=== PATIENT | female | born 1935 | race Caucasian/White ===

== ENCOUNTER 2016-06-17 21:39 | Emergency (ER) | payer BC ==
[~2016-06-17] VITALS: Ht 149.9 cm; Wt 68.0 kg
[~2016-06-17 21:39] MED LIST: LABE200T24 PO; LOSA50TA6 PO; LSX20 PO
[2016-06-17 21:41] VITALS: Ht 149.9 cm; Wt 68.0 kg
[2016-06-17] MEDS ORDERED: LSX20 PO (22:36)
[2016-06-17] MEDS ORDERED: LABE1TAB28 PO (22:36)
[2016-06-17] MEDS ORDERED: CHOL100010 PO (22:36)
[2016-06-17] MEDS ORDERED: KRIL1000 PO (22:36)
[2016-06-17] MEDS ORDERED: MULTTAB PO (22:36)
[2016-06-17] MEDS ORDERED: NAPR1TAB9 PO (22:36)
[2016-06-17] MEDS ORDERED: CZR50 PO (22:36)
--- NOTE | 2016-06-17 22:53 | DIAGNOSTIC IMAGING REPORT ---
RIGHT WRIST MIN 3 VIEWS ROUTINE CLINICAL HISTORY: Right wrist injury with deformity. COMPARISON: None FINDINGS: There is a comminuted, displaced distal right radial fracture which is impacted. Intra-articular extension is noted. No significant angulation is present. There is also a mildly displaced fracture of the base of the ulnar styloid. Severe arthritis of the right first carpometacarpal joint is noted. Scaphoid appears intact. Associated soft tissue swelling is present. IMPRESSION: 1. Acute comminuted, displaced and impacted distal right radial fracture with intra-articular extension. No significant angulation. 2. Minimally displaced fracture of the base of the ulnar styloid. Electronically signed by: Lane Butts M.D. 06/17/2016 10:52 PM Dictated Date/Time: 06/17/2016 10:50 PM
--- NOTE | 2016-06-17 22:56 | EMERGENCY ROOM VISIT NOTE ---
ED Visit Note First contact with patient: 22:06 I have personally seen and evaluated the patient with the physician teacher assistant. I agree with the diagnostic/management decisions and have personally been involved in these decisions and agree with the diagnosis.
[2016-06-17 23:21] VITALS: BP 207/99; PULSE 99; TEMP 36.5; O2SAT 95
--- NOTE | 2016-06-17 23:25 | EMERGENCY ROOM VISIT NOTE ---
History First contact with patient: 22:06 Chief Complaint: WRIST PAIN Stated Complaint: RT WRIST INJURY History of Present Illness The patient is a 80 year old female who presents to the Emergency Room with complaints of a right wrist injury after falling in her bathtub/shower tonight. The patient denies any other injury except for her right wrist. She rates her discomfort a 6 out of 10. The patient is [id number]. Review of Systems 10 system review was performed and was negative except for pertinent positives and negatives as indicated in history of present illness Past Medical/Surgical History Medical Problems: (1) Hemorrhoids Nos (2) Hyperhidrosis (3) Hyperlipidemia Nec/Nos (4) Hypertension (5) Osteoporosis Nos (6) Spinal Stenosis, Lumbar Reg, W/Out Neurogenic Claudication Surgical Problems: (1) History of cataract surgery Family History Unremarkable Social History Smoking Status: Never Smoker Alcohol Use: none Marital Status: Housing Status: lives with significant other Occupation Status: retired Current/Historical Medications Scheduled Cholecalciferol (Vitamin D), 1 TAB PO DAILY Furosemide (Furosemide), 20 MG PO DAILY Krill Oil (Krill Oil), 1 CAP PO DAILY Labetalol (Normodyne), 400 MG PO BID Losartan Potassium (Losartan Potassium), 50 MG PO BID Multivitamins/Minerals (Mvi With Minerals), 1 TAB PO DAILY Naproxen (Aleve), 220 MG PO DAILY Allergies Coded Allergies: Codeine (Verified Allergy, Unknown, UNKNOWN, 03/15/15) Penicillins (Verified Allergy, Unknown, itchy hives, 03/15/15) Sulfa Drugs (Verified Allergy, Unknown, night sweats, 03/15/15) Diazepam (Verified Adverse Reaction, Unknown, slept mostly 2 days, ) Physical Exam Vital Signs Date Time Temp Pulse Resp B/P Pulse Ox O2 Delivery O2 Flow Rate FiO2 06/17/16 23:21 36.5 99 18 207/99 95 06/17/16 21:41 36.5 63 18 165/81 95 Room Air Physical Exam CONSTITUTIONAL: Healthy and well nourished. Alert and oriented X 3 with positive affect. Patient does not appear in any significant distress. HEENT: Normocephalic, atraumatic. Pupils equal, round and reactive. NECK: Full active range of motion without discomfort. RESPIRATORY: Clear to auscultation bilaterally with no wheezing, crackles, rhonchi or stridor. CARDIOVASCULAR: Regular rate and rhythm with no murmurs, rubs or gallops. MUSCULOSKELETAL: Examination shows edema and ecchymosis about the right wrist. No open wounds noted. The patient is tender over the distal radius and ulna. No tenderness to palpation through the metacarpals or phalanges. No tenderness to palpation of the forearm or elbow. Capillary refill is less than 2 seconds. INTEGUMENTARY: No rash or other significant dermatologic conditions noted. NEUROLOGIC: Right hand and fingers are sensory intact. Medical Decision & Procedures ER Provider Diagnostic Interpretation: My interpretation of right wrist x-ray shows an impacted, comminuted and intra- articular fracture of the distal radius. The patient also has an ulnar styloid fracture. There is no significant angulation, and radiocarpal alignment is obtained. Radiologist report is as follows: RIGHT WRIST MIN 3 VIEWS ROUTINE CLINICAL HISTORY: Right wrist injury with deformity. COMPARISON: None FINDINGS: There is a comminuted, displaced distal right radial fracture which is impacted. Intra-articular extension is noted. No significant angulation is present. There is also a mildly displaced fracture of the base of the ulnar styloid. Severe arthritis of the right first carpometacarpal joint is noted. Scaphoid appears intact. Associated soft tissue swelling is present. IMPRESSION: 1. Acute comminuted, displaced and impacted distal right radial fracture with intra-articular extension. No significant angulation. 2. Minimally displaced fracture of the base of the ulnar styloid. ED Course Patient history and physical exam were performed. Nurse's notes were reviewed. The patient refused any analgesics while in the emergency department. X-rays of the right wrist confirms a distal radius and ulnar styloid fracture. The patient maintains recent alignment. An Ortho-Glass volar splint was applied. Neurovascular check after splint placement was normal. The family was instructed to follow-up with [facility] for further reevaluation and management. Ice and elevation for swelling. Ibuprofen and Tylenol in alternating fashion as needed for additional pain relief. The daughter reports that the patient does not tolerate opioids or non-opioid analgesics well. The patient refused any analgesics prior to discharge, and rated her discomfort a 3 out of 10. The patient was also seen and examined by Dr. Eckert, ED attending physician, who agrees with workup and plan of care. At the time of discharge, it was also noted that the patient's blood pressure was elevated. The patient has a history of hypertension. She reports that she also has white coat syndrome. The patient was encouraged to keep a blood pressure journal twice daily over the next several days, and follow up with her PCP for blood pressure rechecks. Impression Primary Impression: Fracture of right distal radius Additional Impressions: Fracture of right ulnar styloid Hypertension Departure Information Dispostion Home / Self-Care Forms HOME CARE DOCUMENTATION FORM, IMPORTANT VISIT INFORMATION Patient Instructions My [facility] Additional Instructions Ice and elevate arm for swelling and pain. Ibuprofen 600 mg and/or Tylenol 1000 mg every 8 hours. You may also alternate these medications for more effective pain relief: Ibuprofen --4 HRS--> Tylenol --4 HRS--> ibuprofen --4 HRS--> Tylenol .... Ibuprofen 600 mg and Tylenol 1000 mg every 6 hrs for pain. Keep splint dry. Follow-up with [facility] for further evaluation and treatment - call tomorrow morning for appointment. Your blood pressure was also elevated in the emergency department. Follow-up with your family doctor for further recheck. Suggest keeping a blood pressure journal twice daily for review by your family doctor. Problem Qualifiers Primary Impression: Fracture of right distal radius Encounter type: initial encounter Fracture type: closed Fracture morphology : other fracture Qualified Codes: S52.591A - Other fractures of lower end of right radius, initial encounter for closed fracture Additional Impressions: Fracture of right ulnar styloid Encounter type: initial encounter Fracture type: closed Fracture alignment : nondisplaced Qualified Codes: S52.614A - Nondisplaced fracture of right ulna styloid process, initial encounter for closed fracture
== END 2016-06-17 23:21 | disposition home or self-care (01) ==
LOC: C.EDB 21:40 → C.EDC 23:21
DX: S52.591A Other fractures of lower end of right radius, initial encounter for closed fracture (principal); S52.614A Nondisplaced fracture of right ulna styloid process, initial encounter for closed fracture; I10 Essential (primary) hypertension; W18.2XXA Fall in (into) shower or empty bathtub, initial encounter; E78.5 Hyperlipidemia, unspecified; M81.0 Age-related osteoporosis without current pathological fracture

== ENCOUNTER → 2016-09-15 | Outpatient (CLI) | payer BC ==
[~2016-09-15] MED LIST changes: +CHOL100010 PO; +CZR50 PO; +KRIL1000 PO; +LABE1TAB28 PO; -LABE200T24 PO; -LOSA50TA6 PO; +MULTTAB PO; +NAPR1TAB9 PO
[2016-09-15 14:13] LABS: ESTIMATED AVERAGE GLUCOSE 108 mg/dl; HA1C FLAG Normal (Normal)
[2016-09-15 14:22] LABS: BLOOD UREA NITROGEN 29 mg/dl (7-18); BUN/CREATININE RATIO 20.7 (10-20); CALCIUM 10.2 mg/dl (8.5-10.1); CARBON DIOXIDE 24 mmol/L (21-32); CHLORIDE 111 mmol/L (98-107); CHOLESTEROL 167 mg/dl (0-200); GLUCOSE 100 mg/dl (70-99); POTASSIUM 4.3 mmol/L (3.5-5.1); SODIUM 143 mmol/L (136-145); TRIGLYCERIDES 68 mg/dl (0-150); VERY LOW DENSITY LIPOPROT CALC 14 mg/dl
[2016-09-15 14:29] LABS: CHOLESTEROL/HDL RATIO 3.3; HDL CHOLESTEROL 50 mg/dl
== END ==
LOC: C.LABSPEC 12:28
PROVIDERS: ATTEND Internal Medicine
DX: E78.5 Hyperlipidemia, unspecified (principal); I10 Essential (primary) hypertension; R73.9 Hyperglycemia, unspecified

== ENCOUNTER → 2016-11-17 | Outpatient (CLI) | payer BC | END | disposition home or self-care (01) | LOC: C.MAMM 09:56 | PROVIDERS: ATTEND Internal Medicine | DX: M81.0 Age-related osteoporosis without current pathological fracture (principal); M85.859 Other specified disorders of bone density and structure, unspecified thigh; Z87.828 Personal history of other (healed) physical injury and trauma; Z12.31 Encounter for screening mammogram for malignant neoplasm of breast ==

== ENCOUNTER → 2016-11-17 | Outpatient (CLI) | payer BC ==
--- NOTE | 2016-11-17 13:09 | MAMMOGRAPHY REPORT ---
BILATERAL DIGITAL SCREENING MAMMOGRAM WITH CAD: 11/17/2016 CLINICAL HISTORY: Routine screening. Patient has no complaints. TECHNIQUE: Bilateral CC and MLO views were obtained. Current study was also evaluated with a Compute r Aided Detection (CAD) system. COMPARISON: Comparison is made to exams dated: 11/15/2015 mammogram, 11/12/2014 mammogram, 11/10/2013 m ammogram, 11/09/2012 mammogram, 11/09/2011 mammogram, and 11/04/2010 mammogram - [facility] enter. BREAST COMPOSITION: The tissue of both breasts is almost entirely fatty. FINDINGS: There are stable benign rim calcifications in the left breast. Mild vascular calcification bilaterally. No suspicious mass, architectural distortion or cluster of suspicious microcalcificati ons is seen. IMPRESSION: ACR BI-RADS CATEGORY 1: NEGATIVE There is no mammographic evidence of malignancy. A 1 year screening mammogram is recommended. The pa tient will receive written notification of the results. Approximately 10% of breast cancers are not detected with mammography. A negative mammographic report should not delay biopsy if a clinically suggestive mass is present. Fern Farley M.D. ay/:11/17/2016 12:06:33 Varnish Melter: Sarah RAMSEY(R)(Patience)(BD), [facility] letter sent: Normal 1/2 BI-RADS Code: ACR BI-RADS Category 1: Negative
== END | disposition home or self-care (01) ==
LOC: C.MAMM 09:53
PROVIDERS: ATTEND Internal Medicine
DX: Z12.31 Encounter for screening mammogram for malignant neoplasm of breast (principal)

== ENCOUNTER → 2017-03-16 | Outpatient (CLI) | payer BC ==
[2017-03-16 13:53] LABS: ESTIMATED AVERAGE GLUCOSE 108 mg/dl; HA1C FLAG Normal (Normal)
[2017-03-16 13:58] LABS: BLOOD UREA NITROGEN 28 mg/dl (7-18); BUN/CREATININE RATIO 21.5 (10-20); CARBON DIOXIDE 25 mmol/L (21-32); CHLORIDE 108 mmol/L (98-107); CHOLESTEROL 181 mg/dl (0-200); GLUCOSE 95 mg/dl (70-99); POTASSIUM 4.3 mmol/L (3.5-5.1); SODIUM 141 mmol/L (136-145)
[2017-03-16 14:01] LABS: CHOLESTEROL/HDL RATIO 3.4; HDL CHOLESTEROL 53 mg/dl; TRIGLYCERIDES 82 mg/dl (0-150); VERY LOW DENSITY LIPOPROT CALC 16 mg/dl
== END | disposition home or self-care (01) ==
LOC: C.LABSPEC 12:05
PROVIDERS: ATTEND Internal Medicine
DX: R73.9 Hyperglycemia, unspecified (principal); I10 Essential (primary) hypertension; E78.5 Hyperlipidemia, unspecified

== ENCOUNTER → 2017-05-27 | Outpatient (CLI) | payer BC | END | disposition home or self-care (01) | LOC: C.LAB 14:04 | PROVIDERS: ATTEND Orthopaedic Surgery Sports Medicine | DX: S52.591A Other fractures of lower end of right radius, initial encounter for closed fracture (principal); X58.XXXA Exposure to other specified factors, initial encounter ==

== ENCOUNTER 2017-08-08 13:50 | Emergency (ER) | payer BC ==
[~2017-08-08] VITALS: Ht 149.9 cm; Wt 62.0 kg
[2017-08-08 13:57] VITALS: TEMP 36.7; Ht 149.9 cm; Wt 62.0 kg
--- NOTE | 2017-08-08 14:18 | EMERGENCY ROOM VISIT NOTE ---
History Report prepared by Nathalia: Rosie Aguero Under the Supervision of: Dr. Tanner Loza M.D. First contact with patient: 14:05 Chief Complaint: LEG PAIN,LEG INJURY Stated Complaint: REDNESS,SWELLING,PAIN LEFT LEG History of Present Illness The patient is a 81 year old female who presents to the Emergency Room with complaints of persistent left knee pain that started 1 week ago. The patient rates her pain a 5/10 in severity. The patient is scheduled to have meniscus repair on Wednesday with Dr. Sanches. She states she had a MRI 2 weeks ago because she had worsened pain in her left knee. The patient denies any recent injuries. Last week, she was walking to the bathroom and felt something in her knee "slip". She notes the pain in her left knee radiates down to her left foot when she puts pressure on it. The patient reports she went to see the PA in Dr. Sanches' office 3 days ago. They did not do any imagining on her knee. The patient states she is normally able to walk fairly easily but recently she has been unable to put pressure on it or walk. She notes the pain is not there when she is sitting or laying down. The patient used to use a knee brace but she notes it hurts to put the bandage on. The patient denies any fever, chills, cough, congestion, or diarrhea. Source of History: patient Onset: 1 week ago Position: knee (left) Symptom Intensity: 5/10 Timing: other (persistent) Associated Symptoms: No fevers, No chills, No cough, No diarrhea Note: Denies congestion. Review of Systems See HPI for pertinent positives and negatives. A total of ten systems were reviewed and were otherwise negative. Past Medical & Surgical Medical Problems: (1) Hemorrhoids Nos (2) Hyperhidrosis (3) Hyperlipidemia Nec/Nos (4) Hypertension (5) Osteoporosis Nos (6) Spinal Stenosis, Lumbar Reg, W/Out Neurogenic Claudication Surgical Problems: (1) History of cataract surgery Family History FH: diabetes mellitus FH: gallbladder disease FHx: heart disease FHx: hypertension Social History Smoking Status: Never Smoker Alcohol Use: none Marital Status: Housing Status: lives with significant other Occupation Status: retired Current/Historical Medications Scheduled Cholecalciferol (Vitamin D), 1 TAB PO DAILY Furosemide (Furosemide), 20 MG PO DAILY Krill Oil (Krill Oil), 1 CAP PO DAILY Labetalol (Normodyne), 400 MG PO BID Losartan Potassium (Losartan Potassium), 50 MG PO DAILY Losartan Potassium (Cozaar), 25 MG PO HS Allergies Coded Allergies: Codeine (Verified Allergy, Unknown, UNKNOWN, 08/08/17) Penicillins (Verified Allergy, Unknown, itchy hives, 08/08/17) Sulfa Drugs (Verified Allergy, Unknown, night sweats, 08/08/17) Diazepam (Verified Adverse Reaction, Unknown, slept mostly 2 days, 08/08/17 ) Physical Exam Vital Signs Date Time Temp Pulse Resp B/P (MAP) Pulse Ox O2 Delivery O2 Flow Rate FiO2 08/08/17 17:33 63 18 95 08/08/17 16:06 61 18 82 96 Room Air 08/08/17 13:57 36.7 67 18 201/87 97 Room Air Physical Exam GENERAL: Awake, alert, well-appearing, in no distress HENT: Normocephalic, atraumatic. Oropharynx unremarkable. EYES: Normal conjunctiva. Sclera non-icteric. NECK: Supple. No nuchal rigidity. FROM. No JVD. RESPIRATORY: Clear to auscultation. CARDIAC: Regular rate, normal rhythm. Extremities warm and well perfused. Pulses equal. ABDOMEN: Soft, non-distended. No tenderness to palpation. No rebound or guarding. No masses. RECTAL: Deferred. MUSCULOSKELETAL: Chest examination reveals no tenderness. The back is symmetrical on inspection without obvious abnormality. There is no CVA tenderness to palpation. No joint edema. LOWER EXTREMITIES: Mild swelling to left leg distal to knee, nontender, mild pain with range of motion. Distal PMS intact. NEURO: Normal sensorium. No sensory or motor deficits noted. SKIN: No rash or jaundice noted. Medical Decision & Procedures ER Provider Diagnostic Interpretation: Radiology results as stated below per my review and radiologist interpretation: L VENOUS DOPP LOWER EXT UNILAT CLINICAL HISTORY: pain swelling pain. Edema. TECHNIQUE: Venous Doppler COMPARISON STUDY: None FINDINGS: Normal study IMPRESSION: Normal venous Doppler left leg The above report was generated using voice recognition software. It may contain grammatical, syntax or spelling errors. Electronically signed by: Jc Rao M.D. 08/08/2017 3:21 PM Dictated Date/Time: 08/08/2017 3:21 PM ED Course 1405: The patient was evaluated in room B9. A complete history and physical exam was performed. 1725: I reevaluated the patient. Discussed results and discharge instructions: She verbalized understanding and agreement. The patient is ready for discharge. Medical Decision I reviewed the patient's past medical history, medications, and the nursing notes as described above. The patient's presentation and history were concerning for meniscal injury, fracture, dislocation, DVT, cellulitis, lymphedema. The patient is an 81-year-old woman with a past medical history of recent left knee injury meniscal injury on MRI scheduled surgery Wednesday per hpi. The patient and her daughter at the bedside state they are concerned for a blood clot given that she has been more immobile since her injury. On arrival, the patient is well-appearing in no acute distress. On exam, the patient has mild swelling to the left knee extending distally to the lower leg. Distal PMS intact. Duplex of the left lower extremity negative for DVT. Given the patient 's recent meniscal injury swelling is most likely related to dispersion of her edema, particularly given that the patient reports she has not been elevating her leg when sedentary. Patient was counseled on rice therapy is given Nima bandages to use going forward. Findings and plan for follow-up reviewed with patient. Patient agreeable and d/c'd per discharge instructions. Medication Reconcilliation Current Medication List: was personally reviewed by me Blood Pressure Screening Patient's blood pressure: Elevated blood pressure Blood pressure disposition: Elevated BP felt to be situational Impression Primary Impression: Knee pain Additional Impression: Leg swelling Scribe Attestation The scribe's documentation has been prepared under my direction and personally reviewed by me in its entirety. I confirm that the note above accurately reflects all work, treatment, procedures, and medical decision making performed by me. Departure Information Dispostion Home / Self-Care Referrals Easton Brady M.D. (PCP) Patient Instructions ED Meniscal Injury Knee Poss, ED ALAN, [facility] Additional Instructions Please follow up with your surgeon as scheduled this week for re-evaluation. Your symptoms are likely due to your meniscus injury. Otherwise, your exam and ultrasound did not show signs of an emergent condition at this time. Acetaminophen for pain and fevers as needed. Nima bandage for compression to minimize swelling. Elevate leg when possible. RICE therapy. Return to the emergency department for worsening symptoms as described in the accompanying instructions. Problem Qualifiers
[2017-08-08] MEDS ORDERED: LOSA50TA6 PO (14:56)
--- NOTE | 2017-08-08 15:22 | DIAGNOSTIC IMAGING REPORT ---
L VENOUS DOPP LOWER EXT UNILAT CLINICAL HISTORY: pain swelling pain. Edema. TECHNIQUE: Venous Doppler COMPARISON STUDY: None FINDINGS: Normal study IMPRESSION: Normal venous Doppler left leg The above report was generated using voice recognition software. It may contain grammatical, syntax or spelling errors. Electronically signed by: Jc Rao M.D. 08/08/2017 3:21 PM Dictated Date/Time: 08/08/2017 3:21 PM
[2017-08-08 17:33] VITALS: BP 208/87; PULSE 63; O2SAT 95
== END 2017-08-08 17:34 | disposition home or self-care (01) ==
LOC: C.EDB 13:51
DX: M25.562 Pain in left knee (principal); M79.89 Other specified soft tissue disorders; E78.5 Hyperlipidemia, unspecified; I10 Essential (primary) hypertension; M81.0 Age-related osteoporosis without current pathological fracture

== ENCOUNTER → 2017-08-23 | Outpatient (CLI) | payer BC ==
[~2017-08-23] MED LIST changes: +LOSA50TA6 PO; -MULTTAB PO; -NAPR1TAB9 PO
--- NOTE | 2017-08-23 14:02 | DIAGNOSTIC IMAGING REPORT ---
ULTRASOUND VENOUS DOPP LEFT LOWER EXT UNILAT CLINICAL HISTORY: Left lower extremity pain and swelling COMPARISON STUDY: No previous studies for comparison. FINDINGS: Real-time and color flow Doppler imaging were performed. Flow was seen within the femoral, popliteal and calf veins with no intraluminal thrombus demonstrated. The saphenous vein is patent. There is small popliteal fossa cyst/effusion. IMPRESSION: No evidence of left lower extremity DVT. Electronically signed by: Poli Otero M.D. 08/23/2017 2:00 PM Dictated Date/Time: 08/23/2017 1:59 PM
== END | disposition home or self-care (01) ==
LOC: C.ULTRBC 13:09
PROVIDERS: ATTEND Physician Assistant
DX: M79.662 Pain in left lower leg (principal)

== ENCOUNTER → 2017-11-18 | Outpatient (CLI) | payer BC ==
--- NOTE | 2017-11-18 14:55 | MAMMOGRAPHY REPORT ---
BILATERAL DIGITAL SCREENING MAMMOGRAM TOMOSYNTHESIS WITH CAD: 11/18/2017 CLINICAL HISTORY: Routine screening. Patient has no complaints. TECHNIQUE: The study was acquired using full field digital technology and interpreted from soft copy. Breast tomosynthesis in addition to standard 2D mammography was performed. Current study was also ev aluated with a Computer Aided Detection (CAD) system. COMPARISON: Comparison is made to exams dated: 11/17/2016 mammogram, 11/15/2015 mammogram, 11/12/2014 ma mmogram, 11/09/2012 mammogram, 11/09/2011 mammogram, and 10/29/2009 mammogram - [facility]ter. BREAST COMPOSITION: The tissue of both breasts is almost entirely fatty. FINDINGS: No suspicious masses, calcifications, or areas of architectural distortion are noted in either breast . There has been no significant interval change compared to prior exams. Scattered bilateral benign-a ppearing calcifications are not significantly changed. IMPRESSION: ACR BI-RADS CATEGORY 2: BENIGN There is no mammographic evidence of malignancy. A 1 year screening mammogram is recommended.( 019) The patient will receive written notification of the results. Some breast cancers are not detected with mammography. A negative mammographic report should not vivian y biopsy if a clinically suggestive mass is present. Dorinda Singletary M.D. /:11/18/2017 14:37:00 [employer] Swimming Pool Installer: Karol Mackenzei, [facility] letter sent: Normal 1/2 BI-RADS Code: ACR BI-RADS Category 2: Benign
== END | disposition home or self-care (01) ==
LOC: C.MAMM 11:06
PROVIDERS: ATTEND Internal Medicine
DX: Z12.31 Encounter for screening mammogram for malignant neoplasm of breast (principal)

== ENCOUNTER 2018-08-23 04:56 | Inpatient (IN) ==
--- NOTE | 2018-07-25 12:43 | Anesthesiology Consultation ---
Date of Service July 25, 2018 Assessment & Plan (1) Encounter for pre-operative examination: PCP: 08/04/18: "As far as from a ECG standpoint she is completely asymptomatic from a cardiac standpoint." no changes compared to prior ECGs. "She does have CKD. She does have chronic anemia. But her numbers are in a good range at this time and I see no contraindication for her anticipated procedure." Chart Review Chart Review: Acceptable Risk for Surgery and Patient seen in Pre Admission Testing Teaching & Discussion Pre-Anesthesia Teaching/Discussion Notes: Instructed NPO after midnight before surgery,except medications with 15 cc of water. Medication instructions provided according to the PAT guidelines. History Surgery Operation Date: 08/23/18 10:40 Proposed Procedures p Left Total Knee Replacement versus Unilateral Knee - Blaine Hammond MD Height/Weight Height: 4 ft 11 in Weight: 59.4 kg Allergies Allergy/AdvReac Type Severity Reaction Status Date / Time codeine Allergy Unknown PT NOT SURE Verified 07/20/18 13:26 diazepam Allergy Unknown PT NOT SURE Verified 07/20/18 13:27 Penicillins Allergy Unknown itchy, Verified 07/20/18 13:26 hives Sulfa (Sulfonamide Allergy Unknown PT DOES Verified 07/20/18 13:26 Antibiotics) NOT REMEMBER Medications Home Medications Medication Instructions Recorded Confirmed Last Taken acetaminophen [Tylenol Extra 1,000 mg PO Q6H PRN 06/17/18 07/20/18 06/16/18 21:00 Strength] calcium carbonate-vitamin D3 1 tab PO QAM 06/17/18 07/20/18 06/16/18 [Caltrate 600 + D] cholecalciferol (vitamin D3) 1,000 unit PO QAM 06/17/18 07/20/18 06/17/18 [Vitamin D3] furosemide 20 mg PO QAM 06/17/18 07/20/18 07/20/18 labetalol 200 mg PO BID 06/17/18 07/20/18 07/20/18 losartan 25 mg PO BID 06/17/18 07/20/18 07/20/18 Turney Red 1 tab PO QAM 07/20/18 07/20/18 Unknown Prevagen 1 dose PO DAILY 07/20/18 07/20/18 Unknown glucosamine-chondroitin [Osteo 1 tab PO BID 07/20/18 07/20/18 Unknown Bi-Flex] ranitidine HCl 150 mg PO UD PRN 07/20/18 07/20/18 Unknown Past Medical History Medical History Anemia CHRONIC; BASELINE HGB 10'S PER CHART REVIEW Arthritis CKD (chronic kidney disease) Emphysema lung EMPHYSEMATOUS CHANGE PER CXR Hypertension Past Family History Family History Uncle Family history of cancer Aunt Family history of cancer Past Surgical History Surgical History History of arthroscopy of left knee History of cataract surgery History of colonoscopy History of hysterectomy History of lumbar fusion History of urologic surgery BLADDER TAC Past Anesthesia History No Family Hx of Anesthesia Complications and Other [place] out of it for 2-3 days s/p back surgery. No similar issues with subsequent surgery. History of PONV No Motion Sickness Screening History of Motion Sickness: No Social History Smoking Status: Former smoker Do You Dip or Chew Tobacco: No Smoking End Date: SOCIAL USE IN TEENAGE YEARS Hx Alcohol Use: No Hx Substance Use: No substance use type: does not use Exercise / Class Metabolic Activity III < 4 Walking/Shop/Light housework (USES CANE/WALKER PRN) Review of Systems Patient denies chest pain, shortness of breath, reflux, cough, wheezing, palpitations. Physical Exam Vital Signs VITALS BP 146/77 P 64 TEMP 97.6 SP02 96%RA RESP 16 PHYSICAL Full neck and c-spine range of motion. Full TMJ range of motion. TMD 3 finger breaths Mallampati Score 3 Dentition: lower/upper partial Lungs: clear throughout to auscultation Cardiac: regular rate and rhythm, no murmurs noted Spine: normal Carotid arteries: negative bruit Extremities: no edema Testing Electrocardiogram Date: 07/25/18 SR with first degree AVB at 61bpm. Septal infarct (Septal infarct cited/on before 07/03/14 per cardio) Chest X-Ray Date: 07/25/18 Findings: + NAD Mild stable emphysematous change. Mild stable cardiomegaly. Chronic interstitial change at both lung bases. Chronic scarring right infrahilar region. Stress Test Date: 03/17/11 Type: exercise Normal stress ECHO at 5.7 METS. 90% MPHR. No chest pain. No EKG changes. Baseline ECHO EF 60%. Mild LVH. Mild MR. Laboratory Results 07/25/18 12:55 07/25/18 12:55 Blood Type A Positive 07/25/18 12:55 Antibody Screen NEGATIVE 07/25/18 12:55 PT 10.3 Seconds (9.0-12.0) 07/25/18 12:55 INR 1.0 (0.9-1.1) 07/25/18 12:55 APTT 23.4 Seconds (21.0-31.0) 07/25/18 12:55 08/02/18 WBC 5.35 H/H 10.0/30.4 PLATELETS 240 SODIUM 139 POTASSIUM 4.4 CHLORIDE 109 CO2 26 BUN 28 CREATININE 1.13 GLUCOSE 103
--- NOTE | 2018-07-25 12:50 | PAT Medication Instructions ---
Medication Instructions Date of Service July 25, 2018 Home Medications acetaminophen [Tylenol Extra 1,000 mg PO Q6H PRN calcium carbonate-vitamin D3 1 tab PO QAM cholecalciferol (vitamin D3) 1,000 unit PO QAM furosemide 20 mg PO QAM labetalol 200 mg PO BID losartan 25 mg PO BID [place] Red 1 tab PO QAM Prevagen 1 dose PO DAILY glucosamine-chondroitin [Osteo 1 tab PO BID ranitidine HCl 150 mg PO UD PRN STOP taking 2 weeks before surgery (or as soon as possible if surgery is within 2 weeks) [place] Red 1 tab PO QAM Prevagen 1 dose PO DAILY glucosamine-chondroitin [Osteo 1 tab PO BID DO NOT take the morning of surgery calcium carbonate-vitamin D3 1 tab PO QAM cholecalciferol (vitamin D3) 1,000 unit PO QAM furosemide 20 mg PO QAM losartan 25 mg PO BID ranitidine HCl 150 mg PO UD PRN Take morning of surgery With a small sip of water, OTHERWISE NOTHING TO EAT OR DRINK AFTER MIDNIGHT: acetaminophen [Tylenol Extra 1,000 mg PO Q6H PRN (okay to take up to 4 hours prior to surgery if needed) labetalol 200 mg PO BID Other Notes If you have any questions please call us at [phone] or [phone] or [phone] or [phone]
[2018-07-25 13:13] LABS: Basophils # (auto) 0.01 K/uL (0-0.2); Basophils % (auto) 0.2 %; Eosinophils # (auto) 0.13 K/uL (0-0.5); Hematocrit (blood only) 29.5 % (37-47); Hemoglobin 9.7 g/dL (12.0-16.0); Immature Granulocytes # (auto) 0.01 K/uL (0.00-0.02); Immature Granulocytes % (auto) 0.2 %; Lymphocytes # (auto) 1.07 K/uL (1.2-3.4); Lymphocytes % (auto) 24.4 %; Mean Corpuscular Hgb Conc 32.9 g/dL (32-36); Mean Corpuscular Volume 96.4 fL (80-100); Mean Platelet Volume 9.2 fL (7.4-10.4); Monocytes # (auto) 0.49 K/uL (0.11-0.59); Monocytes % (auto) 11.2 %; Neutrophils # (auto) 2.68 K/uL (1.4-6.5); Platelet Count 203 K/uL (130-400); RDW Coefficient of Variation 13.4 % (11.5-14.5); RDW Standard Deviation 46.6 fL (36.4-46.3); Red Blood Count 3.06 M/uL (4.2-5.4); White Blood Count 4.39 K/uL (4.8-10.8)
--- NOTE | 2018-07-25 13:15 | XRay Report ---
XR chest Pre-admission PA/Lat CLINICAL HISTORY: pat preoperative COMPARISON STUDY: 03/15/2015 FINDINGS: Mild stable emphysematous change. Mild stable cardiomegaly. Chronic interstitial change at both lung bases. Chronic scarring right infrahilar region. IMPRESSION: Chronic change. No acute process. The above report was generated using voice recognition software. It may contain grammatical, syntax or spelling errors. Electronically signed by: Jc Rao M.D. 07/25/2018 1:13 PM
[2018-07-25 13:31] LABS: Partial Thromboplastin Ratio 0.9; Partial Thromboplastin Time 23.4 Seconds (21.0-31.0); Prothrombin Time 10.3 Seconds (9.0-12.0)
[2018-07-25 15:47] LABS: BUN Creatinine Ratio 27.2 (10-20); Calcium 10.6 mg/dl (8.5-10.1); Creatinine Clr Calc Pharmacy 23.3 ml/min; Est GFR (African American) 39.5; Est GFR (Non-African American) 34.1; Potassium 4.4 mmol/L (3.5-5.1)
--- NOTE | 2018-08-17 13:30 | History and Physical Report ---
DATE OF ADMISSION: 08/23/2018 CHIEF COMPLAINT: Persistent left knee pain and discomfort. HISTORY OF PRESENT ILLNESS: The patient is an 82-year-old female who presents for surgical treatment of her left knee. She has about a year and a half history of increasing left medial-sided knee pain and discomfort. She was initially treated by Dr. Sanches at [facility] who sc[place] her knee. Never got any better after that. She has had several injections of steroids and viscosupplementation without any relief at all. Pain is mostly medial. It is increased with weightbearing. The more she walks, the more it hurts. She is having difficulty maintaining any degree of lifestyle due to her limited walking tolerance. 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 She would like to have this fixed. PAST MEDICAL HISTORY: Significant for: 1. Hypertension. 2. Anxiety/depression. 3. Low back pain/sciatica. 4. Chronic anemia. 5. Mild underlying chronic kidney disease. PAST SURGICAL HISTORY: 1. Back surgery. 2. Left knee scope done in 07/[address] Sanches. ALLERGIES: PENICILLIN, CODEINE, SULFA. CURRENT MEDICINES: Include: 1. Labetalol once. 2. Furosemide. 3. Losartan. 4. Ranitidine. SOCIAL HISTORY: An 82-year-old female. Lives in [place]. Does not smoke. FAMILY HISTORY: Noncontributory. REVIEW OF HISTORY: Negative for diabetes, neurologic problem, vascular problem, bleeding disorders. No chest pain or shortness of breath. No history of DVT or PE. She does have some chronic anemia and some chronic underlying kidney disease. PHYSICAL EXAMINATION: GENERAL: Reveals a pleasant elderly female. Looks to be in pretty good health. HEENT: Benign. NECK: Supple. No lymphadenopathy. LUNGS: Clear to auscultation. HEART: Has a regular rate and rhythm. ABDOMEN: Soft, nontender, nondistended. EXTREMITIES: Grossly neurovascularly intact except as follows: Examination of the left lower extremity reveals the patient walks with a slight bit of a limp. She does use a cane to ambulate. She has got slight varus alignment to her knee. Small knee effusion. She is tender over the medial joint line. Range of motion 0-125. No instability. She is neurologically intact. X-RAYS: X-ray of the left knee from previously is reviewed. 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 Rest of the knee joint looks pretty good. ASSESSMENT: An 82-year-old female with history of knee arthroscopy in the past with subsequent avascular necrosis and medial knee pain. She has failed conservative treatment and would like to have her left knee fixed surgically. PLAN: We talked about treatment options. I do think she is a good candidate for partial knee replacement based on her disease as well as her age and underlying medical situation. After an extensive discussion, we are going to proceed with a partial knee replacement. If we get in there and it is too bad, we will do the full knee replacement. The risks and benefits of partial and full knee replacement were explained to the patient including but not limited to DVT, PE, , infection, neurological injury, vascular injury, bleeding problem, pain, limited range of motion, stiffness, failure to relieve symptoms, incomplete relief of symptoms, need for further surgery in the future, fracture, leg length inequality, nerve palsy, dislocation, need for revision surgery. The patient understands and desires to proceed. Informed consent was obtained. She is concerned about taking narcotics afterwards and we will try and use Tylenol. We are going to give limited NSAIDs due to her kidney disease. We may give her some low dose NSAIDs. We will supplement her blood with iron postop. We will likely use some tramadol for pain as well. The patient has seen her primary care doctor, Dr. Fulton, and has been cleared for surgery. Hopefully, she will be able to be discharged to home maybe with some home health depending on how she does in recovery.
[~2018-08-23 04:56] MED LIST changes: +CEFAZOLIN - ALLERGY NOTED TO ORDERED MEDICATION SCH; -CHOL100010 PO; -CZR50 PO; -KRIL1000 PO; -LABE1TAB28 PO; -LOSA50TA6 PO; -LSX20 PO
[2018-08-23] MEDS ORDERED: TRANEXAMIC ACID 1,000 MG **IV Pre-op IV SCH (06:00)
[2018-08-23] MEDS ORDERED: LR 60ML/HR IV SCH (06:00)
[2018-08-23] MEDS ORDERED: CEFAZOLIN 2000MG 2,000 MG/15 ML SYR IV SCH (06:00)
[2018-08-23] MEDS ORDERED: LR 500ML BOLUS, THEN 15ML/HR IV SCH (06:00)
[2018-08-23] MEDS ORDERED: METOCLOPRAMIDE HCL 10 MG TABLET PO SCH (06:00)
[2018-08-23] MEDS ORDERED: ACETAMINOPHEN 500 MG TAB PO SCH (06:00)
[2018-08-23] MEDS ORDERED: BUPIVACAINE LIPOSOME/PF 266 MG, BUPIVACAINE/EPINEPHRINE 50 ML, SODIUM CHLORIDE 0.9% 30 ... INFIL SCH (06:00)
[2018-08-23] MEDS ORDERED: BUPIVACAINE 0.5 % 5 MG/1 ML PF 10ML VIAL ONE (06:22)
[2018-08-23] MEDS ORDERED: ROPIVACAINE 0.5% 5 MG/ML 30 ML VIAL ONE (06:22)
[2018-08-23] MEDS ORDERED: fentaNYL citrate 100 MCG/2 ML VIAL ONE (06:27)
[2018-08-23] MEDS ORDERED: MIDAZOLAM HCL 1 MG/ML 2ML VIAL ONE (06:29)
[2018-08-23] MEDS ORDERED: TRANEXAMIC ACID 1,000 MG **IV Intra-op IV SCH (06:30)
[2018-08-23] MEDS ORDERED: BUPIVACAINE LIPOSOME 1.3% 266 MG/20 ML VIAL ONE (06:35)
[2018-08-23] MEDS ORDERED: BACITRACIN INJ 50,000 UNIT VIAL ONE (06:35)
[2018-08-23] MEDS ORDERED: SODIUM CHLORIDE 0.9% PF 50 ML VIAL ONE (06:35)
[2018-08-23] MEDS ORDERED: EPINEPHrine INJ 1 MG/ML AMP ONE (06:36)
[2018-08-23] MEDS ORDERED: BUPIVACAINE 0.25% 30 ML VIAL ONE (06:36)
[2018-08-23] MEDS ORDERED: CEFAZOLIN 2,000 MG/15 ML IV PUSH IV ONE (06:43)
--- NOTE | 2018-08-23 06:50 | History & Physical Bridge Note ---
Date of Service August 23, 2018 History & Physical Bridge Note I have examined the patient, reviewed the History & Physical and in the interval since the performance of the History & Physical I have noted the following changes of clinical significance: no changes noted
[2018-08-23] MEDS ORDERED: PHENYLEPHRINE 100MCG/ML 5ML SYR IV PRN (07:03)
[2018-08-23] MEDS ORDERED: HYDROmorphone INJ 1 MG/ML SYRINGE IV PRN (07:03)
[2018-08-23] MEDS ORDERED: ATROPINE SULFATE 0.1 MG/ML 10ML SYR IV PRN (07:03)
[2018-08-23] MEDS ORDERED: ONDANSETRON INJ 2 MG/ML 2 ML VIAL IV PRN ×2 (07:03→09:34)
[2018-08-23] MEDS ORDERED: ePHEDrine sulfate 50 MG/ML AMP IV PRN (07:03)
[2018-08-23] MEDS ORDERED: ONDANSETRON INJ 2 MG/ML 2 ML VIAL ONE (07:17)
[2018-08-23] MEDS ORDERED: LIDOCAINE HCL 2% 2 ML VIAL/AMP(20MG/ML) INFIL ONE (07:17)
[2018-08-23] MEDS ORDERED: PROPOFOL IV EMULSION 10 MG/ML 20 ML VIAL IV ONE (07:17)
--- NOTE | 2018-08-23 08:36 | Post Operative Brief Note ---
Immediate Post Op Note v1 Date of Surgery August 23, 2018 Pre & Post Diagnosis Operation Date: 08/23/18 07:00 Pre-Op Diagnosis: Left Knee Avascular Necrosis in the Medial Femoral Condyle Post-Op Diagnosis: Left Knee Avascular Necrosis in the Medial Femoral Condyle Procedure Operation Date: 08/23/18 07:00 Actual Procedures p Left Knee Unicompartmental Arthroplasty(Left) - Blaine Hammond MD Surgeon Blaine Hammond MD Public Transportation Inspector Nicholas, PAC Estimated Blood Loss 20 Findings Consistent with Post-Op Diagnosis Fluids 100 cc Specimens Left Knee Drains Roe Catheter (A 16 [place] roe catheter was inserted by JULIA Aly, without difficulty, clear yellow urine obtained, output to be monitored by Anesthesia.) Anesthesia Type Spinal MAC Complications none Disposition Accompanied Patient To Recovery: No Disposition: Recovery Room
--- NOTE | 2018-08-23 09:08 | XRay Report ---
XR knee LT 2V routine CLINICAL HISTORY: Surgical Post Op COMPARISON: 01/02/2013 DISCUSSION: There are postsurgical changes of a medial joint compartment arthroplasty. Overlying skin yobany are visualized. There is aortic the soft tissues consistent with recent surgery. IMPRESSION: Postsurgical changes of a medial joint compartment arthroplasty. Electronically signed by: Poli Otero M.D. 08/23/2018 9:06 AM
--- NOTE | 2018-08-23 09:22 | Anesthesiology Progress Note ---
Date of Service August 23, 2018 Anesthesia Post Procedure Vital Signs Vital Signs: Temp Pulse Resp BP Pulse Ox 08/23/18 09:00 36.8 C 62 18 176/77 H 97 08/23/18 08:50 62 18 174/83 H 99 08/23/18 08:41 36.6 C 63 13 154/68 H 93 08/23/18 05:43 36.5 C 73 20 206/88 H 96 Pain Intensity Left Knee: Pain Intensity: 4 Transfer of Care Handoff Completed per policy Notes Mental Status: alert / awake / arousable Patient Amnestic to Procedure: Yes Nausea / Vomiting: adequately controlled Pain: adequately controlled Airway Patency, RR, SpO2: stable & adequate BP & HR: stable & adequate Hydration State: stable & adequate Neuraxial Anesthesia: was administered and sensory block is resolving Anesthetic Complications: no major complications apparent
[2018-08-23] MEDS ORDERED: BISACODYL 10 MG SUPP PR PRN (09:34)
[2018-08-23] MEDS ORDERED: METOCLOPRAMIDE HCL INJ 5 MG/ML 2 ML VIAL IV PRN (09:34)
[2018-08-23] MEDS ORDERED: TRAMADOL HCL 50 MG TABLET PO PRN (09:34)
[2018-08-23] MEDS ORDERED: MAGNESIUM HYDROXIDE SUSP 30 ML UDC PO PRN (09:34)
[2018-08-23] MEDS ORDERED: NON-FORMULARY MEDICATION (Prevagen 1 EA) PO SCH (09:34)
[2018-08-23] MEDS ORDERED: NALOXONE HCL 0.4 MG/1 ML VIAL/CARP IV PRN (09:34)
[2018-08-23] MEDS ORDERED: OMEGA RED PO SCH (09:34)
[2018-08-23] MEDS ORDERED: HYDROmorphone INJ 0.5 MG/0.5 ML SYR IV PRN (09:34)
[2018-08-23] MEDS ORDERED: ALUMINUM/MAGNESIUM SUSP 30 ML UDC PO PRN (09:34)
[2018-08-23] MEDS: LOSARTAN POTASSIUM 25 MG TAB PO SCH ×2 (11:03→21:15)
[2018-08-23] MEDS: SODIUM CHLORIDE 0.9% 1000ML 1,000 ML IV SCH ×2 (11:03→21:23)
[2018-08-23] MEDS: FUROSEMIDE 20 MG TAB PO SCH (11:04)
[2018-08-23] MEDS: DOCUSATE SODIUM 100 MG CAP PO SCH ×2 (11:04→21:12)
[2018-08-23] MEDS: CHOLECALCIFEROL 1,000 UNITS TAB PO SCH (11:04)
[2018-08-23] MEDS: LABETALOL HCL 200 MG TAB PO SCH ×2 (11:04→21:18)
[2018-08-23] MEDS: ASPIRIN 81 MG ECTAB PO SCH ×2 (11:05→21:14)
[2018-08-23] MEDS: MULTIVITAMIN TAB PO SCH (11:05)
[2018-08-23] MEDS: CALCIUM 600MG + VIT D 400 IU TAB PO SCH (11:05)
[2018-08-23] MEDS: KETOROLAC TROMETHAMINE 15 MG/ML VIAL IV SCH ×3 (11:06→21:23)
[2018-08-23] MEDS: ACETAMINOPHEN 500 MG TAB PO SCH ×2 (14:07→21:19)
[2018-08-23] MEDS: CEFAZOLIN 1000MG 1,000 MG/7.5 ML SYR IV SCH ×2 (14:10→22:05)
--- NOTE | 2018-08-23 15:34 | Progress Note ---
DATE: 08/23/2018 SUBJECTIVE: An 82-year-old female postop from a left partial knee replacement. She is doing well. No pain. She was just having trouble staying awake. No chest pain or shortness of breath. Not feeling dizzy or lightheaded. OBJECTIVE: VITAL SIGNS: Temperature is 36.6. Vital signs stable. GENERAL: Physical examination shows a pleasant elderly female. She is sitting up at her bedside chair and looks comfortable. She is nod off and I had to wake her. She wakes up easily and is awake, alert and appropriate. LUNGS: Clear to auscultation. HEART: Has a regular rate and rhythm. ABDOMEN: Soft, nontender, nondistended. EXTREMITIES: Grossly neurovascularly intact except as follows: Examination of the left lower extremity reveals the dressing to be clean, dry and intact. Leg is well aligned. She can dorsiflex and plantarflex her foot appropriately. She is neurologically intact. X-RAYS: X-rays of the left knee from recovery room reviewed. It shows a left partial knee replacement. Components looked to be in good position. No signs of problems. This is a slightly rotated film. ASSESSMENT: An 82-year-old female postop from a left partial knee replacement done for avascular necrosis and secondary degenerative joint disease. She is doing well clinically. PLAN: 1. DVT prophylaxis including thigh-high TEDs, SCDs, and aspirin twice a day. 2. PT/OT. She will weightbear as tolerated. Left total knee protocol. 3. Pain control, doing well with current pain regimen. We are going to try and avoid narcotics and stick to Tylenol and only low dose tramadol if absolutely necessary. Unfortunately, she cannot take NSAIDs very well due to kidney issues. 4. IV antibiotics x24 hours. 5. Disposition: Plan to discharge to home likely with some home health once adequately recovered.
[2018-08-23] MEDS: FERROUS GLUCONATE 324 MG TAB PO SCH (17:34)
[2018-08-23] MEDS ORDERED: SENNA 8.6 MG TAB PO SCH (21:00)
--- NOTE | 2018-08-23 23:36 | Operative Report ---
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 PROCEDURE PERFORMED: Left Biomet Wayne mobile bearing partial knee replacement. COMPLICATIONS: None. ESTIMATED BLOOD LOSS: 20 mL. FLUID REPLACEMENT: 1000 mL crystalloid fluid replacement. TOURNIQUET TIME: 54 minutes at 300 mmHg. ANESTHESIA: Spinal with adductor canal block. DRAINS: None. SPECIMENS: Left knee sent for pathology. OPERATIVE INDICATIONS: The patient is an 82-year-old, very active, independent female who has had a 1+ year history of increasing left knee pain and discomfort. She did have a knee scope done about a year ago at another institution, which did not help her at all. Her symptoms continued to progress and x-rays showed progressive avascular necrosis of the medial femoral condyle with a large segment of collapse. The patient failed conservative treatment. She elected to proceed with surgical management. OPERATIVE FINDINGS: Operative findings revealed a large segment of avascular necrosis of the medial femoral condyle measuring about 4 x 2 cm. She had a moderate size joint effusion. The rest of the knee joint revealed very mild degenerative joint disease. OPERATIVE IMPLANTS: Operative implants consisted of: 1. Biomet Wayne size small femoral component. 2. Biomet Wayne left medial size A tibial tray. 3. A 4-mm mobile-bearing insert. OPERATIVE PROCEDURE: The patient was taken to the operating room, identified and placed on the operating table in supine position. All contact areas were appropriately padded. IV antibiotics were provided by anesthesia team. An adductor canal block and spinal anesthetic had been provided in the holding area. A Bradshaw catheter was placed in sterile fashion. The left thigh tourniquet was then placed and the left lower extremity was then prepped and draped in the usual sterile fashion. The left leg was elevated and exsanguinated with Esmarch and tourniquet was placed at 300 mmHg. An anterior approach to the left knee was then performed with a longitudinal incision beginning at the superior pole of the patella and then extending just medial to the tibial tubercle. Sharp dissection was carried through the subcutaneous tissues down to the level of the extensor mechanism. Subcutaneous tissue was mobilized circumferentially. A medial parapatellar arthrotomy incision was made. Some subperiosteal dissection was carried out medially. Great care was taken to protect the MCL ligament. The fat pad was resected. I then examined the knee. The lateral and patellofemoral compartments were well preserved. There was a large segment of avascular necrosis in the medial femoral condyle. The ACL was intact. We elected to proceed with a partial knee replacement. Some osteophytes were removed from the medial femoral condyle. The femur was sized to a size small. The small spoon was placed. This was attached to the extramedullary tibial cutting guide with a 4 G clamp. The guide was pinned in place. A proximal tibial cut was made. The tibia was sized to a size A. The distal femur was entered with the sharp drill bit. Intramedullary guide was placed. A small femoral cutting guide was then placed and attached to the intramedullary guide. The holes were drilled for the femoral component. The posterior cutting guide was placed and the posterior cut was made. The knee was flexed. The remnants of the medial meniscus were excised. I then used the 0 spigot to mill the distal femur. I then trialed the knee and the 4 feeler gauge fit appropriately in flexion and the 2 in extension. The 2 spigot was then used to mill the distal femur. We then trialed the knee again and the 4 feeler gauge fit appropriately in flexion and extension. We then went to prepare the implant surfaces. The distal femoral preparation guide was placed. The posterior osteophyte was removed. The milling device was used to create the space for the anterior aspect of the femoral component. Some cement holes were then drilled. The tibial tray was pinned in place. The 2/5 saw was used to create the keel of the tibial tray. I then irrigated the wound extensively. I then trialed the knee and the 4 insert fit appropriately in flexion and extension. We elected to place these implants. All trial implants were removed. A single batch of [place] G cement was mixed. A left medial size A tibial tray was then cemented in place followed by a small femoral component. All extraneous cement was removed. I then brought the knee out into about 30 degrees short of full extension and pressurized the cement. Once the cement had hardened, a final cement check was then performed. I trialed the knee again and the 4 insert fit appropriately. I irrigated the wound extensively. The permanent #4 insert was placed. Attention was then drawn toward closing. I did inject locally with a total of 100 mL of a combination of 20 mL of Exparel, 30 mL of normal saline, 50 mL of 0.25% Marcaine with epi. The tourniquet was then let down for a tourniquet time of 54 minutes. Hemostasis was assured with use of electrocautery. The extensor mechanism was then closed with #1 Vicryl suture in a [id number] fashion. The extensor mechanism was then checked and found to be intact. The subcutaneous tissue was then closed with 2-0 Dexon suture in a buried interrupted fashion. The skin was then closed with skin yobany. The leg was then cleaned and dried and a sterile dressing of Xeroform, 4 x 4's, sterile cast padding and Nima bandage were applied. The patient was then transferred to the recovery room in stable condition. The patient tolerated the procedure well with no complications. All needle and sponge counts were correct at the end of the operation. I attest to the content of the Intraoperative Record and any orders documented therein. Any exceptions are noted below. [place]
--- NOTE | 2018-08-23 23:45 | Hospitalist Consultation ---
Date of Consultation August 23, 2018 Assessment & Plan (1) Hypertensive urgency: 82-year-old female underwent left knee partial arthroplasty for left knee avascular necrosis on [address] Blaine Hammond (orthopedics). Medicine was consulted for a blood pressure of 210/78 overnight. On examination this evening, patient appeared very comfortable and stated that she was completely pain-free. Vitals were notable for being afebrile, heart rate of 81, respiratory 18, blood pressure 210/78, and SPO2 of 92% on room air. Her left knee is in a standard postoperative dressing. Her left foot is distally neurovascularly intact. Otherwise her examination was non-focal. Hypertension: Known history of the same. She says she is followed by Dr. Autumn Garland as an outpatient. The most recent available note is from April 2018 which mentions the patient is on losartan 25 mg twice daily (same as hospitalization), Lasix 20 mg daily (same as hospitalization), and labetalol 200 mg in the morning and 400 mg in the evening. This is different than her currently ordered labetalol 200 mg twice daily. She is presently asymptomatic, making this more hypertensive urgency and emergency. - Patient received her dose of labetalol relatively late in the evening. We will recheck her blood pressure. If it continues to be elevated with SBP > 200, will cover with single dose of hydralazine 5 mg IV. - We will check a BMP in the morning. - Otherwise we will continue to monitor her blood pressures and associated symptoms. Can consider increasing her labetalol as an inpatient. S/p left knee arthroplasty for left knee avascular necrosis on [address] Blaine Hammond, orthopedics. Pain management per orthopedics with planned control with Tylenol with goal for avoiding narcotics. Dose tramadol if absolutely necessary. Ongoing medical issues include hyperlipidemia, anxiety, chronic anemia (last Hb 10.0 in Jul 2018), chronic kidney disease (last Cr 1.13 in Jul 2018), depression, osteoporosis, peripheral neuropathy, GERD (on home ranitidine), low back pain, sciatica, and spinal stenosis. DVT prophylaxis: Per orthopedics, thigh-high teds, SCDs, and aspirin twice a day. We will continue to follow. Thank you for the opportunity to take care of this very kind lady. (2) S/P knee surgery: (3) GERD (gastroesophageal reflux disease): History of Present Illness Requesting Physician: Hypertension Attending Physician: Blaine Hammond MD History of Present Illness 82-year-old female underwent left knee partial arthroplasty for left knee avascular necrosis on [address] Blaine Hammond (orthopedics). Medicine was consulted for a blood pressure of 210/78 overnight. Spoke with patient late this evening. She states that she is presently pain- free and overall quite happy with her postsurgical process thus far. On review of systems, she says that she does feel a bit warm but otherwise has no pa rticular complaints to include any chest pain, shortness of breath, abdominal pain, leg pain, headache, or other acute concerns. --- Past medical history includes hypertension, hyperlipidemia, peripheral neuropathy, anxiety, depression, low back pain, sciatica, chronic anemia, chronic kidney disease, GERD. --- Past surgical history includes above left knee surgery, left knee arthroscopy, cataract surgery, lumbar discectomy and fusion. --- Social history includes denying tobacco use. Lives in [place]. Allergies Allergy/AdvReac Type Severity Reaction Status Date / Time codeine Allergy Unknown PT NOT SURE Verified 08/23/18 05:42 diazepam Allergy Unknown PT NOT SURE Verified 08/23/18 05:42 Penicillins Allergy Unknown itchy, Verified 08/23/18 05:42 hives Sulfa (Sulfonamide Allergy Unknown PT DOES Verified 08/23/18 05:42 Antibiotics) NOT REMEMBER Home Medications Home Medications Medication Instructions Recorded Confirmed Type Caltrate 600 + D 1 tab PO QAM 06/17/18 08/23/18 History cholecalciferol (vitamin D3) 1,000 unit PO QAM 06/17/18 08/23/18 History [Vitamin D3] furosemide 20 mg PO QAM 06/17/18 07/20/18 History labetalol 200 mg PO BID 06/17/18 07/20/18 History losartan 25 mg PO BID 06/17/18 07/20/18 History [place] Red 1 tab PO QAM 07/20/18 07/20/18 History Prevagen 1 dose PO DAILY 07/20/18 08/23/18 History glucosamine-chondroitin [Osteo 1 tab PO BID 07/20/18 07/20/18 History Bi-Flex] ranitidine HCl 150 mg PO UD PRN 07/20/18 08/23/18 History acetaminophen [Pain Reliever] 1,000 mg PO Q8 30 Days #180 tab 08/23/18 Rx aspirin [Ecotrin Low Strength] 81 mg PO BID 30 Days #60 tab 08/23/18 Rx tramadol 50 mg PO Q6H PRN 15 Days #30 tab 08/23/18 Rx Patient History Family History Uncle Family history of cancer Aunt Family history of cancer Social History Preferred Language: Croatian Communication Ability: Effective Accounting Consultant Required: No Beliefs That Will Affect Care: Voodoo Voodoo Beliefs: SPIRITISM marital status: Current Living Situation: Spouse Other Information That Helps Us Care for You: No Feels Safe at Home: Yes Smoking Status: Former smoker Do You Dip or Chew Tobacco: No Smoking End Date: SOCIAL USE IN TEENAGE YEARS Hx Alcohol Use: No Hx Substance Use: No Review of Systems Review of Systems: Constitutional: Denies fevers, chills, focal weakness Eyes: Denies any visual loss or diplopia ENT: Denies any ear/nose/throat pain or difficulty speaking or swallowing Respiratory: Denies any dyspnea, cough, hemoptysis Cardiovascular: Denies any chest pain or feeling of edema Gastrointestinal: Denies any abdominal pain, nausea/vomiting/diarrhea Musculoskeletal: Status post knee surgery. Skin: Denies any known acute rashes or lesions Neuro: Denies any headache, acute focal weakness or numbness, or difficulties with speech or swallow. Physical Exam Physical Exam: GENERAL: Awake, alert, well-appearing pleasantly conversational, in no acute distress HENT: Normocephalic, atraumatic. Oropharynx unremarkable. EYES: Normal conjunctiva. Sclera non-icteric. NECK: Inspection normal. Supple and full ROM. No nuchal rigidity. CARDIAC: +S1S2 RRR, no murmurs. RESPIRATORY: Clear to auscultation. No wheezes or rales. Normal respiratory effort. GI: +BS, soft, non-distended. No tenderness to palpation. No rebound or guarding. EXTREMITIES: No pedal edema or calf tenderness. Left knee is in the standard postoperative dressing. SCDs in place. NEURO: No gross neuro deficits. Results & Data Vital Signs (Past 12 Hours) Vital Signs Temp Pulse Pulse Resp BP Pulse Ox 08/23/18 22:21 36.9 C 81 18 210/78 H 92 08/23/18 21:20 201/74 H 08/23/18 15:26 37.3 C 84 18 100/61 98 08/23/18 15:14 36.6 C 60 16 180/77 H 92 08/23/18 12:33 36.6 C 57 L 16 201/72 H 98 Laboratory Results Laboratory Results WBC 4.39 K/uL (4.8-10.8) L 07/25/18 12:55 RBC 3.06 M/uL (4.2-5.4) L 07/25/18 12:55 Hgb 9.7 g/dL (12.0-16.0) L 07/25/18 12:55 Hct 29.5 % (37-47) L 07/25/18 12:55 MCV 96.4 fL (80-100) 07/25/18 12:55 MCH 31.7 pg (25-34) 07/25/18 12:55 MCHC 32.9 g/dL (32-36) 07/25/18 12:55 RDW Std Deviation 46.6 fL (36.4-46.3) H 07/25/18 12:55 RDW Coeff of Karuna 13.4 % (11.5-14.5) 07/25/18 12:55 Plt Count 203 K/uL (130-400) 07/25/18 12:55 MPV 9.2 fL (7.4-10.4) 07/25/18 12:55 Immature Gran % (Auto) 0.2 % 07/25/18 12:55 Neut % (Auto) 61.0 % 07/25/18 12:55 Lymph % (Auto) 24.4 % 07/25/18 12:55 [place] % (Auto) 11.2 % 07/25/18 12:55 Eos % (Auto) 3.0 % 07/25/18 12:55 Baso % (Auto) 0.2 % 07/25/18 12:55 Immature Gran # (Auto) 0.01 K/uL (0.00-0.02) 07/25/18 12:55 Neut # (Auto) 2.68 K/uL (1.4-6.5) 07/25/18 12:55 Lymph # (Auto) 1.07 K/uL (1.2-3.4) L 07/25/18 12:55 [place] # (Auto) 0.49 K/uL (0.11-0.59) 07/25/18 12:55 Eos # (Auto) 0.13 K/uL (0-0.5) 07/25/18 12:55 Baso # (Auto) 0.01 K/uL (0-0.2) 07/25/18 12:55 PT 10.3 Seconds (9.0-12.0) 07/25/18 12:55 INR 1.0 (0.9-1.1) 07/25/18 12:55 APTT 23.4 Seconds (21.0-31.0) 07/25/18 12:55 PTT Ratio 0.9 07/25/18 12:55 Sodium 141 mmol/L (136-145) 07/25/18 12:55 Potassium 4.4 mmol/L (3.5-5.1) 07/25/18 12:55 Chloride 109 mmol/L (98-107) H 07/25/18 12:55 Carbon Dioxide 28 mmol/L (21-32) 07/25/18 12:55 Anion Gap 4.0 (3-11) 07/25/18 12:55 BUN 38 mg/dl (7-18) H 07/25/18 12:55 Creatinine 1.41 mg/dl (0.6-1.2) H 07/25/18 12:55 Est Cr Clr Drug Dosing 23.3 ml/min 07/25/18 12:55 Est GFR ( Amer) 39.5 07/25/18 12:55 Est GFR (Non-Af Amer) 34.1 07/25/18 12:55 BUN/Creatinine Ratio 27.2 (10-20) H 07/25/18 12:55 Glucose 90 mg/dl (70-99) 07/25/18 12:55 Calcium 10.6 mg/dl (8.5-10.1) H 07/25/18 12:55 Blood Type A Positive 07/25/18 12:55 Antibody Screen NEGATIVE 07/25/18 12:55 Medications Administered Acetaminophen (Tylenol) 1,000 mg PO Q8 [facility] Stop: 09/22/18 13:59 Last Admin: 08/23/18 21:19 Dose: 1,000 mg Documented by: [id number] Admin: 08/23/18 14:07 Dose: 1,000 mg Documented by: [id number] Aspirin (Ecotrin Ectab) 81 mg PO BID [facility] Stop: 09/22/18 09:33 Last Admin: 08/23/18 21:14 Dose: 81 mg Documented by: [id number] Admin: 08/23/18 11:05 Dose: 81 mg Documented by: [id number] Docusate Sodium (Colace) 100 mg PO BID [facility] Stop: 09/22/18 09:33 Last Admin: 08/23/18 21:12 Dose: 100 mg Documented by: [id number] Admin: 08/23/18 11:04 Dose: 100 mg Documented by: [id number] Ferrous Gluconate (Ferrous Gluconate) 324 mg PO BIDM [facility] Stop: 09/22/18 16:59 Last Admin: 08/23/18 17:34 Dose: 324 mg Documented by: [id number] Furosemide (Lasix) 20 mg PO QAM [facility] Stop: 09/22/18 09:33 Last Admin: 08/23/18 11:04 Dose: 20 mg Documented by: [id number] Ketorolac Tromethamine (Toradol) 15 mg IV Q6H [facility] Stop: 08/25/18 04:31 Last Admin: 08/23/18 21:23 Dose: 15 mg Documented by: [id number] Admin: 08/23/18 17:34 Dose: 15 mg Documented by: [id number] Admin: 08/23/18 11:06 Dose: 15 mg Documented by: [id number] Labetalol HCl (Normodyne) 200 mg PO BID [facility] Stop: 09/22/18 09:33 Last Admin: 08/23/18 21:18 Dose: 200 mg Documented by: [id number] Admin: 08/23/18 11:04 Dose: Not Given Documented by: [id number] Losartan Potassium (Cozaar) 25 mg PO BID [facility] Stop: 09/22/18 09:33 Last Admin: 08/23/18 21:15 Dose: 25 mg Documented by: [id number] Admin: 08/23/18 11:03 Dose: 25 mg Documented by: [id number] Multivitamins (Multivitamin Tab) 1 tab PO QAM [facility] Stop: 09/22/18 09:33 Last Admin: 08/23/18 11:05 Dose: 1 tab Documented by: [id number] Multivitamins/Minerals (Caltrate Plus) 1 tab PO QAM [facility] Stop: 09/22/18 10:29 Last Admin: 08/23/18 11:05 Dose: 1 tab Documented by: [id number] Sennosides (Senokot) 17.2 mg PO HS [facility] Stop: 09/22/18 20:59 Last Admin: 08/23/18 21:14 Dose: 17.2 mg Documented by: [id number] Vitamin D (Vitamin D3) 1,000 units PO QAM [facility] Stop: 09/22/18 09:33 Last Admin: 08/23/18 11:04 Dose: 1,000 units Documented by: [id number] Discontinued Medications Acetaminophen (Tylenol) 1,000 mg PO PREOP [facility] Stop: 08/23/18 18:00 Last Admin: 08/23/18 06:08 Dose: 1,000 mg Documented by: [id number] Bacitracin (Bacitracin) Confirm Administered Dose 50,000 units .ROUTE .STK-MED [facility] Stop: 08/23/18 06:36 Last Admin: 08/23/18 07:44 Dose: 50,000 units Documented by: [id number] Bupivacaine HCl (Sensorcaine 0.25% Inj) Confirm Administered Dose 60 ml .ROUTE .STK-MED ONE Stop: 08/23/18 06:37 Last Admin: 08/23/18 07:45 Dose: 50 ml Documented by: [id number] Bupivacaine Liposome (Exparel) Confirm Administered Dose 266 mg .ROUTE .STK-MED ONE Stop: 08/23/18 06:36 Last Admin: 08/23/18 07:45 Dose: 266 mg Documented by: [id number] Cefazolin Sodium (Ancef 2000mg) Confirm Administered Dose 2,000 mg IV .STK-MED ONE Stop: 08/23/18 06:44 Last Admin: 08/23/18 07:02 Dose: 2,000 mg Documented by: [id number] Epinephrine HCl (Epinephrine) Confirm Administered Dose 1 mg .ROUTE .STK-MED ONE Stop: 08/23/18 06:37 Last Admin: 08/23/18 07:45 Dose: 0.3 mg Documented by: [id number] Lactated Ringer's (Lr) 1,000 mls @ 15 mls/hr IV .Q24H [facility] Stop: 08/23/18 18:00 Last Admin: 08/23/18 06:09 Dose: Not Given Documented by: [id number] Lactated Ringer's (Lr) 1,000 mls @ 60 mls/hr IV .[id number] [facility] Stop: 08/23/18 22:39 Last Infusion: 08/23/18 07:02 Dose: 0 mls/hr Documented by: [id number] Admin: 08/23/18 05:40 Dose: 60 mls/hr Documented by: [id number] Bupivacaine Liposome 266 mg/Bupivacaine HCl/Epinephrine Bitart 50 ml/ Sodium Chloride 30 ml/ Syringe 100 mls @ 100 mls/hr INFIL PREOP [facility] Stop: 08/23/18 18:00 Last Admin: 08/23/18 07:44 Dose: Not Given Documented by: [id number] Tranexamic Acid 1,000 mg/ (Sodium Chloride) 110 mls @ 660 mls/hr IV 0630 [facility] Stop: 08/23/18 06:39 Last Infusion: 08/23/18 08:22 Dose: 0 mls/hr Documented by: [id number] Admin: 08/23/18 08:00 Dose: 660 mls/hr Documented by: [id number] Sodium Chloride (Nss 1000ml) 1,000 mls @ 100 mls/hr IV .Q10H [facility] Stop: 08/24/18 06:00 Last Admin: 08/23/18 21:23 Dose: Not Given Documented by: [id number] Infusion: 08/23/18 21:23 Dose: 0 mls/hr Documented by: [id number] Admin: 08/23/18 11:03 Dose: 100 mls/hr Documented by: [id number] Cefazolin Sodium (Ancef 1000mg) 1,000 mg in 7.5 mls @ 2.5 mls/min IV Q8H [facility]; Protocol Stop: 08/23/18 23:02 Last Admin: 08/23/18 22:05 Dose: 2.5 mls/min Documented by: [id number] Admin: 08/23/18 14:10 Dose: 2.5 mls/min Documented by: [id number] Metoclopramide HCl (Reglan) 10 mg PO PREOP [facility] Stop: 08/23/18 18:00 Last Admin: 08/23/18 06:08 Dose: 10 mg Documented by: [id number] Sodium Chloride (Sodium Chloride 0.9% Pf) Confirm Administered Dose 50 ml .ROUTE .[facility]-MED ONE Stop: 08/23/18 06:36 Last Admin: 08/23/18 07:45 Dose: 30 ml Documented by: [id number] Resident Activity Tracking Resident Involvement: Resident Care Provided Care Provided: Adult [facility] Medicine
[2018-08-24] MEDS: KETOROLAC TROMETHAMINE 15 MG/ML VIAL IV SCH (05:12)
[2018-08-24] MEDS: ACETAMINOPHEN 500 MG TAB PO SCH ×2 (05:18→14:17)
[2018-08-24 06:43] LABS: Hematocrit (blood only) 27.8 % (37-47); Hemoglobin 9.5 g/dL (12.0-16.0); Mean Corpuscular Hgb Conc 34.2 g/dL (32-36); Mean Corpuscular Volume 93.6 fL (80-100); Mean Platelet Volume 8.8 fL (7.4-10.4); Platelet Count 169 K/uL (130-400); RDW Coefficient of Variation 13.2 % (11.5-14.5); RDW Standard Deviation 45.1 fL (36.4-46.3); Red Blood Count 2.97 M/uL (4.2-5.4); White Blood Count 5.41 K/uL (4.8-10.8)
[2018-08-24 07:20] LABS: BUN Creatinine Ratio 19.9 (10-20); Calcium 9.5 mg/dl (8.5-10.1); Est GFR (Non-African American) 31.9; Phosphorus 2.8 mg/dl (2.5-4.9); Potassium 3.6 mmol/L (3.5-5.1)
[2018-08-24] MEDS: LOSARTAN POTASSIUM 25 MG TAB PO SCH (07:27)
[2018-08-24] MEDS: FUROSEMIDE 20 MG TAB PO SCH (07:28)
[2018-08-24] MEDS: LABETALOL HCL 200 MG TAB PO SCH (07:28)
[2018-08-24] MEDS: DOCUSATE SODIUM 100 MG CAP PO SCH (08:51)
[2018-08-24] MEDS: CALCIUM 600MG + VIT D 400 IU TAB PO SCH (08:51)
[2018-08-24] MEDS: MULTIVITAMIN TAB PO SCH (08:51)
[2018-08-24] MEDS: FERROUS GLUCONATE 324 MG TAB PO SCH (08:51)
[2018-08-24] MEDS: CHOLECALCIFEROL 1,000 UNITS TAB PO SCH (08:51)
[2018-08-24] MEDS: ASPIRIN 81 MG ECTAB PO SCH (08:51)
--- NOTE | 2018-08-24 09:21 | Progress Note ---
DATE: 08/24/2018 SUBJECTIVE: An 82-year-old female postop day 1 from a left partial knee replacement. She is doing well. Really not having much pain. She is getting around pretty comfortably. No chest pain or shortness of breath. Not feeling dizzy or lightheaded. OBJECTIVE: VITAL SIGNS: Temperature 36.8. Vital signs stable. GENERAL: Physical examination shows a pleasant elderly female. She is sitting up in her bedside chair, looks pretty comfortable. EXTREMITIES: Examination of the left leg reveals the dressing to be clean, dry and intact. She can do a good straight leg raise. She can dorsiflex and plantarflex her foot appropriately. She is neurologically intact. LABORATORY DATA: Hemoglobin 9.5, hematocrit 27.8. Electrolytes are stable. Creatinine slightly elevated. ASSESSMENT: An 82-year-old female postop day 1 from a left partial knee replacement, doing well. Pain is controlled. She is neurologically intact. Creatinine is a little bit elevated, but has been intermittently elevated. We will stop her Toradol. PLAN: 1. DVT prophylaxis including thigh-high TEDs, SCDs, and aspirin twice a day. 2. PT/OT. Weight bear as tolerated. Left total knee protocol. 3. Pain control, doing pretty well with current pain regimen. We are going to stop her Toradol. 4. Disposition: Plan to discharge to home with some home health later today if does okay in therapy.
--- NOTE | 2018-08-24 09:48 | Anesthesiology Progress Note ---
Date of Service August 24, 2018 Anesthesia Post Procedure Vital Signs Vital Signs: Temp Pulse Pulse Pulse Resp BP BP 08/24/18 08:55 69 147/69 H 08/24/18 07:02 36.8 C 67 19 201/65 H 08/24/18 02:12 36.7 C 76 16 191/81 H 08/24/18 00:41 190/82 H 08/24/18 00:00 204/79 H 08/23/18 22:21 36.9 C 81 18 210/78 H 08/23/18 21:20 201/74 H 08/23/18 15:26 37.3 C 84 18 100/61 08/23/18 15:14 36.6 C 60 16 180/77 H 08/23/18 12:33 36.6 C 57 L 16 201/72 H 08/23/18 11:40 60 16 169/69 H 08/23/18 10:42 59 L 15 181/72 H 08/23/18 10:04 36.3 C L 59 L 16 181/74 H Pulse Ox 08/24/18 08:55 08/24/18 07:02 90 08/24/18 02:12 92 08/24/18 00:41 08/24/18 00:00 08/23/18 22:21 92 08/23/18 21:20 08/23/18 15:26 98 08/23/18 15:14 92 08/23/18 12:33 98 08/23/18 11:40 97 08/23/18 10:42 96 08/23/18 10:04 96 Pain Intensity Left Knee: Pain Intensity: 4 Notes Mental Status: alert / awake / arousable and participated in evaluation Patient Amnestic to Procedure: Yes Nausea / Vomiting: adequately controlled Pain: adequately controlled Airway Patency, RR, SpO2: stable & adequate BP & HR: stable & adequate Hydration State: stable & adequate Neuraxial Anesthesia: was administered and sensory block resolved Anesthetic Complications: no major complications apparent and Pt Satisfied with anesthetic care
--- NOTE | 2018-08-30 07:03 | Discharge Summary ---
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 SURGERY PERFORMED: Left partial knee replacement. SECONDARY DIAGNOSES: Hypertension, anxiety, depression, low back pain, sciatica, chronic anemia, underlying chronic kidney disease. CONSULTS: None obtained. HISTORY AND PHYSICAL EXAMINATION: Well documented in the patient's chart. HOSPITAL COURSE: The patient was admitted on 08/23/2018, she underwent partial knee replacement, tolerated the procedure well. There were no complications. She was transferred to the PACU postoperatively and later to the orthopedic floor for further care. She was given Ancef for antibiotic prophylaxis, ALANA stockings, SCDs and aspirin for DVT prophylaxis. Hemoglobin, hematocrit and vital signs were monitored during her hospital stay and remained stable. She did not require any blood transfusions. There were no complications. By postoperative day 1, she was tolerating a regular diet. Pain was controlled with oral pain medicine. She was participating in physical therapy. Postop day 1, she was discharged home, set up with home health services, given printed discharge instructions including new prescriptions for extra-strength Tylenol, aspirin and tramadol. Continue her home medicines with exception of her home dose of Tylenol, which was changed. Continue physical therapy, weightbearing as tolerated, ALANA stockings. Follow up approximately 2 weeks postop or sooner if there are any problems or concerns.
== END 2018-08-24 14:37 | disposition home health service (06) | DRG 470 ==
LOC: ASU 04:56 → 3E 08:40

== ENCOUNTER 2023-04-14 22:18 | Inpatient (IN) ==
[2023-04-14] MEDS ORDERED: ONDANSETRON INJ 2 MG/ML 2 ML VIAL IV STA (22:37)
[2023-04-14] MEDS ORDERED: MoRPHine SULFATE 4 MG/ML 1 ML CARP\\VIAL IV STA ×2 (22:37→23:53)
[2023-04-14] MEDS ORDERED: SODIUM CHLORIDE 0.9% 500 ML IV SCH (22:45)
--- NOTE | 2023-04-14 22:47 | Emergency Department Note ---
Impression & Plan Closed hip fracture ADMIT ED Provider Note HPI: History obtained from patient The patient is a 87-year-old female who presents emergency department chief complaint of left hip pain after a fall in her bedroom today. Patient states that she was trimming her nails when she got up from a chair and then tripped on a piece of clothing that was on the floor and fell on her left hip. Patient states that she has had inability to move the left leg since. This happened about an hour prior to arrival. On arrival here to the ED the patient's left lower extremity is shortened and slightly externally rotated. Patient cannot flex at the left hip. Patient is hypertensive on arrival but otherwise alert and in no acute distress. She denies any other injuries. Denies any head injury or loss of consciousness ROS: - Per HPI Differential Diagnosis: Left hip fracture, left hip dislocation, pelvic fracture, amongst other potential pathologies. *Outpatient medications and allergy history reviewed. 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: (As interpreted by myself): - An order was placed for continuous cardiac monitoring - Patient was noted to be in sinus rhythm with a rate of 72 EKG: (As interpreted by myself): Rate: 71 Rhythm: Sinus rhythm Intervals: MT interval prolonged at 228 ms, otherwise within normal limits ST changes: No ST elevation Time: 2233 Left hip x-ray: (As interpreted by myself): -Left intertrochanteric hip fracture Interventions provided in ED: -IV morphine, IV Zofran, IV fluid bolus, IV hydralazine Medical Decision Making: IV was established lab work obtained, patient was given IV morphine and IV Zofran shortly after arrival for left hip pain and suspicion of fracture. Lab work shows no leukocytosis, hemoglobin is low at 9.3 without previous for comparison, platelet count is normal, CMP does not show any critical findings, BUN is slightly elevated at 30, no evidence of acute kidney injury. EKG per my interpretation shows sinus rhythm without any acute ischemic changes. X-ray imaging shows what appears to be a left-sided hip fracture without significant displacement. CT imaging was ordered to confirm and shows evidence of comminuted and compacted intertrochanteric hip fracture on the left side. Patient was given multiple doses of IV morphine here in the ED for pain control and also a dose of IV hydralazine for hypertension. I discussed the patient's presentation with the on-call hospitalist, Dr. Hammond, and she is in agreement to admit the patient. Per patient and family preference, consultation was placed for Dr. Hammond of [facility] orthopedics. Consultants/Discussions held with other healthcare providers: -Hospitalist, Dr. Ashley Hammond -Routine consultation placed for orthopedic surgery, Dr. Blaine Hammond Disposition discussion held by myself with: -Patient and family at the bedside Diagnosis: 1. Hip fracture, left-sided, closed, acute 2. Hypertensive urgency 3. Anemia 4. Elevated BUN Disposition: Admission Jc Pyle DO Emergency Medicine Past Med/Surg History Social History Smoking Status: Never smoker Feels Safe at Home: Yes Allergies Allergies Allergy/AdvReac Type Severity Reaction Status Date / Time codeine Allergy Unknown CAN'T Verified 04/14/23 23:13 REMEMBER--ON [facility] MED RECORD Penicillins Allergy Unknown CAN'T Verified 04/14/23 23:13 REMEMBER--ON [facility] MED RECORD Sulfa (Sulfonamide Allergy Unknown CAN'T Verified 04/14/23 23:13 Antibiotics) REMEMBER--ON [facility] MED RECORD Home Meds Home Medications Medication Instructions Recorded Confirmed labetalol 200 mg tablet 200 mg PO BID 04/14/23 04/14/23 olmesartan 40 mg tablet 40 mg PO DAILY 04/14/23 04/14/23 Results & Data (ED) Vital Signs Vital Signs - 24 hr 04/14/23 22:26 04/14/23 22:26 04/14/23 22:30 Temperature 36.8 C Temperature Source Skin Pulse Rate 73 74 78 Pulse Rate [Apical] Pulse Rate from SpO2 Sensor 75 Respiratory Rate 18 18 Respiratory Depth Blood Pressure 259/99 H Blood Pressure [Left Arm] Blood Pressure Mean 152 Blood Pressure Mean [Left Arm] Blood Pressure Position [Left Arm] Pulse Oximetry 98 98 Oxygen Delivery Method Room Air Sepsis Recent Fever Within 48 Hours No Sepsis New/Unexplained Change in Mental Status No Sepsis Action Taken by Nursing No Action Required 04/14/23 22:30 04/14/23 22:31 04/14/23 22:55 Temperature Temperature Source Pulse Rate 75 74 68 Pulse Rate [Apical] Pulse Rate from SpO2 Sensor 74 73 Respiratory Rate 18 20 18 Respiratory Depth Blood Pressure Blood Pressure [Left Arm] Blood Pressure Mean Blood Pressure Mean [Left Arm] Blood Pressure Position [Left Arm] Pulse Oximetry 97 97 99 Oxygen Delivery Method Room Air Sepsis Recent Fever Within 48 Hours Sepsis New/Unexplained Change in Mental Status Sepsis Action Taken by Nursing 04/14/23 23:00 04/14/23 23:01 04/14/23 23:01 Temperature Temperature Source Pulse Rate 75 83 Pulse Rate [Apical] Pulse Rate from SpO2 Sensor 75 73 Respiratory Rate Respiratory Depth Blood Pressure 241/119 H Blood Pressure [Left Arm] Blood Pressure Mean 158 Blood Pressure Mean [Left Arm] Blood Pressure Position [Left Arm] Pulse Oximetry 99 98 Oxygen Delivery Method Sepsis Recent Fever Within 48 Hours Sepsis New/Unexplained Change in Mental Status Sepsis Action Taken by Nursing 04/14/23 23:54 Temperature Temperature Source Pulse Rate Pulse Rate [Apical] 73 Pulse Rate from SpO2 Sensor Respiratory Rate 18 Respiratory Depth Normal Blood Pressure Blood Pressure [Left Arm] 232/94 H Blood Pressure Mean Blood Pressure Mean [Left Arm] 140 Blood Pressure Position [Left Arm] Semi-fowlers Pulse Oximetry 97 Oxygen Delivery Method Room Air Sepsis Recent Fever Within 48 Hours Sepsis New/Unexplained Change in Mental Status Sepsis Action Taken by Nursing Laboratory Data 04/14/23 23:11 04/14/23 23:11 Lab Results 04/14/23 04/14/23 Range/Units 23:11 23:45 WBC 7.88 (4.8-10.8) K/ul RBC 2.93 L (4.20-5.40) M/uL Hgb 9.3 L (12.0-16.0) g/dl Hct 29.2 L (37.0-47.0) % MCV 99.7 (80.0-100.0) fL MCH 31.7 (25.0-34.0) pg MCHC 31.8 L (32.0-36.0) g/dL RDW Std Deviation 50.4 H (36.4-46.3) fL RDW Coeff of Karuna 13.8 (11.5-14.5) % Plt Count 215 (130-400) K/uL MPV 9.7 (9.4-12.4) fL Immature Gran % (Auto) 0.4 % Neut % (Auto) 73.8 % Lymph % (Auto) 16.2 % [place] % (Auto) 8.2 % Eos % (Auto) 1.1 % Baso % (Auto) 0.3 % Neut # (Auto) 5.81 (1.40-6.50) K/uL Lymph # (Auto) 1.28 (1.20-3.40) K/uL [place] # (Auto) 0.65 H (0.11-0.59) K/uL Eos # (Auto) 0.09 (0.00-0.50) K/uL Baso # (Auto) 0.02 (0.00-0.20) K/uL Immature Gran # (Auto) 0.03 (0.01-0.20) K/uL PT 10.7 (9.0-12.0) Seconds INR 1.0 (0.9-1.1) Sodium 141 (136-145) mmol/L Potassium 4.1 (3.5-5.1) mmol/L Chloride 110 H (98-107) mmol/L Carbon Dioxide 24 (21-32) mmol/L Anion Gap 7 (3-11) BUN 30 H (6-23) mg/dl Creatinine 0.96 (0.6-1.2) mg/dl Est Cr Clr Drug Dosing 30.2 ml/min Est GFR ( Amer) 60.8 ml/min Est GFR (Non-Af Amer) 52.4 ml/min BUN/Creatinine Ratio 31.3 H (10-20) Glucose 130 H (70-99(Fasting)) mg/dl Calcium 10.5 H (8.6-10.3) mg/dl Total Bilirubin 0.7 (0.2-1.0) mg/dl AST 16 (13-39) U/L ALT 12 (7-52) U/L Alkaline Phosphatase 42 (34-104) U/L Total Protein 6.3 (6.0-8.3) gm/dl Albumin 4.2 (3.4-5.0) gm/dl Globulin 2.1 L (2.5-4.0) gm/dl Albumin/Globulin Ratio 2.0 (0.9-2) Urine Color Yellow Urine Appearance Clear (Clear) Urine pH 8.0 H (4.5-7.5) Ur Specific [place] 1.010 (1.000-1.030) Urine Protein 1+ H (Negative) Urine Glucose (UA) Negative (Negative) Urine Ketones Negative (Negative) Urine Blood Negative (Negative) Urine Nitrite Negative (Negative) Urine Bilirubin Negative (Negative) Urine Urobilinogen Negative (Negative) Ur Leukocyte Esterase 1+ H (Negative) Urine WBC (Auto) 5-10 H (0-5) /hpf Urine RBC (Auto) 0-4 (0-4) /hpf U Hyaline Cast (Auto) 0 (0-5) /lpf U Epithel Cells (Auto) 5-10 H (0-5) /lpf Urine Bacteria (Auto) 2+ H (Negative) Blood Type A Positive Antibody Screen NEGATIVE Administered Medications Discontinued Medications Hydralazine HCl (Hydralazine Hcl 20 Mg/Ml Vial) 10 mg IV NOW STA Stop: 04/15/23 00:12 Last Admin: 04/15/23 00:13 Dose: 10 mg Documented By: ZION Sodium Chloride (Nss) 500 mls @ 999 mls/hr IV .Q31M LIOR Stop: 04/14/23 23:15 Last Infusion: 04/14/23 23:39 Dose: Infused Documented By: Admin: 04/14/23 22:54 Dose: 999 mls/hr Documented By: AMY Morphine Sulfate (Morphine Sulfate 4 Mg/Ml 1 Ml Carp\Vial) 4 mg IV NOW STA Stop: 04/14/23 22:38 Last Admin: 04/14/23 22:58 Dose: 4 mg Documented By: AMY Morphine Sulfate (Morphine Sulfate 4 Mg/Ml 1 Ml Carp\Vial) 4 mg IV NOW STA Stop: 04/14/23 23:54 Last Admin: 04/14/23 23:58 Dose: 4 mg Documented By: ZION Ondansetron HCl (Ondansetron Inj 2 Mg/Ml 2 Ml Vial) 4 mg IV NOW STA Stop: 04/14/23 22:38 Last Admin: 04/14/23 22:58 Dose: 4 mg Documented By: AMY Imaging Data Radiologist's Impression: Hip CT 04/14/23 23:12 Exam(s): CT LEFT HIP Without Contrast EXAM: CT Left Lower Extremity Without Intravenous Contrast, Hip CLINICAL HISTORY: Reason for exam: fall. hip pain. TECHNIQUE: Axial computed tomography images of the left hip without intravenous contrast. CTDI is 24.91 mGy and DLP is 463.49 mGy-cm. Automated exposure control was utilized for the study. A dose lowering technique was utilized adhering to the principles of ALARA. COMPARISON: 04/14/23 left hip radiographs FINDINGS: Bones are osteopenic. There is a comminuted and impacted intertrochanteric fracture of the left femur. There is no left hip joint dislocation. Visualized portions of the left hemipelvis appear intact. Hematomas noted in the left gluteus maria esther musculature. IMPRESSION: Comminuted impacted intertrochanteric fracture of the left femur. Electronically signed by: Jenny Blas M.D. 04/15/23 00:29 AM Discharge Plan Visit Data Chief Complaint: Hip Pain ED Provider: Jc Pyle Discharge Problem: Closed hip fracture Forms Stand Alone Forms: [facility] [employer] Prescriptions Prescriptions: No Action labetalol 200 mg Tablet 200 mg PO BID olmesartan 40 mg Tablet 40 mg PO DAILY Referrals Referrals: PCP,NO [Physician] - Discharge Problem: Closed hip fracture Qualifiers: Encounter type: initial encounter Laterality: left Qualified Code(s): S72.002A - Fracture of unspecified part of neck of left femur, initial encounter for closed fracture
[2023-04-14 23:36] LABS: Basophils # (auto) 0.02 K/uL (0.00-0.20); Basophils % (auto) 0.3 %; Eosinophils # (auto) 0.09 K/uL (0.00-0.50); Eosinophils % (auto) 1.1 %; Hematocrit (blood only) 29.2 % (37.0-47.0); Hemoglobin 9.3 g/dl (12.0-16.0); Immature Granulocytes # (auto) 0.03 K/uL (0.01-0.20); Immature Granulocytes % (auto) 0.4 %; Lymphocytes # (auto) 1.28 K/uL (1.20-3.40); Lymphocytes % (auto) 16.2 %; Mean Corpuscular Hemoglobin 31.7 pg (25.0-34.0); Mean Corpuscular Hgb Conc 31.8 g/dL (32.0-36.0); Mean Corpuscular Volume 99.7 fL (80.0-100.0); Mean Platelet Volume 9.7 fL (9.4-12.4); Monocytes # (auto) 0.65 K/uL (0.11-0.59); Monocytes % (auto) 8.2 %; Neutrophils # (auto) 5.81 K/uL (1.40-6.50); Neutrophils % (auto) 73.8 %; Platelet Count 215 K/uL (130-400); RDW Coefficient of Variation 13.8 % (11.5-14.5); RDW Standard Deviation 50.4 fL (36.4-46.3); Red Blood Count 2.93 M/uL (4.20-5.40); White Blood Count 7.88 K/ul (4.8-10.8)
[2023-04-14 23:40] LABS: Albumin Level 4.2 gm/dl (3.4-5.0); BUN Creatinine Ratio 31.3 (10-20); Bilirubin,Total 0.7 mg/dl (0.2-1.0); Calcium 10.5 mg/dl (8.6-10.3); Creatinine Clr Calc Pharmacy 30.2 ml/min; Est GFR (African American) 60.8 ml/min; Est GFR (Non-African American) 52.4 ml/min; Globulin 2.1 gm/dl (2.5-4.0); Potassium 4.1 mmol/L (3.5-5.1); Total Protein 6.3 gm/dl (6.0-8.3)
[2023-04-14 23:56] LABS: Prothrombin Time 10.7 Seconds (9.0-12.0)
[2023-04-14 23:56] LABS: Appearance Urine Clear (Clear); Bacteria Urine Automated 2+ (Negative); Bilirubin Urine Negative (Negative); Blood Urine Negative (Negative); Cast Urine Automated 0 /lpf (0-5); Color Urine Yellow; Glucose Urine UA Negative (Negative); Ketones Urine Negative (Negative); Leukocyte Esterase Urine 1+ (Negative); Nitrite Urine Negative (Negative); RBC Urine Automated 0-4 /hpf (0-4); Urobilinogen Urine Negative (Negative)
[2023-04-15 00:03] LABS: Protein Urine 1+ (Negative)
[2023-04-15] MEDS ORDERED: hydrALAZINE HCL 20 MG/ML VIAL IV STA (00:11)
--- NOTE | 2023-04-15 00:31 | CT Scan Report ---
Exam(s): CT LEFT HIP Without Contrast EXAM: CT Left Lower Extremity Without Intravenous Contrast, Hip CLINICAL HISTORY: Reason for exam: fall. hip pain. TECHNIQUE: Axial computed tomography images of the left hip without intravenous contrast. CTDI is 24.91 mGy and DLP is 463.49 mGy-cm. Automated exposure control was utilized for the study. A dose lowering technique was utilized adhering to the principles of ALARA. COMPARISON: 04/14/23 left hip radiographs FINDINGS: Bones are osteopenic. There is a comminuted and impacted intertrochanteric fracture of the left femur. There is no left hip joint dislocation. Visualized portions of the left hemipelvis appear intact. Hematomas noted in the left gluteus maria esther musculature. IMPRESSION: Comminuted impacted intertrochanteric fracture of the left femur. Electronically signed by: Jenny Blas M.D. 04/15/23 00:29 AM
--- NOTE | 2023-04-15 00:57 | History & Physical Report ---
Date of Service April 15, 2023 Assessment & Plan (1) Closed hip fracture: Plan: 87-year-old female with history of hypertension presenting with a comminuted impacted intertrochanteric fracture of the left femur following a ground-level fall at home. No head trauma or loss of consciousness. Admit to medical Neurovascular checks per protocol Pain control with morphine as needed Nausea control with Zofran as needed Orthopedic consultation appreciated. Patient is requesting to be seen by Dr. Blaine Hammond as he has operated on her in the past. Patient with 2+ bacteria noted on UA. She does deny any urinary symptoms. Will await cultures. Ceftriaxone 1 g IV daily prior to surgery Per RCRI criteria, patient is class I risk for major adverse cardiac event in the perioperative period. EKG ordered for standard preoperative testing. Will follow-up results. Patient may proceed to the operating room with no additional testing. She should receive her morning dose of labetalol prior to the OR. (2) Hypertension: Plan: Patient with markedly elevated blood pressure in the ER History of hypertension with variable control. Continue labetalol 200 mg p.o. twice daily Pain control with morphine as needed Hold olmesartan preoperatively Hydralazine 10 mg p.o. every 6 hours as needed for blood pressure greater than 180/110 History of Present Illness Chief Complaint: fall, left hip fracture Primary Care Provider: Emanuel Zamora DO Susan Armendariz is a pleasant 87-year-old female with history of hypertension presenting with left hip fracture. Patient was at home in her usual state of health when she tripped and fell onto her left hip. She had severe pain and was unable to ambulate. She reports she did not hit her head or lose consciousness. No additional complaints at this time. She presented to the ER was found to have an acute comminuted impacted intertrochanteric fracture of the left femur. Patient seen with family at bedside. She reports that she has significant pain when she moves her left leg. No other complaints at this time. In the ER she was hypertensive otherwise hemodynamically stable. ER course: Hydralazine 10 mg IV Morphine 4 mg IV +4 mg IV Zofran 4 mg IV Normal saline x 500 mL Allergies Allergy/AdvReac Type Severity Reaction Status Date / Time codeine Allergy Unknown CAN'T Verified 04/14/23 23:13 REMEMBER--ON [facility] RECORD Penicillins Allergy Unknown CAN'T Verified 04/14/23 23:13 REMEMBER--ON [facility] MED RECORD Sulfa (Sulfonamide Allergy Unknown CAN'T Verified 04/14/23 23:13 Antibiotics) REMEMBER--ON [facility] MED RECORD Home Medications Medication Instructions Recorded Confirmed Type labetalol 200 mg tablet 200 mg PO BID 04/14/23 04/14/23 History olmesartan 40 mg tablet 40 mg PO DAILY 04/14/23 04/14/23 History Past Med/Surg History Medical History (Updated 04/15/23 @ 00:49 by Ashley Hammond DO) Hypertension Surgical History (Updated 04/15/23 @ 00:49 by Ashley Hammond DO) History of left knee surgery Family History (Updated 04/15/23 @ 00:49 by Ashley Hammond DO) Other Family history non-contributory Social History Smoking Status: Never smoker Feels Safe at Home: Yes Review of Systems Review of Systems: All systems reviewed & are unremarkable except as noted in HPI & below Physical Exam Physical Exam: General: patient in mild distress secondary to pain. Answers questions appropriately oriented Skin: warm, dry, intact, no rashes or lesions HEENT: NC/AT, PERRL, EOMI, anicteric sclera, conjunctiva without injection, external ear normal to inspection and nontender, nares patent, dry mucus membranes, dentition intact, no oropharyngeal lesions, neck supple, trachea midline, no LAD, no thyromegaly, no JVD Heart: +S1/S2, regular, no m/r/g Lungs: equal air entry bilaterally, no rales/rhonchi/wheezes Abd: +BS, soft, NT/ND, no masses/organomegaly/ascites Ext: left lower extremity shortened and externally rotated. Pain with palpation of the left hip. No bruising. 2+ pulses, sensation and mobility intact Neuro: nonfocal, patient AA&O x 4, speech intact, no facial droop, moving all extremities on command with equal strength 5/5 Results & Data Results & Data Vital Signs (Past 12 Hours) Vital Signs Temp Pulse Pulse Resp BP BP Pulse Ox 04/14/23 23:54 73 18 232/94 H 97 04/14/23 23:01 83 98 04/14/23 23:01 241/119 H 04/14/23 23:00 75 99 04/14/23 22:55 68 18 99 04/14/23 22:31 74 20 97 04/14/23 22:30 75 18 97 04/14/23 22:30 78 04/14/23 22:26 74 18 98 04/14/23 22:26 36.8 C 73 18 259/99 H 98 O2 Del Method 04/14/23 23:54 Room Air 04/14/23 23:01 04/14/23 23:01 04/14/23 23:00 04/14/23 22:55 Room Air 04/14/23 22:31 04/14/23 22:30 04/14/23 22:30 04/14/23 22:26 04/14/23 22:26 Room Air Laboratory Results Laboratory Results WBC 7.88 K/ul (4.8-10.8) 04/14/23 23:11 RBC 2.93 M/uL (4.20-5.40) L 04/14/23 23:11 Hgb 9.3 g/dl (12.0-16.0) L 04/14/23 23:11 Hct 29.2 % (37.0-47.0) L 04/14/23 23:11 MCV 99.7 fL (80.0-100.0) 04/14/23 23:11 MCH 31.7 pg (25.0-34.0) 04/14/23 23:11 MCHC 31.8 g/dL (32.0-36.0) L 04/14/23 23:11 RDW Std Deviation 50.4 fL (36.4-46.3) H 04/14/23 23:11 RDW Coeff of Karuna 13.8 % (11.5-14.5) 04/14/23 23:11 Plt Count 215 K/uL (130-400) 04/14/23 23:11 MPV 9.7 fL (9.4-12.4) 04/14/23 23:11 Immature Gran % (Auto) 0.4 % 04/14/23 23:11 Neut % (Auto) 73.8 % 04/14/23 23:11 Lymph % (Auto) 16.2 % 04/14/23 23:11 [place] % (Auto) 8.2 % 04/14/23 23:11 Eos % (Auto) 1.1 % 04/14/23 23:11 Baso % (Auto) 0.3 % 04/14/23 23:11 Neut # (Auto) 5.81 K/uL (1.40-6.50) 04/14/23 23:11 Lymph # (Auto) 1.28 K/uL (1.20-3.40) 04/14/23 23:11 [place] # (Auto) 0.65 K/uL (0.11-0.59) H 04/14/23 23:11 Eos # (Auto) 0.09 K/uL (0.00-0.50) 04/14/23 23:11 Baso # (Auto) 0.02 K/uL (0.00-0.20) 04/14/23 23:11 Immature Gran # (Auto) 0.03 K/uL (0.01-0.20) 04/14/23 23:11 PT 10.7 Seconds (9.0-12.0) 04/14/23 23:11 INR 1.0 (0.9-1.1) 04/14/23 23:11 Sodium 141 mmol/L (136-145) 04/14/23 23:11 Potassium 4.1 mmol/L (3.5-5.1) 04/14/23 23:11 Chloride 110 mmol/L (98-107) H 04/14/23 23:11 Carbon Dioxide 24 mmol/L (21-32) 04/14/23 23:11 Anion Gap 7 (3-11) 04/14/23 23:11 BUN 30 mg/dl (6-23) H 04/14/23 23:11 Creatinine 0.96 mg/dl (0.6-1.2) 04/14/23 23:11 Est Cr Clr Drug Dosing 30.2 ml/min 04/14/23 23:11 Est GFR ( Amer) 60.8 ml/min 04/14/23 23:11 Est GFR (Non-Af Amer) 52.4 ml/min 04/14/23 23:11 BUN/Creatinine Ratio 31.3 (10-20) H 04/14/23 23:11 Glucose 130 mg/dl (70-99(Fasting)) H 04/14/23 23:11 Calcium 10.5 mg/dl (8.6-10.3) H 04/14/23 23:11 Total Bilirubin 0.7 mg/dl (0.2-1.0) 04/14/23 23:11 AST 16 U/L (13-39) 04/14/23 23:11 ALT 12 U/L (7-52) 04/14/23 23:11 Alkaline Phosphatase 42 U/L (34-104) 04/14/23 23:11 Total Protein 6.3 gm/dl (6.0-8.3) 04/14/23 23:11 Albumin 4.2 gm/dl (3.4-5.0) 04/14/23 23:11 Globulin 2.1 gm/dl (2.5-4.0) L 04/14/23 23:11 Albumin/Globulin Ratio 2.0 (0.9-2) 04/14/23 23:11 Urine Color Yellow 04/14/23 23:45 Urine Appearance Clear (Clear) 04/14/23 23:45 Urine pH 8.0 (4.5-7.5) H 04/14/23 23:45 Ur Specific [place] 1.010 (1.000-1.030) 04/14/23 23:45 Urine Protein 1+ (Negative) H 04/14/23 23:45 Urine Glucose (UA) Negative (Negative) 04/14/23 23:45 Urine Ketones Negative (Negative) 04/14/23 23:45 Urine Blood Negative (Negative) 04/14/23 23:45 Urine Nitrite Negative (Negative) 04/14/23 23:45 Urine Bilirubin Negative (Negative) 04/14/23 23:45 Urine Urobilinogen Negative (Negative) 04/14/23 23:45 Ur Leukocyte Esterase 1+ (Negative) H 04/14/23 23:45 Urine WBC (Auto) 5-10 /hpf (0-5) H 04/14/23 23:45 Urine RBC (Auto) 0-4 /hpf (0-4) 04/14/23 23:45 U Hyaline Cast (Auto) 0 /lpf (0-5) 04/14/23 23:45 U Epithel Cells (Auto) 5-10 /lpf (0-5) H 04/14/23 23:45 Urine Bacteria (Auto) 2+ (Negative) H 04/14/23 23:45 Blood Type A Positive 04/14/23 23:11 Antibody Screen NEGATIVE 04/14/23 23:[address] 04/14/23 23:12 Exam(s): CT LEFT HIP Without Contrast EXAM: CT Left Lower Extremity Without Intravenous Contrast, Hip CLINICAL HISTORY: Reason for exam: fall. hip pain. TECHNIQUE: Axial computed tomography images of the left hip without intravenous contrast. CTDI is 24.91 mGy and DLP is 463.49 mGy-cm. Automated exposure control was utilized for the study. A dose lowering technique was utilized adhering to the principles of ALARA. COMPARISON: 04/14/23 left hip radiographs FINDINGS: Bones are osteopenic. There is a comminuted and impacted intertrochanteric fracture of the left femur. There is no left hip joint dislocation. Visualized portions of the left hemipelvis appear intact. Hematomas noted in the left gluteus maria esther musculature. IMPRESSION: Comminuted impacted intertrochanteric fracture of the left femur. Electronically signed by: Jenny Blas M.D. 04/15/23 00:29 AM PG Care Time/CCT Total # of Minutes Spent Total Time Spent with Patient: Total time spent is greater than 50% in coordination of care (as documented) at patient's floor/unit and/or counseling patient: Coding Level of Care Code 03890 INT INP/OBS CARE 2/55MIN Diagnoses Closed hip fracture S72.002A Encounter type: initial encounter Laterality: left Hypertension I10 (1) Closed hip fracture Encounter type: initial encounter Laterality: left Qualified Code(s): S72.002A - Fracture of unspecified part of neck of left femur, initial encounter for closed fracture
[2023-04-15] MEDS ORDERED: ONDANSETRON INJ 2 MG/ML 2 ML VIAL IV PRN ×2 (01:46→13:38)
[2023-04-15] MEDS ORDERED: MoRPHine SULFATE 2 MG/ML CARP IV PRN (01:46)
[2023-04-15] MEDS ORDERED: MAGNESIUM HYDROXIDE SUSP 30 ML UDC PO PRN (01:46)
[2023-04-15] MEDS ORDERED: bisacodyL 10 MG SUPP PR PRN (01:46)
[2023-04-15] MEDS ORDERED: MoRPHine SULFATE 4 MG/ML 1 ML CARP\\VIAL IV PRN (01:46)
[2023-04-15] MEDS ORDERED: NALOXONE HCL 0.4 MG/1 ML VIAL/CARP IV PRN (01:46)
[2023-04-15] MEDS ORDERED: LACTATED RINGER'S 1,000 ML IV SCH (01:46)
[2023-04-15] MEDS: cefTRIAXone SODIUM 1,000 MG in DEXTROSE 5 % MINI-B 50 ML IV SCH (03:04)
--- NOTE | 2023-04-15 07:04 | Hospitalist Progress Note ---
"Date of Service April 15, 2023 Assessment & Plan (1) Closed hip fracture: (2) Hypertension: (3) GERD (gastroesophageal reflux disease): (4) CKD (chronic kidney disease): (5) Hypertension: Plan Susan is an 87F w/ PMH of HTN, CKD, and GERD who presents after a fall with a comminuted hip fracture and was admitted for management. Closed Hip Fx | Intertrochanteric, mildly displaced - CT Hip: Comminuted impacted intertrochanteric fracture of the left femur. - Pain Mgmt: Morphine PRN, Zofran PRN (nausea) - Orthopedics: Recommending to proceed with surgical management, Dr. Hammond to perform surgery 04/15 - Continue Ceftriaxone 1g IV daily for surgical Ppx - RCRI Class I Risk - EKG NSR w/ 1st degree AV Block - Olmesartan held for surgery, should receive AM dose of Labetalol prior to surgery - Will plan PT/OT eval post-op Asymptomatic Bacteriuria - Urinalysis w/ 2+ bacteria, 5-10 WBC, and 1+ Leukocytes - Urine culture pending - Patient remains w/o urinary sx Hypertension - BPs markedly elevated in ER - Continue Labetalol 200 mg PO BID, Olmesartan held - Hydralazine ordered Q6h PRN for BP > 180/110 Code: DNR/DNI Diet: NPO DVT Ppx: None Dispo: Med/Surg Admission and Anticipated Discharge Date Admission Date: April 15, 2023 Supervising Physician Co-Signing Physician Notes I also saw the patient confirmed pedersen portions of the clinical history and physical examination. I agree with the impression and plan as noted in resident documentation above. 87-year-old female with history of fall and subsequent fracture of the left femur. Tentatively scheduled for the OR with orthopedics later today. Hemodynamically stable. Afebrile. Lab work significant for a hemoglobin of 9.3. This looks to be somewhat chronic with hemoglobins dating back to 2019 ranging between 9.5 and 10.3 Urinalysis shows 1+ leuk esterase, although 5-10 epithelial cells. Urine culture is pending. Closed Hip Fx | Intertrochanteric, mildly displaced Surgery scheduled for this afternoon PT/OT evaluations postoperative Asymptomatic Bacteriuria Urine culture pending; she is asymptomatic She was given Rocephin preoperatively; duration will depend upon urine culture Hypertension Continue labetalol Hold olmesartan prior to surgery Hydralazine as as needed Additional resident documentation Subjective 04/15: Patient resting comfortably in bed upon arrival. She notes good hip pain control this morning. She expressed anxiety about her hip and a desire to get home and back to walking. She denies any acute dysuria/frequency/burning. She is not experiencing any fevers, chills, nausea, vomiting, or abdominal pain. Physical Exam Physical Exam: General: NAD, pleasant, intermittent confusion Skin: Warm, dry, intact, no rashes or lesions HEENT: NC/AT, dry mucous membranes Heart: RRR, normal +S1/S2, no m/r/g Lungs: Non-labored, CTAB, no rales/rhonchi/wheezes Abd: +BS, soft, NT/ND, no masses/organomegaly/ascites Ext: LLE shortened and externally rotated. L Hip TTP. No bruising. 2+ dorsalis pedis pulses, sensation and mobility intact Neuro: AA&O x 4, speech intact, moving all extremities Results & Data Results & Data Vital Signs (Past 12 Hours) Vital Signs Temp Pulse Pulse Pulse Pulse Resp BP 04/15/23 06:29 04/15/23 06:19 94 H 04/15/23 05:35 36.4 C L 88 18 04/15/23 05:22 84 16 183/136 H 04/15/23 01:46 04/15/23 01:46 85 16 04/15/23 01:18 83 18 04/15/23 00:51 82 18 04/14/23 23:54 73 18 04/14/23 23:01 83 04/14/23 23:01 241/119 H 04/14/23 23:00 75 04/14/23 22:55 68 18 04/14/23 22:31 74 20 04/14/23 22:30 75 18 04/14/23 22:30 78 04/14/23 22:26 74 18 04/14/23 22:26 36.8 C 73 18 259/99 H BP BP Pulse Ox Pulse Ox O2 Del Method O2 Del Method 04/15/23 06:29 Room Air 04/15/23 06:19 195/105 H 04/15/23 05:35 210/82 H 96 Room Air 04/15/23 05:22 94 Room Air 04/15/23 01:46 95 Room Air 04/15/23 01:46 187/84 H 96 Room Air 04/15/23 01:18 178/75 H 94 Room Air 04/15/23 00:51 194/93 H 93 Room Air 04/14/23 23:54 232/94 H 97 Room Air 04/14/23 23:01 98 04/14/23 23:01 04/14/23 23:00 99 04/14/23 22:55 99 Room Air 04/14/23 22:31 97 04/14/23 22:30 97 04/14/23 22:30 04/14/23 22:26 98 04/14/23 22:26 98 Room Air Diagnostic Findings Hip/Pelvis X-Ray 04/14/23 22:39 XR hip MARVIN 2v w pelvis CLINICAL HISTORY: Fall. COMPARISON STUDY: Right femur radiographs January 02, 2013. FINDINGS: Sacroiliac joints and symphysis pubis are intact. There is an acute mildly displaced intertrochanteric fracture of the left femur. No proximal right femoral fracture is present. There is no pelvic fracture. Postoperative findings within the spine are partially imaged. IMPRESSION: Acute mildly displaced intertrochanteric fracture of the left femur. ACT 112: Negative or not required by law. Electronically signed by: Lane Butts M.D. 04/15/2023 7:[address] 04/14/23 23:12 Exam(s): CT LEFT HIP Without Contrast EXAM: CT Left Lower Extremity Without Intravenous Contrast, Hip CLINICAL HISTORY: Reason for exam: fall. hip pain. TECHNIQUE: Axial computed tomography images of the left hip without intravenous contrast. CTDI is 24.91 mGy and DLP is 463.49 mGy-cm. Automated exposure control was utilized for the study. A dose lowering technique was utilized adhering to the principles of ALARA. COMPARISON: 04/14/23 left hip radiographs FINDINGS: Bones are osteopenic. There is a comminuted and impacted intertrochanteric fracture of the left femur. There is no left hip joint dislocation. Visualized portions of the left hemipelvis appear intact. Hematomas noted in the left gluteus maria esther musculature. IMPRESSION: Comminuted impacted intertrochanteric fracture of the left femur. Electronically signed by: Jenny Blas M.D. 04/15/23 00:29 AM Resident Activity Tracking Resident Involvement: Resident Care Provided Care Provided: Adult Hospital Medicine (1) Closed hip fracture Encounter type: initial encounter Laterality: left Qualified Code(s): S72.002A - Fracture of unspecified part of neck of left femur, initial encounter for closed fracture"
[2023-04-15] MEDS: LABETALOL HCL 200 MG TAB PO SCH ×2 (07:44→21:23)
--- NOTE | 2023-04-15 07:45 | XRay Report ---
XR hip MARVIN 2v w pelvis CLINICAL HISTORY: Fall. COMPARISON STUDY: Right femur radiographs January 02, 2013. FINDINGS: Sacroiliac joints and symphysis pubis are intact. There is an acute mildly displaced intert rochanteric fracture of the left femur. No proximal right femoral fracture is present. There is no pe lvic fracture. Postoperative findings within the spine are partially imaged. IMPRESSION: Acute mildly displaced intertrochanteric fracture of the left femur. ACT 112: Negative or not required by law. Electronically signed by: Lane Butts M.D. 04/15/2023 7:43 AM
--- NOTE | 2023-04-15 07:59 | Orthopedic Consultation ---
Date of Service April 15, 2023 Assessment & Plan (1) Closed hip fracture: I had a long and detailed discussion today with the patient about her left hip/femur fracture. She had ample amount of time to ask any questions or state any concerns. All questions and concerns were discussed to the patient's satis faction. At this point, her proximal femur fracture will require surgical intervention. I did discuss the use of a trochanteric fixation with long nail with her. I discussed the risk, benefits, alternatives to surgical intervention with her in great detail. She wishes to proceed with surgical intervention at this time. She does appear that she can make her own medical decisions but her daughter is supposed to be in later this morning to also discuss surgical intervention with her. She will remain n.p.o. at this point with the expectation of proceeding with surgical intervention later this afternoon with Dr. Hammond. We will proceed later this afternoon. The patient was seen and examined by myself Blaine Hammond. I agree with above. She got a left intertrochanteric hip fracture. She has been medically optimized and cleared for surgery. Risk and benefits were explained to her as well as her daughter and informed consent was obtained. History of Present Illness Reason for Consultation: . Left proximal femur fracture/intertrochanteric fracture. Requesting Physician: . Attending Physician: Miko Hoffmann DO . Patient is a pleasant 87-year-old female with no medical history of hypertension who presented to the emergency department yesterday with a left hip fracture. She notes that she was at home when she was ambulating and she tripped and fell and landed on her left hip. She had immediate onset of left hip pain and was unable to move it. In the emergency department, x-rays and CT were completed which found she had a comminuted intertrochanteric femur fracture to the left side. Orthopedics was then consulted. Today, she notes that her pain is well- controlled on current analgesics. She notes that the only time she and notices discomfort is with movement of the left lower extremity. She denies any other concerns today. Allergies Allergy/AdvReac Type Severity Reaction Status Date / Time duloxetine [From Cymbalta] Allergy Intermediate falls and Verified 04/15/23 07:36 nightmares codeine Allergy Unknown PT NOT SURE Verified 04/15/23 07:36 diazepam Allergy Unknown PT NOT SURE Verified 04/15/23 07:36 Penicillins Allergy Unknown itchy, Verified 04/15/23 07:36 hives Sulfa (Sulfonamide Allergy Unknown PT DOES Verified 04/15/23 07:36 Antibiotics) NOT REMEMBER tramadol AdvReac confusion, Verified 04/15/23 07:36 bad dreams Home Medications Medication Instructions Recorded Confirmed Type cholecalciferol (vitamin D3) 25 1,000 unit PO QAM 06/17/18 02/23/23 History mcg (1,000 unit) tablet (Vitamin D3) prevagen PO DAILY 01/10/19 02/23/23 History vicki red PO DAILY 05/07/21 02/23/23 History acetaminophen 325 mg tablet 325 mg PO QID PRN 10/01/21 02/23/23 History (Tylenol) labetalol 200 mg tablet 200 mg PO BID 90 days #180 tabs 02/23/23 02/23/23 Rx olmesartan 40 mg tablet 40 mg PO DAILY #90 tabs 02/23/23 02/23/23 Rx nirmatrelvir 150 mg-ritonavir 100 See Rx Instructions PO .COMPLEX 03/16/23 Rx mg tablets in a dose pack #20 ea (Paxlovid) labetalol 200 mg tablet 200 mg PO BID 04/14/23 04/14/23 History olmesartan 40 mg tablet 40 mg PO DAILY 04/14/23 04/14/23 History Past Med/Surg History Medical History Hypertension History of falling Impaired fasting glucose Hypertension Spinal stenosis, lumbar region with neurogenic claudication History of compression fracture of spine T10, T12 CKD (chronic kidney disease) Anemia CHRONIC; BASELINE HGB 10'S PER CHART REVIEW Emphysema lung EMPHYSEMATOUS CHANGE PER CXR Arthritis Hypertension Surgical History History of left knee surgery History of partial knee replacement 2019 History of colonoscopy History of arthroscopy of left knee History of hysterectomy History of urologic surgery BLADDER TAC History of lumbar fusion L1-5 2013 History of cataract surgery Family History Uncle Family history of cancer Aunt Family history of cancer Other Family history non-contributory Denies family history of Ovarian cancer Breast cancer Colorectal cancer Social History (System 04/15/23 @ 07:36 by Ela Jain) Smoking Status: Former smoker Second Hand Exposure: No; Do You Dip or Chew Tobacco: No; Hx Alcohol Use: No Hx Substance Use: No Preferred Language: Urdu Communication Ability: Effective Visual Impairment: Limited Hearing Ability: Normal Hcc Coders Required: No Beliefs That Will Affect Care: Hinduism Hinduism Beliefs: CONGREGATION marital status: Current Living Situation: Spouse current occupational status: retired Feels Safe at Home: Yes Childhood Exposure to Second-Hand Smoke: Yes Diet: regular caffeine: No Dental Care, Regularly: Yes Physical Activity Frequency: Daily Seatbelt Use: always Sunscreen Use: No Assistive Devices: Cane and Walker Review of Systems All systems reviewed & are unremarkable except as noted in HPI & below. Physical Exam . General: patient in mild distress secondary to pain. Answers questions appropriately oriented Skin: warm, dry, intact, no rashes or lesions HEENT: NC/AT, PERRL, EOMI, anicteric sclera, conjunctiva without injection, external ear normal to inspection and nontender, nares patent, dry mucus membranes, dentition intact, no oropharyngeal lesions, neck supple, trachea midline, no LAD, no thyromegaly, no JVD Heart: +S1/S2, regular, no m/r/g Lungs: equal air entry bilaterally, no rales/rhonchi/wheezes Abd: +BS, soft, NT/ND, no masses/organomegaly/ascites Neuro: nonfocal, patient AA&O x 4, speech intact, no facial droop, moving all extremities on command with equal strength 5/5 Musculoskeletal On physical examination of the left lower extremity, her left leg is slightly shortened with external rotation. She has active range of motion at the left knee, ankle, and all 5 toes. Painful active range of motion at the left hip. Active plantarflexion and dorsiflexion to the left ankle. +2 DP and PT pulses. Less than 2-second capillary refill. Normal sensation. Neurovascular intact. Results & Data Results & Data Laboratory Results . Abnormal lab results 04/14/23 04/14/23 Range/Units 23:11 23:45 RBC 2.93 L (4.20-5.40) M/uL Hgb 9.3 L (12.0-16.0) g/dl Hct 29.2 L (37.0-47.0) % MCHC 31.8 L (32.0-36.0) g/dL RDW Std Deviation 50.4 H (36.4-46.3) fL [place] # (Auto) 0.65 H (0.11-0.59) K/uL Chloride 110 H (98-107) mmol/L BUN 30 H (6-23) mg/dl BUN/Creatinine Ratio 31.3 H (10-20) Glucose 130 H (70-99(Fasting)) mg/dl Calcium 10.5 H (8.6-10.3) mg/dl Globulin 2.1 L (2.5-4.0) gm/dl Urine pH 8.0 H (4.5-7.5) Urine Protein 1+ H (Negative) Ur Leukocyte Esterase 1+ H (Negative) Urine WBC (Auto) 5-10 H (0-5) /hpf U Epithel Cells (Auto) 5-10 H (0-5) /lpf Urine Bacteria (Auto) 2+ H (Negative) Diagnostic Findings . Hip/Pelvis X-Ray 04/14/23 22:39 XR hip MARVIN 2v w pelvis CLINICAL HISTORY: Fall. COMPARISON STUDY: Right femur radiographs January 02, 2013. FINDINGS: Sacroiliac joints and symphysis pubis are intact. There is an acute mildly displaced intertrochanteric fracture of the left femur. No proximal right femoral fracture is present. There is no pelvic fracture. Postoperative findings within the spine are partially imaged. IMPRESSION: Acute mildly displaced intertrochanteric fracture of the left femur. ACT 112: Negative or not required by law. Electronically signed by: Lane Butts M.D. 04/15/2023 7:[address] 04/14/23 23:12 Exam(s): CT LEFT HIP Without Contrast EXAM: CT Left Lower Extremity Without Intravenous Contrast, Hip CLINICAL HISTORY: Reason for exam: fall. hip pain. TECHNIQUE: Axial computed tomography images of the left hip without intravenous contrast. CTDI is 24.91 mGy and DLP is 463.49 mGy-cm. Automated exposure control was utilized for the study. A dose lowering technique was utilized adhering to the principles of ALARA. COMPARISON: 04/14/23 left hip radiographs FINDINGS: Bones are osteopenic. There is a comminuted and impacted intertrochanteric fracture of the left femur. There is no left hip joint dislocation. Visualized portions of the left hemipelvis appear intact. Hematomas noted in the left gluteus maria esther musculature. IMPRESSION: Comminuted impacted intertrochanteric fracture of the left femur. Electronically signed by: Jenny Blas M.D. 04/15/23 00:29 AM PG Care Time/CCT Total # of Minutes Spent Total Time Spent with Patient: Total time spent is greater than 50% in coordination of care (as documented) at patient's floor/unit and/or counseling patient: Coding Level of Care Code 94497 IN/OBS CONSULT LVL 3,45M Diagnoses Closed hip fracture S72.002A Encounter type: initial encounter Laterality: left (1) Closed hip fracture Encounter type: initial encounter Laterality: left Qualified Code(s): S72.002A - Fracture of unspecified part of neck of left femur, initial encounter for closed fracture
[2023-04-15] MEDS: hydrALAZINE 10 MG TAB PO PRN (10:27)
--- NOTE | 2023-04-15 11:09 | Electrocardiogram Report ---
Test Reason : Blood Pressure : / mmHG Vent. Rate : 071 BPM Atrial Rate : 071 BPM P-R Int : 228 ms QRS Dur : 088 ms QT Int : 384 ms P-R-T Axes : 057 010 042 degrees QTc Int : 417 ms Sinus rhythm with 1st degree A-V block Abnormal ECG No previous ECGs available Confirmed by Delfino Franco ([id number]) on 04/15/2023 11:08:50 AM Referred By: REFERRED SELF Confirmed By:Toni Franco
[2023-04-15] MEDS ORDERED: ePHEDrine sulfate 50 MG/ML AMP IV PRN (13:38)
[2023-04-15] MEDS ORDERED: fentaNYL citrate PF 100 MCG/2 ML VIAL IV PRN (13:38)
[2023-04-15] MEDS ORDERED: ATROPINE SULFATE 0.1 MG/ML 10ML SYR IV PRN (13:38)
--- NOTE | 2023-04-15 13:39 | Anesthesiology Consultation ---
Date of Service April 15, 2023 Assessment & Plan Chart Review Chart Review: Acceptable Risk for Surgery and Patient NOT seen in Pre Admission Testing Consults Requested none ASA ASA3 Proposed Anesthesia Anesthesia Type: General and MAC Spinal Risk / Benefits Reviewed With: PT / POA / Parent / Guardian, Accepts Plan and Informed Consent Obtained History Surgery Operation Date: 04/15/23 07:50 Proposed Procedures p Left Long Troch Nail - Blaine Hammond MD Height/Weight Height: 4 ft 11 in Weight: 55.2 kg Allergies Allergy/AdvReac Type Severity Reaction Status Date / Time duloxetine [From Cymbalta] Allergy Intermediate falls and Verified 04/15/23 07:36 nightmares codeine Allergy Unknown PT NOT SURE Verified 04/15/23 07:36 diazepam Allergy Unknown PT NOT SURE Verified 04/15/23 07:36 Penicillins Allergy Unknown itchy, Verified 04/15/23 07:36 hives Sulfa (Sulfonamide Allergy Unknown PT DOES Verified 04/15/23 07:36 Antibiotics) NOT REMEMBER tramadol AdvReac confusion, Verified 04/15/23 07:36 bad dreams Medications Home Medications Medication Instructions Recorded Confirmed Last Taken cholecalciferol (vitamin D3) 25 1,000 unit PO QAM 06/17/18 02/23/23 08/09/18 09:00 mcg (1,000 unit) tablet (Vitamin D3) prevagen PO DAILY 01/10/19 02/23/23 Unknown vicki red PO DAILY 05/07/21 02/23/23 Unknown acetaminophen 325 mg tablet 325 mg PO QID PRN 10/01/21 02/23/23 Unknown (Tylenol) labetalol 200 mg tablet 200 mg PO BID 90 days #180 tabs 02/23/23 02/23/23 Unknown olmesartan 40 mg tablet 40 mg PO DAILY #90 tabs 02/23/23 02/23/23 Unknown nirmatrelvir 150 mg-ritonavir 100 See Rx Instructions PO .COMPLEX 03/16/23 Unknown mg tablets in a dose pack #20 ea (Paxlovid) labetalol 200 mg tablet 200 mg PO BID 04/14/23 04/14/23 04/14/23 olmesartan 40 mg tablet 40 mg PO DAILY 04/14/23 04/14/23 04/14/23 Active Medications Generic Name Dose Route Start Last Admin Trade Name Freq PRN Reason Stop Dose Admin Hydralazine HCl 10 mg 04/15/23 01:46 04/15/23 10:27 Hydralazine 10 Mg Tab PO 05/15/23 01:45 10 mg Q6H PRN Administration hypertension Ceftriaxone Sodium 1,000 mg/ 50 mls @ 100 mls/hr 04/15/23 02:00 04/15/23 03:30 Dextrose IV 04/20/23 01:59 Infused Q24H [facility]OR Infusion Protocol Lactated Ringer's 1,000 mls @ 75 mls/hr 04/15/23 01:46 04/15/23 03:26 Lr IV 04/15/23 15:05 75 mls/hr .[id number] [facility] Infusion Labetalol HCl 200 mg 04/15/23 09:00 04/15/23 07:44 Labetalol Hcl 200 Mg Tab PO 05/15/23 08:59 200 mg BID LIOR Administration NPO Date Last Intake of Fluids: 04/15/23 Time Last Intake of Fluids: 10:00 Date Last Intake of Solids: 04/14/23 Time Last Intake of Solids: 17:00 Past Medical History Medical History Hypertension History of falling Impaired fasting glucose Hypertension Spinal stenosis, lumbar region with neurogenic claudication History of compression fracture of spine T10, T12 CKD (chronic kidney disease) Anemia CHRONIC; BASELINE HGB 10'S PER CHART REVIEW Emphysema lung EMPHYSEMATOUS CHANGE PER CXR Arthritis Hypertension Exercise / Class Metabolic Activity III < 4 Walking/Shop/Light housework Past Family History Family History Uncle Family history of cancer Aunt Family history of cancer Other Family history non-contributory Denies family history of Ovarian cancer Breast cancer Colorectal cancer Past Surgical History Surgical History History of left knee surgery History of partial knee replacement 2019 History of colonoscopy History of arthroscopy of left knee History of hysterectomy History of urologic surgery BLADDER TAC History of lumbar fusion L1-5 2013 History of cataract surgery Past Anesthesia History No Hx of Anesthesia Complications and No Family Hx of Anesthesia Complications History of PONV No Hx of PONV and No Hx of Motion Sickness Social History Smoking Status: Former smoker Do You Dip or Chew Tobacco: No Hx Alcohol Use: No Hx Substance Use: No substance use type: does not use Review of Systems ROS Unobtainable: All systems reviewed & are unremarkable except as noted in HPI & below Physical Exam Vital Signs Last Vital Signs Temp 37.1 C 04/15/23 12:59 Pulse 73 04/15/23 12:59 Resp 18 04/15/23 12:59 BP 109/59 L 04/15/23 12:59 Pulse Ox 99 04/15/23 12:59 O2 Del Method Room Air 04/15/23 12:59 ENMT Mouth: no TMJ abnormality Thyromental Distance: > or= 3.5 Finger Breadths Mallampati Class: II Neck normal visual inspection and trachea midline; neck extension not limited Respiratory normal respiratory effort Auscultation: lungs clear to auscultation bilaterally Cardiovascular Rate/Rhythm: regular rate and regular rhythm Heart Sounds: no murmur Musculoskeletal Spine: normal cervical ROM Extremities: full ROM of extremities Neurologic moves all extremities Psychiatric Orientation: alert and oriented x 3 Testing Laboratory Results 04/14/23 23:11 04/14/23 23:11 PT 10.7 Seconds (9.0-12.0) 04/14/23 23:11 INR 1.0 (0.9-1.1) 04/14/23 23:11 Urine Color Yellow 04/14/23 23:45 Urine Appearance Clear (Clear) 04/14/23 23:45 Urine pH 8.0 (4.5-7.5) H 04/14/23 23:45 Ur Specific Angelica 1.010 (1.000-1.030) 04/14/23 23:45 Urine Protein 1+ (Negative) H 04/14/23 23:45 Urine Glucose (UA) Negative (Negative) 04/14/23 23:45 Urine Ketones Negative (Negative) 04/14/23 23:45 Urine Nitrite Negative (Negative) 04/14/23 23:45 Ur Leukocyte Esterase 1+ (Negative) H 04/14/23 23:45 Urine WBC (Auto) 5-10 /hpf (0-5) H 04/14/23 23:45 Urine RBC (Auto) 0-4 /hpf (0-4) 04/14/23 23:45 U Hyaline Cast (Auto) 0 /lpf (0-5) 12/27/23 23:45 U Epithel Cells (Auto) 5-10 /lpf (0-5) H 04/14/23 23:45 Urine Bacteria (Auto) 2+ (Negative) H 04/14/23 23:45 Blood Type A Positive 04/14/23 23:11 Antibody Screen NEGATIVE 04/14/23 23:11 Electrocardiogram Date: 04/14/23 Findings: + NSR @ 1st degree AVB
--- NOTE | 2023-04-15 14:11 | History & Physical Bridge Note ---
Date of Service April 15, 2023 History & Physical Bridge Note I have examined the patient, reviewed the History & Physical and in the interval since the performance of the History & Physical I have noted the following changes of clinical significance: no changes noted
[2023-04-15] MEDS ORDERED: PROPOFOL IV EMULSION 10 MG/ML 20 ML VIAL IV ONE (14:30)
[2023-04-15] MEDS ORDERED: LIDOCAINE 2% 2 ML VIAL/AMP(20MG/ML) INFIL ONE (14:30)
[2023-04-15] MEDS ORDERED: ONDANSETRON INJ 2 MG/ML 2 ML VIAL ONE (14:30)
[2023-04-15] MEDS ORDERED: BUPIVACAINE/EPINEPHRINE 0.5% MPF 1:200,000 30 ML VIAL ONE (14:43)
[2023-04-15] MEDS ORDERED: BUPIVACAINE 0.5 % 5 MG/1 ML PF 10ML VIAL ONE (14:46)
[2023-04-15] MEDS ORDERED: fentaNYL citrate PF 100 MCG/2 ML VIAL ONE ×2 (14:57→15:44)
[2023-04-15] MEDS ORDERED: DEXAMETHASONE SOD INJ 4 MG/ML VIAL ONE (15:18)
[2023-04-15] MEDS ORDERED: ROCURONIUM BROMIDE 10 MG/ML 5 ML VIAL IV ONE (15:18)
[2023-04-15] MEDS ORDERED: ceFAZolin 330 MG/ML 1 GM VIAL ONE (15:20)
[2023-04-15] MEDS ORDERED: PHENYLEPHRINE HCL 10 MG/ML VIAL ONE (15:45)
[2023-04-15] MEDS ORDERED: ePHEDrine sulfate 50 MG/ML AMP ONE (15:45)
[2023-04-15] MEDS ORDERED: SUGAMMADEX SODIUM 200 MG/2 ML VIAL IV ONE (15:49)
[2023-04-15] MEDS ORDERED: hydrALAZINE HCL 20 MG/ML VIAL ONE (16:28)
--- NOTE | 2023-04-15 16:29 | Operative Report ---
PG Post Operative Report Pre & Post Diagnosis Operation Date: 04/15/23 07:50 Pre-Op Diagnosis: Left intertrochanteric hip Fracture Post-Op Diagnosis: Left intertrochanteric hip Fracture I identified the patient and participated in the time-out.: Yes Procedure Operation Date: 04/15/23 07:50 Actual Procedures p Left Long Troch Nail(Left) - Blaine Hammond MD Surgeon Blaine Hammond MD Automotive Sales Associate Luanne Escobar, PAC Estimated Blood Loss 100 Findings Consistent with Post-Op Diagnosis Specimens None Anesthesia Type General Complications none Disposition Accompanied Patient To Recovery: No Indications Patient is an 87-year-old elderly frail female sustained a fall yesterday. She has acute onset of pain and unable to ambulate. She was brought to emergency room x-rays revealed intertrochanteric hip fracture. She was admitted by the medicine service, medically optimized indicated for surgical treatment. Description of Procedure Operative implants consisted of: 1. Synthes left 340 mm x 11 mm long trochanteric nail. 2. 90 mm helical blade. 3. 5 mm x 38 mm distal interlocking screw. The patient was taken the operating, identified, and placed on the operating table in supine position. All contact areas were properly padded. IV antibiotics were provided. A spinal anesthetic was attempted but unsuccessful. Therefore a general anesthetic was implemented. The patient was then placed on the fracture table. The left leg was placed in boot traction the left leg was placed in a well-leg be. Some longitudinal traction was applied to the left leg and the foot was internally rotated to the kneecap pointed to the ceiling. X-rays brought in. I we are able to get a nice anatomic reduction. The left hip was then scrubbed with Hibiclens and prepped with ChloraPrep and draped in usual sterile fashion. A curvilinear incision was made just proximal to the tip of the greater trochanter. Sharp dissection was carried through subcutaneous tissue down the level of the gluteal fascia but the gluteal fascia was incised longitudinally in line with skin incision. A guidewire was then placed just lateral to the tip of the trochanter and in line with the IM canal both the AP and lateral planes. It was advanced down the IM canal under fluoroscopic guidance. This was overreamed with the 17 mm reamer. This guidewire was removed and a ball-tipped guidewire was placed down the IM canal. The nail length was measured and a 340 mm nail was selected. I then passed a 12 and half millimeter reamer over the guidewire. The guidewire was kept in place. A 340 mm x 11 mm left long trochanteric nail was then placed over the guidewire and tapped into position. The guidewire was removed. The lateral aiming arm was advanced to the lateral aspect of the thigh. Stab incision was made and the aiming arm was advanced to the lateral cortex of the femur. A guidewire was placed in the central aspect the femoral head neck on both the AP and lateral planes. This was measured and a 90 mm helical blade was selected. The cortical step drill was used to breach the cortex and the triple reamer was used to ream over the guidewire. A 90 mm helical blade was placed. It was tapped in position. I then did apply some compression. I tightened the set screw proximally and backed it off a quarter turn to allow for sliding if needed. Some final x-rays were obtained. Attention drawn toward distal interlocking. Using the perfect king island technique the distal interlocking was screw was placed in the dynamic hole. A stab incision was made. The drill was used and the screw was placed. Some final x-rays were obtained. Attention drawn toward closing. All wounds were irrigated with coconuts of normal saline. I did inject locally with 30 cc of half percent Marcaine with epinephrine. The gluteal fascia was then closed with #1 Vicryl suture running fashion. Subcutaneous tissues of all all wounds were closed with 2 Dexon suture in a buried interrupted fashion the skin was closed skin yobany. The leg was then cleaned and dried and sterile dressing was Xeroform, 4 fours, sterile ABD pad and foam tape was applied. The patient then brought out of general anesthesia and taken off the fracture table and transported to the recovery room in stable condition. The patient tolerated procedure well and there were no complications. Luanne Escobar, physician production assistant, was present for the entire procedure. Her assistance was required for proper patient positioning, prepping and draping, surgical exposure, retraction, placement of the implants, closure of the incision site and placement of sterile bandage. I attest to the content of the Intraoperative Record and any orders documented therein. Any exceptions are noted below.
--- NOTE | 2023-04-15 17:28 | Fluoroscopy Report ---
FL femur LT 2V CLINICAL HISTORY: LEFT TROCH NAILacute intertrochanteric left femoral fracture COMPARISON STUDY: 04/14/2023 FLUOROSCOPY TIME: 82.6 seconds FLUOROSCOPY IMAGES: 4 EXPOSURE DOSE: 11.10 mGy FINDINGS: Status post placement of an trochanteric nail with medullary carrie fixating the acute intertr ochanteric fracture which demonstrates improved alignment. The hardware appears intact. Partially carroll ged arthroplasty hardware of the knee. IMPRESSION: Fluoroscopic assistance as above. ACT 112: Negative or not required by law. Electronically signed by: Blair Kendall M.D. 04/15/2023 5:27 PM
--- NOTE | 2023-04-15 18:01 | Anesthesiology Progress Note ---
Date of Service April 15, 2023 Anesthesia Post Procedure Vital Signs Vital Signs: Temp Pulse Pulse Pulse Pulse Resp BP 04/15/23 17:30 36.7 C 84 17 04/15/23 17:20 83 20 04/15/23 17:10 85 17 04/15/23 17:00 85 18 04/15/23 16:50 85 20 04/15/23 16:40 83 19 04/15/23 16:34 36 C L 80 15 04/15/23 12:59 37.1 C 73 18 04/15/23 11:43 04/15/23 10:00 04/15/23 07:35 36.7 C 84 18 04/15/23 06:29 04/15/23 06:19 94 H 04/15/23 05:35 36.4 C L 88 18 04/15/23 05:22 84 16 183/136 H 04/15/23 01:46 04/15/23 01:46 85 16 04/15/23 01:18 83 18 04/15/23 00:51 82 18 04/14/23 23:54 73 18 04/14/23 23:01 83 04/14/23 23:01 241/119 H 04/14/23 23:00 75 04/14/23 22:55 68 18 04/14/23 22:31 74 20 04/14/23 22:30 75 18 04/14/23 22:30 78 04/14/23 22:26 74 18 04/14/23 22:26 36.8 C 73 18 259/99 H BP BP Pulse Ox Pulse Ox O2 Del Method O2 Del Method O2 Flow Rate 04/15/23 17:30 143/82 H 94 Room Air 04/15/23 17:20 139/86 94 Room Air 04/15/23 17:10 131/62 93 Room Air 04/15/23 17:00 138/55 L 94 Room Air 04/15/23 16:50 160/66 H 97 Oxymask 2 04/15/23 16:40 163/61 H 99 Oxymask 4 04/15/23 16:34 196/84 H 98 Oxymask 6 04/15/23 12:59 109/59 L 99 Room Air 04/15/23 11:43 164/64 H 04/15/23 10:00 194/83 H 04/15/23 07:35 196/72 H 94 Room Air 04/15/23 06:29 Room Air 04/15/23 06:19 195/105 H 04/15/23 05:35 210/82 H 96 Room Air 04/15/23 05:22 94 Room Air 04/15/23 01:46 95 Room Air 04/15/23 01:46 187/84 H 96 Room Air 04/15/23 01:18 178/75 H 94 Room Air 04/15/23 00:51 194/93 H 93 Room Air 04/14/23 23:54 232/94 H 97 Room Air 04/14/23 23:01 98 04/14/23 23:01 04/14/23 23:00 99 04/14/23 22:55 99 Room Air 04/14/23 22:31 97 04/14/23 22:30 97 04/14/23 22:30 04/14/23 22:26 98 04/14/23 22:26 98 Room Air Pain Intensity Left Hip: Pain Intensity: 5 Transfer of Care Handoff Completed per policy Notes Mental Status: alert / awake / arousable Patient Amnestic to Procedure: Yes Nausea / Vomiting: adequately controlled Pain: adequately controlled Airway Patency, RR, SpO2: stable & adequate BP & HR: stable & adequate Hydration State: stable & adequate Anesthetic Complications: no major complications apparent
[2023-04-15] MEDS: ASPIRIN 81 MG ECTAB PO SCH (21:23)
[2023-04-15] MEDS: ceFAZolin 1000MG 1,000 MG/7.5 ML SYR IV SCH (23:18)
[2023-04-16] MEDS: cefTRIAXone SODIUM 1,000 MG in DEXTROSE 5 % MINI-B 50 ML IV SCH (01:38)
[2023-04-16] MEDS: ceFAZolin 1000MG 1,000 MG/7.5 ML SYR IV SCH (05:48)
--- NOTE | 2023-04-16 07:04 | Hospitalist Progress Note ---
"Date of Service April 16, 2023 Assessment & Plan (1) Closed hip fracture: (2) Hypertension: (3) GERD (gastroesophageal reflux disease): (4) CKD (chronic kidney disease): Victor Manuel Davis is an 87F w/ PMH of HTN, CKD, and GERD who presents after a fall with a comminuted hip fracture and was admitted for management. Closed Hip Fx | Intertrochanteric, mildly displaced - CT Hip: Comminuted impacted intertrochanteric fracture of the left femur. - Pain Mgmt: Morphine PRN, Zofran PRN (nausea) - Orthopedics: Recommending to proceed with surgical management, Dr. Hammond to perform surgery 04/15 - Continue Ceftriaxone 1g IV daily for surgical Ppx - RCRI Class I Risk - EKG NSR w/ 1st degree AV Block - Olmesartan held for surgery, should receive AM dose of Labetalol prior to surgery - Will plan PT/OT eval post-op --- Continue Morphine for pain control, PT/OT pending, anticipate rehab --- Patient anemic to 6.0 s/p surgery, consents obtained and placed in chart, type and cross, transfuse 1 unit PRBC, recheck at 8 PM Asymptomatic Bacteriuria - Urinalysis w/ 2+ bacteria, 5-10 WBC, and 1+ Leukocytes - Urine culture pending - Patient remains w/o urinary sx Hypertension - BPs markedly elevated in ER - Continue Labetalol 200 mg PO BID, Olmesartan held - Hydralazine ordered Q6h PRN for BP > 180/110 Code: DNR/DNI Diet: NPO DVT Ppx: None Dispo: Med/Surg Admission and Anticipated Discharge Date Admission Date: April 15, 2023 Supervising Physician Co-Signing Physician Notes I personally examined the patient and verified pedersen points of history and exam, discussed case, and agree with decision making and plan documented by Dr. Maximo to. Evaluated patient today with family at bedside. Postop day 1, patient with some confusion, reports pain controlled. Heart regular rate and rhythm, lungs clear to auscultation bilaterally, nontender abdomen with appropriate bowel sounds. Hemoglobin dropped to 6.6 today, patient transfused 1 unit PRBC, will continue to monitor postinfusion. Subjective 04/16: Patient increasingly confused this AM refuses complete exam. She denies pain, fevers, or chills. Physical Exam Physical Exam: General: NAD, pleasant, intermittent confusion Skin: Warm, dry, intact, no rashes or lesions HEENT: NC/AT, dry mucous membranes Heart: RRR, normal +S1/S2, no m/r/g Lungs: Non-labored, CTAB, no rales/rhonchi/wheezes Abd: +BS, soft, NT/ND, no masses/organomegaly/ascites Ext: L hip bandages intact, no surrounding erythema or purulence, no bleeding at site, distal pulses 2+ at posterior tibial Neuro: AA&O x 4, speech intact, moving all extremities Results & Data Results & Data Vital Signs (Past 12 Hours) Vital Signs Temp Pulse Resp BP Pulse Ox O2 Del Method 04/16/23 03:00 36.8 C 91 H 16 176/77 H 94 Room Air 04/16/23 01:01 94 H 18 161/78 H 94 Room Air 04/15/23 21:20 Room Air 04/15/23 21:07 36.6 C 100 H 16 172/82 H 95 Room Air 04/15/23 20:15 36.7 C 94 H 16 180/75 H 95 Room Air 04/15/23 19:05 36.6 C 92 H 16 151/67 H 95 Room Air Resident Activity Tracking Resident Involvement: Resident Care Provided Care Provided: Adult Hospital Medicine (1) Closed hip fracture Encounter type: initial encounter Laterality: left Qualified Code(s): S72.002A - Fracture of unspecified part of neck of left femur, initial encounter for closed fracture"
--- NOTE | 2023-04-16 07:20 | Surgery Progress Note ---
Date of Service April 16, 2023 Assessment & Plan (1) Closed hip fracture: Plan: 87-year-old frail female postop day 1 from IM nailing of left inotrope fracture. Orthopedically she is doing okay. She is clearly confused. Pain seems to be controlled. She is neurologically intact. Plan: 1. DVT prophylaxis. Would recommend thigh-high teds, SCDs, baby aspirin twice a day for 6 weeks. 2. PT/OT. Weight-bear as tolerated. 3. Pain control doing okay with current pain regimen. Recommend sticking to Tylenol as much as possible to avoid confusion issues. 4. Medical management as per the medicine service. 5. Disposition she is orthopedically okay for discharge anytime medically stable. I did see him back 2 to 3 weeks out from surgery date. Any orthopedic questions can be directly [phone] Admission and Anticipated Discharge Date Admission Date: April 15, 2023 Subjective 87-year-old female now postop day 1 from IM nailing of a left inotrope fracture. She seems to be doing okay. Denies any pain this morning. She is clearly confused to some degree. Denies any chest pain or shortness of breath. Physical Exam Physical Exam: Physical examination was elderly frail female. She is lying in bed looks reasonably comfortable. She is clearly confused. She does follow commands. She can dorsiflex and plantarflex her foot appropriately. Dressings clean dry and in place. Thigh is soft and supple. Results & Data Vital Signs (Past 12 Hours) Vital Signs Temp Pulse Resp BP Pulse Ox O2 Del Method 04/16/23 03:00 36.8 C 91 H 16 176/77 H 94 Room Air 04/16/23 01:01 94 H 18 161/78 H 94 Room Air 04/15/23 21:20 Room Air 04/15/23 21:07 36.6 C 100 H 16 172/82 H 95 Room Air 04/15/23 20:15 36.7 C 94 H 16 180/75 H 95 Room Air Laboratory Results Labs are pending. PG Care Time/CCT Total # of Minutes Spent Total Time Spent with Patient: Total time spent is greater than 50% in coordination of care (as documented) at patient's floor/unit and/or counseling patient: Coding Level of Care Code 13047 Post Operative Follow-Up Diagnoses Closed hip fracture S72.002A Encounter type: initial encounter Laterality: left (1) Closed hip fracture Encounter type: initial encounter Laterality: left Qualified Code(s): S72.002A - Fracture of unspecified part of neck of left femur, initial encounter for closed fracture
[2023-04-16] MEDS: ASPIRIN 81 MG ECTAB PO SCH ×2 (08:41→21:14)
[2023-04-16] MEDS: LOSARTAN POTASSIUM 50 MG TAB PO SCH (08:41)
[2023-04-16] MEDS: LABETALOL HCL 200 MG TAB PO SCH ×2 (08:42→21:14)
[2023-04-16 11:21] LABS: Hematocrit (blood only) 20.6 % (37.0-47.0); Hemoglobin 6.6 g/dl (12.0-16.0); Mean Platelet Volume 10.4 fL (9.4-12.4); Platelet Count 150 K/uL (130-400); RDW Coefficient of Variation 14.4 % (11.5-14.5); RDW Standard Deviation 51.4 fL (36.4-46.3); Red Blood Count 2.06 M/uL (4.20-5.40); White Blood Count 8.22 K/ul (4.8-10.8)
[2023-04-16 11:29] LABS: BUN Creatinine Ratio 28.4 (10-20); Calcium 9.7 mg/dl (8.6-10.3); Creatinine Clr Calc Pharmacy 24.9 ml/min; Est GFR (African American) 48.3 ml/min; Est GFR (Non-African American) 41.7 ml/min
[2023-04-16] MEDS ORDERED: SODIUM CHLORIDE 0.9% 250 ML IV PRN (11:42)
[2023-04-16 12:00] LABS: Immature Granulocytes # (auto) 0.04 K/uL (0.01-0.20); Immature Granulocytes % (auto) 0.5 %; Lymphocytes # (auto) 1.13 K/uL (1.20-3.40); Lymphocytes % (auto) 13.7 %; Monocytes # (auto) 1.24 K/uL (0.11-0.59); Monocytes % (auto) 15.1 %; Neutrophils # (auto) 5.81 K/uL (1.40-6.50); Neutrophils % (auto) 70.7 %; Polychromasia 2+
[2023-04-16 21:34] LABS: Hematocrit (blood only) 23.5 % (37.0-47.0); Hemoglobin 7.9 g/dl (12.0-16.0)
[2023-04-17] MEDS: cefTRIAXone SODIUM 1,000 MG in DEXTROSE 5 % MINI-B 50 ML IV SCH (02:19)
--- NOTE | 2023-04-17 07:39 | Hospitalist Progress Note ---
"Date of Service April 17, 2023 Assessment & Plan (1) Closed hip fracture: (2) Hypertension: (3) GERD (gastroesophageal reflux disease): (4) CKD (chronic kidney disease): Plan Susan is an 87F w/ PMH of HTN, CKD, and GERD who presents after a fall with a comminuted hip fracture and was admitted for management. Closed Hip Fx | Intertrochanteric, mildly displaced - CT Hip: Comminuted impacted intertrochanteric fracture of the left femur. - Pain Mgmt: Morphine PRN, Zofran PRN (nausea) - Orthopedics: Surgery on the left femur done on 04/15. Medically stable from a orthopedic standpoint. - RCRI Class I Risk - EKG NSR w/ 1st degree AV Block -Continue PT/OT recommend SNF. Anemia -Patient with a postsurgical hemoglobin of 6.0, transfusion of 1 PRBC. -Patient's hemoglobin is stable at this time. -Will continue to trend daily CBCs. Confusion -Patient's confusion is most likely multifactorial, has already been treated for 3 days of ceftriaxone. -Will continue to monitor and and hold off on aggressive treatment given patient's age and recent surgery. Asymptomatic Bacteriuria - Urinalysis w/ 2+ bacteria, 5-10 WBC, and 1+ Leukocytes - Urine culture growing alpha strep not Enterococcus and Gardnerella like bacilli - Patient remains w/o urinary sx -Did receive ceftriaxone for 3 days. -Do not believe that it is the cause of patient's confusion at this time. Ceftriaxone discontinued at this time. Hypertension - BPs markedly elevated in ER - Continue Labetalol 200 mg PO BID, Olmesartan held - Hydralazine ordered Q6h PRN for BP > 180/110 Code: DNR/DNI Diet: Regular diet DVT Ppx: None Dispo: Referral sent in for SNF. Admission and Anticipated Discharge Date Admission Date: April 15, 2023 Supervising Physician Co-Signing Physician Notes I personally examined the patient and verified pedersen points of history and exam, discussed case, and agree with decision making and plan documented by Dr. Russo. POD 2. Patient pleasantly confused but conversational on exam today. She denied pain at rest but states that she does have some soreness of her left hip when she moves around. Hemoglobin 8.0 following transfusion of PRBC yesterday. Will restart olmesartan for persistent elevated blood pressures. Discussed concerns with patient's daughter and granddaughter. Case management working on referrals to local SNF. Subjective Patient was seen bedside this AM. States that the pain in her hip is fine. She is alert and oriented x 1 (self only) and is confused today. Granddaughter was at bedside and states that her baseline is alert and oriented x 3. Review of Systems Review of Systems: All systems reviewed & are unremarkable except as noted in Subjective Physical Exam Physical Exam: General: NAD, pleasant, confusion Skin: Left arm large blue and purple purpura with ecchymoses HEENT: NC/AT, dry mucous membranes Heart: RRR, normal +S1/S2, no m/r/g Lungs: Non-labored, CTAB, no rales/rhonchi/wheezes Abd: +BS, soft, NT/ND, no masses/organomegaly/ascites Ext: L hip bandages intact, no surrounding erythema or purulence, no bleeding at site, distal pulses 2+ at posterior tibial Neuro: A&O x 1 (self), speech intact, moving all extremities Results & Data Results & Data Vital Signs (Past 12 Hours) Vital Signs Temp Pulse Resp BP BP Pulse Ox Pulse Ox 04/17/23 07:09 36.4 C L 85 18 185/67 H 184/73 H 93 04/17/23 06:46 95 04/17/23 02:04 95 04/17/23 01:50 166/75 H 04/16/23 21:18 04/16/23 21:14 95 04/16/23 20:34 37 C 88 18 194/62 H 95 O2 Del Method O2 Del Method 04/17/23 07:09 Room Air 04/17/23 06:46 Room Air 04/17/23 02:04 Room Air 04/17/23 01:50 04/16/23 21:18 Room Air 04/16/23 21:14 Room Air 04/16/23 20:34 Room Air Resident Activity Tracking Resident Involvement: Resident Care Provided Care Provided: Adult Hospital Medicine (1) Closed hip fracture Encounter type: initial encounter Laterality: left Qualified Code(s): S72.002A - Fracture of unspecified part of neck of left femur, initial encounter for closed fracture"
[2023-04-17] MEDS: LABETALOL HCL 200 MG TAB PO SCH ×2 (08:47→21:01)
[2023-04-17] MEDS: LOSARTAN POTASSIUM 50 MG TAB PO SCH (08:47)
[2023-04-17] MEDS: ASPIRIN 81 MG ECTAB PO SCH ×2 (08:47→21:01)
[2023-04-17 10:15] LABS: Basophils # (auto) 0.01 K/uL (0.00-0.20); Basophils % (auto) 0.1 %; Hematocrit (blood only) 24.2 % (37.0-47.0); Immature Granulocytes # (auto) 0.05 K/uL (0.01-0.20); Immature Granulocytes % (auto) 0.6 %; Lymphocytes # (auto) 1.19 K/uL (1.20-3.40); Mean Corpuscular Hgb Conc 33.1 g/dL (32.0-36.0); Mean Corpuscular Volume 96.8 fL (80.0-100.0); Mean Platelet Volume 10.5 fL (9.4-12.4); Monocytes # (auto) 1.14 K/uL (0.11-0.59); Monocytes % (auto) 13.4 %; Neutrophils # (auto) 6.09 K/uL (1.40-6.50); Neutrophils % (auto) 71.9 %; Platelet Count 154 K/uL (130-400); RDW Coefficient of Variation 14.8 % (11.5-14.5); RDW Standard Deviation 52.2 fL (36.4-46.3); White Blood Count 8.48 K/ul (4.8-10.8)
[2023-04-17] MEDS ORDERED: LACTATED RINGER'S 1,000 ML IV SCH (18:15)
[2023-04-17] MEDS: POLYETHYLENE (MIRALAX) 17 GM PACK PO SCH ×2 (21:01→22:14)
[2023-04-18] MEDS: POLYETHYLENE (MIRALAX) 17 GM PACK PO SCH ×4 (05:22→19:52)
--- NOTE | 2023-04-18 06:43 | Hospitalist Progress Note ---
"Date of Service April 18, 2023 Assessment & Plan (1) Closed hip fracture: (2) Hypertension: (3) GERD (gastroesophageal reflux disease): (4) CKD (chronic kidney disease): Plan Susan is an 87F w/ PMH of HTN, CKD, and GERD who presents after a fall with a comminuted hip fracture and was admitted for management. Closed Hip Fx | Intertrochanteric, mildly displaced - CT Hip: Comminuted impacted intertrochanteric fracture of the left femur. - Pain Mgmt: Tylenol PRN, Zofran PRN (nausea) - Orthopedics: Surgery on the left femur done on 04/15. Medically stable from a orthopedic standpoint. - RCRI Class I Risk - EKG NSR w/ 1st degree AV Block -Continue PT/OT, recommend SNF. Anemia -Patient with a postsurgical hemoglobin of 6.0, transfusion of 1 PRBC. -Patient then had a hemoglobin of 6.8 on 04/18 after receiving 1 L LR overnight. -Transfused 1 PRBCs on 04/18 and will recheck afternoon H&H. -Anemia most likely secondary to surgery and then a dilution effect. No signs of bleeding at surgical site or around the hip joint. No signs of GI bleed at this time. -Continue to monitor with daily CBCs. -Patient is also not eating or drinking much at this time, nutrition consult placed. Will hold off on additional fluids at this time. Encourage oral hydration. Confusion -Patient's confusion is most likely multifactorial, has already been treated for 3 days of ceftriaxone. -Will continue to monitor and and hold off on aggressive treatment given patient's age and recent surgery. -Confusion improving since yesterday. -Will order a UA, though unlikely to be the source of patient's confusion. Asymptomatic Bacteriuria - Urinalysis w/ 2+ bacteria, 5-10 WBC, and 1+ Leukocytes - Urine culture growing alpha strep not Enterococcus and Gardnerella like bacilli - Patient remains w/o urinary sx -Did receive ceftriaxone for 3 days. -Do not believe that it is the cause of patient's confusion at this time. Ceftriaxone discontinued at this time. -Will order UA to rule out active UTI to present. Hypertension - BPs markedly elevated in ER - Continue Labetalol 200 mg PO BID, Olmesartan held due to not having it on formulary. Started on losartan 100 mg once daily. - Hydralazine ordered Q6h PRN for BP > 180/110 Code: DNR/DNI Diet: Regular diet DVT Ppx: None Dispo: Referral sent in for SNF. Admission and Anticipated Discharge Date Admission Date: April 15, 2023 Supervising Physician Co-Signing Physician Notes I personally examined the patient and verified pedersen points of history and exam, discussed case, and agree with decision making and plan documented by Dr. Russo. POD 3. Patient had improvement of hemoglobin to 8.4 following 1 unit PRBC. Suspect that drop in hemoglobin dilutional as patient received fluids. Patient conversant on exam today, less confused and more oriented, smiling. She denied any pain, surgical incision appears C/D/I. Granddaughter at bedside during exam. Nutritional consult for concerns of poor appetite, recommended p.o. supplementation. Discharge pending referrals to SNF for rehab. Subjective Patient was seen bedside this AM. She is alert and oriented x 2(self and place) and confusion is better today. No issues or concerns. Per nursing, pt has not been eating or drinking too much. Review of Systems Review of Systems: All systems reviewed & are unremarkable except as noted in Subjective Physical Exam Physical Exam: General: NAD, pleasant, confusion Skin: Left arm large blue and purple purpura with ecchymoses HEENT: NC/AT, dry mucous membranes Heart: RRR, normal +S1/S2, no m/r/g Lungs: Non-labored, CTAB, no rales/rhonchi/wheezes Abd: +BS, soft, NT/ND, no masses/organomegaly/ascites Ext: L hip bandages intact, no surrounding erythema or purulence, no bleeding at site, distal pulses 2+ at posterior tibial Neuro: A&O x 1 (self), speech intact, moving all extremities Results & Data Results & Data Vital Signs (Past 12 Hours) Vital Signs Temp Pulse Resp BP Pulse Ox O2 Del Method O2 Del Method 04/17/23 22:00 Room Air 04/17/23 21:09 36.8 C 71 16 165/72 H 95 Room Air 04/17/23 20:35 Room Air Resident Activity Tracking Resident Involvement: Resident Care Provided Care Provided: Adult Hospital Medicine (1) Closed hip fracture Encounter type: initial encounter Laterality: left Qualified Code(s): S72.002A - Fracture of unspecified part of neck of left femur, initial encounter for closed fracture"
[2023-04-18 07:02] LABS: Hemoglobin 6.8 g/dl (12.0-16.0); Mean Corpuscular Hemoglobin 31.6 pg (25.0-34.0); Mean Corpuscular Hgb Conc 32.4 g/dL (32.0-36.0); Mean Corpuscular Volume 97.7 fL (80.0-100.0); Mean Platelet Volume 10.1 fL (9.4-12.4); Platelet Count 151 K/uL (130-400); RDW Coefficient of Variation 14.8 % (11.5-14.5); RDW Standard Deviation 53.3 fL (36.4-46.3); Red Blood Count 2.15 M/uL (4.20-5.40); White Blood Count 6.39 K/ul (4.8-10.8)
[2023-04-18 07:18] LABS: Basophils # (auto) 0.02 K/uL (0.00-0.20); Basophils % (auto) 0.3 %; Eosinophils # (auto) 0.04 K/uL (0.00-0.50); Eosinophils % (auto) 0.6 %; Immature Granulocytes # (auto) 0.05 K/uL (0.01-0.20); Immature Granulocytes % (auto) 0.8 %; Lymphocytes # (auto) 1.32 K/uL (1.20-3.40); Lymphocytes % (auto) 20.7 %; Monocytes # (auto) 0.79 K/uL (0.11-0.59); Monocytes % (auto) 12.4 %; Neutrophils # (auto) 4.17 K/uL (1.40-6.50); Neutrophils % (auto) 65.2 %; RBC Morphology Unremarkable
[2023-04-18] MEDS ORDERED: SODIUM CHLORIDE 0.9% 250 ML IV PRN (07:20)
[2023-04-18 07:25] LABS: Albumin Globulin Ratio 1.7 (0.9-2); Albumin Level 3.1 gm/dl (3.4-5.0); BUN Creatinine Ratio 37.9 (10-20); Bilirubin,Total 1.1 mg/dl (0.2-1.0); Calcium 9.5 mg/dl (8.6-10.3); Creatinine Clr Calc Pharmacy 33.2 ml/min; Est GFR (African American) 68.5 ml/min; Est GFR (Non-African American) 59.1 ml/min; Globulin 1.8 gm/dl (2.5-4.0); Magnesium 2.1 mg/dl (1.7-2.4); Phosphorus 2.3 mg/dl (2.5-4.9); Potassium 3.5 mmol/L (3.5-5.1); Total Protein 4.9 gm/dl (6.0-8.3)
[2023-04-18] MEDS: LABETALOL HCL 200 MG TAB PO SCH ×2 (08:45→19:52)
[2023-04-18] MEDS: LOSARTAN POTASSIUM 50 MG TAB PO SCH (08:45)
[2023-04-18] MEDS: ASPIRIN 81 MG ECTAB PO SCH ×2 (08:46→19:52)
[2023-04-18] MEDS ORDERED: OLMESARTAN MEDOXOMIL 40 MG TAB PO SCH (09:00)
[2023-04-18] MEDS: ACETAMINOPHEN 325 MG TAB PO PRN (12:09)
[2023-04-18 14:25] LABS: Hematocrit (blood only) 24.9 % (37.0-47.0); Hemoglobin 8.4 g/dl (12.0-16.0)
[2023-04-18 15:13] LABS: Appearance Urine Clear (Clear); Bacteria Urine Automated Negative (Negative); Bilirubin Urine Negative (Negative); Blood Urine Negative (Negative); Color Urine Yellow; Epithelial Cell Urine Auto 20-30 /lpf (0-5); Glucose Urine UA Negative (Negative); Ketones Urine Trace (Negative); Leukocyte Esterase Urine Negative (Negative); Nitrite Urine Negative (Negative); Protein Urine 2+ (Negative); RBC Urine Automated 0-4 /hpf (0-4); Specific Gravity Urine 1.016 (1.000-1.030); Urobilinogen Urine Negative (Negative); pH Urine 5.5 (4.5-7.5)
[2023-04-19] MEDS: ACETAMINOPHEN 325 MG TAB PO PRN (03:32)
[2023-04-19] MEDS: POLYETHYLENE (MIRALAX) 17 GM PACK PO SCH ×2 (04:58→12:00)
[2023-04-19 07:18] LABS: Hematocrit (blood only) 26.3 % (37.0-47.0); Hemoglobin 8.9 g/dl (12.0-16.0); Mean Corpuscular Hemoglobin 31.2 pg (25.0-34.0); Mean Corpuscular Hgb Conc 33.8 g/dL (32.0-36.0); Mean Corpuscular Volume 92.3 fL (80.0-100.0); Mean Platelet Volume 10.5 fL (9.4-12.4); Platelet Count 182 K/uL (130-400); RDW Coefficient of Variation 15.4 % (11.5-14.5); RDW Standard Deviation 51.9 fL (36.4-46.3); Red Blood Count 2.85 M/uL (4.20-5.40); White Blood Count 9.73 K/ul (4.8-10.8)
--- NOTE | 2023-04-19 07:25 | Hospitalist Progress Note ---
"Date of Service April 19, 2023 Assessment & Plan (1) Closed hip fracture: (2) Hypertension: (3) GERD (gastroesophageal reflux disease): (4) CKD (chronic kidney disease): Plan Susan is an 87F w/ PMH of HTN, CKD, and GERD who presents after a fall with a comminuted hip fracture and was admitted for management. Closed Hip Fx | Intertrochanteric, mildly displaced - CT Hip: Comminuted impacted intertrochanteric fracture of the left femur. - Pain Mgmt: Tylenol PRN, Zofran PRN (nausea) - Orthopedics: Surgery on the left femur done on 04/15. Medically stable from a orthopedic standpoint. - RCRI Class I Risk - EKG NSR w/ 1st degree AV Block -Continue PT/OT, recommend SNF. Anemia -Patient with a postsurgical hemoglobin of 6.0, transfusion of 1 PRBC. -Patient then had a hemoglobin of 6.8 on 04/18 after receiving 1 L LR overnight. -Transfused 1 PRBCs on 04/18, Hgb stable today at 8.9 -Anemia most likely secondary to surgery and then a dilution effect. No signs of bleeding at surgical site or around the hip joint. No signs of GI bleed at this time. -Continue to monitor with daily CBCs. -Patient is also not eating or drinking much at this time, nutrition consult placed. Will hold off on additional fluids at this time. Encourage oral hydration. Confusion -Patient's confusion is most likely multifactorial, has already been treated for 3 days of ceftriaxone. -Will continue to monitor and and hold off on aggressive treatment given patient's age and recent surgery. -Confusion improving since yesterday. -Negative UA on 04/18 Asymptomatic Bacteriuria - Urinalysis w/ 2+ bacteria, 5-10 WBC, and 1+ Leukocytes - Urine culture growing alpha strep not Enterococcus and Gardnerella like bacilli - Patient remains w/o urinary sx -Did receive ceftriaxone for 3 days. -Do not believe that it is the cause of patient's confusion at this time. Ceftriaxone discontinued at this time. -UA completed on 04/18, no signs of UTI Hypertension - BPs markedly elevated in ER - Continue Labetalol 200 mg PO BID, Olmesartan held due to not having it on formulary. Started on losartan 100 mg once daily. - Hydralazine ordered Q6h PRN for BP > 180/110 Code: DNR/DNI Diet: Regular diet DVT Ppx: None Dispo: Referral sent in for SNF. Admission and Anticipated Discharge Date Admission Date: April 15, 2023 Supervising Physician Co-Signing Physician Notes I personally examined the patient and verified all pedersen points of history and exam, discussed case, and agree with decision making with Dr Rdz Sleeping comfortably, awaiting rehab. No new issues identified. Vitals noted. Resting comfortably. Breathing unlabored no accessory muscle use good effort. Hip fracture status postrepair. For rehab once placement available. Otherwise as above. Subjective Patient seen and examined at bedside. No acute events reported overnight. She oriented to self, in no acute distress. Patient states she has had diarrhea for the last night and this morning- per staff patient had been put on a bowel regimen for constipation and this diarrhea appears secondary to this. Review of Systems Review of Systems: As per above Physical Exam Constitutional: WD/WN, vitals as above Eyes: + anicteric sclerae; no conjunctival abn ormality ENMT: Ears: no external ear abnormality Nose: no external nose abnormality Moist mucous membranes Respiratory: normal respiratory effort, lungs clear to auscultation Cardiovascular: Rate/Rhythm: regular rate and regular rhythm No lower extremity edema Gastrointestinal (Abdomen): Abdomen soft, nontender and nondistended Skin: No visible rash or erythema Results & Data Results & Data Vital Signs (Past 12 Hours) Vital Signs Temp Pulse Resp BP Pulse Ox O2 Del Method O2 Del Method 04/19/23 02:00 Room Air 04/18/23 19:49 36.7 C 81 16 196/71 H 96 Room Air Resident Activity Tracking Resident Involvement: Resident Care Provided Care Provided: Adult Hospital Medicine (1) Closed hip fracture Encounter type: initial encounter Laterality: left Qualified Code(s): S72.002A - Fracture of unspecified part of neck of left femur, initial encounter for closed fracture"
[2023-04-19 07:37] LABS: BUN Creatinine Ratio 33.7 (10-20); Calcium 9.5 mg/dl (8.6-10.3); Creatinine Clr Calc Pharmacy 33.6 ml/min; Est GFR (African American) 69.4 ml/min; Est GFR (Non-African American) 59.9 ml/min; Phosphorus 1.7 mg/dl (2.5-4.9); Potassium 3.7 mmol/L (3.5-5.1)
[2023-04-19] MEDS: LOSARTAN POTASSIUM 50 MG TAB PO SCH (08:04)
[2023-04-19] MEDS: LABETALOL HCL 200 MG TAB PO SCH ×2 (08:04→20:17)
[2023-04-19] MEDS: ASPIRIN 81 MG ECTAB PO SCH ×2 (08:05→20:17)
[2023-04-19] MEDS ORDERED: POTASSIUM PHOS 3 MMOL/1 ML INFUSION IV STA (08:59)
[2023-04-19] MEDS ORDERED: POTASSIUM PHOSPHATE 21 MMOL in SODIUM CHLORIDE 0.9% 500 ML IV ONE (09:30)
--- NOTE | 2023-04-19 18:18 | Billing Data ---
Date of Service April 19, 2023 Coding Level of Care Code 38874 SUB INP/OBS CARE
[2023-04-19] MEDS: hydrALAZINE 10 MG TAB PO PRN (22:07)
[2023-04-20] MEDS: hydrALAZINE 10 MG TAB PO PRN (05:24)
[2023-04-20] MEDS: ACETAMINOPHEN 325 MG TAB PO PRN (05:24)
[2023-04-20] MEDS: LOSARTAN POTASSIUM 50 MG TAB PO SCH (07:17)
[2023-04-20] MEDS: LABETALOL HCL 200 MG TAB PO SCH (07:17)
[2023-04-20] MEDS: ASPIRIN 81 MG ECTAB PO SCH (07:18)
[2023-04-20 08:46] LABS: Hemoglobin 9.2 g/dl (12.0-16.0); Mean Corpuscular Hemoglobin 31.7 pg (25.0-34.0); Mean Corpuscular Hgb Conc 34.1 g/dL (32.0-36.0); Mean Corpuscular Volume 93.1 fL (80.0-100.0); Platelet Count 202 K/uL (130-400); RDW Standard Deviation 50.5 fL (36.4-46.3); White Blood Count 8.18 K/ul (4.8-10.8)
[2023-04-20 09:09] LABS: BUN Creatinine Ratio 32.5 (10-20); Calcium 9.6 mg/dl (8.6-10.3); Creatinine Clr Calc Pharmacy 37.5 ml/min; Est GFR (African American) 79.3 ml/min; Est GFR (Non-African American) 68.5 ml/min; Potassium 3.9 mmol/L (3.5-5.1)
--- NOTE | 2023-04-20 13:51 | CT Scan Report ---
CT SCAN OF THE BRAIN WITHOUT IV CONTRAST CLINICAL HISTORY: Fall COMPARISON STUDY: CT of the brain dated 08/21/2008. TECHNIQUE: Unenhanced axial CT scan of the brain is performed from the vertex to the skull base. A do se lowering technique was utilized adhering to the principles of ALARA. CT DOSE: 547.75 mGy.cm FINDINGS: Brain parenchyma: There is age-related involutional change noting [id number]-tf-[id number] subcortical and pe riventricular microangiopathic disease. There is no hemorrhage, mass effect, or evidence of acute ter ritorial ischemia by CT criteria. Calhoun-white matter differentiation is preserved. No extra-axial flui d collection is seen. Ventricles, sulci, cisterns: Prominent secondary to involutional change. Intracranial vasculature: There is atherosclerotic calcification of the cavernous carotid and vertebr al arteries. Calvarium: The skeletal structures are osteopenic. No depressed calvarial fracture is identified. Sinuses and mastoids: There is an air-fluid level in left sphenoid sinus. Trace mucosal thickening is noted in the right maxillary antrum. There is subtotal opacification of the left frontal sinus. Mild mucosal thickening is noted in the ethmoid sinuses. The mastoid air cells are well pneumatized. Orbits: The bony orbits are grossly intact. There are bilateral ocular lens implants. IMPRESSION: 1. There is no hemorrhage, mass effect, or evidence of acute territorial ischemia by CT criteria. 2. Paranasal sinus disease as above. ACT 112: Negative or not required by law. Electronically signed by: Alfredito Watkins M.D. 04/20/2023 1:49 PM
--- NOTE | 2023-04-20 14:22 | XRay Report ---
LEFT FEMUR 3 VIEWS CLINICAL HISTORY: Fall. Recent hip surgery. FINDINGS: AP, frog-leg, and crosstable lateral views of the left femur are compared to study dictated 04/14/2023. The skeletal structures are osteopenic. Again seen is an intertrochanteric fracture of t he left proximal femur status post intertrochanteric and intramedullary nail fixation. Near-anatomic alignment is maintained. There is persistent medial displacement of the lesser trochanter. A single c ortical lag screw transfixes the distal end of the intramedullary nail. The distal femur appears inta ct. A medial hemiarthroplasty of the left knee is in place. There is chondrocalcinosis within the lat eral compartment of the left knee. Mild arthritic change and joint space narrowing is seen in the hip . The visualized left hemipelvis appears intact. Fusion hardware is partially imaged at the lumbosacr al junction. Soft tissue edema is noted in the left thigh. Skin clips project of the left hip and the distal thigh. IMPRESSION: 1. There is unchanged alignment of an intertrochanteric fracture of the left proximal femur status po st internal fixation. 2. The distal femur appears intact. 3. Additional findings as above. Electronically signed by: Alfredito Watkins M.D. 04/20/2023 2:21 PM
--- NOTE | 2023-04-20 14:23 | XRay Report ---
XR femur RT 2V routine HISTORY: 87 years-old Female fall unwitnessed acute right-sided hip pain COMPARISON: 04/14/2023 radiographs TECHNIQUE: 2 views of the right femur FINDINGS: Mild osteoarthritis of the right hip. No acute fracture, dislocation or opaque foreign body. Chondroc alcinosis with osteoarthritis of the knee. IMPRESSION: No acute fracture or dislocation identified. ACT 112: Negative or not required by law. The above report was generated using voice recognition software. It may contain grammatical, syntax o r spelling errors. Electronically signed by: Blair Kendall M.D. 04/20/2023 2:22 PM
--- NOTE | 2023-04-20 17:44 | Discharge Summary ---
Date of Service April 20, 2023 Admission HPI Per Admitting Provider Susan Armendariz is a pleasant 87-year-old female with history of hypertension presenting with left hip fracture. Patient was at home in her usual state of health when she tripped and fell onto her left hip. She had severe pain and was unable to ambulate. She reports she did not hit her head or lose consciousness. No additional complaints at this time. She presented to the ER was found to have an acute comminuted impacted intertrochanteric fracture of the left femur. Patient seen with family at bedside. She reports that she has significant pain when she moves her left leg. No other complaints at this time. In the ER she was hypertensive otherwise hemodynamically stable. ER course: Hydralazine 10 mg IV Morphine 4 mg IV +4 mg IV Zofran 4 mg IV Normal saline x 500 mL Admission Exam Per Admitting Provider General: patient in mild distress secondary to pain. Answers questions appropriately oriented Skin: warm, dry, intact, no rashes or lesions HEENT: NC/AT, PERRL, EOMI, anicteric sclera, conjunctiva without injection, external ear normal to inspection and nontender, nares patent, dry mucus membranes, dentition intact, no oropharyngeal lesions, neck supple, trachea midline, no LAD, no thyromegaly, no JVD Heart: +S1/S2, regular, no m/r/g Lungs: equal air entry bilaterally, no rales/rhonchi/wheezes Abd: +BS, soft, NT/ND, no masses/organomegaly/ascites Ext: left lower extremity shortened and externally rotated. Pain with palpation of the left hip. No bruising. 2+ pulses, sensation and mobility intact Neuro: nonfocal, patient AA&O x 4, speech intact, no facial droop, moving all extremities on command with equal strength 5/5 Principal Diagnosis left hip fracture Discharge Exam Constitutional WD/WN, vitals as above Eyes + anicteric sclerae; no conjunctival abnormality ENMT Ears: no external ear abnormality Nose: no external nose abnormality Respiratory normal respiratory effort, lungs clear to auscultation Cardiovascular Rate/Rhythm: regular rate and regular rhythm Gastrointestinal (Abdomen) Inspection/Auscultation: abdomen not distended Percussion/Palpation: abdomen soft; abdomen nontender Musculoskeletal Moves all limbs independently Skin No visible rashes, skin warm and dry Psychiatric Orientation: oriented to person Discharge Data Allergies Allergy/AdvReac Type Severity Reaction Status Date / Time duloxetine [From Cymbalta] Allergy Intermediate falls and Verified 04/15/23 07:36 nightmares codeine Allergy Unknown PT NOT SURE Verified 04/15/23 07:36 diazepam Allergy Unknown PT NOT SURE Verified 04/15/23 07:36 Penicillins Allergy Unknown itchy, Verified 04/15/23 07:36 hives Sulfa (Sulfonamide Allergy Unknown PT DOES Verified 04/15/23 07:36 Antibiotics) NOT REMEMBER tramadol AdvReac confusion, Verified 04/15/23 07:36 bad dreams Consultations 04/14/23 23:56 Consult Orthopedic Surgery Routine ED Decision to Admit Stat Procedures Performed Operation Date: 04/15/23 07:50 Actual Procedures p Left Long Troch Nail(Left) - Blaine Hammond MD Ordered Studies 04/14/23 23:12 CT hip LT wo con Stat 04/15/23 FL femur LT 2V Routine 04/20/23 12:48 CT head/brain wo con Stat Hip/Pelvis X-Ray 04/14/23 22:39 XR hip MARVIN 2v w pelvis CLINICAL HISTORY: Fall. COMPARISON STUDY: Right femur radiographs January 02, 2013. FINDINGS: Sacroiliac joints and symphysis pubis are intact. There is an acute mildly displaced intertrochanteric fracture of the left femur. No proximal right femoral fracture is present. There is no pelvic fracture. Postoperative findings within the spine are partially imaged. IMPRESSION: Acute mildly displaced intertrochanteric fracture of the left femur. ACT 112: Negative or not required by law. Electronically signed by: Lane Butts M.D. 04/15/2023 7:[address] 04/14/23 23:12 Exam(s): CT LEFT HIP Without Contrast EXAM: CT Left Lower Extremity Without Intravenous Contrast, Hip CLINICAL HISTORY: Reason for exam: fall. hip pain. TECHNIQUE: Axial computed tomography images of the left hip without intravenous contrast. CTDI is 24.91 mGy and DLP is 463.49 mGy-cm. Automated exposure control was utilized for the study. A dose lowering technique was utilized adhering to the principles of ALARA. COMPARISON: 04/14/23 left hip radiographs FINDINGS: Bones are osteopenic. There is a comminuted and impacted intertrochanteric fracture of the left femur. There is no left hip joint dislocation. Visualized portions of the left hemipelvis appear intact. Hematomas noted in the left gluteus maria esther musculature. IMPRESSION: Comminuted impacted intertrochanteric fracture of the left femur. Electronically signed by: Jenny Blas M.D. 04/15/23 00:29 AM Femur X-Ray 04/15/23 00:00 FL femur LT 2V CLINICAL HISTORY: LEFT TROCH NAILacute intertrochanteric left femoral fracture COMPARISON STUDY: 04/14/2023 FLUOROSCOPY TIME: 82.6 seconds FLUOROSCOPY IMAGES: 4 EXPOSURE DOSE: 11.10 mGy FINDINGS: Status post placement of an trochanteric nail with medullary carrie fixating the acute intertrochanteric fracture which demonstrates improved alignment. The hardware appears intact. Partially imaged arthroplasty hardware of the knee. IMPRESSION: Fluoroscopic assistance as above. ACT 112: Negative or not required by law. Electronically signed by: Blair Kendall M.D. 04/15/2023 5:27 PM Femur X-Ray 04/20/23 12:41 LEFT FEMUR 3 VIEWS CLINICAL HISTORY: Fall. Recent hip surgery. FINDINGS: AP, frog-leg, and crosstable lateral views of the left femur are compared to study dictated 04/14/2023. The skeletal structures are osteopenic. Again seen is an intertrochanteric fracture of the left proximal femur status post intertrochanteric and intramedullary nail fixation. Near-anatomic alignment is maintained. There is persistent medial displacement of the lesser trochanter. A single cortical lag screw transfixes the distal end of the intramedullary nail. The distal femur appears intact. A medial hemiarthroplasty of the left knee is in place. There is chondrocalcinosis within the lateral compartment of the left knee. Mild arthritic change and joint space narrowing is seen in the hip. The visualized left hemipelvis appears intact. Fusion hardware is partially imaged at the lumbosacral junction. Soft tissue edema is noted in the left thigh. Skin clips project of the left hip and the distal thigh. IMPRESSION: 1. There is unchanged alignment of an intertrochanteric fracture of the left proximal femur status post internal fixation. 2. The distal femur appears intact. 3. Additional findings as above. Electronically signed by: Alfredito Watkins M.D. 04/20/2023 2:21 PM Femur X-Ray 04/20/23 12:41 XR femur RT 2V routine HISTORY: 87 years-old Female fall unwitnessed acute right-sided hip pain COMPARISON: 04/14/2023 radiographs TECHNIQUE: 2 views of the right femur FINDINGS: Mild osteoarthritis of the right hip. No acute fracture, dislocation or opaque foreign body. Chondrocalcinosis with osteoarthritis of the knee. IMPRESSION: No acute fracture or dislocation identified. ACT 112: Negative or not required by law. The above report was generated using voice recognition software. It may contain grammatical, syntax or spelling errors. Electronically signed by: Blair Kendall M.D. 04/20/2023 2:[address] 04/20/23 12:48 CT SCAN OF THE BRAIN WITHOUT IV CONTRAST CLINICAL HISTORY: Fall COMPARISON STUDY: CT of the brain dated 08/21/2008. TECHNIQUE: Unenhanced axial CT scan of the brain is performed from the vertex to the skull base. A dose lowering technique was utilized adhering to the principles of ALARA. CT DOSE: 547.75 mGy.cm FINDINGS: Brain parenchyma: There is age-related involutional change noting nupl-tx-adbfcofu subcortical and periventricular microangiopathic disease. There is no hemorrhage, mass effect, or evidence of acute territorial ischemia by CT criteria. Calhoun-white matter differentiation is preserved. No extra-axial fluid collection is seen. Ventricles, sulci, cisterns: Prominent secondary to involutional change. Intracranial vasculature: There is atherosclerotic calcification of the cavernous carotid and vertebral arteries. Calvarium: The skeletal structures are osteopenic. No depressed calvarial fracture is identified. Sinuses and mastoids: There is an air-fluid level in left sphenoid sinus. Trace mucosal thickening is noted in the right maxillary antrum. There is subtotal opacification of the left frontal sinus. Mild mucosal thickening is noted in the ethmoid sinuses. The mastoid air cells are well pneumatized. Orbits: The bony orbits are grossly intact. There are bilateral ocular lens implants. IMPRESSION: 1. There is no hemorrhage, mass effect, or evidence of acute territorial ischemia by CT criteria. 2. Paranasal sinus disease as above. ACT 112: Negative or not required by law. Electronically signed by: Alfredito Watkins M.D. 04/20/2023 1:49 PM Hospital Course (1) Closed hip fracture: (2) Hypertension: (3) GERD (gastroesophageal reflux disease): (4) CKD (chronic kidney disease): Plan Susan is an 87F w/ PMH of HTN, CKD, and GERD who presents after a fall with a comminuted hip fracture and was admitted for management. Closed Hip Fx | Intertrochanteric, mildly displaced -CT Hip: Comminuted impacted intertrochanteric fracture of the left femur. -Orthopedics: Surgery on the left femur done on 04/15. Medically stable from a orthopedic standpoint. -Continue PT/OT, recommend SNF. Note: on afternoon of 04/20 prior to discharge, patient had a fall. Head CT and bilateral hip x-rays completed, both WNL and no acute findings. Patient discharged as planned to [facility]. Anemia -Patient with a postsurgical hemoglobin of 6.0, transfusion a total of 2u of PRBCs during admission -Hgb stable after most recent transfusion with Hgb of 9.2 on day of discharge, no signs of bleed and hemodynamically stable -Would plan to repeat CBC within 1 week to monitor hemoglobin -Encouraged PO intake of fluids and meals as patient did not have much of an appetite Confusion/Delirium -Patient's confusion is intermittent and most likely multifactorial given hospital setting, recent surgery, etc. -Improved at time of discharge Asymptomatic Bacteriuria -Urinalysis w/ 2+ bacteria, leukocytes on admission and no urinary symptoms. Received 3 days of Ceftriaxone. -Repeat UA on 04/18 without signs of UTI and patient remained asymptomatic Hypertension -BPs elevated throughout admission. Suspect that this is multifactorial due to pain, delirium, etc. -Due to multiple factors likely elevating BP and no symptoms of end organ damage, BP was managed with home medications and was not aggressively managed. -Recommend outpatient follow up on baseline BP management, continued home medications (Labetalol, Irbesartan) COVID Positive -Patient tested positive for COVID at time of discharge, patient asymptomatic and detected on routine nasal swab prior to transport -[facility] able to accept patient with knowledge of COVID positive status Code: DNR/DNI Diet: Regular diet DVT Ppx: None Dispo: SNF Total Time Total Time Spent Total Time Spent (In Minutes): <30 Discharge Plan Discharge Items Patient Disposition: Transfer Inpatient Rehab Fac Reason For Visit: HIP FRACTURE Discharge Diagnosis: Left Hip Fracture treated with IM Nail Activity: Per Instructions section Weightbearing: Full weightbearing Non-emergency contact: Primary Care Provider and Surgeon Call non-emergency contact if: your symptoms worsen, your temperature is above 101 and your wound has increased drainage Follow-up/Referrals: Blaine Hammond MD [Physician] - (Orthopedic follow-up 2-3 weeks from surgery date ) Emanuel Zamora, [Primary Care Provider] - Diet: Regular Addtl Attending Provider Instructions: May fully weightbear as tolerated Susan is an 87F w/ PMH of HTN, CKD, and GERD who presents after a fall with a comminuted hip fracture and was admitted for management. Closed Hip Fx | Intertrochanteric, mildly displaced - CT Hip: Comminuted impacted intertrochanteric fracture of the left femur. - Pain Mgmt: Tylenol PRN, Zofran PRN (nausea) - Orthopedics: Surgery on the left femur done on 04/15. Medically stable from a orthopedic standpoint. - RCRI Class I Risk - EKG NSR w/ 1st degree AV Block - Patient had minor fall from standing before discharge however CT head, XR b/l femur unremarkable. - Continue PT/OT, recommend SNF, accepted to [facility]. Anemia -Patient with a postsurgical hemoglobin of 6.0, transfusion of 1 PRBC. -Patient then had a hemoglobin of 6.8 on 04/18 after receiving 1 L LR overnight. -Transfused 1 PRBCs on 04/18, Hgb stable today at 9.2 -Anemia most likely secondary to surgery and then a dilution effect. No signs of bleeding at surgical site or around the hip joint. No signs of GI bleed at this time. -Continue to monitor with daily CBCs. -Patient is also not eating or drinking much at this time, nutrition consult placed. Will hold off on additional fluids at this time. Encourage oral hydration. Confusion -Patient's confusion is most likely multifactorial, has already been treated for 3 days of ceftriaxone. -Will continue to monitor and and hold off on aggressive treatment given patient's age and recent surgery. -Confusion improving since yesterday. -Negative UA on 04/18 Asymptomatic Bacteriuria - Urinalysis w/ 2+ bacteria, 5-10 WBC, and 1+ Leukocytes - Urine culture growing alpha strep not Enterococcus and Gardnerella like bacilli - Patient remains w/o urinary sx -Did receive ceftriaxone for 3 days. -Do not believe that it is the cause of patient's confusion at this time. Ceftriaxone discontinued at this time. -UA completed on 04/18, no signs of UTI Hypertension - BPs markedly elevated in ER - Continue Labetalol 200 mg PO BID, Olmesartan held due to not having it on formulary. Started on losartan 100 mg once daily. - BP has been mildly elevated at times, likely due to delirium and pain from recent fracture/surgery. - Hydralazine ordered Q6h PRN for BP > 180/110 Code: DNR/DNI Diet: Regular diet DVT Ppx: None Dispo: Transport to [facility] at 2PM. Pending Studies at Discharge: No Stand-Alone Forms: My [facility] Skilled Items Patient informed of condition?: Yes DNR: Yes Discharge Level of Care: Acute rehab Communicable Disease: No Discharge Prognosis: Stable Lines: None Urinary Catheter: No Medications and DC Order Prescriptions: Continued acetaminophen [Tylenol] 325 mg tablet 325 mg PO QID PRN prevagen PO DAILY vicki red capsule PO DAILY labetalol 200 mg tablet 200 mg PO BID 90 Days Qty: 180 1RF olmesartan 40 mg tablet 40 mg PO DAILY Qty: 90 5RF cholecalciferol (vitamin D3) [Vitamin D3] 1,000 unit Tablet 1,000 unit PO QAM olmesartan 40 mg Tablet 40 mg PO DAILY Discontinued Paxlovid 150-100 mg tablets,dose pack See Rx Instructions PO .COMPLEX Qty: 20 0RF Rx Instructions: take ONE 150 mg tablet of nirmatrelvir with ONE 100 mg tablet of ritonavir twice daily for 5 days PO labetalol 200 mg Tablet 200 mg PO BID Discharge Orders: Discharge Order (Routine); Ordered 04/20/23 Ordered By: Benjie Kim Admission Data Admit Date/Time: 04/15/23 00:45 Attending Provider: Lisandro Spear Admit Provider: Ashley Hammond Primary Care Provider: Emanuel Zamora Other Providers: [facility]; Raymond Watts [facility]; Ashley Hammond; Blaine Hammond Supervising Physician Co-Signing Physician Notes I personally examined the patient and verified all pedersen points of history and exam, discussed case, and agree with decision making with Dr Rdz awake, pleasantly confused when i see her. no complaints. vitals noted nad heent nc at mmm breathing unlabored no accessory muscles good effort Hip fracture status postrepair. For SNF/ rehab today. asymptomatic elevation in BP - in hospital/confused/hip fracture as probable provoking factors; no dx requiring BP tight/precise BP control currently at play. most evidence would say that "treating the number" in this context would cause more harm (falls/weakness) than good - anticipate ipmrovement as she heals/is out of the hospital/etc - for now no specific treatment, just ongoing monitoring.
--- NOTE | 2023-04-20 18:09 | Billing Data ---
Date of Service April 20, 2023 Coding Level of Care Code 71871 IN/OBS DISCH 30 MIN/LESS
== END 2023-04-20 15:52 | DRG 480 ==
LOC: EDSEX → ED 22:18 → SUATTDRO 04-15 00:45 → EDINP 04-15 00:45 → MERGE 04-15 00:45 → 3W 04-15 05:22

== ENCOUNTER 2023-07-02 08:23 | Inpatient (IN) ==
--- NOTE | 2023-07-02 09:11 | Emergency Department Note ---
Impression & Plan AMS (altered mental status), Acute pain of right hip, Fall, Acute UTI (urinary tract infection) ED Provider Note ED Provider Note NAME: PASCUAL WEEMS AGE:87 SEX: Female : 1935 ARRIVES VIA: EMS INFORMANT: Patient, daughter ED PROVIDER(s): Jackie Nunn DO CHIEF COMPLAINT: Falls, confusion HPI: This is an 87-year-old female who presents from [facility] via EMS due to concern for 2 falls in the last 2 days and increased confusion. Daughter at bedside states she was with her on Wednesday and she seemed well. No recent illness. She states staff also reported to her that she had a low-grade fever of 99. Daughter concerned that this could be contributing to her increased confusion today. She states she does not know any other details regarding the fall. Initially for EMS patient did not have any complaints of pain however on arrival here she complains of pain at her right hip. Patient unable to provide any additional details. PAST MEDICAL HISTORY:See Below PAST SURGICAL HISTORY:See Below FAMILY HISTORY:See Below SOCIAL HISTORY:See Below HOME MEDICATIONS:See Below ALLERGIES:See Below VITALS:See Below PHYSICAL EXAMINATION: GENERAL: alert, well appearing, well nourished, no distress, non-toxic HEAD: nc/at, no evidence of facial trauma, no beck signs, no raccoon eyes EYE EXAM: normal conjunctiva, PERRL and EOM's grossly intact OROPHARYNX: no exudate, no erythema, lips, buccal mucosa, and tongue normal and mucous membranes are moist NECK: supple, no nuchal rigidity, no adenopathy, non-tender LUNGS: Clear to auscultation. Normal chest wall mechanics, no w/r/r HEART: no murmurs, S1 normal and S2 normal ABDOMEN: abdomen soft, non-tender, normo-active bowel sounds, no masses, no rebound or guarding. PELVIS: Stable to compression, nontender with palpation BACK: Back is symmetrical on inspection and there is no deformity, no midline tenderness, no CVA tenderness. SKIN: no rashes, petechiae, orbruising UPPER EXTREMITIES: upper extremities are grossly normal. FROM, nml pulses b/l. LOWER EXTREMITIES: No pitting edema. FROM LLE, decreased range of motion of the right lower extremity due to pain at the right hip with attempts at movement, nml pulses b/l. No obvious trauma or deformity NEURO EXAM: Normal sensorium, cranial nerves II-XII grossly intact, normal speech, no facial droop,nogross weakness of arms, no gross weakness of legs. Gross sensation intact. No ataxia. Vital Signs: reviewed and remarkable Differential Diagnosis: dehydration, stroke, anemia, hypoglycemia, hyponatremia, hypernatremia, urinary tract infection, pneumonia, bronchitis, sepsis, gastroenteritis, additional abdominal pathology, metabolic abnormalities, as well as others were considered MEDICAL DECISION MAKING: This is an 87 yo female brought by EMS due to concern for falls and confusion. VS stable and patient afebrile. Labs drawn and sent, IV established, EKG and xrays performed and interpreted at bedside, and patient placed on telemetry. She was started on IVF and sent for CT head/cspine additionally. SHe was given IV tylenol for pain. Urine collected and sent and suggestive of UTI. IMaging reassuring. Anemia noted on labs but similar compared to prior. Mild troponin elevation but EKG without acute changes. Patient given IV rocephin and culture sent. Daughter updated on bedside. Case discussed with the hospitalist fro additional evaluation. Consultation(s): 1045: Discussed with Dr. Rosado, [place] hospitalist team, for additional evaluation. ER Treatment Provided: See below Diagnostics Interpreted By Me: -ECG: Normal sinus at 71, first-degree AV block, normal axis, normal intervals, no acute ST/T wave changes -Cardiac Monitoring: An order was placed for continuous cardiac monitoring. The monitor shows a rate of 78 with normal sinus rhythm. -Laboratory studies: As stated above and show below. -Imaging studies: X-ray Chest: A single view study of the chest was reviewed and was negative for cardiomegaly, focal infiltrate, effusion, pulmonary edema, or wide mediastinum. xr hip/pelvis: no obvious fx/dislocation Triage Nursing Note Reviewed Prior/Outside Records Reviewed Past Med/Surg History Medical History History of hip fracture Fracture of second metacarpal bone of right hand Fracture, metacarpal Hypertension History of falling Impaired fasting glucose Spinal stenosis, lumbar region with neurogenic claudication History of compression fracture of spine T10, T12 CKD (chronic kidney disease) Anemia CHRONIC; BASELINE HGB 10'S PER CHART REVIEW Emphysema lung EMPHYSEMATOUS CHANGE PER CXR Arthritis Surgical History History of left knee surgery History of partial knee replacement 2019 History of colonoscopy History of arthroscopy of left knee History of hysterectomy History of urologic surgery BLADDER TAC History of lumbar fusion L1-5 2013 History of cataract surgery Family History Uncle Family history of cancer Aunt Family history of cancer Other Family history non-contributory Denies family history of Ovarian cancer Breast cancer Colorectal cancer Social History Smoking Status: Never smoker Second Hand Exposure: No; Do You Dip or Chew Tobacco: No; Hx Alcohol Use: No Hx Substance Use: No Preferred Language: Turkish Communication Ability: Effective Visual Impairment: Limited Hearing Ability: Normal Svp Group Director Required: No Beliefs That Will Affect Care: None marital status: Current Living Situation: Rehab current occupational status: retired Feels Safe at Home: Yes Safety Concerns: Feels Safe At This Time Childhood Exposure to Second-Hand Smoke: Yes Diet: regular caffeine: No Dental Care, Regularly: Yes Physical Activity Frequency: Daily Seatbelt Use: always Sunscreen Use: No Assistive Devices: Glasses and Walker Allergies Allergies Allergy/AdvReac Type Severity Reaction Status Date / Time duloxetine [From Cymbalta] Allergy Intermediate falls and Verified 04/15/23 07:36 nightmares codeine Allergy Unknown PT NOT SURE Verified 04/15/23 07:36 diazepam Allergy Unknown PT NOT SURE Verified 04/15/23 07:36 Penicillins Allergy Unknown itchy, Verified 04/15/23 07:36 hives Sulfa (Sulfonamide Allergy Unknown PT DOES Verified 04/15/23 07:36 Antibiotics) NOT REMEMBER tramadol AdvReac confusion, Verified 04/15/23 07:36 bad dreams Home Meds Home Medications Medication Instructions Recorded Confirmed prevagen 10 mg PO QAM 01/10/19 07/02/23 IRON TABLET 325 mg PO DAILY 05/10/23 07/02/23 aspirin 81 mg tablet,delayed 81 mg PO BID 05/10/23 07/02/23 release lidocaine HCl 4 % topical cream 1 applic topical QID neck pain 05/10/23 07/02/23 (Aspercreme (lidocaine HCl)) acetaminophen 500 mg tablet 1,000 mg PO Q6H PRN pain/fever 07/02/23 07/02/23 labetalol 300 mg tablet 300 mg PO BID 07/02/23 07/02/23 menthol 0.44 %-zinc oxide 20.6 % 1 applic topical BID 07/02/23 07/02/23 topical ointment (Calmoseptine) olmesartan 40 mg tablet 40 mg PO DAILY 07/02/23 07/02/23 omega-3 700 mg-dha and epa 600 1 cap PO QAM 07/02/23 07/02/23 mg-fish and krill oil 900 mg capsule (MegaRed Advanced 4-in-1) Previous Rx's Medication Instructions Recorded cholecalciferol (vitamin D3) 25 1,000 unit PO QAM #90 tabs 06/17/23 mcg (1,000 unit) tablet (Vitamin D3) Results & Data (ED) Vital Signs Vital Signs - 24 hr 07/02/23 08:27 07/02/23 09:04 07/02/23 09:21 Temperature 36.5 C Temperature Source Oral Pulse Rate 76 67 75 Pulse Rate from SpO2 Sensor 67 Respiratory Rate 18 13 Respiratory Effort / Characteristics Non-Labored Spontaneous Respiratory Depth Normal Respiratory Pattern Regular Blood Pressure 117/75 189/59 H Blood Pressure Mean 89 102 Pulse Oximetry 96 96 Oxygen Delivery Method Room Air Sepsis Recent Fever Within 48 Hours No Sepsis New/Unexplained Change in Mental Status Yes Sepsis Action Taken by Nursing No Action Required 07/02/23 09:51 07/02/23 10:00 Temperature Temperature Source Pulse Rate 71 77 Pulse Rate from SpO2 Sensor 72 71 Respiratory Rate 18 19 Respiratory Effort / Characteristics Respiratory Depth Respiratory Pattern Blood Pressure 176/95 H Blood Pressure Mean 122 Pulse Oximetry 97 95 Oxygen Delivery Method Sepsis Recent Fever Within 48 Hours Sepsis New/Unexplained Change in Mental Status Sepsis Action Taken by Nursing Laboratory Data 07/03/23 05:52 07/03/23 05:52 Lab Results 07/02/23 07/02/23 07/02/23 Range/Units 08:48 09:12 09:14 WBC (4.8-10.8) K/ul RBC (4.20-5.40) M/uL Hgb (12.0-16.0) g/dl Hct (37.0-47.0) % MCV (80.0-100.0) fL MCH (25.0-34.0) pg MCHC (32.0-36.0) g/dL RDW Std Deviation (36.4-46.3) fL RDW Coeff of Karuna (11.5-14.5) % Plt Count (130-400) K/uL MPV (9.4-12.4) fL Immature Gran % (Auto) % Neut % (Auto) % Lymph % (Auto) % Greene % (Auto) % Eos % (Auto) % Baso % (Auto) % Neut # (Auto) (1.40-6.50) K/uL Lymph # (Auto) (1.20-3.40) K/uL Greene # (Auto) (0.11-0.59) K/uL Eos # (Auto) (0.00-0.50) K/uL Baso # (Auto) (0.00-0.20) K/uL Immature Gran # (Auto) (0.01-0.20) K/uL Sodium (136-145) mmol/L Potassium (3.5-5.1) mmol/L Chloride (98-107) mmol/L Carbon Dioxide (21-32) mmol/L Anion Gap (3-11) BUN (6-23) mg/dl Creatinine (0.6-1.2) mg/dl Est Cr Clr Drug Dosing ml/min Est GFR ( Amer) ml/min Est GFR (Non-Af Amer) ml/min BUN/Creatinine Ratio (10-20) Glucose (70-99(Fasting)) mg/dl POC Glucose 122 H (70-99) mg/dl Calcium (8.6-10.3) mg/dl Magnesium (1.7-2.4) mg/dl Iron (35-150) mcg/dl TIBC (250-450) mcg/dl Unsaturated IBC (155-355) mcg/dl Transferrin % Sat (15-50) % Ferritin (8-388) ng/ml Total Bilirubin (0.2-1.0) mg/dl AST (13-39) U/L ALT (7-52) U/L Alkaline Phosphatase (34-104) U/L Troponin I High Sens (0-14) pg/ml Total Protein (6.0-8.3) gm/dl Albumin (3.4-5.0) gm/dl Globulin (2.5-4.0) gm/dl Albumin/Globulin Ratio (0.9-2) Lipase (11-82) U/L Vitamin B12 (180-914) pg/ml Folate (>5.38) ng/ml TSH (0.300-4.500) uIu/ml Urine Color Yellow Urine Appearance Cloudy A (Clear) Urine pH 5.5 (4.5-7.5) Ur Specific [place] 1.012 (1.000-1.030) Urine Protein 2+ H (Negative) Urine Glucose (UA) Negative (Negative) Urine Ketones Negative (Negative) Urine Blood 1+ H (Negative) Urine Nitrite Positive A (Negative) Urine Bilirubin Negative (Negative) Urine Urobilinogen Negative (Negative) Ur Leukocyte Esterase 1+ H (Negative) Urine WBC (Auto) >30 H (0-5) /hpf Urine RBC (Auto) 0-4 (0-4) /hpf U Hyaline Cast (Auto) 1-5 (0-5) /lpf U Epithel Cells (Auto) 0-5 (0-5) /lpf Urine Bacteria (Auto) 4+ H (Negative) Adenovirus (PCR) Not Detected (NotDetected) B. pertussis DNA (PCR) Not Detected (NotDetected) B.parapertussis DNA PCR Not Detected (NotDetected) C. pneumoniae DNA (PCR) Not Detected (NotDetected) Coronavirus OC43 (PCR) Not Detected (NotDetected) Coronavirus HKU1 (PCR) Not Detected (NotDetected) Coronavirus 229E (PCR) Not Detected (NotDetected) SARS-CoV-2 (PCR) Not Detected (NotDetected) Coronavirus NL63 (PCR) Not Detected (NotDetected) Human Metapneumovir PCR Not Detected (NotDetected) Influenza Type A (PCR) Not Detected (NotDetected) Influenza Type B (PCR) Not Detected (NotDetected) M. pneumoniae (PCR) Not Detected (NotDetected) Parainfluenza 1 (PCR) Not Detected (NotDetected) Parainfluenza 2 (PCR) Not Detected (NotDetected) Parainfluenza 3 (PCR) Not Detected (NotDetected) Parainfluenza 4 (PCR) Not Detected (NotDetected) RSV (PCR) Not Detected (NotDetected) Entero/Rhino (PCR) Not Detected (NotDetected) 07/02/23 07/02/23 Range/Units 09:28 09:45 WBC 7.40 (4.8-10.8) K/ul RBC 2.73 L (4.20-5.40) M/uL Hgb 8.9 L (12.0-16.0) g/dl Hct 26.5 L (37.0-47.0) % MCV 97.1 (80.0-100.0) fL MCH 32.6 (25.0-34.0) pg MCHC 33.6 (32.0-36.0) g/dL RDW Std Deviation 50.4 H (36.4-46.3) fL RDW Coeff of Karuna 14.2 (11.5-14.5) % Plt Count 184 (130-400) K/uL MPV 9.7 (9.4-12.4) fL Immature Gran % (Auto) 0.3 % Neut % (Auto) 78.8 % Lymph % (Auto) 10.9 % Greene % (Auto) 9.9 % Eos % (Auto) 0.0 % Baso % (Auto) 0.1 % Neut # (Auto) 5.83 (1.40-6.50) K/uL Lymph # (Auto) 0.81 L (1.20-3.40) K/uL Greene # (Auto) 0.73 H (0.11-0.59) K/uL Eos # (Auto) 0.00 (0.00-0.50) K/uL Baso # (Auto) 0.01 (0.00-0.20) K/uL Immature Gran # (Auto) 0.02 (0.01-0.20) K/uL Sodium 138 (136-145) mmol/L Potassium 3.9 (3.5-5.1) mmol/L Chloride 108 H (98-107) mmol/L Carbon Dioxide 24 (21-32) mmol/L Anion Gap 6 (3-11) BUN 32 H (6-23) mg/dl Creatinine 1.09 (0.6-1.2) mg/dl Est Cr Clr Drug Dosing 26.1 ml/min Est GFR ( Amer) 52.1 ml/min Est GFR (Non-Af Amer) 45.0 ml/min BUN/Creatinine Ratio 29.4 H (10-20) Glucose 110 H (70-99(Fasting)) mg/dl POC Glucose (70-99) mg/dl Calcium 10.1 (8.6-10.3) mg/dl Magnesium 2.1 (1.7-2.4) mg/dl Iron 15 L (35-150) mcg/dl TIBC 249 L (250-450) mcg/dl Unsaturated IBC 234 (155-355) mcg/dl Transferrin % Sat 6 L (15-50) % Ferritin 232.0 (8-388) ng/ml Total Bilirubin 1.1 H (0.2-1.0) mg/dl AST 13 (13-39) U/L ALT 9 (7-52) U/L Alkaline Phosphatase 75 (34-104) U/L Troponin I High Sens 17.7 H (0-14) pg/ml Total Protein 5.7 L (6.0-8.3) gm/dl Albumin 3.9 (3.4-5.0) gm/dl Globulin 1.8 L (2.5-4.0) gm/dl Albumin/Globulin Ratio 2.2 H (0.9-2) Lipase 11 (11-82) U/L Vitamin B12 586 (180-914) pg/ml Folate 10.76 (>5.38) ng/ml TSH 1.231 (0.300-4.500) uIu/ml Urine Color Urine Appearance (Clear) Urine pH (4.5-7.5) Ur Specific [place] (1.000-1.030) Urine Protein (Negative) Urine Glucose (UA) (Negative) Urine Ketones (Negative) Urine Blood (Negative) Urine Nitrite (Negative) Urine Bilirubin (Negative) Urine Urobilinogen (Negative) Ur Leukocyte Esterase (Negative) Urine WBC (Auto) (0-5) /hpf Urine RBC (Auto) (0-4) /hpf U Hyaline Cast (Auto) (0-5) /lpf U Epithel Cells (Auto) (0-5) /lpf Urine Bacteria (Auto) (Negative) Adenovirus (PCR) (NotDetected) B. pertussis DNA (PCR) (NotDetected) B.parapertussis DNA PCR (NotDetected) C. pneumoniae DNA (PCR) (NotDetected) Coronavirus OC43 (PCR) (NotDetected) Coronavirus HKU1 (PCR) (NotDetected) Coronavirus 229E (PCR) (NotDetected) SARS-CoV-2 (PCR) (NotDetected) Coronavirus NL63 (PCR) (NotDetected) Human Metapneumovir PCR (NotDetected) Influenza Type A (PCR) (NotDetected) Influenza Type B (PCR) (NotDetected) M. pneumoniae (PCR) (NotDetected) Parainfluenza 1 (PCR) (NotDetected) Parainfluenza 2 (PCR) (NotDetected) Parainfluenza 3 (PCR) (NotDetected) Parainfluenza 4 (PCR) (NotDetected) RSV (PCR) (NotDetected) Entero/Rhino (PCR) (NotDetected) Administered Medications Acetaminophen (Acetaminophen 325 Mg Tab) 650 mg PO Q4H PRN PRN Reason: Pain or Fever Stop: 08/01/23 12:53 Last Admin: 07/03/23 12:14 Dose: 650 mg Documented By: Admin: 07/03/23 05:27 Dose: 650 mg Documented By: Admin: 07/02/23 21:29 Dose: 650 mg Documented By: JUNE Aspirin (Aspirin 81 Mg Ectab) 81 mg PO BID [facility] Stop: 08/01/23 20:59 Last Admin: 07/03/23 08:11 Dose: 81 mg Documented By: Admin: 07/02/23 21:08 Dose: 81 mg Documented By: JUNE Calamine/Phenol (Menthol-Zinc Oxide 360 Appln/120 Gm Tube) 1 appln EXT BID [facility] Stop: 08/01/23 20:59 Last Admin: 07/03/23 08:11 Dose: 1 appln Documented By: Admin: 07/02/23 21:09 Dose: 1 appln Documented By: JUNE Heparin Sodium (Porcine) (Heparin Sod 5,000 Unit/0.5 Ml Vial) 5,000 units SQ Q12 [facility] Stop: 08/01/23 20:59 Last Admin: 07/03/23 08:12 Dose: 5,000 units Documented By: Admin: 07/02/23 21:08 Dose: 5,000 units Documented By: UJNE Ceftriaxone Sodium 2,000 mg/ (Dextrose) 50 mls @ 100 mls/hr IV Q24H [facility]; Protocol Stop: 07/13/23 09:59 Last Infusion: 07/03/23 11:25 Dose: Infused Documented By: Admin: 07/03/23 10:50 Dose: 100 mls/hr Documented By: MG Labetalol HCl (Labetalol Hcl 300 Mg Tab) 300 mg PO BID [facility] Stop: 08/01/23 20:59 Last Admin: 07/03/23 08:10 Dose: 300 mg Documented By: Admin: 07/02/23 21:08 Dose: 300 mg Documented By: JUNE Lidocaine (Lidocaine 4% Cream 15 Gm Tube) 1 appln EXT QID [facility] Stop: 08/01/23 16:59 Last Admin: 07/03/23 13:21 Dose: 1 appln Documented By: Admin: 07/03/23 08:11 Dose: 1 appln Documented By: Admin: 07/02/23 22:05 Dose: 1 appln Documented By: Admin: 07/02/23 17:30 Dose: Not Given Documented By: KENDRA Losartan Potassium (Losartan Potassium 50 Mg Tab) 100 mg PO DAILY [facility]; Protocol Stop: 08/02/23 08:59 Last Admin: 07/03/23 08:11 Dose: 100 mg Documented By: MG Discontinued Medications Sodium Chloride (Nss) 1,000 mls @ 125 mls/hr IV .Q8H [facility] Stop: 08/01/23 08:44 Last Infusion: 07/02/23 11:27 Dose: Infused Documented By: Admin: 07/02/23 09:49 Dose: 125 mls/hr Documented By: ADAMARIS Acetaminophen (Ofirmev) 1,000 mg in 100 mls @ 400 mls/hr IV NOW STA Stop: 07/02/23 09:33 Last Infusion: 07/02/23 10:33 Dose: Infused Documented By: Admin: 07/02/23 09:49 Dose: 400 mls/hr Documented By: MT Ceftriaxone Sodium (Rocephin) 1,000 mg in 50 mls @ 100 mls/hr IV NOW STA Stop: 07/02/23 10:33 Last Infusion: 07/02/23 11:27 Dose: Infused Documented By: Admin: 07/02/23 10:34 Dose: 100 mls/hr Documented By: ADAMARIS Parenteral Electrolytes (Plasma-Lyte A Ph 7.4) 1,000 mls @ 100 mls/hr IV .Q10H [facility] Stop: 07/03/23 06:59 Last Infusion: 07/03/23 07:29 Dose: Infused Documented By: Admin: 07/02/23 21:24 Dose: 100 mls/hr Documented By: Infusion: 07/02/23 21:24 Dose: Infused Documented By: Admin: 07/02/23 12:00 Dose: 100 mls/hr Documented By: MARTHA Parenteral Electrolytes (Plasma-Lyte A Ph 7.4) 500 mls @ 999 mls/hr IV .Q31M ONE Stop: 07/02/23 11:19 Last Infusion: 07/02/23 12:01 Dose: Infused Documented By: Admin: 07/02/23 11:27 Dose: 999 mls/hr Documented By: MARTHA Labetalol HCl (Labetalol Hcl 300 Mg Tab) 300 mg PO NOW STA Stop: 07/02/23 13:07 Last Admin: 07/02/23 13:33 Dose: 300 mg Documented By: MARTHA Lidocaine (Lidocaine 5% 1 Patch) 1 patch TD NOW STA Stop: 07/02/23 11:53 Last Admin: 07/02/23 12:32 Dose: 1 patch Documented By: MARTHA Miscellaneous (Remove Lidoderm Patch) 1 each N/A DAILY@2100 [facility] Stop: 07/02/23 21:01 Last Admin: 07/02/23 21:09 Dose: 1 each Documented By: JUNE Potassium Chloride (Potassium Chloride Crtab 20 Meq Tabcr) 20 meq PO NOW STA Stop: 07/03/23 07:58 Last Admin: 07/03/23 08:10 Dose: 20 meq Documented By: Imaging Data Radiologist's Impression: Cervical Spine CT 07/02/23 08:34 CT OF THE CERVICAL SPINE WITHOUT CONTRAST CLINICAL HISTORY: trauma, ams COMPARISON STUDY: No previous studies for comparison. TECHNIQUE: Helical axial images of the cervical spine were obtained without IV contrast. Sagittal and coronal reconstructions were viewed. Automated exposure control was utilized for the study. A dose lowering technique was utilized adhering to the principles of ALARA. FINDINGS: There is 3 mm anterolisthesis of C3 on C4 and 3 mm of anterolisthesis of C4 and C5. The findings are probably chronic. No acute cervical spine fracture is noted. There is moderate multilevel facet arthrosis as well as moderate to severe multilevel degenerative disc disease within the cervical spine. Findings are most pronounced at the C3-C4 and C5-C6 levels. There is no prevertebral edema. IMPRESSION: 1. No acute cervical spine fracture or subluxation. 2. Anterolisthesis of C3 on C4 and C4 on C5, likely chronic and related to facet arthrosis. 3. Moderate to severe multilevel degenerative disc disease and facet arthrosis within the cervical spine. ACT 112: Negative or not required by law. Electronically signed by: Lane Butts M.D. 07/02/2023 9:11 AM Chest X-Ray 07/02/23 08:34 XR chest 1V portable CLINICAL HISTORY: trauma COMPARISON STUDY: Chest radiograph July 25, 2018. FINDINGS: Operative findings within the lumbar spine are partially imaged. Linear densities within the lungs favor atelectasis or scarring. Lungs are clear. There is no pneumothorax or pleural effusion. Mild cardiomegaly is unchanged. Mediastinal contours are normal. There is no evidence for pulmonary edema. IMPRESSION: No acute cardiopulmonary findings. ACT 112: Negative or not required by law. Electronically signed by: Lane Butts M.D. 07/02/2023 10:[address] 07/02/23 08:34 CT head/brain wo con CLINICAL HISTORY: 87 years-old Female with trauma. Acute head trauma status post fall TECHNIQUE: Multiple axial CT images of the head were obtained without contrast. A dose lowering technique was utilized adhering to the principles of ALARA. CT DOSE: 929.67 mGy.cm COMPARISON: CT cervical spine of same day, head CT April 20, 2023 FINDINGS: Mildly motion degraded exam. No acute intracranial hemorrhage, midline shift, intracranial mass, hydrocephalus, territorial ischemia or abnormal extra-axial collection. Involutional changes with chronic microvascular ischemic disease. The calvarium is intact. Mastoid air cells are clear. Minimal mucosal thickening of the paranasal sinuses. Prior bilateral lens repair IMPRESSION: No acute intracranial abnormality or calvarial fracture. ACT 112: Negative or not required by law. The above report was generated using voice recognition software. It may contain grammatical, syntax or spelling errors. Electronically signed by: Blair Kendall M.D. 07/02/2023 9:34 AM Hip/Pelvis X-Ray 07/02/23 08:34 XR hip RT 2V w pelvis HISTORY: 87 years-old Female trauma acute pelvic pain status post trauma COMPARISON: 05/27/2023 TECHNIQUE: AP view the pelvis with 2 views of the right femur FINDINGS: Demineralized appearance to the bones. Healing fixated left intratrochanteric fracture. Mild right hip osteoarthritis. No acute fracture or dislocation identified. Fusion hardware of the lower lumbar spine. IMPRESSION: 1. No acute fracture or dislocation. 2. Healing subacute fixated left intertrochanteric femoral fracture. ACT 112: Negative or not required by law. The above report was generated using voice recognition software. It may contain grammatical, syntax or spelling errors. Electronically signed by: Blair Kendall M.D. 07/02/2023 10:17 AM Discharge Plan Visit Data Chief Complaint: Altered Mental Status Stated Complaint: ULTERED MENTAL STATUS, LOW GRADE FEVER ED Provider: Jackie Nunn Discharge Problem: AMS (altered mental status), Acute pain of right hip, Fall, Acute UTI (urinary tract infection) Patient Disposition: Admitted As Inpatient Discharge Instructions Interventions: ED Discharge Assessment Last Done: 07/02/23 12:53
--- NOTE | 2023-07-02 09:13 | CT Scan Report ---
CT OF THE CERVICAL SPINE WITHOUT CONTRAST CLINICAL HISTORY: trauma, ams COMPARISON STUDY: No previous studies for comparison. TECHNIQUE: Helical axial images of the cervical spine were obtained without IV contrast. Sagittal a nd coronal reconstructions were viewed. Automated exposure control was utilized for the study. A do se lowering technique was utilized adhering to the principles of ALARA. FINDINGS: There is 3 mm anterolisthesis of C3 on C4 and 3 mm of anterolisthesis of C4 and C5. The fin dings are probably chronic. No acute cervical spine fracture is noted. There is moderate multilevel f acet arthrosis as well as moderate to severe multilevel degenerative disc disease within the cervical spine. Findings are most pronounced at the C3-C4 and C5-C6 levels. There is no prevertebral edema. IMPRESSION: 1. No acute cervical spine fracture or subluxation. 2. Anterolisthesis of C3 on C4 and C4 on C5, likely chronic and related to facet arthrosis. 3. Moderate to severe multilevel degenerative disc disease and facet arthrosis within the cervical sp ine. ACT 112: Negative or not required by law. Electronically signed by: Lane Butts M.D. 07/02/2023 9:11 AM
--- NOTE | 2023-07-02 09:36 | CT Scan Report ---
CT head/brain wo con CLINICAL HISTORY: 87 years-old Female with trauma. Acute head trauma status post fall TECHNIQUE: Multiple axial CT images of the head were obtained without contrast. A dose lowering tech nique was utilized adhering to the principles of ALARA. CT DOSE: 929.67 mGy.cm COMPARISON: CT cervical spine of same day, head CT April 20, 2023 FINDINGS: Mildly motion degraded exam. No acute intracranial hemorrhage, midline shift, intracranial mass, hydr ocephalus, territorial ischemia or abnormal extra-axial collection. Involutional changes with chronic microvascular ischemic disease. The calvarium is intact. Mastoid air cells are clear. Minimal mucosal thickening of the paranasal si nuses. Prior bilateral lens repair IMPRESSION: No acute intracranial abnormality or calvarial fracture. ACT 112: Negative or not required by law. The above report was generated using voice recognition software. It may contain grammatical, syntax o r spelling errors. Electronically signed by: Blair Kendall M.D. 07/02/2023 9:34 AM
[2023-07-02 09:41] LABS: Appearance Urine Cloudy (Clear); Bacteria Urine Automated 4+ (Negative); Bilirubin Urine Negative (Negative); Blood Urine 1+ (Negative); Color Urine Yellow; Epithelial Cell Urine Auto 0-5 /lpf (0-5); Glucose Urine UA Negative (Negative); Ketones Urine Negative (Negative); Leukocyte Esterase Urine 1+ (Negative); Nitrite Urine Positive (Negative); Protein Urine 2+ (Negative); RBC Urine Automated 0-4 /hpf (0-4); Specific Gravity Urine 1.012 (1.000-1.030); Urobilinogen Urine Negative (Negative); WBC Urine Automated >30 /hpf (0-5); pH Urine 5.5 (4.5-7.5)
[2023-07-02] MEDS: ACETAMINOPHEN 1,000 MG/100 ML VIAL IV STA (09:49)
[2023-07-02] MEDS: SODIUM CHLORIDE 0.9% 1,000 ML IV SCH (09:49)
[2023-07-02 09:51] LABS: Basophils # (auto) 0.01 K/uL (0.00-0.20); Basophils % (auto) 0.1 %; Hematocrit (blood only) 26.5 % (37.0-47.0); Hemoglobin 8.9 g/dl (12.0-16.0); Immature Granulocytes # (auto) 0.02 K/uL (0.01-0.20); Immature Granulocytes % (auto) 0.3 %; Lymphocytes # (auto) 0.81 K/uL (1.20-3.40); Lymphocytes % (auto) 10.9 %; Mean Corpuscular Hemoglobin 32.6 pg (25.0-34.0); Mean Corpuscular Hgb Conc 33.6 g/dL (32.0-36.0); Mean Corpuscular Volume 97.1 fL (80.0-100.0); Mean Platelet Volume 9.7 fL (9.4-12.4); Monocytes # (auto) 0.73 K/uL (0.11-0.59); Monocytes % (auto) 9.9 %; Neutrophils # (auto) 5.83 K/uL (1.40-6.50); Neutrophils % (auto) 78.8 %; Platelet Count 184 K/uL (130-400); RDW Coefficient of Variation 14.2 % (11.5-14.5); RDW Standard Deviation 50.4 fL (36.4-46.3); Red Blood Count 2.73 M/uL (4.20-5.40)
[2023-07-02 10:03] LABS: Adenovirus PCR Not Detected (NotDetected); Bordetella parapertussis PCR Not Detected (NotDetected); Bordetella pertussis PCR Not Detected (NotDetected); Chlamydia pneumoniae PCR Not Detected (NotDetected); Coronavirus 229E PCR Not Detected (NotDetected); Coronavirus CoV-2 (COVID19)PCR Not Detected (NotDetected); Coronavirus HKU1 PCR Not Detected (NotDetected); Coronavirus NL63 PCR Not Detected (NotDetected); Coronavirus OC43PCR Not Detected (NotDetected); Human Metapneumovirus PCR Not Detected (NotDetected); Influenza A PCR Not Detected (NotDetected); Influenza B PCR Not Detected (NotDetected); Mycoplasma pneumoniae PCR Not Detected (NotDetected); Parainfluenza Virus 1 PCR Not Detected (NotDetected); Parainfluenza Virus 2 PCR Not Detected (NotDetected); Parainfluenza Virus 3 PCR Not Detected (NotDetected); Parainfluenza Virus 4 PCR Not Detected (NotDetected); Respiratory Syncytial VirusPCR Not Detected (NotDetected); Rhinovirus/Enterovirus PCR Not Detected (NotDetected)
[2023-07-02 10:11] LABS: Albumin Globulin Ratio 2.2 (0.9-2); Albumin Level 3.9 gm/dl (3.4-5.0); BUN Creatinine Ratio 29.4 (10-20); Bilirubin,Total 1.1 mg/dl (0.2-1.0); Calcium 10.1 mg/dl (8.6-10.3); Creatinine Clr Calc Pharmacy 26.1 ml/min; Est GFR (African American) 52.1 ml/min; Globulin 1.8 gm/dl (2.5-4.0); Magnesium 2.1 mg/dl (1.7-2.4); Potassium 3.9 mmol/L (3.5-5.1); Total Protein 5.7 gm/dl (6.0-8.3)
[2023-07-02 10:13] LABS: Troponin I High Sensitivity 17.7 pg/ml (0-14)
--- NOTE | 2023-07-02 10:18 | XRay Report ---
XR chest 1V portable CLINICAL HISTORY: trauma COMPARISON STUDY: Chest radiograph July 25, 2018. FINDINGS: Operative findings within the lumbar spine are partially imaged. Linear densities within th e lungs favor atelectasis or scarring. Lungs are clear. There is no pneumothorax or pleural effusion. Mild cardiomegaly is unchanged. Mediastinal contours are normal. There is no evidence for pulmonary edema. IMPRESSION: No acute cardiopulmonary findings. ACT 112: Negative or not required by law. Electronically signed by: Lane Butts M.D. 07/02/2023 10:17 AM
--- NOTE | 2023-07-02 10:18 | XRay Report ---
XR hip RT 2V w pelvis HISTORY: 87 years-old Female trauma acute pelvic pain status post trauma COMPARISON: 05/27/2023 TECHNIQUE: AP view the pelvis with 2 views of the right femur FINDINGS: Demineralized appearance to the bones. Healing fixated left intratrochanteric fracture. Mild right hi p osteoarthritis. No acute fracture or dislocation identified. Fusion hardware of the lower lumbar sp ine. IMPRESSION: 1. No acute fracture or dislocation. 2. Healing subacute fixated left intertrochanteric femoral fracture. ACT 112: Negative or not required by law. The above report was generated using voice recognition software. It may contain grammatical, syntax o r spelling errors. Electronically signed by: Blair Kendall M.D. 07/02/2023 10:17 AM
[2023-07-02 10:23] LABS: Thyroid Stimulating Hormone 1.231 uIu/ml (0.300-4.500)
[2023-07-02] MEDS: cefTRIAXone SODIUM 1,000 MG/50 ML BAG IV STA (10:34)
--- NOTE | 2023-07-02 10:43 | History & Physical Report ---
Date of Service July 02, 2023 Assessment & Plan (1) Fall: Plan: Unclear if witnessed/unwitnessed falls x 2 over the past 2 days leading up to admission She does note mild lower back pain on physical exam Hip/pelvic x-ray revealed no acute fracture or dislocation; healing subacute fixated left intertrochanteric femoral fracture Elevated BUN/creatinine ratio at 29.4 Plasma-Lyte IV at 100mL/hr x 2 Lidocaine patch application to lower back daily Acetaminophen as needed for pain; caution codeine use (patient is unsure of allergy) Fall precautions PT/OT consulted A.m. CBC, BMP (2) AMS (altered mental status): Plan: History of underlying dementia Alert and oriented to name//location at time of admission, not oriented to purpose in the hospital/month No acute change in cognitive baseline, per daughter Head CT revealed no acute findings Cervical spine CT revealed no acute fractures or subluxation (3) Elevated troponin: Plan: Troponin 17.7, repeat pending Clinically, patient denies chest pain, SOB, pleuritic CP Continues telemetry monitoring (4) Anemia: Plan: Chronic; Hgb 8.9 on arrival MCV WNL Patient does take iron supplements No signs of active bleeding on exam FE panel, ferritin, folic acid, vitamin B12 levels ordered, pending (5) History of hip fracture: Plan: Left hip fracture repaired on April 15 Patient denies any pain on physical exam Plan [facility] Regular diet VTE PPx: Teds, Lovenox 5000u SQ q12h History of Present Illness Chief Complaint: Fall x 2 Primary Care Provider: Emanuel Zamora DO Susan is an 87-year-old female with PMH of multiple falls, gait instability, lumbar radiculopathy, dementia, GERD, and closed hip fracture. She presented via EMS from [facility] for AMS, burning with urination, new onset lethargy, fever, and 2 falls over the past 2 days on 06/30. Patient is a poor historian at baseline due to her underlying dementia. She is unable to report if she fell, but notes she did not hit her head. She does endorse burning with urination 3 days ago, that has since resolved. Patient's daughter is at the bedside provides additional history; patient's daughter reports that she said she felt fine on Wednesday, but also fell when reaching for her walker; also notes a fall in March when she tripped on her ottoman. Patient denies feeling dizzy or lightheaded prior to falls. She does note that she has had dark tarry stools ever since she started her iron supplements; denies having black bowel movements prior to starting iron. Her last colonoscopy was greater than 10 years ago. P atient/daughter deny family history of cancer/colon cancer. Last bowel movement was 2-3 days ago. Patient is unsure when her last FIT testing was. Patient also endorses mild lower back pain, which she rates as 5/10 at time of admission; dull, achy, no radiation down the legs or up the back. Patient denies smoking, tobacco use, and alcohol use. Patient is hypertensive at 176/95 at time of admission; vitals otherwise stable. ED course: NSS 1000 mL IV Acetaminophen 1000 mg IV Rocephin 1000 mg IV ROS: Patient endorses body aches x 1 day, lower back pain, dark tarry stool, and burning with urination x 3 days (resolved) Patient denies fever, sweats, chills, lightheadedness/dizziness, CP, pleuritic CP, SOB, abdominal pain, N/V/D, saddle anesthesia, or numbness/tingling/pain going down the legs. Spoke on the phone with nursing staff at [facility], who reported that she had 2 unwitnessed falls where she was found on the ground: The first being on 06/28 when she fell around 4 PM and rung her call blue; the second being last night where she was found on the ground by nursing staff around 1 AM (unsure how long she was on the ground for) and she did not bring her call blue. Unclear if she struck her head. She also had a fever of 99.9 F on the morning of 07/01. Nursing staff do report she has been complaining of increased urinary incontinence recently. No other urinary symptoms noted. Allergies Allergy/AdvReac Type Severity Reaction Status Date / Time duloxetine [From Cymbalta] Allergy Intermediate falls and Verified 04/15/23 07:36 nightmares codeine Allergy Unknown PT NOT SURE Verified 04/15/23 07:36 diazepam Allergy Unknown PT NOT SURE Verified 04/15/23 07:36 Penicillins Allergy Unknown itchy, Verified 04/15/23 07:36 hives Sulfa (Sulfonamide Allergy Unknown PT DOES Verified 04/15/23 07:36 Antibiotics) NOT REMEMBER tramadol AdvReac confusion, Verified 04/15/23 07:36 bad dreams Home Medications Medication Instructions Recorded Confirmed Type prevagen 10 mg PO QAM 01/10/19 07/02/23 History IRON TABLET 325 mg PO DAILY 05/10/23 07/02/23 History aspirin 81 mg tablet,delayed 81 mg PO BID 05/10/23 07/02/23 History release lidocaine HCl 4 % topical cream 1 applic topical QID neck pain 05/10/23 07/02/23 History (Aspercreme (lidocaine HCl)) cholecalciferol (vitamin D3) 25 1,000 unit PO QAM #90 tabs 06/17/23 07/02/23 Rx mcg (1,000 unit) tablet (Vitamin D3) acetaminophen 500 mg tablet 1,000 mg PO Q6H PRN pain/fever 07/02/23 07/02/23 History labetalol 300 mg tablet 300 mg PO BID 07/02/23 07/02/23 History menthol 0.44 %-zinc oxide 20.6 % 1 applic topical BID 07/02/23 07/02/23 History topical ointment (Calmoseptine) olmesartan 40 mg tablet 40 mg PO DAILY 07/02/23 07/02/23 History omega-3 700 mg-dha and epa 600 1 cap PO QAM 07/02/23 07/02/23 History mg-fish and krill oil 900 mg capsule (MegaRed Advanced 4-in-1) Past Med/Surg History Medical History (Updated 07/02/23 @ 10:47 by Juaquin Lance PA-C) History of hip fracture Fracture of second metacarpal bone of right hand Fracture, metacarpal Hypertension History of falling Impaired fasting glucose Spinal stenosis, lumbar region with neurogenic claudication History of compression fracture of spine T10, T12 CKD (chronic kidney disease) Anemia CHRONIC; BASELINE HGB 10'S PER CHART REVIEW Emphysema lung EMPHYSEMATOUS CHANGE PER CXR Arthritis Surgical History History of left knee surgery History of partial knee replacement 2019 History of colonoscopy History of arthroscopy of left knee History of hysterectomy History of urologic surgery BLADDER TAC History of lumbar fusion L1-5 2013 History of cataract surgery Family History Uncle Family history of cancer Aunt Family history of cancer Other Family history non-contributory Denies family history of Ovarian cancer Breast cancer Colorectal cancer Social History Smoking Status: Never smoker Second Hand Exposure: No; Do You Dip or Chew Tobacco: No; Hx Alcohol Use: No Hx Substance Use: No Preferred Language: Namibian Communication Ability: Effective Visual Impairment: Limited Hearing Ability: Normal Cabinet Finisher Required: No Beliefs That Will Affect Care: None marital status: Current Living Situation: Rehab current occupational status: retired Feels Safe at Home: Yes Safety Concerns: Feels Safe At This Time Childhood Exposure to Second-Hand Smoke: Yes Diet: regular caffeine: No Dental Care, Regularly: Yes Physical Activity Frequency: Daily Seatbelt Use: always Sunscreen Use: No Assistive Devices: Glasses and Walker Review of Systems Review of Systems: See HPI above Physical Exam Physical Exam: General: no acute distress; pleasant affect; non-toxic appearing; frail; cooperative; SpO2 95% on RA HEENT: normocephalic, atraumatic; no scleral icterus; PERRLA; moist mucus membrane; vision and hearing intact Neck: supple; no JVD; no lymphadenopathy; trachea midline Skin: warm, dry without signs of tenting; no cyanosis; no rashes, bruising, lesions, or erythema noted CV: chest wall NTP; RRR; S1/S2 normal; no murmurs/rubs/gallops; pulses intact and symmetric at radial, DP, and PT Lungs: no acute respiratory distress; symmetrical chest wall expansion; clear breath sounds across all lung king w/o adventitious sounds; no wheezing ABD: Soft, NTP; BS present; no rebound/guarding Right hip: NTP, no signs of active bleeding or bruising MSK: no tics or fasciculations; no edema noted in the LEs b/l, nonerythematous; patient demonstrates ability to wiggle toes bilaterally; decreased strength when lifting from the right leg Neuro: Oriented to name//location, not oriented to purpose/month; normal mood and affect; fluent speech; no focal deficits; sensation grossly intact in the LEs b/l Results & Data Results & Data Vital Signs (Past 12 Hours) Vital Signs Temp Pulse Resp BP Pulse Ox O2 Del Method 07/02/23 10:00 77 19 95 07/02/23 09:51 71 18 176/95 H 97 07/02/23 09:21 75 07/02/23 09:04 67 13 189/59 H 96 07/02/23 08:27 36.5 C 76 18 117/75 96 Room Air Laboratory Results Abnormal lab results 07/02/23 07/02/23 07/02/23 Range/Units 09:12 09:14 09:28 RBC 2.73 L (4.20-5.40) M/uL Hgb 8.9 L (12.0-16.0) g/dl Hct 26.5 L (37.0-47.0) % RDW Std Deviation 50.4 H (36.4-46.3) fL Lymph # (Auto) 0.81 L (1.20-3.40) K/uL Polk # (Auto) 0.73 H (0.11-0.59) K/uL Chloride 108 H (98-107) mmol/L BUN 32 H (6-23) mg/dl BUN/Creatinine Ratio 29.4 H (10-20) Glucose 110 H (70-99(Fasting)) mg/dl POC Glucose 122 H (70-99) mg/dl Total Bilirubin 1.1 H (0.2-1.0) mg/dl Troponin I High Sens 17.7 H (0-14) pg/ml Total Protein 5.7 L (6.0-8.3) gm/dl Globulin 1.8 L (2.5-4.0) gm/dl Albumin/Globulin Ratio 2.2 H (0.9-2) Urine Appearance Cloudy A (Clear) Urine Protein 2+ H (Negative) Urine Blood 1+ H (Negative) Urine Nitrite Positive A (Negative) Ur Leukocyte Esterase 1+ H (Negative) Urine WBC (Auto) >30 H (0-5) /hpf Urine Bacteria (Auto) 4+ H (Negative) Diagnostic Findings Cervical Spine CT 07/02/23 08:34 CT OF THE CERVICAL SPINE WITHOUT CONTRAST CLINICAL HISTORY: trauma, ams COMPARISON STUDY: No previous studies for comparison. TECHNIQUE: Helical axial images of the cervical spine were obtained without IV contrast. Sagittal and coronal reconstructions were viewed. Automated exposure control was utilized for the study. A dose lowering technique was utilized adhering to the principles of ALARA. FINDINGS: There is 3 mm anterolisthesis of C3 on C4 and 3 mm of anterolisthesis of C4 and C5. The findings are probably chronic. No acute cervical spine fracture is noted. There is moderate multilevel facet arthrosis as well as moderate to severe multilevel degenerative disc disease within the cervical spine. Findings are most pronounced at the C3-C4 and C5-C6 levels. There is no prevertebral edema. IMPRESSION: 1. No acute cervical spine fracture or subluxation. 2. Anterolisthesis of C3 on C4 and C4 on C5, likely chronic and related to facet arthrosis. 3. Moderate to severe multilevel degenerative disc disease and facet arthrosis within the cervical spine. ACT 112: Negative or not required by law. Electronically signed by: Lane Butts M.D. 07/02/2023 9:11 AM Chest X-Ray 07/02/23 08:34 XR chest 1V portable CLINICAL HISTORY: trauma COMPARISON STUDY: Chest radiograph July 25, 2018. FINDINGS: Operative findings within the lumbar spine are partially imaged. Linear densities within the lungs favor atelectasis or scarring. Lungs are clear. There is no pneumothorax or pleural effusion. Mild cardiomegaly is unchanged. Mediastinal contours are normal. There is no evidence for pulmonary edema. IMPRESSION: No acute cardiopulmonary findings. ACT 112: Negative or not required by law. Electronically signed by: Lane Butts M.D. 07/02/2023 10:[address] 07/02/23 08:34 CT head/brain wo con CLINICAL HISTORY: 87 years-old Female with trauma. Acute head trauma status post fall TECHNIQUE: Multiple axial CT images of the head were obtained without contrast. A dose lowering technique was utilized adhering to the principles of ALARA. CT DOSE: 929.67 mGy.cm COMPARISON: CT cervical spine of same day, head CT April 20, 2023 FINDINGS: Mildly motion degraded exam. No acute intracranial hemorrhage, midline shift, intracranial mass, hydrocephalus, territorial ischemia or abnormal extra-axial collection. Involutional changes with chronic microvascular ischemic disease. The calvarium is intact. Mastoid air cells are clear. Minimal mucosal thickening of the paranasal sinuses. Prior bilateral lens repair IMPRESSION: No acute intracranial abnormality or calvarial fracture. ACT 112: Negative or not required by law. The above report was generated using voice recognition software. It may contain grammatical, syntax or spelling errors. Electronically signed by: Blair Kendall M.D. 07/02/2023 9:34 AM Hip/Pelvis X-Ray 07/02/23 08:34 XR hip RT 2V w pelvis HISTORY: 87 years-old Female trauma acute pelvic pain status post trauma COMPARISON: 05/27/2023 TECHNIQUE: AP view the pelvis with 2 views of the right femur FINDINGS: Demineralized appearance to the bones. Healing fixated left intratrochanteric fracture. Mild right hip osteoarthritis. No acute fracture or dislocation identified. Fusion hardware of the lower lumbar spine. IMPRESSION: 1. No acute fracture or dislocation. 2. Healing subacute fixated left intertrochanteric femoral fracture. ACT 112: Negative or not required by law. The above report was generated using voice recognition software. It may contain grammatical, syntax or spelling errors. Electronically signed by: Bliar Kendall M.D. 07/02/2023 10:17 AM Code Status & VTE Plan Code Status DNR/DNR VTE Prophylaxis Plan VTE Prophylaxis will be ordered: Yes Supervising Physician Co-Signing Physician Notes Patient seen and examined, chart reviewed, case discussed with Juaquin Lance and I agree with the assessment and plan as above except as otherwise noted Labs and images reviewed Susan is an 87-year-old female with a past medical history of multiple falls, hip fracture, CKD, GERD who presents to the ER with confusion and a unwitnessed fall.PT is seen with her daughter present. Notes she has had falls when she has reached for her walker or tripped, no known syncope/presycnope although is not sure what happened with this episode. Pending collateral from [facility]. No chest pain/chest pressure. Unclear if there were syncopal or prodromal symptoms or mechanical, patient is a limited historian of recent events. EKG on admission sinus with first-degree AV block no ischemic change and no change from prior. No leukocytosis. High-sensitivity troponin is minimally elevated 17.7 with repeat pending and TSH is normal. Bio fire is negative. Head CT is with no acute findings. CT spine is with no acute findings. Chest x-ray is with no acute findings. Hip x-ray shows no acute fracture or dislocation, left intertrochanteric femoral fracture s/p troch nail healing. UA is infected appearing. Suspect acute on chronic weakness and metabolic encephalopathy of UTI. Cannot exclude a syncopal event. Does have chronic back pain, at bedside there is no leg swelling sensation soft touch is intact in hands and feet and no saddle anesthesia is present, and ankle dorsiflexion/motor flexion 5/5. Patient was monitored on medical telemetry, troponin trended, supplemental IVF continued. Follow UCx and blood cultures. Patient placed on maintenance fluids, she is normotensive with a normal creatinine although contracted ratio is without leukocytosis, hypotension, tachypnea, or tachycardia. No history of heart failure monitor. Patient is a history of anemia and iron deficiency, she has not microcytic has a history of dark stools while on iron with no history of bleeding or dark stools prior to starting iron. She finds the daily iron to be very constipating. Will check iron studies along with B12/folate and reticulocyte index. She had a colonoscopy more than 10 years ago which was reportedly normal, she had last colon cancer screening cards approximately 3 years ago. Did not wish to have any further colonoscopies as she is almost 88. agree with management as above. Adjust antibiotics based on culture results. PG Care Time/CCT Total # of Minutes Spent Total Time Spent with Patient: Total time spent is greater than 50% in coordination of care (as documented) at patient's floor/unit and/or counseling patient: Coding [place] [address] INT INP/OBS CARE 2/55MIN Patient Type Established Medical Decision Making Moderate Complexity Diagnoses Fall W19.XXXA AMS (altered mental status) R41.82 Elevated troponin R79.89 Anemia D64.9 History of hip fracture Z87.81
[2023-07-02] MEDS: PLASMA-LYTE A 500 ML IV ONE (11:27)
[2023-07-02] MEDS: PLASMA-LYTE A 1,000 ML IV SCH (12:00)
[2023-07-02] MEDS: LIDOCAINE 5% 1 PATCH TD STA (12:32)
[2023-07-02 13:07] LABS: Folate (Folic Acid),Ser orPlas 10.76 ng/ml (>5.38)
[2023-07-02] MEDS: LABETALOL HCL 300 MG TAB PO STA (13:33)
[2023-07-02] MEDS: LIDOCAINE 4% CREAM 15 GM TUBE EXT SCH (17:30)
[2023-07-02] MEDS: HEPARIN SOD 5,000 UNIT/0.5 ML VIAL SQ SCH (21:08)
[2023-07-02] MEDS: ASPIRIN 81 MG ECTAB PO SCH (21:08)
[2023-07-02] MEDS: LABETALOL HCL 300 MG TAB PO SCH (21:08)
[2023-07-02] MEDS: MENTHOL-ZINC OXIDE 360 APPLN/120 GM TUBE EXT SCH (21:09)
[2023-07-02] MEDS: ACETAMINOPHEN 325 MG TAB PO PRN (21:29)
[2023-07-03 07:02] LABS: Basophils # (auto) 0.03 K/uL (0.00-0.20); Basophils % (auto) 0.5 %; Eosinophils # (auto) 0.05 K/uL (0.00-0.50); Eosinophils % (auto) 0.9 %; Hematocrit (blood only) 25.6 % (37.0-47.0); Hemoglobin 8.6 g/dl (12.0-16.0); Immature Granulocytes # (auto) 0.01 K/uL (0.01-0.20); Immature Granulocytes % (auto) 0.2 %; Lymphocytes % (auto) 16.4 %; Mean Corpuscular Hemoglobin 32.3 pg (25.0-34.0); Mean Corpuscular Hgb Conc 33.6 g/dL (32.0-36.0); Mean Corpuscular Volume 96.2 fL (80.0-100.0); Mean Platelet Volume 9.9 fL (9.4-12.4); Monocytes # (auto) 0.77 K/uL (0.11-0.59); Neutrophils # (auto) 3.74 K/uL (1.40-6.50); Platelet Count 162 K/uL (130-400); RDW Coefficient of Variation 14.2 % (11.5-14.5); Red Blood Count 2.66 M/uL (4.20-5.40)
[2023-07-03 07:14] LABS: BUN Creatinine Ratio 26.5 (10-20); Calcium 9.1 mg/dl (8.6-10.3); Creatinine Clr Calc Pharmacy 34.8 ml/min; Est GFR (African American) 72.5 ml/min; Est GFR (Non-African American) 62.5 ml/min; Potassium 3.4 mmol/L (3.5-5.1)
--- NOTE | 2023-07-03 07:41 | Electrocardiogram Report ---
Test Reason : Blood Pressure : / mmHG Vent. 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
[2023-07-03] MEDS: POTASSIUM CHLORIDE CRTAB 20 MEQ TABCR PO STA (08:10)
[2023-07-03] MEDS: LOSARTAN POTASSIUM 50 MG TAB PO SCH (08:11)
[2023-07-03 09:41] LABS: Troponin I High Sensitivity 16.4 pg/ml (0-14)
[2023-07-03] MEDS: cefTRIAXone SODIUM 2,000 MG in DEXTROSE 5 % MINI-B 50 ML IV SCH (10:50)
--- NOTE | 2023-07-03 14:34 | Hospitalist Progress Note ---
Date of Service July 03, 2023 Assessment & Plan (1) Urinary tract infection: Plan: At least two unwitnessed falls at [facility] over 2 days prior to admission. - UA consistent with infection - UC with GNB - Continue Ceftriaxone - Received plasma-lyte x2L - PT/OT AM CBC and BMP (2) Fall: Plan: Unclear if witnessed/unwitnessed falls x 2 over the past 2 days leading up to admission Hip/pelvic x-ray revealed no acute fracture or dislocation; healing subacute fixated left intertrochanteric femoral fracture Had left hip fracture repaired 04/15. - discharged to [facility] for rehab, subsequent discharge to [facility] - prior to hip fx, living independently at home with (3) AMS (altered mental status): Plan: Metabolic encephalopathy History of underlying dementia Head CT revealed no acute findings Cervical spine CT revealed no acute fractures or subluxation Alert and oriented to self only, discussed with daughter 07/02 and this is a change from her baseline. Daughter states has struggled with hospital delirium in the past (4) Elevated troponin: Plan: Troponin 17.7, peaked at 19 now down trending do not suspect ACS Continues telemetry monitoring (5) Anemia: Plan: Chronic; Hgb 8.9 on arrival MCV WNL Patient does take iron supplements, but struggles with constipation. no plan for further colonscopy given age FE studies: low transferrin stat, and low TIBC --> will give IV venofer B12: 586, folate: 10.76 - FOB pending Plan Disposition: continued inpatient stay VTE PPx: Teds, heparin 5000u SQ q12h Daughter updated via phone Admission and Anticipated Discharge Date Admission Date: July 02, 2023 Supervising Physician Co-Signing Physician Notes Attending Attestation - Chart reviewed in detail, care plan d/w JULIA Marte. I agree w/ the pedersen components of her documentation. Gabriel Medrano MD Subjective Patient seen sitting in bed. Alert only to self, no family present at bedside. Thinks that we are inside her home and she also thinks that she broke her hip yesterday. Currently denies any pain. Reports good appetite Review of Systems Review of Systems: All systems reviewed & are unremarkable except as noted in Subjective Physical Exam Physical Exam: General: NAD, VS as above Resp: normal respiratory effort, lungs clear to auscultation CV: RRR, no murmur, Abd: normal bowel sounds, non tender, no hepatosplenomegaly Extremities: Moves all extremities, no edema Neuro: A&O x1, Results & Data Results & Data Vital Signs (Past 12 Hours) Vital Signs Temp Pulse Pulse Resp BP Pulse Ox Pulse Ox 07/03/23 12:54 94 07/03/23 11:40 36.4 C L 61 20 138/70 96 07/03/23 07:55 36.7 C 63 16 191/66 H 95 07/03/23 06:00 61 07/03/23 04:37 36.6 C 70 20 196/68 H 95 O2 Del Method O2 Del Method 07/03/23 12:54 Room Air 07/03/23 11:40 Room Air 07/03/23 07:55 Room Air 07/03/23 06:00 07/03/23 04:37 Room Air Laboratory Results CBC, chemistry, iron studies reviewed B12, folate, TSH reviewed PG Care Time/CCT Total # of Minutes Spent Total Time Spent with Patient: Total time spent is greater than 50% in coordination of care (as documented) at patient's floor/unit and/or counseling patient: Coding Level of Care Code 02509 SUB INP/OBS CARE 3/50MIN Diagnoses Urinary tract infection N39.0 Fall W19.XXXA AMS (altered mental status) R41.82 Elevated troponin R79.89 Anemia D64.9
[2023-07-03] MEDS: IRON SUCROSE 300 MG in SODIUM CHLORIDE 0.9% 250 ML IV ONE (17:35)
[2023-07-04] MEDS: MELATONIN 3 MG TAB PO PRN (00:46)
[2023-07-04 07:06] LABS: Basophils # (auto) 0.02 K/uL (0.00-0.20); Basophils % (auto) 0.4 %; Eosinophils # (auto) 0.08 K/uL (0.00-0.50); Eosinophils % (auto) 1.7 %; Hematocrit (blood only) 28.3 % (37.0-47.0); Hemoglobin 9.5 g/dl (12.0-16.0); Immature Granulocytes # (auto) 0.02 K/uL (0.01-0.20); Immature Granulocytes % (auto) 0.4 %; Lymphocytes # (auto) 1.01 K/uL (1.20-3.40); Lymphocytes % (auto) 21.4 %; Mean Corpuscular Hemoglobin 32.8 pg (25.0-34.0); Mean Corpuscular Hgb Conc 33.6 g/dL (32.0-36.0); Mean Corpuscular Volume 97.6 fL (80.0-100.0); Mean Platelet Volume 9.8 fL (9.4-12.4); Monocytes # (auto) 0.74 K/uL (0.11-0.59); Monocytes % (auto) 15.7 %; Neutrophils # (auto) 2.84 K/uL (1.40-6.50); Neutrophils % (auto) 60.4 %; Platelet Count 196 K/uL (130-400); RDW Standard Deviation 49.7 fL (36.4-46.3); White Blood Count 4.71 K/ul (4.8-10.8)
[2023-07-04 07:24] LABS: BUN Creatinine Ratio 20.7 (10-20); Calcium 9.8 mg/dl (8.6-10.3); Creatinine Clr Calc Pharmacy 34.7 ml/min; Est GFR (African American) 73.5 ml/min; Est GFR (Non-African American) 63.4 ml/min; Potassium 3.6 mmol/L (3.5-5.1)
--- NOTE | 2023-07-04 12:13 | Hospitalist Progress Note ---
Date of Service July 04, 2023 Assessment & Plan (1) Urinary tract infection: Plan: At least two unwitnessed falls at [facility] over 2 days prior to admission. - UA consistent with infection - UC with pansensitive E. coli - Continue Ceftriaxone (first day 07/01), can transition to p.o. antibiotics at discharge - Received plasma-lyte x2L - PT/OT - recommending rehab at SNF (2) Fall: Plan: Unclear if witnessed/unwitnessed falls x 2 over the past 2 days leading up to admission Hip/pelvic x-ray revealed no acute fracture or dislocation; healing subacute fixated left intertrochanteric femoral fracture Had left hip fracture repaired 04/15. - discharged to [facility], subsequent discharge to [facility] - prior to hip fx, living independently at home with (3) AMS (altered mental status): Plan: Metabolic encephalopathy History of underlying dementia Head CT revealed no acute findings Cervical spine CT revealed no acute fractures or subluxation Alert and oriented to self only, discussed with daughter 07/02 and this is a change from her baseline. Daughter states has struggled with hospital delirium in the past 07/03 mentation seems to be improving (4) Elevated troponin: Plan: Troponin 17.7, peaked at 19 now down trending do not suspect ACS Continues telemetry monitoring (5) Anemia: Plan: Chronic; Hgb 8.9 on arrival MCV WNL Patient does take iron supplements, but struggles with constipation. no plan for further colonscopy given age FE studies: low transferrin stat, and low TIBC --> received IV venofer B12: 586, folate: 10.76 - FOB pending Plan Disposition: continued inpatient stay VTE PPx: Teds, heparin 5000u SQ q12h family updated at bedside Admission and Anticipated Discharge Date Admission Date: July 02, 2023 Supervising Physician Co-Signing Physician Notes Attending Attestation - Chart reviewed, care plan d/w JULIA Marte. I agree w/ the pedersen components of her documentation. Gabriel Medrano MD Subjective Patient lying in bed, multiple family members present at bedside. States that she just worked with PT and OT and recommending SNF, family preferred [facility]. Do not want her going back to [facility]. Family requesting protein shakes with her meals. Patient currently denies any pain or other complaints, however family states she was just complaining about pain in her right hip. Tells me that his June 2002, but is able to identify all the family members at bedside RN reports decreased sleep overnight with agitation, overall patient mentation is better when family is present telemetry sinus rhythm in the 80s Review of Systems Review of Systems: All systems reviewed & are unremarkable except as noted in Subjective Physical Exam Physical Exam: General: NAD, VS as above Resp: normal respiratory effort, lungs clear to auscultation CV: RRR, no murmur, Abd: normal bowel sounds, non tender, no hepatosplenomegaly Extremities: Moves all extremities, no edema Neuro: A&O x2, Results & Data Results & Data Vital Signs (Past 12 Hours) Vital Signs Temp Pulse Pulse Resp BP BP Pulse Ox 07/04/23 11:45 36.6 C 65 18 169/75 H 94 07/04/23 07:25 36.6 C 71 20 202/73 H 94 07/04/23 06:03 66 07/04/23 03:35 36.6 C 70 18 182/62 H 96 07/04/23 00:19 79 O2 Del Method 07/04/23 11:45 Room Air 07/04/23 07:25 Room Air 07/04/23 06:03 07/04/23 03:35 Room Air 07/04/23 00:19 Laboratory Results CBC and chemistry reviewed PG Care Time/CCT Total # of Minutes Spent Total Time Spent with Patient: Total time spent is greater than 50% in coordination of care (as documented) at patient's floor/unit and/or counseling patient: Coding Level of Care Code 51126 SUB INP/OBS CARE 2/35MIN Diagnoses Urinary tract infection N39.0 Fall W19.XXXA AMS (altered mental status) R41.82 Elevated troponin R79.89 Anemia D64.9
[2023-07-04] MEDS: IRON SUCROSE 300 MG in SODIUM CHLORIDE 0.9% 250 ML IV SCH (13:11)
[2023-07-05] MEDS: OLANZapine 10 MG/2.1 ML SDV IM STA (00:47)
[2023-07-05] MEDS: OLANZapine 10 MG/2.1 ML SDV IM ONE (01:30)
[2023-07-05 07:16] LABS: Basophils # (auto) 0.02 K/uL (0.00-0.20); Basophils % (auto) 0.4 %; Eosinophils # (auto) 0.13 K/uL (0.00-0.50); Eosinophils % (auto) 2.5 %; Hematocrit (blood only) 28.5 % (37.0-47.0); Hemoglobin 9.5 g/dl (12.0-16.0); Immature Granulocytes # (auto) 0.02 K/uL (0.01-0.20); Immature Granulocytes % (auto) 0.4 %; Lymphocytes # (auto) 1.78 K/uL (1.20-3.40); Lymphocytes % (auto) 34.3 %; Mean Corpuscular Hgb Conc 33.3 g/dL (32.0-36.0); Mean Platelet Volume 9.6 fL (9.4-12.4); Monocytes # (auto) 0.84 K/uL (0.11-0.59); Monocytes % (auto) 16.2 %; Neutrophils % (auto) 46.2 %; Platelet Count 201 K/uL (130-400); RDW Coefficient of Variation 13.9 % (11.5-14.5); RDW Standard Deviation 48.7 fL (36.4-46.3); Red Blood Count 2.97 M/uL (4.20-5.40); White Blood Count 5.19 K/ul (4.8-10.8)
[2023-07-05 07:39] LABS: BUN Creatinine Ratio 21.5 (10-20); Creatinine Clr Calc Pharmacy 30.6 ml/min; Est GFR (African American) 63.2 ml/min; Est GFR (Non-African American) 54.5 ml/min; Potassium 3.7 mmol/L (3.5-5.1)
[2023-07-05] MEDS: D5W AND 1/2NSS 1,000 ML IV SCH (13:14)
--- NOTE | 2023-07-05 15:57 | Hospitalist Progress Note ---
Date of Service July 05, 2023 Assessment & Plan (1) Urinary tract infection: Plan: At least two unwitnessed falls at [facility] over 2 days prior to admission. - UA consistent with infection - UC with pansensitive E. coli - Continue Ceftriaxone (first day 07/01), can transition to p.o. antibiotics at discharge - Received plasma-lyte x2L - PT/OT - recommending rehab at SNF, case management following (2) Fall: Plan: Unclear if witnessed/unwitnessed falls x 2 over the past 2 days leading up to admission Hip/pelvic x-ray revealed no acute fracture or dislocation; healing subacute fixated left intertrochanteric femoral fracture Had left hip fracture repaired 04/15. - discharged to [facility] for rehab, subsequent discharge to [facility] - prior to hip fx, living independently at home with (3) AMS (altered mental status): Plan: Metabolic encephalopathy History of underlying dementia Head CT revealed no acute findings Cervical spine CT revealed no acute fractures or subluxation Alert and oriented to self only, discussed with daughter 07/02 and this is a change from her baseline. Daughter states has struggled with hospital delirium in the past 07/03 mentation seems to be improving 07/04 patient apparently agitated overnight and received 10mg IM zyprexa, subsequently has been sleeping most of the day unable to evaluate mental status Schedule melatonin PRN low dose PO Haldol qHS. Would avoid high dose IM Medications (4) Elevated troponin: Plan: Troponin 17.7, peaked at 19 now down trending do not suspect ACS Continues telemetry monitoring (5) Anemia: Plan: Chronic; Hgb 8.9 on arrival MCV WNL Patient does take iron supplements, but struggles with constipation. no plan for further colonoscopy given age FE studies: low transferrin stat, and low TIBC --> received IV venofer x3 B12: 586, folate: 10.76 - FOB pending Plan Disposition: continued inpatient stay VTE PPx: Teds, heparin 5000u SQ q12h family updated at bedside Admission and Anticipated Discharge Date Admission Date: July 02, 2023 Supervising Physician Co-Signing Physician Notes Attending Attestation - Chart reviewed, care plan d/w JULIA Marte. I agree w/ the pedersen components of her documentation. Gabriel Medrano MD Subjective patient unable to answer most of my questions because of the large dose of IM Zyprexa that she received yesterday was awake for lunch SR with 1st degree block 70-80s Review of Systems Review of Systems: Unobtainable due to cognitive status Physical Exam Physical Exam: General: NAD, opens eyes to vocal stimuli, VS as above Resp: normal respiratory effort, lungs clear to auscultation CV: RRR, no murmur, Abd: normal bowel sounds, non tender, no hepatosplenomegaly Extremities: Moves all extremities, no edema Results & Data Results & Data Vital Signs (Past 12 Hours) Vital Signs Temp Pulse Pulse Resp BP Pulse Ox O2 Del Method 07/05/23 15:00 62 07/05/23 11:27 36.3 C L 77 16 146/83 H Room Air 07/05/23 09:00 165/72 H 07/05/23 07:50 37.1 C 66 18 194/66 H 95 Room Air 07/05/23 07:00 61 Laboratory Results CBC and chemistry reviewed PG Care Time/CCT Total # of Minutes Spent Total Time Spent with Patient: Total time spent is greater than 50% in coordination of care (as documented) at patient's floor/unit and/or counseling patient: Coding Level of Care Code 47388 SUB INP/OBS CARE 3/50MIN Diagnoses Urinary tract infection N39.0 Fall W19.XXXA AMS (altered mental status) R41.82 Elevated troponin R79.89 Anemia D64.9
[2023-07-05] MEDS ORDERED: haloperidoL 0.5 MG TAB PO PRN (18:20)
[2023-07-05] MEDS: MELATONIN 3 MG TAB PO SCH (20:22)
[2023-07-05] MEDS: hydrALAZINE HCL 20 MG/ML VIAL IV STA (23:36)
[2023-07-06] MEDS: hydrALAZINE 10 MG TAB PO STA (04:41)
[2023-07-06 07:27] LABS: BUN Creatinine Ratio 22.9 (10-20); Calcium 10.3 mg/dl (8.6-10.3); Creatinine Clr Calc Pharmacy 27.1 ml/min; Est GFR (African American) 60.8 ml/min; Est GFR (Non-African American) 52.4 ml/min; Potassium 3.4 mmol/L (3.5-5.1)
--- NOTE | 2023-07-06 07:55 | Hospitalist Progress Note ---
Date of Service July 06, 2023 Assessment & Plan (1) Urinary tract infection: Plan: At least two unwitnessed falls at [facility] over 2 days prior to admission. s/p 2L IVF on admission +UA on admission, urine cx growing pansensitive ecoli Ceftriaxone IV (started 07/01), can transition to PO tomorrow to complete course Given IM zyprexa overnight 07/03/07/04 and slept most of the day yesterday. Awake/sleepy during the day. Per discussion w/ daughter , possible refer to Neuro outpatient for underlying dementia to start meds but has had hospital delirium for many years, even 15 years ago. Will order additional NSS @ 50cc/hr x 500cc bag given decreased PO intake day prior and monitor Discussed BP control, labetalol 300mg BID continued. Recently increased from 200mg BID. Also started on low dose amlodpine and discussed holding off resuming this and added hydralazine 10mg PO QID and will monitor/increase as needed. BPs systolic to 200s this morning, presenelty BP 161/90 and improvement in mentation compared to day prior per nursing. Bowel regimen -- last BM reported 06/29. schedule colace BID, miralax. Will check KUB to eval stool burden Updated daughter Елена this morning (works in the hospital, visited this morning and planning on coming again at lunch) PT/OT consults recommend SNF -- CM following. Likely will remain inpatient until bed at rehab found Of note, on ASA 81mg BID for DVT proph for her LEFT hip (healing on xray) -- changed to ONCE daily 81mg BID (notable patient got IV Venofer for iron deficiency earlier in the stay) Monitor labs/BP on repeat (2) Fall: Plan: Unclear if witnessed/unwitnessed falls x 2 over the past 2 days leading up to admission Hip/pelvic x-ray revealed no acute fracture or dislocation; healing subacute fixated left intertrochanteric femoral fracture Had left hip fracture repaired 04/15. - [facility], subsequent discharge to [facility] - prior to hip fx, living independently at home with Was to be on aspirin 81mg BID x 6 weeks. OR date was 04/15, likely can transition back to once daily aspirin. --> Discussed w/ daughter and unclear why was still on BID but likely from transition to rehab and then [facility] and not discontinued Changed back to ONCE daily aspirin for now for primary prevention PT/OT rec rehab as above (3) AMS (altered mental status): Plan: Metabolic encephalopathy History of underlying dementia Head CT revealed no acute findings Cervical spine CT revealed no acute fractures or subluxation Alert and oriented to self only, discussed with daughter 07/02 and this is a change from her baseline. Daughter states has struggled with hospital delirium in the past 07/03 mentation seems to be improving 07/04 patient apparently agitated overnight and received 10mg IM zyprexa, subsequently has been sleeping most of the day 07/04 unable to evaluate mental status Scheduled melatonin PRN low dose PO Haldol qHS. Would avoid high dose IM Medications --> DID NOT REQUIRE IM ZEPREXA OR HALDOL OVERNIGHT, continue scheduled melatonin --> Per daughter, significant hospital delirium in the past. Working on wake/night schedules with patient. Frequent orientation. Tx of UTI as above and BP control IMPROVING BUT STILL DELIRIOUS AT TIMES (4) Elevated troponin: Plan: Troponin 17.7, peaked at 19 now and trended down on repeat. Suspect demand ischemia from infection as above. No CP reported, no suspicion for ACS Has been NSR on telemetry, can downgrade if able to keep in same room (5) Anemia: Plan: Chronic; Hgb 8.9 on arrival MCV WNL Patient does take iron supplements, but struggles with constipation. no plan for further colonoscopy given age FE studies: low transferrin stat, and low TIBC --> received IV venofer x3 while inpatient B12: 586, folate: 10.76 Fecal occult ordered on admission but not yet obtained. Schedule colace BID, miralax for constipation issues (Last BM reported 06/29, will check KUB to eval stool burden) (6) Hypertension: Plan: significant elevations, similar in prior admissions recent increase in labetalol to 300mg BID which has been continued Hydralazine IV added prn, will schedule 10mg QID and monitor/titrate as needed Of note, amlodipine daily on home med list recently, also olmesartan (olmesartan substituted for losartan inpatient, stopped in lieu of hydralazine as above) BP improved this afternoon but will monitor/adjust hydralazine as needed (7) Constipation: Plan: likely 2nd to PO iron on admisison. Last BM reported 06/29. Slightly hypoactive BS on exam but nontender. Scheduled colace BID, miralax daily Check KUB to eval stool burden, consider enema/suppository pending results Plan Disposition: continued inpatient stay , needing rehab per PT/OT evals. CM to follow. Updated daughter 07/05 AM VTE PPx: Teds, heparin 5000u SQ q12h Admission and Anticipated Discharge Date Admission Date: July 02, 2023 Supervising Physician Co-Signing Physician Notes The patient was not seen by me. The chart was reviewed. Case discussed with JULIA Martin. Agree with assessment and plan Subjective Eval this morning, resting in bed. Woken easily but reports she just got to sleep. Discussed with nursing and appearing less confused today. Still reports year , on top of a building but cooperative with care. Did not require Zyprexa overnight. Discussed BP control -- she chuckled, endorsed usually high. Ok w/ discussion with daughter Quin regarding meds/plan. Was up with aide in room and not very steady on her feet, likely need for rehab. No fever/chills,chest pain or shortness of breath. Reports appetite ok. Questions/concerns addressed at this time. Updated daughter Елена by phone. Daughter reports significant hospital delirium. Even 15 years ago. Was up on first break, urine still looking dark. Unclear why still on aspirin twice daily, will change to once a day given had been on for over 6 weeks. Physical Exam Physical Exam: General: 87yo female resting in bed, easily awoken and reports just falling asleep, NAD HEENT; head atraumatic, normocephalic, mm slightly dry, trachea midline Resp: Even/unlabored, slightly diminshed in the bases, on room air CV: RRR, slightly tachy to 100s, faint systolic murmur, no pitting edema/calf tenderness GI: +BS, slight distension but nontender : no roe MSK/Neuro: healed incision to LEFT hip, nontender, sensation intact Psych: alert to person, not place/time/events Results & Data Results & Data Vital Signs (Past 12 Hours) Vital Signs Temp Pulse Pulse Resp BP BP BP 07/06/23 07:25 204/73 H 07/06/23 07:17 36.9 C 94 H 17 164/64 H 07/06/23 07:05 36.4 C L 63 17 205/61 H 07/06/23 07:00 66 07/06/23 06:09 68 173/89 H 07/06/23 04:18 72 198/73 H 07/06/23 03:46 36.7 C 68 16 215/73 H 201/92 H 07/06/23 01:10 36.7 C 76 168/70 H 07/06/23 00:27 105/79 07/05/23 23:06 36.4 C L 81 16 219/88 H 221/89 H 07/05/23 22:06 70 Pulse Ox O2 Del Method 07/06/23 07:25 07/06/23 07:17 95 Room Air 07/06/23 07:05 97 Room Air 07/06/23 07:00 07/06/23 06:09 07/06/23 04:18 07/06/23 03:46 97 Room Air 07/06/23 01:10 07/06/23 00:27 07/05/23 23:06 95 Room Air 07/05/23 22:06 Laboratory Results 07/06/23 07/06/23 Range/Units 08:18 06:12 Sodium 141 (136-145) mmol/L Potassium 3.4 L (3.5-5.1) mmol/L Chloride 109 H (98-107) mmol/L Carbon Dioxide 24 (21-32) mmol/L Anion Gap 8 (3-11) BUN 22 (6-23) mg/dl Creatinine 0.96 (0.6-1.2) mg/dl Est Cr Clr Drug Dosing 27.1 ml/min Est GFR ( Amer) 60.8 ml/min Est GFR (Non-Af Amer) 52.4 ml/min BUN/Creatinine Ratio 22.9 H (10-20) Glucose 101 H (70-99(Fasting)) mg/dl Calcium 10.3 (8.6-10.3) mg/dl Magnesium 2.0 (1.7-2.4) mg/dl Lyme Disease Screen Negative (Negative) PG Care Time/CCT Total # of Minutes Spent Total Time Spent with Patient: Total time spent is greater than 50% in coordination of care (as documented) at patient's floor/unit and/or counseling patient: Coding Level of Care Code 94712 SUB INP/OBS CARE 50MIN Diagnoses Urinary tract infection N39.0 Fall W19.XXXA AMS (altered mental status) R41.82 Elevated troponin R79.89 Anemia D64.9 Hypertension I10 Constipation K59.00
[2023-07-06] MEDS: POTASSIUM CHLORIDE 10 MEQ TABCR PO STA (08:38)
[2023-07-06] MEDS: hydrALAZINE 10 MG TAB PO SCH (08:39)
[2023-07-06] MEDS: DOCUSATE SODIUM 100 MG CAP PO SCH (13:18)
[2023-07-06] MEDS: SODIUM CHLORIDE 0.9% 500 ML IV SCH (13:19)
--- NOTE | 2023-07-06 13:36 | Communication Note ---
Date of Service: July 06, 2023 Patient with increased agitation this afternoon. Evening prn Haldol not yet available, but per discussion w/ nursing staff did take her colace recently and suspect and ordered 12.5mg seroquel PO x 1 now, can add additional prn dose for this evening over haldol if effective for 1st line.
[2023-07-06] MEDS: QUEtiapine FUMARATE 25 MG TABLET PO ONE (14:24)
--- NOTE | 2023-07-06 15:14 | XCELERA ---
[id number] \\[id number]
[2023-07-06] MEDS ORDERED: bisacodyL 10 MG SUPP PR PRN (18:09)
--- NOTE | 2023-07-06 18:09 | Communication Note ---
Date of Service: July 06, 2023 Updated daughter Елена this afternoon. Susan sleepy/not wanting to eat much. Discussed snacks, also KUB and will work on bowel regimen. Discussed suppository/enema if needed, official report pending. Discussed rehab/SNF -- had good experience with [facility] and wondering if [facility] would be able to consider taking her mom back for rehab. [place]king to get 89yo father placed as well. Discussed will touch base w/ CM but agreed not unreasonable. Patient did want taken to "dining [facility]" for supper and appears did like it over there as well.
--- NOTE | 2023-07-06 18:56 | XRay Report ---
KUB CLINICAL HISTORY: Constipation. FINDINGS: An AP, portable, supine abdominal radiograph is obtained. Correlation is made with lumbar s pine radiographs dated 11/18/2018. There is a nonobstructed abdominal bowel gas pattern. Moderate fecal retention is noted in the colon. Cholecystectomy clips are seen in the right upper quadrant. No evid ence of intraperitoneal free air is seen on this supine image. There are no abnormal abdominal calcif ications. The skeletal structures are osteopenic. Spondylotic and extensive postsurgical change is no titus throughout the lumbosacral spine. Postsurgical change is seen in the left proximal femur. IMPRESSION: No acute abnormality is identified. Electronically signed by: Alfredito Watkins M.D. 07/06/2023 6:54 PM
[2023-07-06] MEDS: QUEtiapine FUMARATE 25 MG TABLET PO PRN (22:08)
[2023-07-07] MEDS: hydrALAZINE HCL 20 MG/ML VIAL IV PRN (03:17)
[2023-07-07] MEDS: OLANZapine 10 MG/2.1 ML SDV IM STA (04:44)
[2023-07-07 06:52] LABS: Hematocrit (blood only) 28.5 % (37.0-47.0); Hemoglobin 9.3 g/dl (12.0-16.0); Mean Corpuscular Hgb Conc 32.6 g/dL (32.0-36.0); Mean Corpuscular Volume 97.9 fL (80.0-100.0); Mean Platelet Volume 9.6 fL (9.4-12.4); Platelet Count 229 K/uL (130-400); Red Blood Count 2.91 M/uL (4.20-5.40); White Blood Count 5.52 K/ul (4.8-10.8)
[2023-07-07 07:09] LABS: Albumin Globulin Ratio 1.8 (0.9-2); Albumin Level 3.6 gm/dl (3.4-5.0); BUN Creatinine Ratio 24.3 (10-20); Bilirubin,Total 0.6 mg/dl (0.2-1.0); Calcium 10.5 mg/dl (8.6-10.3); Creatinine Clr Calc Pharmacy 23.4 ml/min; Magnesium 2.1 mg/dl (1.7-2.4); Potassium 3.4 mmol/L (3.5-5.1); Total Protein 5.6 gm/dl (6.0-8.3)
--- NOTE | 2023-07-07 07:39 | Hospitalist Progress Note ---
Date of Service July 07, 2023 Assessment & Plan (1) Urinary tract infection: Plan: At least two unwitnessed falls at [facility] over 2 days prior to admission. s/p 2L IVF on admission +UA on admission, urine cx growing pansensitive ecoli Ceftriaxone IV (started 07/01), can transition to PO tomorrow to complete course given sleepy/medicated w/ zyprexa overnight. Did increase and make seroquel 25mg HS scheduled for this evening Additional NS @ 50cc/hr for today for dehydration Bowel regimen - last BM 06/29. KUB w/ moderate stool in rectum. Colace/miralax, attempting enema for today Updated daughter several times, again 07/06. PT/OT recs for SNF -- wishes for [facility]. Hopefully Alicia able to eval in AM to see if able to take back Monitor labs in AM (2) Fall: Plan: Unclear if witnessed/unwitnessed falls x 2 over the past 2 days leading up to admission Hip/pelvic x-ray revealed no acute fracture or dislocation; healing subacute fixated left intertrochanteric femoral fracture Had left hip fracture repaired 04/15. - [facility], subsequent discharge to [facility] - prior to hip fx, living independently at home with (family also looking for placement for him) ASA 81mg x 6 weeks already completed (OR corinne 04/15) but had been on such and getting IV venofer for KENYA. Changed to ONCE daily Tx UTI as above PT/OT consults as outlined (3) AMS (altered mental status): Plan: Metabolic encephalopathy in patient w/ history of significant hospitali delirium/likely dementia CT head on admit no acute CVA> CT cervial spine w/o acute fx or subluxation Got 10mg IM zyprexa overnight into 07/04 and slept most of 07/04 day. Placed order for low dose haldol prn prior day Sitter in room for roommate/safety. Frequent orientation, sleep/wake schedules Melatonin HS scheduled continued Given 12.5mg PO seroquel w/ good effect in afternoon yesterday 07/05 but got additional dose and then IM zyprexa at reduced dose Discussed w/ daughter and making seroquel 25mg HS scheduled for and hopefully able to sleep this morning/get back on more regular sleep schedule Additional prn seroquel available 12.5mg if needed and would prefer over IM for sedation ?constipation contributing -- see below Tx UTI as above (4) Elevated troponin: Plan: Troponin 17.7, peaked at 19 now and trended down on repeat. Suspect demand ischemia from infection as above. No CP reported, no suspicion for ACS Has been NSR on telemetry, can downgrade if able to keep in same room (5) Anemia: Plan: Chronic; Hgb 8.9 on arrival MCV WNL Patient does take iron supplements, but struggles with constipation. no plan for further colonoscopy given age , would hold off further PO iron to prevent constipation Given Venofer IV x 3 doses inpatient for low trans % sat. B12 586, folate 10.76 Fecal occult not yet obtained, no BM since 06/29 and see KUB/constipation as below and bowel regimen Hgb 9.3 from 9.5 and had been given additional NSS overnight for dehydration and continued for today Monitor CBC (6) Hypertension: Plan: significant elevations, similar in prior admissions recent increase in labetalol to 300mg BID which has been continued Hydralazine IV added prn, scheduled 10mg QID and monitor/titrate as needed Of note, amlodipine daily on home med list recently, also olmesartan (olmesartan substituted for losartan inpatient, stopped in lieu of hydralazine as above) BP improved this afternoon but continued monitoring -- 176/67 most recently (7) Constipation: Plan: likely 2nd to PO iron on admisison. Last BM reported 06/29. Slightly hypoactive BS on exam but nontender. Scheduled colace BID, miralax daily --> KUB ordered to eval stool burden (better BS on exam 07/07) --> w/ no acute abn noted but does make mention of moderate fecal retention in the colon RN to administer enema for today and will continue to monitor. continue miralax/colace in meantime (8) Hypercalcemia: Plan: Ca 10.5 on AM labs Will check Vit D, has had prior elevations , PTH for further eval IVF as above suspect contributes to constipation monitor level on repeat Plan Disposition: continued inpatient stay , needing rehab per PT/OT evals -- daughter wanting [facility] CM aware. Елена updated AM 07/06 VTE PPx: Teds, heparin 5000u SQ q12h Admission and Anticipated Discharge Date Admission Date: July 02, 2023 Supervising Physician Co-Signing Physician Notes The patient was not seen by me. The chart was reviewed. Case discussed with JULIA Martin. Agree with assessment and plan Subjective Got PM prn seroquel but had continued agitation/unable to sleep last night and provided 2.5mg IM olanzapine. Labs this morning with Ca >10, checking Vit D/PTH, could be contributing to m ental status as well. ECHO w/o significant valvular abn. Patient evaluated this morning, had been sleeping pretty soundly. Unable to take her medications this morning. Per aide in room, did attempt some eggs but once got to her mouth she didn't want to take. Is able to wake up a little to answer some questions. When asked how she was doing she said "apparently not great". Discussed letting her sleep a little this morning and will get up/washed up and attempt lunch. Will plan to schedule seroquel 25mg HS for sundowning/sleep to prevent need for further IM dosing. Patient denied any shortness of breath/chest pain or abdominal pain/nausea at present. Discussed with nursing to attempt fleets this afternoon as able ot get her bowels moving. IVF ordered given poor PO intake in meantime, monitoring PO intake as waking up from medications.. Physical Exam Physical Exam: General: 87yo female sleeping in bed, medicated this morning for agitation, some jerking movements at times while sleeping but able to be awoke, NAD but confusion persists at times Head atraumatic, normocephalic, mm dry, trachea midline Resp: even/unlabored, slightly diminished in the bases but no w/c/r, on room air 94% CV: RRR, no significant m/r/g, no pitting edema/calf tenderness GI: +BS, slight distension but soft/nontender : purewick draining scant concentrated urine MSK/Neuro: healed incision to LEFT hip, nontender, sensation intact Psych: alert to person, not place/time/events, sleepy Results & Data Results & Data Vital Signs (Past 12 Hours) Vital Signs Temp Pulse Pulse Resp BP BP Pulse Ox 07/07/23 07:08 36.3 C L 81 20 184/69 H 95 07/07/23 04:12 140/66 07/07/23 02:57 36.7 C 84 20 193/116 H 96 07/06/23 23:19 36.3 C L 78 18 158/68 H 94 07/06/23 21:49 77 O2 Del Method 07/07/23 07:08 Room Air 07/07/23 04:12 07/07/23 02:57 Room Air 07/06/23 23:19 Room Air 07/06/23 21:49 Laboratory Results 07/07/23 07/07/23 07/06/23 Range/Units 06:17 04:14 08:18 WBC 5.52 (4.8-10.8) K/ul RBC 2.91 L (4.20-5.40) M/uL Hgb 9.3 L (12.0-16.0) g/dl Hct 28.5 L (37.0-47.0) % MCV 97.9 (80.0-100.0) fL MCH 32.0 (25.0-34.0) pg MCHC 32.6 (32.0-36.0) g/dL RDW Std Deviation 50.0 H (36.4-46.3) fL RDW Coeff of Karuna 14.0 (11.5-14.5) % Plt Count 229 (130-400) K/uL MPV 9.6 (9.4-12.4) fL Sodium 144 (136-145) mmol/L Potassium 3.4 L (3.5-5.1) mmol/L Chloride 112 H (98-107) mmol/L Carbon Dioxide 23 (21-32) mmol/L Anion Gap 9 (3-11) BUN 27 H (6-23) mg/dl Creatinine 1.11 (0.6-1.2) mg/dl Est Cr Clr Drug Dosing 23.4 ml/min Est GFR ( Amer) 51.0 ml/min Est GFR (Non-Af Amer) 44.0 ml/min BUN/Creatinine Ratio 24.3 H (10-20) Glucose 90 (70-99(Fasting)) mg/dl POC Glucose 118 H (70-99) mg/dl Calcium 10.5 H (8.6-10.3) mg/dl Magnesium 2.1 2.0 (1.7-2.4) mg/dl Total Bilirubin 0.6 (0.2-1.0) mg/dl AST 31 (13-39) U/L ALT 22 (7-52) U/L Alkaline Phosphatase 73 (34-104) U/L Total Protein 5.6 L (6.0-8.3) gm/dl Albumin 3.6 (3.4-5.0) gm/dl Globulin 2.0 L (2.5-4.0) gm/dl Albumin/Globulin Ratio 1.8 (0.9-2) Lyme Disease Screen Negative (Negative) Diagnostic Findings KUB X-Ray 07/06/23 12:40 KUB CLINICAL HISTORY: Constipation. FINDINGS: An AP, portable, supine abdominal radiograph is obtained. Correlation is made with lumbar spine radiographs dated 11/18/2018. There is a nonobstructed abdominal bowel gas pattern. Moderate fecal retention is noted in the colon. Cholecystectomy clips are seen in the right upper quadrant. No evidence of intraperitoneal free air is seen on this supine image. There are no abnormal abdominal calcifications. The skeletal structures are osteopenic. Spondylotic and extensive postsurgical change is noted throughout the lumbosacral spine. Postsurgical change is seen in the left proximal femur. IMPRESSION: No acute abnormality is identified. Electronically signed by: Alfredito Watkins M.D. 07/06/2023 6:54 PM PG Care Time/CCT Total # of Minutes Spent Total Time Spent with Patient: Total time spent is greater than 50% in coordination of care (as documented) at patient's floor/unit and/or counseling patient: Coding Level of Care Code 76657 SUB INP/OBS CARE 3/50MIN Diagnoses Urinary tract infection N39.0 Fall W19.XXXA AMS (altered mental status) R41.82 Elevated troponin R79.89 Anemia D64.9 Hypertension I10 Constipation K59.00 Hypercalcemia E83.52
[2023-07-07] MEDS ORDERED: SOD PHOSPHATE/SOD BIPHOSPHATE ENEMA 132 ML BTL PR PRN (07:44)
[2023-07-07] MEDS: POLYETHYLENE (MIRALAX) 17 GM PACK PO SCH (08:17)
[2023-07-07] MEDS: ASPIRIN 81 MG ECTAB PO SCH (08:18)
[2023-07-07] MEDS: POTASSIUM CHLORIDE CRTAB 20 MEQ TABCR PO STA (08:19)
[2023-07-07] MEDS ORDERED: POTASSIUM PHOS 3 MMOL/1 ML INFUSION IV STA (08:56)
[2023-07-07] MEDS: POTASSIUM PHOSPHATE 6 MMOL in 0.9 % SODIUM CHLORIDE 100 ML IV ONE (10:14)
[2023-07-07] MEDS: NSS + 20MEQ KCL 20 MEQ/1,000 ML BAG IV SCH (12:12)
--- NOTE | 2023-07-07 14:39 | XRay Report ---
XR chest 1V portable HISTORY: concerns for aspiration COMPARISON: Chest 07/02/2023. FINDINGS: No pneumothorax. No pleural effusions. No new focal lung consolidations to suggest a pneumo tiffanie. No evidence for pulmonary edema. The heart remains mildly enlarged. Calcifications within the ao rtic knob again noted. No acute fractures. Lumbar spinal fusion hardware and prior cholecystectomy. IMPRESSION: No significant change compared to the prior study. No acute process. ACT 112: Negative or not required by law. Electronically signed by: Juaquin Shepherd M.D. 07/07/2023 2:37 PM
[2023-07-07] MEDS ORDERED: NSS + 20MEQ KCL 20 MEQ/1,000 ML BAG IV SCH (18:30)
[2023-07-07] MEDS ORDERED: Nursing to Pharmacy Communication SCH (19:15)
[2023-07-07] MEDS: THIAMINE HCL 100 MG in SYRINGE 9 ML IV STA (19:24)
[2023-07-07] MEDS: QUEtiapine FUMARATE 25 MG TABLET PO SCH (21:42)
[2023-07-07] MEDS: MELATONIN 3 MG TAB PO SCH (21:44)
[2023-07-08 07:22] LABS: Albumin Level 3.7 gm/dl (3.4-5.0); BUN Creatinine Ratio 26.2 (10-20); Bilirubin Direct 0.1 mg/dl (0-0.2); Bilirubin,Total 0.6 mg/dl (0.2-1.0); Calcium 10.4 mg/dl (8.6-10.3); Creatinine Clr Calc Pharmacy 24.3 ml/min; Est GFR (African American) 53.3 ml/min; Magnesium 2.1 mg/dl (1.7-2.4); Potassium 3.8 mmol/L (3.5-5.1); Total Protein 5.8 gm/dl (6.0-8.3)
[2023-07-08 07:23] LABS: Hematocrit (blood only) 28.3 % (37.0-47.0); Hemoglobin 9.2 g/dl (12.0-16.0); Mean Corpuscular Hemoglobin 32.1 pg (25.0-34.0); Mean Corpuscular Hgb Conc 32.5 g/dL (32.0-36.0); Mean Corpuscular Volume 98.6 fL (80.0-100.0); Mean Platelet Volume 9.7 fL (9.4-12.4); Platelet Count 241 K/uL (130-400); RDW Coefficient of Variation 14.2 % (11.5-14.5); RDW Standard Deviation 51.5 fL (36.4-46.3); Red Blood Count 2.87 M/uL (4.20-5.40); White Blood Count 5.36 K/ul (4.8-10.8)
--- NOTE | 2023-07-08 07:54 | Hospitalist Progress Note ---
Date of Service July 08, 2023 Assessment & Plan (1) Urinary tract infection: Plan: At least two unwitnessed falls at [facility] over 2 days prior to admission. s/p 2L IVF on admission +UA on admission, urine cx growing pansensitive ecoli Ceftriaxone IV -- has completed >5 days (got 6 doses), discontinued further IVF continues for now, less dehydrated on exam Hydralazine increased to 25mg QID for ongoing hypertension, improved BP 186/79 this afternoon as initially didn't get AM PO meds as was too drowsy Bladder scan/straight cath if needed but also working on bowels -- RN to administer enema as dose not appear to have been given day prior. Did have small smear. +BS but slightly slow on exam. No overt tenderness/pain reported Decreased seroquel to 12.5mg for this evening, scheduled. Also decreased melatonin back to prior 3mg HS, unclear why was increased. Hopefully able to continue to AVOID any IM zyprexa/haldol overnight in anticipation for placement per discussion w/ daughter Елена PT/OT consulted and will need evals to see if [facility] able to take back Monitor labs on repeat (2) Fall: Plan: Unclear if witnessed/unwitnessed falls x 2 over the past 2 days leading up to admission Hip/pelvic x-ray revealed no acute fracture or dislocation; healing subacute fixated left intertrochanteric femoral fracture Had left hip fracture repaired 04/15. - [facility], subsequent discharge to [facility] - prior to hip fx, living independently at home with (family also looking for placement for him) ASA 81mg x 6 weeks already completed (OR date 04/15) but had been on such and getting IV venofer for KENYA. Aspirin changed to ONCE daily Tx UTI as outlined, therapy evals and will need placement as above, CM following (3) AMS (altered mental status): Plan: Metabolic encephalopathy in patient w/ history of significant hospitali delirium/likely dementia CT head on admit no acute CVA> CT cervial spine w/o acute fx or subluxation Got 10mg IM zyprexa overnight into 07/04 and slept most of 07/04 day. Placed order for low dose haldol prn prior day Sitter in room for roommate/safety. Frequent orientation, sleep/wake schedules Melatonin HS scheduled continued Tx UTI as above, working on bowels/constipation Given 12.5mg PO seroquel w/ good effect in afternoon 07/05 and additional 12.5mg prn dose overnight however IM zyprexa also given and was sleeping most of 07/06 Discussed w/ daughter prior and made seroquel scheduled 25mg HS however got increased melatonin 6mg last evening and sleeping most of this morning Hesitant to change seroquel to prn and risk need for IM medication and discussed w/ daughter and making 12.5mg HS scheduled for this evening and melatonin back to 3mg HS and hopefully now that patient on more of a regular sleep schedule and got sleep will be enough to keep calm/stable --> Did discuss w/ daughter likely benefit from continuing low dose seroquel for at least in hospital and likely at [facility] at discharge given her hospital delirium/dementia (4) Elevated troponin: Plan: Troponin 17.7, peaked at 19 now and trended down on repeat. Suspect demand ischemia from infection as above. No CP reported, no suspicion for ACS Has been NSR on telemetry but will continue to monitor given above to ensure to acute issues w/ antipsychotics (5) Anemia: Plan: Chronic; Hgb 8.9 on arrival MCV WNL Patient does take iron supplements, but struggles with constipation. no plan for further colonoscopy given age , would hold off further PO iron to prevent constipation Given Venofer IV x 3 doses inpatient for low trans % sat. B12 586, folate 10.76 Fecal occult not yet obtained, no BM since 06/29 and see KUB/constipation as below and bowel regimen (small smear reported 07/06) Hgb stable on continuous gentle IVF for above at 9.2, no bleeding reported. Would avoid further PO iron at fl to prevent constipation issues CBC in AM (6) Hypertension: Plan: significant elevations, similar in prior admissions recent increase in labetalol to 300mg BID which has been continued (also mention low dose amlodipine, can consider adding if needed but would want to avoid w/ elevated Ca/prevention of edema) Losartan substituted for olmesartan while inpatient Increased PO hydralazine to 25mg qid per discussion w/ supervising provider given ongoing HTN Monitor for need for further increase/consideration to add amlodpine (7) Constipation: Plan: likely 2nd to PO iron . Last BM reported 06/29. Slightly hypoactive BS on exam but nontender day prior, small smear yesterday and remains on colace BID, miralax KUB w/ moderate fecal retention in colon --> asked RN to administer enema as ordered daily prn and will monitor suspect constipation leading to urine retention and will continue to bladder scan/cath if needed (8) Hypercalcemia: Plan: Ca 10.5, likely 2nd to dehydration and contributing to her constipation. IVF ordered, Ca 10.4 on repeat labs/normal albumin. Ionized ca slightly elevated but not high enough to require treatment Vit D not deficient, PTH not elevated (prior PTH was elevated) Could be contributing to her constipation. Not on any vitamin D supplementation inpatient but is on 1000 IU as outpatient, should be stopped Of note, prior phos level was low/replacement ordered and repeat improved. will check again in am PTH related peptide pending -- will need f/u on this ?related to underlying CKD Monitor on repeat labs Plan Disposition: continued inpatient stay , needing rehab per PT/OT evals and need repeat evals for [facility] to consider. Will see about having them eval today as did not get IM zyprexa and more awake/alert this afternoon Heparin SQ while inpatient for DVT proph Updated daughter Елена (works in [employer]) -- would continue to update daily. She does visit her mother multiple times daily typically Admission and Anticipated Discharge Date Admission Date: July 02, 2023 Supervising Physician Co-Signing Physician Notes The patient was not seen by me. The chart was reviewed. Case discussed with JULIA Martin. Agree with assessment and plan Subjective eval this afternoon, sitting up in bed, 1:1 in room. Patient had been sleeping most of the evening, did get her seroquel 25mg as well as melatonin increased by resident team to 6mg. Wasn't awake enough to take PO this morning but now awake and able to tolerate. About to work with therapy, CM to see if Alicia from [facility] ok to come and assess now that she is awake. She reports having good interaction with the girls from [facility] and willing to go there at discharge. When asked where she was she thought at home initially but easily reoriented. When asked year/month, patient looked at [employer] for reference. No CP/SOB reported. Urine in purewick scant, RN unsure when last emptied but to bladder scan. Will plan decreased seroquel and melatonin dose for tonight given patient had good sleep past two days and hopefully caught up. Contacted daughter w/ update regarding plan to see if ok w/ continuing seroquel scheduled but perhaps at prior lower dose vs changing to prn but concerns needing for IM medication if not having something at night for likely sundowning. Physical Exam Physical Exam: General: 87yo female sitting up in bed, aide in room, watching TV, awake/talking, alert to person but not place/time (however using white board in room and able to read off month/year to myself), appearing calm/cooperative at present time Head atraumatic, normocephalic, mm improved, trachea midline Resp: even/unlabored, slightly diminished in the bases but no w/c/r, on room air CV: RRR, no significant m/r/g, no pitting edema/calf tenderness GI: +BS, slight distension but soft/no overt tenderness : purewick draining scant urine, not working/bed slightly wet MSK/Neuro: healed incision to LEFT hip, nontender, sensation intact Psych: alert to person, not place/time but using white board for reference, not combative/agitated at present time Results & Data Results & Data Vital Signs (Past 12 Hours) Vital Signs Temp Pulse Pulse Resp BP BP Pulse Ox 07/08/23 07:38 56 L 07/08/23 07:06 35.8 C L 60 22 216/65 H 97 07/08/23 02:48 36.4 C L 59 L 18 163/91 H 96 07/08/23 00:07 74 07/07/23 23:55 36.7 C 74 18 122/64 96 07/07/23 23:38 O2 Del Method 07/08/23 07:38 07/08/23 07:06 Room Air 07/08/23 02:48 Room Air 07/08/23 00:07 07/07/23 23:55 Room Air 07/07/23 23:38 Room Air Laboratory Results 07/08/23 07/07/23 Range/Units 06:39 07:50 WBC 5.36 (4.8-10.8) K/ul RBC 2.87 L (4.20-5.40) M/uL Hgb 9.2 L (12.0-16.0) g/dl Hct 28.3 L (37.0-47.0) % MCV 98.6 (80.0-100.0) fL MCH 32.1 (25.0-34.0) pg MCHC 32.5 (32.0-36.0) g/dL RDW Std Deviation 51.5 H (36.4-46.3) fL RDW Coeff of Karuna 14.2 (11.5-14.5) % Plt Count 241 (130-400) K/uL MPV 9.7 (9.4-12.4) fL Sodium 145 (136-145) mmol/L Potassium 3.8 (3.5-5.1) mmol/L Chloride 114 H (98-107) mmol/L Carbon Dioxide 25 (21-32) mmol/L Anion Gap 6 (3-11) BUN 28 H (6-23) mg/dl Creatinine 1.07 (0.6-1.2) mg/dl Est Cr Clr Drug Dosing 24.3 ml/min Est GFR ( Amer) 53.3 ml/min Est GFR (Non-Af Amer) 46.0 ml/min BUN/Creatinine Ratio 26.2 H (10-20) Glucose 101 H (70-99(Fasting)) mg/dl Calcium 10.4 H (8.6-10.3) mg/dl Ionized Calcium 1.44 H (1.12-1.32) mmol/L Phosphorus 2.4 L (2.5-4.9) mg/dl Magnesium 2.1 (1.7-2.4) mg/dl Total Bilirubin 0.6 (0.2-1.0) mg/dl Direct Bilirubin 0.1 (0-0.2) mg/dl AST 34 (13-39) U/L ALT 25 (7-52) U/L Alkaline Phosphatase 75 (34-104) U/L Total Protein 5.8 L (6.0-8.3) gm/dl Albumin 3.7 (3.4-5.0) gm/dl 25-OH Vitamin D Total 65.5 (30-100) ng/ml PTH Intact 70.1 (12.0-88.0) pg/ml PTH Related Protein Pending Diagnostic Findings Chest X-Ray 07/07/23 13:11 XR chest 1V portable HISTORY: concerns for aspiration COMPARISON: Chest 07/02/2023. FINDINGS: No pneumothorax. No pleural effusions. No new focal lung consolidations to suggest a pneumonia. No evidence for pulmonary edema. The heart remains mildly enlarged. Calcifications within the aortic knob again noted. No acute fractures. Lumbar spinal fusion hardware and prior cholecystectomy. IMPRESSION: No significant change compared to the prior study. No acute process. ACT 112: Negative or not required by law. Electronically signed by: Juaquin Shepherd M.D. 07/07/2023 2:37 PM PG Care Time/CCT Total # of Minutes Spent Total Time Spent with Patient: Total time spent is greater than 50% in coordination of care (as documented) at patient's floor/unit and/or counseling patient: Coding Level of Care Code 90907 SUB INP/OBS CARE 3/50MIN Diagnoses Urinary tract infection N39.0 Fall W19.XXXA AMS (altered mental status) R41.82 Elevated troponin R79.89 Anemia D64.9 Hypertension I10 Constipation K59.00 Hypercalcemia E83.52
[2023-07-08] MEDS: hydrALAZINE HCL 25 MG TAB PO SCH (09:36)
--- NOTE | 2023-07-08 18:14 | Communication Note ---
Date of Service: July 08, 2023 Patient again refusing some PO medications this afternoon. BP elevated She is remaining on telemetry, discussed w/ supervising provider and asked RN to administer dose IV hydralazine as likely transient elevations worsening confusion and decision to start low dose clonidine patch 0.1mg and see if effective for blood pressure/mood and if so could continue such. Is on labetalol BID and HRs have been in 50-60s, so will continue to monitor on telemetry given risk of interactions but Susan is in need of better baseline BP control.
[2023-07-08] MEDS: amLODIPine BESYLATE 5 MG TAB PO ONE (18:34)
[2023-07-08] MEDS: cloNIDine HCL 0.1 MG/24 HR TRANSDERM SYS TD SCH (18:46)
[2023-07-08] MEDS: MELATONIN 3 MG TAB PO SCH (19:53)
[2023-07-08] MEDS: QUEtiapine FUMARATE 25 MG TABLET PO SCH (19:54)
[2023-07-09] MEDS: CHECK CLONIDINE PATCH PLACEMENT SCH (02:26)
[2023-07-09 07:01] LABS: Basophils # (auto) 0.03 K/uL (0.00-0.20); Basophils % (auto) 0.5 %; Eosinophils # (auto) 0.28 K/uL (0.00-0.50); Eosinophils % (auto) 4.5 %; Hematocrit (blood only) 27.3 % (37.0-47.0); Hemoglobin 8.8 g/dl (12.0-16.0); Immature Granulocytes # (auto) 0.04 K/uL (0.01-0.20); Immature Granulocytes % (auto) 0.6 %; Lymphocytes # (auto) 1.59 K/uL (1.20-3.40); Lymphocytes % (auto) 25.4 %; Mean Corpuscular Hemoglobin 32.1 pg (25.0-34.0); Mean Corpuscular Hgb Conc 32.2 g/dL (32.0-36.0); Mean Corpuscular Volume 99.6 fL (80.0-100.0); Mean Platelet Volume 9.6 fL (9.4-12.4); Monocytes # (auto) 0.57 K/uL (0.11-0.59); Monocytes % (auto) 9.1 %; Neutrophils # (auto) 3.74 K/uL (1.40-6.50); Neutrophils % (auto) 59.9 %; Platelet Count 252 K/uL (130-400); RDW Coefficient of Variation 14.6 % (11.5-14.5); RDW Standard Deviation 52.5 fL (36.4-46.3); Red Blood Count 2.74 M/uL (4.20-5.40); White Blood Count 6.25 K/ul (4.8-10.8)
[2023-07-09 07:18] LABS: Albumin Globulin Ratio 1.8 (0.9-2); Albumin Level 3.5 gm/dl (3.4-5.0); BUN Creatinine Ratio 25.7 (10-20); Bilirubin,Total 0.5 mg/dl (0.2-1.0); Calcium 10.4 mg/dl (8.6-10.3); Est GFR (African American) 49.9 ml/min; Est GFR (Non-African American) 43.1 ml/min; Globulin 1.9 gm/dl (2.5-4.0); Phosphorus 2.2 mg/dl (2.5-4.9); Potassium 3.8 mmol/L (3.5-5.1); Total Protein 5.4 gm/dl (6.0-8.3)
--- NOTE | 2023-07-09 08:00 | Hospitalist Progress Note ---
Date of Service July 09, 2023 Assessment & Plan (1) Urinary tract infection: Plan: At least two unwitnessed falls at [facility] over 2 days prior to admission. s/p 2L IVF on admission +UA on admission, urine cx growing pansensitive ecoli Ceftriaxone IV -- has completed >5 days (got 6 doses), discontinued further IVF continues for now, less dehydrated on exam Hydralazine increased to 25mg QID for ongoing hypertension, improved BP 186/79 this afternoon as initially didn't get AM PO meds as was too drowsy Bladder scan/straight cath if needed but also working on bowels -- RN to administer enema as dose not appear to have been given day prior. Did have small smear. +BS but slightly slow on exam. No overt tenderness/pain reported Decreased seroquel to 12.5mg for this evening, scheduled. Also decreased melatonin back to prior 3mg HS, unclear why was increased. Hopefully able to continue to AVOID any IM zyprexa/haldol overnight in anticipation for placement per discussion w/ daughter Елена PT/OT consulted and will need rodolfo to see if [facility] able to take back -- able to ACCEPT 07/08 ABX discontinued 07/07 as above, afebrile. No leukocytosis No need for IM antipsychotics overnight. Continue on seroquel 12.5mg, melatonin 3mg, especially in hospital setting Hydralazine 25mg QID, clonidine patch ordered for improvement as well as mood and BPs appearing improved +moderate BM overnight, making urine. Additional BM this afternoon. Improvement in appetite reported for lunch, additional BM this afternoon reported. PT rodolfo repeated, [facility] able to accept back. Discussed case w/ mir Christiansen and wishes to return to [facility] given familiar environement but understanding patient is high fall risk. Of note, patient + covid testing [place] last admission to [facility]. Per discussion w/ dgt Елена last evening, initially tested positive in February and was told still shedding virus, however she does note her mother was spot on prior to initial COVID testing and has had continued decline since. Neuro f/u per CM being arranged at [place] for next coming weeks BP improved 100/51 this afternoon --> RN to repeat BP and if accurate will hold next dose hydralazine and continue the clonidine patch as started 07/07 and decrease hydralazine to 10mg QID and monitor. Suspect benefit from patch given waxing/waning of mental status and not wanting to take her medications at certain times Monitor exam on repeat, if stable daughter to transport to [facility] tomorrow (2) AMS (altered mental status): Plan: Metabolic encephalopathy in patient w/ history of significant hospitali delirium/likely dementia CT head on admit no acute CVA, CT cervical spine w/o acute fx or subluxation Got 10mg IM zyprexa overnight into 07/04 and slept most of 07/04 day. Placed order for low dose haldol prn prior day Sitter in room for roommate/safety. Frequent orientation, sleep/wake schedules Melatonin HS scheduled continued Tx UTI as above, working on bowels/constipation Given 12.5mg PO seroquel w/ good effect in afternoon 07/05 and additional 12.5mg prn dose overnight however IM zyprexa also given and was sleeping most of the da y on 07/06 --> Increased seroquel to 25mg HS however had increased melatonin 6mg overnight 07/05-07/06 and was sleeping a lot of AM 07/07 and decreased seroquel back to 12.5mg and melatonin to 3mg given improvement in sleep and hopeful to avoid overnight IM *07/08--> No zyprexa, reported good sleep w/ seroquel 12.5mg HS and melatonin 3mg HS and will continue. Possible benefit from daytime dose if needed for ing but appearing stable at present and will avoid for now (3) Elevated troponin: Plan: Troponin 17.7, peaked at 19 now and trended down on repeat. Suspect demand ischemia from infection as above. No CP reported, no suspicion for ACS Has been NSR on telemetry but will continue to monitor given above to ensure to acute issues w/ antipsychotics and addition of clonidine to monitor for any interactions w/ her labetalol. No significant drop in HR noted and continued monitoring (4) Anemia: Plan: Chronic; Hgb 8.9 on arrival MCV WNL Patient does take iron supplements, but struggles with constipation. no plan for further colonoscopy given age , would hold off further PO iron to prevent constipation Given Venofer IV x 3 doses inpatient for low trans % sat. B12 586, folate 10.76 Fecal occult not yet obtained, however had NOT been collected despite BM x 2 since last evening unfortunately Hgb stable on continuous gentle IVF for above at 9.2, no bleeding reported. Would avoid further PO iron at [facility] to prevent constipation issues CBC in AM now that IVF discontinued this afternoon (5) Hypertension: Plan: significant elevations, similar in prior admissions recent increase in labetalol to 300mg BID which has been continued Losartan Hydralazine increased to 25mg QID day prior given ongoing HTN issues, discussion and added clonidine TD 0.1mg 07/07 and improvement in BP, actually on lower end this afternoon --> Holding next dose hydralazine PO (IV available if needed) and RN to repeat BP and if accurate would plan to decrease hydralazine to 10mg QID starting for AM but if remaining stable without further dosing tonight could consider discontinuing if clonidine patch effective (6) Constipation: Plan: likely 2nd to PO iron [employer] PO Iron placed on hold, hgb as above KUB w/ mod fecal retention in colon. Enema provided, smear --> miralax/colace scheduled and moderate BM evening 07/07 w/ additional BM this afternoon 07/08 reported and will continue bowel regimen for now to prevent constipation as could be contributing to worsened MS as well as poor PO intake (reported improved) Did have urine retention x 1 afternoon 07/07, bladder scan/st cath x 1. IVF as above, now discontinued and no further st cath since moving bowels but will katherin tor (7) Hypercalcemia: Plan: Ca 10.5, likely 2nd to dehydration and contributing to her constipation. IVF ordered, Ca 10.4 on repeat labs/normal albumin. Ionized ca slightly elevated but not high enough to require treatment Vit D not deficient, PTH not elevated (prior PTH was elevated) Could be contributing to her constipation. Of note, prior phos level was low/replacement ordered and repeat improved. PTH related peptide pending -- will need f/u on this ?related to underlying CKD Ca remaining about the same, IVF discontinued as above and will monitor on repeat --> Make sure home Vitamin D 1000IU discontinued at [place] Monitor on repeat labs (8) Fall: Plan: Unclear if witnessed/unwitnessed falls x 2 over the past 2 days leading up to admission Hip/pelvic x-ray revealed no acute fracture or dislocation; healing subacute fixated left intertrochanteric femoral fracture Had left hip fracture repaired 04/15. - [facility], subsequent discharge to [facility] - prior to hip fx, living independently at home with (family also looking for placement for him) ASA 81mg x 6 weeks already completed (OR date 04/15) but had been on such and getting IV venofer for KENYA. Aspirin changed to ONCE daily Tx UTI as outlined, therapy evals and will need placement as above, CM following Plan DVT proph: heparin SQ while inpatient Disposition: continued inpatient stay but hopeful able to dc to [facility], mir Christiansen updated 07/08 and monitoring overnight. Moving her bowels, BPs improved CM to arrange for Neuro f/u at discharge given decline since this past Fall/Winter when initially contracted COVID Admission and Anticipated Discharge Date Admission Date: July 02, 2023 Supervising Physician Co-Signing Physician Notes The patient was not seen by me. The chart was reviewed. Case discussed with JULIA Martin. Agree with assessment and plan Subjective EValuated this afternoon, sitting up in chair. Didn't eat much breakfast but having increased appetite for lunch. Urine soaked bed this morning, making urine. No suprapubic discomfort. Denies abdominal pain, reports had good bowel movement overnight and slept well. Discussed w/ nursing and did have moderate bowel movement overnight, no need for IM zyprexa or additional sedative/antipsychotic medications. [facility] able to accept back. Discussed w/ daughter Елена cognitive status decline since initally + COVID and may be her new baseline however discussed continuing seroquel, melatonin and increased BP meds w/ clonidine patch continued to ensure more stable control if/when she declines as she has in the past. CM to arrange for Neuro f/u When asked about ready for dc, patient initially said no. When asked why, she reports "I don't know, I'm just being mean". She reports year 2023 but is not oriented to place/events. Cooperative during encounter. Елена to be in shortly to see mom. Will have PT eval. If she feels would be willing/stable for dc when she sees, she would be willing to transport to make transition easier and she is off for a couple days and will alert nursing of decision when she comes. Understanding patient is and will be high fall risk at [facility] but will be ongoing issue and but would have to be willing to accept that risk. Demonstrated understanding and to let nursing know and I will contact CM to let [facility] know about potential dc for today. Questions/concerns addressed at this time. Physical Exam Physical Exam: General: 87yo female sitting up in chair, talking with room mate, watching nature/animal channel Head atraumatic, normocephalic, mm improved, trachea midline Resp: even/unlabored, slightly diminished in the bases but no w/c/r, on room air CV: RRR, no significant m/r/g, no pitting edema/calf tenderness GI: +BS, decreased distension, soft, no overt tenderness : no roe MSK/Neuro: healed incision to LEFT hip, nontender, sensation intact Psych: alert to person, not place, intermittent to time, cooperative and not agitated Results & Data Results & Data Vital Signs (Past 12 Hours) Vital Signs Temp Pulse Pulse Resp BP BP Pulse Ox 07/09/23 07:49 36.4 C L 65 18 173/67 H 95 07/09/23 02:50 36.9 C 67 16 134/55 L 97 07/08/23 22:44 36.4 C L 59 L 16 108/53 L 97 07/08/23 22:38 59 L 07/08/23 20:00 164/60 H O2 Del Method 07/09/23 07:49 Room Air 07/09/23 02:50 Room Air 07/08/23 22:44 Room Air 07/08/23 22:38 07/08/23 20:00 Laboratory Results 07/09/23 Range/Units 06:43 WBC 6.25 (4.8-10.8) K/ul RBC 2.74 L (4.20-5.40) M/uL Hgb 8.8 L (12.0-16.0) g/dl Hct 27.3 L (37.0-47.0) % MCV 99.6 (80.0-100.0) fL MCH 32.1 (25.0-34.0) pg MCHC 32.2 (32.0-36.0) g/dL RDW Std Deviation 52.5 H (36.4-46.3) fL RDW Coeff of Karuna 14.6 H (11.5-14.5) % Plt Count 252 (130-400) K/uL MPV 9.6 (9.4-12.4) fL Immature Gran % (Auto) 0.6 % Neut % (Auto) 59.9 % Lymph % (Auto) 25.4 % Towns % (Auto) 9.1 % Eos % (Auto) 4.5 % Baso % (Auto) 0.5 % Neut # (Auto) 3.74 (1.40-6.50) K/uL Lymph # (Auto) 1.59 (1.20-3.40) K/uL Towns # (Auto) 0.57 (0.11-0.59) K/uL Eos # (Auto) 0.28 (0.00-0.50) K/uL Baso # (Auto) 0.03 (0.00-0.20) K/uL Immature Gran # (Auto) 0.04 (0.01-0.20) K/uL Sodium 143 (136-145) mmol/L Potassium 3.8 (3.5-5.1) mmol/L Chloride 114 H (98-107) mmol/L Carbon Dioxide 24 (21-32) mmol/L Anion Gap 5 (3-11) BUN 29 H (6-23) mg/dl Creatinine 1.13 (0.6-1.2) mg/dl Est Cr Clr Drug Dosing 23.0 ml/min Est GFR ( Amer) 49.9 ml/min Est GFR (Non-Af Amer) 43.1 ml/min BUN/Creatinine Ratio 25.7 H (10-20) Glucose 105 H (70-99(Fasting)) mg/dl Calcium 10.4 H (8.6-10.3) mg/dl Phosphorus 2.2 L (2.5-4.9) mg/dl Magnesium 2.0 (1.7-2.4) mg/dl Total Bilirubin 0.5 (0.2-1.0) mg/dl AST 30 (13-39) U/L ALT 25 (7-52) U/L Alkaline Phosphatase 70 (34-104) U/L Ammonia 18.0 (18-72) umol/L Total Protein 5.4 L (6.0-8.3) gm/dl Albumin 3.5 (3.4-5.0) gm/dl Globulin 1.9 L (2.5-4.0) gm/dl Albumin/Globulin Ratio 1.8 (0.9-2) PG Care Time/CCT Total # of Minutes Spent Total Time Spent with Patient: Total time spent is greater than 50% in coordination of care (as documented) at patient's floor/unit and/or counseling patient: Coding Level of Care Code 39062 SUB INP/OBS CARE 3/50MIN Diagnoses Urinary tract infection N39.0 AMS (altered mental status) R41.82 Elevated troponin R79.89 Anemia D64.9 Hypertension I10 Constipation K59.00 Hypercalcemia E83.52 Fall W19.XXXA
[2023-07-10 07:36] LABS: Hematocrit (blood only) 27.2 % (37.0-47.0); Hemoglobin 8.9 g/dl (12.0-16.0); Mean Corpuscular Hemoglobin 32.5 pg (25.0-34.0); Mean Corpuscular Hgb Conc 32.7 g/dL (32.0-36.0); Mean Corpuscular Volume 99.3 fL (80.0-100.0); Mean Platelet Volume 9.8 fL (9.4-12.4); Platelet Count 257 K/uL (130-400); RDW Coefficient of Variation 14.5 % (11.5-14.5); RDW Standard Deviation 52.6 fL (36.4-46.3); Red Blood Count 2.74 M/uL (4.20-5.40); White Blood Count 5.41 K/ul (4.8-10.8)
--- NOTE | 2023-07-10 07:45 | Hospitalist Progress Note ---
Date of Service July 10, 2023 Assessment & Plan (1) Urinary tract infection: Plan: At least two unwitnessed falls at [facility] over 2 days prior to admission. s/p 2L IVF on admission +UA on admission, urine cx growing pansensitive ecoli Ceftriaxone IV -- has completed >5 days (got 6 doses), discontinued further Hydralazine increased to 25mg QID for ongoing hypertension, improved BP 186/79 asn't get AM PO meds as was too drowsy Bladder scan/straight cath if needed but also working on bowels -- RN to administer enema as dose not appear to have been given day prior. Did have small smear. +BS but slightly slow on exam. No overt tenderness/pain reported Decreased seroquel to 12.5mg for this evening, scheduled. Also decreased melatonin back to prior 3mg HS, unclear why was increased. Hopefully able to continue to AVOID any IM zyprexa/haldol overnight in anticipation for placement per discussion w/ daughter Елена PT/OT consulted and will need evals to see if [facility] able to take back -- able to ACCEPT 07/08 ABX discontinued 07/07 as above, afebrile. No leukocytosis No need for IM antipsychotics overnight. Continue on seroquel 12.5mg, melatonin 3mg, especially in hospital setting Hydralazine 25mg QID, clonidine patch ordered for improvement as well as mood and BPs appearing improved +moderate BM overnight, making urine. Additional BM this afternoon. Improvement in appetite reported for lunch, additional BM afternoon 07/08 reported PT evals repeated, [facility] able to accept back. Discussed case w/ daughter Елена and wishes to return to [facility] given familiar environment but understanding patient is high fall risk. Of note, patient + covid testing at id last admission to [facility]. Per discussion w/ dgt Елена last evening, initially tested positive in February and was told still shedding virus, however she does note her mother was spot on prior to initial COVID testing and has had continued decline since. Neuro f/u per CM being arranged at id for next coming weeks BP improved 100/51 this afternoon --> RN to repeat BP and if accurate will hold next dose hydralazine and continue the clonidine patch as started 07/07 and decrease hydralazine to 10mg QID and monitor. Suspect benefit from patch given waxing/waning of mental status and not wanting to take her medications at certain times 07/09 No leukocytosis, fever. remains off abx. fair/ok appetite, slightly improved and working on such. no further IVF for today, does not appear significantly dehydrated on exam Moved bowels x2 yesterday Xray lumbar spine w/ compression deformities, no new acute fx. Given balance issues w/ standing/inability in back. Discussed w/ daughter and consult placed for orthotics/brace to see if helps when up/walking and believes she would wear this. BP stable/improved and continues on clonidine patch. Hydralazine decreased back to prior 10mg QID to prevent hypotension and hopefully have a good regimen for her at present time. No significant bradycardia on monitor. Hopeful dc [facility] in next 24 hours, continue up/ambulation with staff and continued therapy while inpatient (2) AMS (altered mental status): Plan: Metabolic encephalopathy in patient w/ history of significant hospitali delirium/likely dementia CT head on admit no acute CVA, CT cervical spine w/o acute fx or subluxation --> *Per daughter, this has worsened since iniital + COVID back in the fall, never full recovered s/p Tx UTI as above Got 10mg IM zyprexa overnight into 07/04 and slept most of 07/04 day. Placed order for low dose haldol prn prior day Sitter in room for roommate/safety. Frequent orientation, sleep/wake schedules Melatonin HS scheduled continued Given 12.5mg PO seroquel w/ good effect in afternoon 07/05 and additional 12.5mg prn dose overnight however IM zyprexa also given and was sleeping most of the day on 07/06 --> Increased seroquel to 25mg HS however had increased melatonin 6mg overnight 07/05-07/06 and was sleeping a lot of AM 07/07 and decreased seroquel back to 12.5mg and melatonin to 3mg given improvement in sleep and hopeful to avoid overnight IM 07/08- No zyprexa, reported good sleep w/ seroquel 12.5mg HS and melatonin 3mg HS and will continue. 07/09--> again no need for zyprexa, reported good sleep and more alert/oriented today and will monitor. Moved bowels x 2 yesterday and continue bowel regimen. Consideration for daytime dosing if needed to prevent ing but do not want to over sedate and will hold off for now. (3) Elevated troponin: Plan: Troponin 17.7, peaked at 19 now and trended down on repeat. Suspect demand ischemia from infection as above. No CP reported, no suspicion for ACS Has been NSR on telemetry but will continue to monitor given above to ensure to acute issues w/ antipsychotics and addition of clonidine to monitor for any interactions w/ her labetalol. No significant drop in HR noted and continued monitoring (4) Anemia: Plan: Chronic; Hgb 8.9 on arrival [facility] WNL Patient does take iron supplements, but struggles with constipation. no plan for further colonoscopy given age , would hold off further PO iron to prevent constipation Given Venofer IV x 3 doses inpatient for low trans % sat. B12 586, folate 10.76 Fecal occult not yet obtained, however had NOT been collected despite BM x 2 since last evening unfortunately Hgb stable on continuous gentle IVF for above at 9.2, no bleeding reported. Would avoid further PO iron at dc to prevent constipation issues Hgb 8.8--> 8.9 since IVF discontinued. ==> RN TO OBTAIN FECAL OCCULT W NEXT BM monitor (5) Hypertension: Plan: significant elevations, similar in prior admissions recent increase in labetalol to 300mg BID which has been continued Losartan Hydralazine increased to 25mg QID previously prior given ongoing HTN issues, added clonidine TD 0.1mg 07/07 and improvement in BP, actually on lower end afternoon 07/08 and hydralazine dose for evening held and decreased PO to 10mg QID 07/09--> BP 128/53 at present. continue clonidine patch (added 07/07 - due to be changed 07/14), labetalol, losartan at present time and monitor (6) Constipation: Plan: likely 2nd to PO iron [employer] PO Iron placed on hold, hgb as above KUB w/ mod fecal retention in colon. Enema provided, smear --> miralax/colace scheduled and moderate BM evening 07/07 w/ additional BM afternoon 07/08 and continues on bowel regimen suspect contributing to poor PO intake prior, slightly improved but still poor/fair at present time (7) Hypercalcemia: Plan: Ca 10.5, likely 2nd to dehydration and contributing to her constipation. IVF ordered, Ca 10.4 on repeat labs/normal albumin. Ionized ca slightly elevated but not high enough to require treatment Vit D not deficient, PTH not elevated (prior PTH was elevated) Could be contributing to her constipation. Of note, prior phos level was low/replacement ordered and repeat improved. PTH related peptide pending -- will need f/u on this ?related to underlying CKD IVF discontinued Ca 11.1, ?immobilization. No evidence for DVT. No hypotension/hypoxia. --> Make sure home Vitamin D 1000IU discontinued at dc Monitor am labs/ionized for completeness (8) Fall: Plan: Unclear if witnessed/unwitnessed falls x 2 over the past 2 days leading up to admission Hip/pelvic x-ray revealed no acute fracture or dislocation; healing subacute fixated left intertrochanteric femoral fracture Had left hip fracture repaired 04/15. - discharged to [facility] for rehab, subsequent discharge to [facility] - prior to hip fx, living independently at home with (family also looking for placement for him) ASA 81mg x 6 weeks already completed (OR date 04/15) but had been on such and getting IV venofer for KENYA. Aspirin changed to ONCE daily Tx UTI as outlined, therapy evals and will need placement as above, CM following Plan DVT proph: heparin SQ while inpatient Disposition: hopeful [facility] next 07/08, high fall risk/not very balanced w/ nursing today. known lumbar stenosis/prior surgery, xray w/ compression deformities not new and will see if any improvement w/ brace from orthotics for stability but may have to accept high fall risk as wanting to go to [facility]/more familiar environment for patient (and trying to get her there as well) Moving her bowels, slight improvement in PO appetite. I suspect she is getting closer to likely new baseline. Will need Neuro f/u as already referred by PCP per discussion w/ nurse navigator Updated daughter Елена 07/09 Admission and Anticipated Discharge Date Admission Date: July 02, 2023 Supervising Physician Co-Signing Physician Notes The patient was not seen by me. The chart was reviewed. Case discussed with JULIA Martin. Agree with assessment and plan Subjective Evaluated this morning, sitting up in bed, talking to her roommate. Bowels moved but did not collect occult yesterday, hat in toilet. Recent BP 109/66 - remains on clonidine patch and scheduled lower dose hydralazine. Was elevated this AM and asked RN to administer IV hydralazine while awaiting PO meds to kick in. Was gotten up by nursing today, very unsteady on her feet and almost fell, back into bed. When asked about back pain she said no but then did endorse some chronic pain but then mentioned each fall she's had has been "non severe" When asked where she reports in the hospital, 2021 but not combative. Appetite ok but working on PO intake. Discussed wanting to get xray of her lower back for evaluation given prior falls. Will plan to call Елена this afternoon. NO fever/chills, no chest pain or sob reported. Initial vitals 71% incorrectly documented and was 91% on RA. Physical Exam Physical Exam: General: 87yo female sitting up in bed, talking with roommate, appears more oriented today, reported she knew she was in the hospital, 2021 initially Head atraumatic, normocephalic, mm improved, trachea midline Resp: even/unlabored, slightly diminished in the bases but no w/c/r, on room air CV: RRR, no significant m/r/g, no pitting edema/calf tenderness GI: +BS, decreased distension, soft, no overt tenderness : no roe MSK/Neuro: healed incision to LEFT hip, nontender, sensation intact Psych: alert to person/place, intermittent to time/not event, cooperative at present time Results & Data Results & Data Vital Signs (Past 12 Hours) Vital Signs Temp Pulse Pulse Resp BP Pulse Ox O2 Del Method 07/10/23 03:00 36.8 C 60 19 160/62 H 97 Room Air 07/09/23 23:02 36.3 C L 60 16 129/70 95 Room Air 07/09/23 21:56 57 L 07/09/23 21:18 Room Air Laboratory Results 07/10/23 Range/Units 06:57 WBC 5.41 (4.8-10.8) K/ul RBC 2.74 L (4.20-5.40) M/uL Hgb 8.9 L (12.0-16.0) g/dl Hct 27.2 L (37.0-47.0) % MCV 99.3 (80.0-100.0) fL MCH 32.5 (25.0-34.0) pg MCHC 32.7 (32.0-36.0) g/dL RDW Std Deviation 52.6 H (36.4-46.3) fL RDW Coeff of Karuna 14.5 (11.5-14.5) % Plt Count 257 (130-400) K/uL MPV 9.8 (9.4-12.4) fL Sodium 143 (136-145) mmol/L Potassium 3.9 (3.5-5.1) mmol/L Chloride 114 H (98-107) mmol/L Carbon Dioxide 23 (21-32) mmol/L Anion Gap 6 (3-11) BUN 27 H (6-23) mg/dl Creatinine 1.03 (0.6-1.2) mg/dl Est Cr Clr Drug Dosing 25.3 ml/min Est GFR ( Amer) 55.8 ml/min Est GFR (Non-Af Amer) 48.2 ml/min BUN/Creatinine Ratio 26.2 H (10-20) Glucose 101 H (70-99(Fasting)) mg/dl Calcium 11.1 H (8.6-10.3) mg/dl Phosphorus 2.3 L (2.5-4.9) mg/dl Magnesium 2.1 (1.7-2.4) mg/dl Diagnostic Findings Lumbar Spine X-Ray 07/10/23 11:43 XR lumbar spine 2-3V CLINICAL HISTORY: falls, low back pain COMPARISON STUDY: Lumbar spine radiographs July 21, 2011. Lumbar spine MRI December 02, 2018. FINDINGS: Multilevel lumbar spine posterior decompression with lateral bone graft material and bilateral pedicle screws are noted. Pedicle screws extend from the L1-L5 levels. Old T12 and L1 mild compression deformities are unchanged. There is no acute lumbar spine fracture. Anterolisthesis of L4 and L5 is unchanged. There is moderate disc space narrowing and osteophytosis at L4-L5 and L5-S1. Sacroiliac joints are intact. There are cholecystectomy clips in partially visualized left femoral internal fixation hardware. IMPRESSION: 1. No acute lumbar spine fracture or subluxation. No change in old mild T12 and L1 compression deformities. 2. Postoperative finding within the lumbar spine, as above. ACT 112: Negative or not required by law. Electronically signed by: Lane Butts M.D. 07/10/2023 12:37 PM PG Care Time/CCT Total # of Minutes Spent Total Time Spent with Patient: Total time spent is greater than 50% in coordination of care (as documented) at patient's floor/unit and/or counseling patient: Coding Level of Care Code 00807 SUB INP/OBS CARE 2/35MIN Diagnoses Urinary tract infection N39.0 AMS (altered mental status) R41.82 Elevated troponin R79.89 Anemia D64.9 Hypertension I10 Constipation K59.00 Hypercalcemia E83.52 Fall W19.XXXA
[2023-07-10 07:56] LABS: BUN Creatinine Ratio 26.2 (10-20); Calcium 11.1 mg/dl (8.6-10.3); Creatinine Clr Calc Pharmacy 25.3 ml/min; Est GFR (African American) 55.8 ml/min; Est GFR (Non-African American) 48.2 ml/min; Magnesium 2.1 mg/dl (1.7-2.4); Phosphorus 2.3 mg/dl (2.5-4.9); Potassium 3.9 mmol/L (3.5-5.1)
[2023-07-10] MEDS: hydrALAZINE HCL 20 MG/ML VIAL IV PRN (08:16)
[2023-07-10] MEDS: hydrALAZINE 10 MG TAB PO SCH (08:20)
--- NOTE | 2023-07-10 12:38 | XRay Report ---
XR lumbar spine 2-3V CLINICAL HISTORY: falls, low back pain COMPARISON STUDY: Lumbar spine radiographs July 21, 2011. Lumbar spine MRI December 02, 2018. FINDINGS: Multilevel lumbar spine posterior decompression with lateral bone graft material and bilate ral pedicle screws are noted. Pedicle screws extend from the L1-L5 levels. Old T12 and L1 mild compre ssion deformities are unchanged. There is no acute lumbar spine fracture. Anterolisthesis of L4 and L 5 is unchanged. There is moderate disc space narrowing and osteophytosis at L4-L5 and L5-S1. Sacroili ac joints are intact. There are cholecystectomy clips in partially visualized left femoral internal f ixation hardware. IMPRESSION: 1. No acute lumbar spine fracture or subluxation. No change in old mild T12 and L1 compression deform ities. 2. Postoperative finding within the lumbar spine, as above. ACT 112: Negative or not required by law. Electronically signed by: Lane Butts M.D. 07/10/2023 12:37 PM
[2023-07-11 06:39] LABS: Albumin Globulin Ratio 1.8 (0.9-2); Albumin Level 3.4 gm/dl (3.4-5.0); BUN Creatinine Ratio 23.8 (10-20); Bilirubin,Total 0.6 mg/dl (0.2-1.0); Calcium 10.7 mg/dl (8.6-10.3); Creatinine Clr Calc Pharmacy 24.8 ml/min; Est GFR (African American) 54.5 ml/min; Globulin 1.9 gm/dl (2.5-4.0); Magnesium 2.1 mg/dl (1.7-2.4); Potassium 3.7 mmol/L (3.5-5.1); Total Protein 5.3 gm/dl (6.0-8.3)
--- NOTE | 2023-07-11 07:34 | Hospitalist Progress Note ---
Date of Service July 11, 2023 Assessment & Plan (1) Urinary tract infection: Plan: At least two unwitnessed falls at [facility] over 2 days prior to admission. s/p 2L IVF on admission +UA on admission, urine cx growing pansensitive ecoli Ceftriaxone IV -- has completed >5 days (got 6 doses), discontinued further Hydralazine increased to 25mg QID for ongoing hypertension, improved BP 186/79 asn't get AM PO meds as was too drowsy Bladder scan/straight cath if needed but also working on bowels -- RN to administer enema as dose not appear to have been given day prior. Did have small smear. +BS but slightly slow on exam. No overt tenderness/pain reported Decreased seroquel to 12.5mg for this evening, scheduled. Also decreased melatonin back to prior 3mg HS, unclear why was increased. Hopefully able to continue to AVOID any IM zyprexa/haldol overnight in anticipation for placement per discussion w/ daughter Елена PT/OT consulted and will need evals to see if [facility] able to take back -- able to ACCEPT 07/08 ABX discontinued 07/07 as above, afebrile. No leukocytosis No need for IM antipsychotics overnight. Continue on seroquel 12.5mg, melatonin 3mg, especially in hospital setting Hydralazine 25mg QID, clonidine patch ordered for improvement as well as mood and BPs appearing improved +moderate BM overnight, making urine. Additional BM this afternoon. Improvement in appetite reported for lunch, additional BM afternoon 07/08 reported PT evals repeated, [facility] able to accept back. Discussed case w/ daughter Елена and wishes to return to [facility] given familiar environment but understanding patient is high fall risk. Of note, patient + covid testing at [facility] last admission to [facility]. Per discussion w/ dgt Елена last evening, initially tested positive in February and was told still shedding virus, however she does note her mother was spot on prior to initial COVID testing and has had continued decline since. Neuro f/u per CM being arranged at [facility] for next coming weeks BP improved 100/51 this afternoon --> RN to repeat BP and if accurate will hold next dose hydralazine and continue the clonidine patch as started 07/07 and decrease hydralazine to 10mg QID and monitor. Suspect benefit from patch given waxing/waning of mental status and not wanting to take her medications at certain times 07/09 No leukocytosis, fever. remains off abx. fair/ok appetite, slightly improved and working on such. no further IVF for today, does not appear significantly dehydrated on exam Moved bowels x2 yesterday Xray lumbar spine w/ compression deformities, no new acute fx. Given balance issues w/ standing/inability in back. Discussed w/ daughter and consult placed for orthotics/brace to see if helps when up/walking and believes she would wear this. BP stable/improved and continues on clonidine patch. Hydralazine decreased back to prior 10mg QID to prevent hypotension and hopefully have a good regimen for her at present time. No significant bradycardia on monitor. Hopeful dc [place] in next 24 hours, continue up/ambulation with staff and continued therapy while inpatient 07/10 Off abx, no further fevers. BUN/Cr improving. Ionized Ca elevated however Ca improved compared to day prior. ?elevation 2nd falls/prolonged immobilization. PTHrP pending from last week. Mild headache/resolved w/ tylenol. No visual changes/neck discomfort or meningeal signs. Afebrile. no leukocytosis Ate pancakes this morning, moved her bowels. Encouraged and taking in increased PO/water today. Has not required any further Zyprexa, remains on regimen Seroquel/melatonin HS BP remaining stable on clonidine patch/decreased hydralazine to 10mg QID however more unsteady on her feet and is significantly improved and discussed w/ daughter and decreasing labetalol 200mg BID due to lower BP Held conversation w/ son last evening, remaining alert to person/place, not event/time. suspect closer to baseline. PO intake encouraged, bowel regimen continued (2) AMS (altered mental status): Plan: Metabolic encephalopathy in patient w/ history of significant hospitali delirium/likely dementia CT head on admit no acute CVA, CT cervical spine w/o acute fx or subluxation --> *Per daughter, this has worsened since iniital + COVID back in the fall, never full recovered s/p Tx UTI as above Got 10mg IM zyprexa overnight into 07/04 and slept most of 07/04 day. Placed order for low dose haldol prn prior day Frequent orientation, sleep/wake schedules Given 12.5mg PO seroquel w/ good effect in afternoon 07/05 and additional 12.5mg prn dose overnight however IM zyprexa also given and was sleeping most of the day on 07/06 --> Increased seroquel to 25mg HS however had increased melatonin 6mg overnight 07/05-07/06 and was sleeping a lot of AM 07/07 and decreased seroquel back to 12.5mg and melatonin to 3mg given improvement in sleep and hopeful to avoid overnight IM 07/08- No zyprexa, reported good sleep w/ seroquel 12.5mg HS and melatonin 3mg HS and will continue. 07/09--> no zyprexa, reported good sleep and more alert/oriented, moving bowels 07/10--> NO ZYPREXA, continues on seroquel/melatonin and is alert to person/hospital, using white board for year and knew it was June but needed the board for the actual date, much improved from days prior. CTAP for completeness given ca level without acute finding/infectious etiology (3) Hypertension: Plan: significant elevations, similar in prior admissions recent increase in labetalol to 300mg BID which has been continued Losartan Hydralazine increased to 25mg QID previously prior given ongoing HTN issues, added clonidine TD 0.1mg 07/07 and improvement in BP, actually on lower end afternoon 07/08 and hydralazine dose for evening held and decreased PO to 10mg QID 07/09--> BP 128/53 at present. continue clonidine patch (added 07/07 - due to be changed 07/14), labetalol, losartan at present time and monitor 07/10 --> BP 115/55 this morning, labetalol decreased to 200mg BID. continue clonidine patch/consider further reduction in labetalol if remaining stable. Will continue lower dose hydralazine 10mg QID as outlined and hold AM losartan and monitor. Suspect elevated BPs had been contributing to AMS as well and appearing improved w/ improvement in BP control but also bowel movements as outlined for constipaiton (4) Constipation: Plan: likely 2nd to PO iron [employer] PO Iron placed on hold KUB obtained --> noting mod fecal retention in colon. Enema provided, scheduled miralax/colace and has been moving her bowels. BM 07/07, additional 2 BM on 07/08 and reported BM 07/10 (confirmed by nursing). Fecal occult NEGATIVE PO intake appearing improving w/ moving her bowels but has been encouraged by family visiting frequently. Boost/supplementations have been ordered/provided (5) Elevated troponin: Plan: Troponin 17.7, peaked at 19 now and trended down on repeat. Suspect demand ischemia from infection as above. No CP reported, no suspicion for ACS Has been NSR on telemetry but will continue to monitor given above to ensure to acute issues w/ antipsychotics and addition of clonidine to monitor for any interactions w/ her labetalol. No significant drop in HR noted and remaining around her usual 50-60s --> continued monitoring w/ decreased labetalol for BP as outlined (6) Anemia: Plan: Chronic; Hgb 8.9 on arrival MCV WNL Patient does take iron supplements, but struggles with constipation. no plan for further colonoscopy given age , would hold off further PO iron to prevent constipation Given Venofer IV x 3 doses inpatient for low trans % sat. B12 586, folate 10.76 Suspect PO iron contributing to constipation and consider holding CTAP scan without acute abn Fecal occult NEGATIVE Hgb remaining stable w/ additional IVF, improved on repeat off IVF and no bleeding reported (7) Hypercalcemia: Plan: Ca 10.5, likely 2nd to dehydration and contributing to her constipation. IVF ordered, Ca 10.4 on repeat labs/normal albumin. Ionized ca slightly elevated but not high enough to require treatment Vit D not deficient, PTH not elevated (prior PTH was elevated) Suspect could be contributing to her constipation. Of note, prior phos level was low/replacement ordered and repeat improved. PTH related peptide pending -- will need f/u on this. ?related to underlying CKD IVF since discontinued, PO intake improved however Ca 11.1 on repeat. No hypotension/hypoxia or evidence for PE. No acute abdominal findings on imaging 07/10 having slight headache, ?related to BP. Med adjustment as above, improved w/ tylenol. Ca improved on AM labs 10.7 but ionized Ca remaining high but no tx at this time Should have home vitamin D discontinued at discharge Needs f/u PTHrP and will monitor labs in AM (8) Fall: Plan: Unclear if witnessed/unwitnessed falls x 2 over the past 2 days leading up to admission Hip/pelvic x-ray revealed no acute fracture or dislocation; healing subacute fixated left intertrochanteric femoral fracture Had left hip fracture repaired 04/15. - discharged to [facility] for rehab, subsequent discharge to [facility] - prior to hip fx, living independently at home with (family also looking for placement for him) ASA 81mg x 6 weeks already completed (OR date 04/15) but had been on such and getting IV venofer for KENYA. Aspirin changed to ONCE daily Tx UTI as outlined, therapy evals and will need placement as above, CM following (9) Compression deformity of vertebra: Plan: checked lumbar spine due to lower back pain, no change in old mild T12/L1 compression deformities. Post op findings within spine noted from prior surgery pain control, therapy fall precautions orthotics consulted for brace to see if helps w/ her ambulatory status, messaged miguel blount and can f/u on Wednesday Plan DVT proph: heparin SQ while inpatient Updated daughter Елена 07/10, decreasing BP medications and hopefully w/ improvement able to dc to [facility] 07/11 Admission and Anticipated Discharge Date Admission Date: July 02, 2023 Supervising Physician Co-Signing Physician Notes The patient was not seen by me. The chart was reviewed. Case discussed with JULIA Martin. Agree with assessment and plan Subjective Evaluated this afternoon. Bp on the lower side and staying controlled. Daughter with concerns for low BP. Discussed labetalol decrease to 200mg BID and will monitor but will continue the clonidine patch as well as the hydralazine given prior significant elevations. Susan reports she is in [facility], when asked the year, she used the [employer] and said June. Appears to know to use resources, is not combative. She does note a slight headache but no neck pain or visual changes and requested a Tylenol. Appetite was alright -pancakes for breakfast, bowel movement following per nursing.. Has been drinking water. Discussed I spoke with Susan and will try and get her to [facility] tomorrow if Bps not as low but remaining stable. Physical Exam Physical Exam: General: 87yo female sitting up in bed, watching TV, reported mild headache and got a dose of Tylenol no neck pain/meningeal signs, pupils equal/reactive, no facial droop/slurred speech alert to person, [facility], when asked date/year, she utilized white board in the room and answering correctly, reports moving bowels (confirmed) Resp: even/unlabored, no w/c/r, on room air CV: RRR, no significant m/r/g, no pitting edema/calf tenderness GI: +BS, soft/nontender, no significant distension : no roe MSK/Neuro: healed incision to LEFT hip, nontender, sensation intact Psych: alert to person/place, to year/month with white board in room, appears improved/cooperative during encounter Results & Data Results & Data Vital Signs (Past 12 Hours) Vital Signs Temp Pulse Pulse Resp BP BP Pulse Ox 07/11/23 07:24 07/11/23 02:54 36.2 C L 66 16 117/52 L 94 07/10/23 23:15 36.3 C L 64 18 142/78 H 94 07/10/23 21:56 55 L O2 Del Method 07/11/23 07:24 Room Air 07/11/23 02:54 Room Air 07/10/23 23:15 Room Air 07/10/23 21:56 Laboratory Results 07/11/23 07/10/23 Range/Units 05:55 06:57 WBC 5.41 (4.8-10.8) K/ul RBC 2.74 L (4.20-5.40) M/uL Hgb 8.9 L (12.0-16.0) g/dl Hct 27.2 L (37.0-47.0) % MCV 99.3 (80.0-100.0) fL MCH 32.5 (25.0-34.0) pg MCHC 32.7 (32.0-36.0) g/dL RDW Std Deviation 52.6 H (36.4-46.3) fL RDW Coeff of Karuna 14.5 (11.5-14.5) % Plt Count 257 (130-400) K/uL MPV 9.8 (9.4-12.4) fL Sodium 141 143 (136-145) mmol/L Potassium 3.7 3.9 (3.5-5.1) mmol/L Chloride 113 H 114 H (98-107) mmol/L Carbon Dioxide 24 23 (21-32) mmol/L Anion Gap 4 6 (3-11) BUN 25 H 27 H (6-23) mg/dl Creatinine 1.05 1.03 (0.6-1.2) mg/dl Est Cr Clr Drug Dosing 24.8 25.3 ml/min Est GFR ( Amer) 54.5 55.8 ml/min Est GFR (Non-Af Amer) 47.0 48.2 ml/min BUN/Creatinine Ratio 23.8 H 26.2 H (10-20) Glucose 100 H 101 H (70-99(Fasting)) mg/dl Calcium 10.7 H 11.1 H (8.6-10.3) mg/dl Ionized Calcium 1.62 H* (1.12-1.32) mmol/L Phosphorus 2.3 L (2.5-4.9) mg/dl Magnesium 2.1 2.1 (1.7-2.4) mg/dl Total Bilirubin 0.6 (0.2-1.0) mg/dl AST 21 (13-39) U/L ALT 23 (7-52) U/L Alkaline Phosphatase 72 (34-104) U/L Total Protein 5.3 L (6.0-8.3) gm/dl Albumin 3.4 (3.4-5.0) gm/dl Globulin 1.9 L (2.5-4.0) gm/dl Albumin/Globulin Ratio 1.8 (0.9-2) Diagnostic Findings Abdomen/Pelvis CT 07/11/23 09:05 CT abd pelvis IV con only CLINICAL HISTORY: ams, hypercalcemia TECHNIQUE: Helical axial images of the abdomen and pelvis were obtained and displayed. Automated dose lowering techniques and/or adjustment according to patient size were utilized for this exam. This exam was performed with intravenous contrast. CT DOSE: 834.2 mGy.cm COMPARISON: None available at the time of this dictation. FINDINGS: Lower chest: Atelectasis is seen. Biatrial enlargement is seen. Liver: Unremarkable. No focal lesions are seen. Gallbladder and biliary tree: Patient is status post cholecystectomy. Physiologic prominence of the biliary ducts is noted. Pancreas: The pancreas is atrophic. Spleen: Splenule is incidentally noted. Adrenals: Unremarkable. Kidneys and ureters: Renal cysts are seen. Bladder: Unremarkable. Reproductive organs: Patient is status post hysterectomy. Bowel: Diverticulosis is seen without diverticulitis. The appendix is normal. Lymph nodes Retroperitoneal: Subcentimeter lymph nodes are noted. Pelvic: Unremarkable. Mesenteric: Unremarkable. Peritoneum: Normal. Vessels: Atherosclerotic calcifications are seen. Abdominal wall: Gas in the subcutaneous tissues is likely due to injection. Bones: Degenerative changes in the visualized spine. Posterior fixation hardware is seen in the lumbar spine and there is a left femoral carrie. Anterolisthesis of L4-L5 is seen. IMPRESSION: 1. No acute abnormalities are seen. 2. Diverticulosis without diverticulitis. 3. Additional incidental findings as above. ACT 112: Negative or not required by law. Electronically signed by: Kapil Dougherty M.D. 07/11/2023 11:50 AM PG Care Time/CCT Total # of Minutes Spent Total Time Spent with Patient: Total time spent is greater than 50% in coordination of care (as documented) at patient's floor/unit and/or counseling patient: Coding Level of Care Code 00720 SUB INP/OBS CARE 3/50MIN Diagnoses Urinary tract infection N39.0 AMS (altered mental status) R41.82 Hypertension I10 Constipation K59.00 Elevated troponin R79.89 Anemia D64.9 Hypercalcemia E83.52 Fall W19.XXXA Compression deformity of vertebra M43.9
[2023-07-11] MEDS: OPTIRAY 320 100ml IV ONE (10:08)
--- NOTE | 2023-07-11 11:53 | CT Scan Report ---
CT abd pelvis IV con only CLINICAL HISTORY: ams, hypercalcemia TECHNIQUE: Helical axial images of the abdomen and pelvis were obtained and displayed. Automated dose lowering techniques and/or adjustment according to patient size were utilized for this exam. This e xam was performed with intravenous contrast. CT DOSE: 834.2 mGy.cm COMPARISON: None available at the time of this dictation. FINDINGS: Lower chest: Atelectasis is seen. Biatrial enlargement is seen. Liver: Unremarkable. No focal lesions are seen. Gallbladder and biliary tree: Patient is status post cholecystectomy. Physiologic prominence of the b iliary ducts is noted. Pancreas: The pancreas is atrophic. Spleen: Splenule is incidentally noted. Adrenals: Unremarkable. Kidneys and ureters: Renal cysts are seen. Bladder: Unremarkable. Reproductive organs: Patient is status post hysterectomy. Bowel: Diverticulosis is seen without diverticulitis. The appendix is normal. Lymph nodes Retroperitoneal: Subcentimeter lymph nodes are noted. Pelvic: Unremarkable. Mesenteric: Unremarkable. Peritoneum: Normal. Vessels: Atherosclerotic calcifications are seen. Abdominal wall: Gas in the subcutaneous tissues is likely due to injection. Bones: Degenerative changes in the visualized spine. Posterior fixation hardware is seen in the lumba r spine and there is a left femoral carrie. Anterolisthesis of L4-L5 is seen. IMPRESSION: 1. No acute abnormalities are seen. 2. Diverticulosis without diverticulitis. 3. Additional incidental findings as above. ACT 112: Negative or not required by law. Electronically signed by: Kapil Dougherty M.D. 07/11/2023 11:50 AM
[2023-07-11] MEDS: ONDANSETRON INJ 2 MG/ML 2 ML VIAL IV PRN (12:17)
[2023-07-11] MEDS: LABETALOL HCL 200 MG TAB PO SCH (21:09)
--- NOTE | 2023-07-12 07:27 | Hospitalist Progress Note ---
<Statement entered by Rebekah Quiñonez MD - 07/12/23 18:09> Agree with documentation. CT hip reassuring without fracture or fluid collection. Progressive anemia may be related to ulceration/gastritis from bid aspirin and phlebotomy this admission since no evidence of acute blood loss. Iron deficiency has been treated and ASA reduced to daily, consider endoscopy in future if anemia nonresolving with this change and course of daily PPI, however procedural risks may outweigh benefit for her. Date of Service July 12, 2023 Assessment & Plan (1) Urinary tract infection: Plan: At least two unwitnessed falls at [facility] over 2 days prior to admission. Urine cx pansensitive ecoli -- completed 6 doses IV Rocephin Medications for mood/sleep/agitation -- seroquel 12.5mg HS, melatonin 3mg scheduled Fatigued appearing today/tired, hgb to 7.8-- repeat to ensure accurate 8.0. LDH checked, NOT elevated. Retic ELEVATE, marrow working PPI continued. TSH wnl. Venofer earlier in admission/not deficient on repeat ?repeat phlebotomy while inpatient, continued ASA BID for DVT proph since hip nailing in March. CTAP w/o acute process CT hip obtained for today given redness to incision/possibly covered by abx earlier in the stay -- does note some edema, possible cellulitis and will monitor on repeat exams For HTN, patient hydralazine placed on hold further along with her losartan. BP 127/59 this afternoon on continued clonidine patch/reduced labetalol 200mg BID and monitor for further reduction as able Moved bowels multiple times this past week, encouraged PO intake. -Ca improved but suspect 2nd to home Vit D/immobilization. Home supplementation should be discontinued at discharge PT/OT for rehab, discussed w/ daughter Елена and planning for [facility] hopefully tomorrow pending repeat BP/evaluation (2) AMS (altered mental status): Plan: 2nd to UTI in setting of worsened AMS since COVID this past fall. Suspect dementia w/ hospital delirium contributing given waxing/waning nature CT head negative, CT cervical spine w/o fx/subluxation. CTAP w/o acute finding, CT hip as above TSH wnl, B12 not deficient s/p tx UTI, had been provided zyprexa last week and sedated most of the day following Delirium prevention strategies, frequent orientation, sleep/wake schedules. Multiple adjustments made and remaining stable on seroquel 12.5mg HS and melaton in 3mg HS (will place melatonin on hold for tonight) (3) Hypertension: Plan: significant elevations, similar in prior admissions however suspect does contribute to worsening mental status with significant elevations w/ hospital delirium ct head negative recent increase in labetalol to 300mg BID as outpatient and remained on losartan on admission Hydralazine PO added and increased prior days until improvement w/ clonidine (0.1mg/td patch, placed 07/07) and had improvement in BP and mood and was decreased however holding further. no rashes on exam (exception slight redness to hip incision as noted above) Benefit w/ patch being she had been declining medications days prior w/ elevati ons and has done much better since addition of patch however titrating other BP meds to prevent over treatment since initiation Continue clonidine 0.1mg patch (due to change 07/14), labetalol decreased to 200mg BID for now (4) Constipation: Plan: likely 2nd to PO iron BARKEEPER. PO iron on hold, given IV Venofer last week. KUB obtained due to not moving bowels w/ noted fecal retention in colon and enema provided. Multiple BMs 07/07-07/10 (confirmed BM 07/10 by nursing) Fecal occult NEGATIVE Repeat iron studies NOT deficient, would NOT resume PO iron at dc Monitor for any repeat constipation but continue colace/miralax in meantime (5) Elevated troponin: Plan: Troponin 17.7, peaked at 19 now and trended down on repeat. Suspect demand ischemia from infection as above. No CP reported, no suspicion for ACS Has been NSR on telemetry but will continue to monitor given above to ensure to acute issues w/ antipsychotics and addition of clonidine to monitor for any interactions w/ her labetalol. No significant drop in HR noted w/ clonidine/labetalol but lower BPs and labetalol decreased and HR remaining 60-90s past 24 hours and monitor for further decrease in BB (6) Anemia: Plan: Chronic; Hgb 8.9 on arrival MCV WNL Patient does take iron supplements, but struggles with constipation. no plan for further colonoscopy given age , would hold off further PO iron to prevent constipation as outlined above Given Venofer IV x 3 doses inpatient for low trans % sat. B12 586, folate 10.76 --> repeat iron studies w/ elevation CTAP scan without acute abn Fecal occult NEGATIVE Hgb 7.8 on am labs, repeated to ensure accurate. CTAP day prior w/o acute process given fall on admit. Fecal occult negative. LDH NOT elevated. Retic count elevated, marrow working --> Likely due to ongoing aspirin use since her hip surgery as well as frequent phlebotomy while inpatient w/ daily labs. No bleeding reported (7) Hypercalcemia: Plan: Ca 10.5, likely 2nd to dehydration and contributing to her constipation. IVF ordered, Ca 10.4 on repeat labs/normal albumin. Ionized ca slightly elevated but not high enough to require treatment Vit D not deficient, PTH not elevated (prior PTH was elevated) Of note, prior phos level was low/replacement ordered and repeat improved. IVF discontinued and Ca further elevated to 11.1 however improvement in movement over weekend and repeat Ca 10.3 Would dc home vitamin D at discharge No evidence for DVT or PE at present, no hx malignancy. Fecal occult negaitive PTH related peptide pending -- will need f/u on this. ?related to underlying CKD, immobilization (8) Fall: Plan: Unclear if witnessed/unwitnessed falls x 2 over the past 2 days leading up to admission Hip/pelvic x-ray revealed no acute fracture or dislocation; healing subacute fixated left intertrochanteric femoral fracture Had left hip fracture repaired 04/15. - discharged to [facility] for rehab, subsequent discharge to [facility] - prior to hip fx, living independently at home with (family also looking for placement for him) ASA 81mg x 6 weeks already completed (OR date 04/15) but had been on such and getting IV venofer for KENYA. Aspirin changed to ONCE daily Tx UTI as outlined, therapy evals and will need placement as above, CM following (9) Compression deformity of vertebra: Plan: checked lumbar spine due to lower back pain, no change in old mild T12/L1 compression deformities. Post op findings within spine noted from prior surgery pain control, therapy fall precautions orthotics consulted for brace to see if helps w/ her ambulatory status, delivered 07/11 and can monitor if improvement w/ mobility w/ ambulation (10) Left hip pain: Plan: Patient w/ remote hx LEFT hip TROCH nail w/ Dr Hernandez 04/15/23 Had been on ASA 81mg BID (was to complete 6 wks) and had been on at home/continued on admission and changed to ONCE daily as above Had gotten 6 days IV rocephin on admission 2nd to UTI as suspected culprit for her fall on admission --> ? if that's why did not appear w/ any acute findings on skin exam No acute generalized rashes as noted above but does have some increased redness along her hip incision along with slight edema/tenderness and will obtain CT hip for further evaluation to ensure not contributing to current presentation --> Mild subcutaneous fluid of the left thigh. This favors edema although cellulitis could appear similar. No associated fluid collection. Will need f/u exams but will defer abx at present time given recent abx but may need to consider if worsened. Plan DVT proph: heparin SQ while inpatient Hopeful dc to [facility] w/ daughter to transport 07/12 Admission and Anticipated Discharge Date Admission Date: July 02, 2023 Subjective Was hostile with staff this morning but improved and sleepy since taking her meds. Reportedly had a good night. Patient appears fatigued, reports not feeling the best today but not able to re ally describe why. She denies any chest pain or shortness of breath. Remains on room air. On monitor, HR SR/ST 60-90s, no further lows w/ decreasing her labetalol. Continues on clonidine patch. Hydralazine placed on hold further. No active bleeding reported. No rashes on exam. Abdomen soft/nontender. Slept overnight, no antipsychotics. On examination today, patient does have some increased redness along her surgical incision and does report some increased discomfort. Had been getting IV rocephin earlier in the stay for UTI, had not had redness on exam at that time. Concerns for possible underlying infection not being treated and will obtain CT exam given continued admissions for falls/UTIs and eval for more sinister infection since her hip repair. Physical Exam Physical Exam: General: 87yo female sitting up in bed, watching TV, fatigued/tired appearing, wanting to sleep no neck pain/meningeal signs, pupils equal/reactive, no facial droop/slurred speech Resp: even/unlabored, no w/c/r, on room air CV: RRR, no significant m/r/g, no pitting edema/calf tenderness GI: +BS, soft/nontender, no significant distension : no roe MSK/Neuro: healed incision to LEFT hip, appears to have some erythema/slightly tender to palpation but no significant surrounding erythema Psych: alert to person/place, to year/month fatigued appearing today Results & Data Results & Data Vital Signs (Past 12 Hours) Vital Signs Temp Pulse Pulse Resp BP Pulse Ox O2 Del Method 07/12/23 03:43 36.6 C 67 18 129/59 L 95 Room Air 07/11/23 23:50 68 07/11/23 23:45 36.7 C 67 18 151/51 H 96 Room Air 07/11/23 21:05 Room Air 07/11/23 19:43 36.7 C 63 16 125/54 L 95 Room Air Laboratory Results 07/12/23 07/12/23 07/12/23 Range/Units 09:56 07:00 06:37 WBC 5.04 5.32 (4.8-10.8) K/ul RBC 2.51 L 2.41 L (4.20-5.40) M/uL Hgb 8.0 L 7.8 L (12.0-16.0) g/dl Hct 25.3 L 24.2 L (37.0-47.0) % MCV 100.8 H 100.4 H (80.0-100.0) fL MCH 31.9 32.4 (25.0-34.0) pg MCHC 31.6 L 32.2 (32.0-36.0) g/dL RDW Std Deviation 53.1 H 53.1 H (36.4-46.3) fL RDW Coeff of Karuna 14.5 14.6 H (11.5-14.5) % Plt Count 259 278 (130-400) K/uL MPV 9.8 9.9 (9.4-12.4) fL Immature Gran % (Auto) 0.4 % Neut % (Auto) 52.3 % Lymph % (Auto) 32.3 % Taney % (Auto) 10.0 % Eos % (Auto) 4.1 % Baso % (Auto) 0.9 % Reticulocyte % (Auto) 2.26 H (0.50-2.00) % Neut # (Auto) 2.78 (1.40-6.50) K/uL Lymph # (Auto) 1.72 (1.20-3.40) K/uL Taney # (Auto) 0.53 (0.11-0.59) K/uL Eos # (Auto) 0.22 (0.00-0.50) K/uL Baso # (Auto) 0.05 (0.00-0.20) K/uL Reticulocyte # 0.060 (0.020-0.100) 10^6/uL Immature Gran # (Auto) 0.02 (0.01-0.20) K/uL Polychromasia 1+ Peripher Smr Path Cons Cancelled Sodium 140 (136-145) mmol/L Potassium 3.9 (3.5-5.1) mmol/L Chloride 113 H (98-107) mmol/L Carbon Dioxide 24 (21-32) mmol/L Anion Gap 3 (3-11) BUN 24 H (6-23) mg/dl Creatinine 1.23 H (0.6-1.2) mg/dl Est Cr Clr Drug Dosing 21.1 ml/min Est GFR ( Amer) 45.0 ml/min Est GFR (Non-Af Amer) 38.9 ml/min BUN/Creatinine Ratio 19.5 (10-20) Glucose 96 (70-99(Fasting)) mg/dl Calcium 10.3 (8.6-10.3) mg/dl Ionized Calcium 1.55 H (1.12-1.32) mmol/L Magnesium 2.1 (1.7-2.4) mg/dl Iron 135 (35-150) mcg/dl TIBC 205 L (250-450) mcg/dl Unsaturated IBC 70 L (155-355) mcg/dl Transferrin % Sat 66 H (15-50) % Ferritin 692.6 H (8-388) ng/ml Lactate Dehydrogenase 144 (86-244) U/L Diagnostic Findings Hip CT 07/12/23 11:[address] WITH CONTRAST CLINICAL HISTORY: recent hip repair, hip pain, falls, eval infection COMPARISON STUDY: CT of the abdomen and pelvis July 11, 2023. Left hip CT April 14, 2023. TECHNIQUE: Axial images of the left hip were obtained without IV contrast. Sagittal and coronal reconstructions were viewed. Automated exposure control was utilized for the study. A dose lowering technique was utilized adhering to the principles of ALARA. FINDINGS: There are expected postoperative findings following internal fixation of the intertrochanteric fracture of the left femur with trochanteric nail. Alignment is unchanged since initial postoperative radiographs of April 20, 2023. The fracture has partially healed. No acute fractures within the left hip are present. This exam is compromised by streak artifact from the surgical hardware. There is no soft tissue gas. No rim-enhancing fluid collection is identified. No significant hematoma is present. There is subcutaneous edema of the left thigh. No intramuscular abnormalities identified by CT. No significant abnormalities within visual portions of the hemipelvis are noted. No definite evidence for joint effusion. IMPRESSION: 1. Expected findings following internal fixation of the intertrochanteric fracture of the left femur. Fracture alignment unchanged since initial postoperative radiographs with partial interval healing. 2. Exam compromised by streak artifact from the hardware. However, no fluid collections identified. No bony erosion to suggest osteomyelitis. No acute fractures. 3. Mild subcutaneous fluid of the left thigh. This favors edema although cellulitis could appear similar. No associated fluid collection. ACT 112: Negative or not required by law. Electronically signed by: Lane Butts M.D. 07/12/2023 1:53 PM PG Care Time/CCT Total # of Minutes Spent Total Time Spent with Patient: Total time spent is greater than 50% in coordination of care (as documented) at patient's floor/unit and/or counseling patient: Coding Level of Care Code 99567 SUB INP/OBS CARE 3/50MIN Diagnoses Urinary tract infection N39.0 AMS (altered mental status) R41.82 Hypertension I10 Constipation K59.00 Elevated troponin R79.89 Anemia D64.9 Hypercalcemia E83.52 Fall W19.XXXA Compression deformity of vertebra M43.9 Left hip pain M25.552
[2023-07-12 07:33] LABS: Basophils # (auto) 0.05 K/uL (0.00-0.20); Basophils % (auto) 0.9 %; Eosinophils # (auto) 0.22 K/uL (0.00-0.50); Eosinophils % (auto) 4.1 %; Hematocrit (blood only) 24.2 % (37.0-47.0); Hemoglobin 7.8 g/dl (12.0-16.0); Immature Granulocytes # (auto) 0.02 K/uL (0.01-0.20); Immature Granulocytes % (auto) 0.4 %; Lymphocytes # (auto) 1.72 K/uL (1.20-3.40); Lymphocytes % (auto) 32.3 %; Mean Corpuscular Hemoglobin 32.4 pg (25.0-34.0); Mean Corpuscular Hgb Conc 32.2 g/dL (32.0-36.0); Mean Corpuscular Volume 100.4 fL (80.0-100.0); Mean Platelet Volume 9.9 fL (9.4-12.4); Monocytes # (auto) 0.53 K/uL (0.11-0.59); Neutrophils # (auto) 2.78 K/uL (1.40-6.50); Neutrophils % (auto) 52.3 %; Platelet Count 278 K/uL (130-400); RDW Coefficient of Variation 14.6 % (11.5-14.5); RDW Standard Deviation 53.1 fL (36.4-46.3); Red Blood Count 2.41 M/uL (4.20-5.40); White Blood Count 5.32 K/ul (4.8-10.8)
[2023-07-12 07:56] LABS: BUN Creatinine Ratio 19.5 (10-20); Calcium 10.3 mg/dl (8.6-10.3); Creatinine Clr Calc Pharmacy 21.1 ml/min; Est GFR (Non-African American) 38.9 ml/min; Magnesium 2.1 mg/dl (1.7-2.4); Potassium 3.9 mmol/L (3.5-5.1)
[2023-07-12 08:16] LABS: Polychromasia 1+
[2023-07-12 09:07] LABS: Ferritin 692.6 ng/ml (8-388)
[2023-07-12 10:10] LABS: Hematocrit (blood only) 25.3 % (37.0-47.0); Mean Corpuscular Hemoglobin 31.9 pg (25.0-34.0); Mean Corpuscular Hgb Conc 31.6 g/dL (32.0-36.0); Mean Corpuscular Volume 100.8 fL (80.0-100.0); Mean Platelet Volume 9.8 fL (9.4-12.4); Platelet Count 259 K/uL (130-400); RDW Coefficient of Variation 14.5 % (11.5-14.5); RDW Standard Deviation 53.1 fL (36.4-46.3); Red Blood Count 2.51 M/uL (4.20-5.40); Reticulocyte % 2.26 % (0.50-2.00); White Blood Count 5.04 K/ul (4.8-10.8)
[2023-07-12] MEDS: OPTIRAY 320 100ml IV ONE (12:49)
--- NOTE | 2023-07-12 13:54 | CT Scan Report ---
LEFT HIP CT WITH CONTRAST CLINICAL HISTORY: recent hip repair, hip pain, falls, eval infection COMPARISON STUDY: CT of the abdomen and pelvis July 11, 2023. Left hip CT April 14, 2023. TECHNIQUE: Axial images of the left hip were obtained without IV contrast. Sagittal and coronal recon structions were viewed. Automated exposure control was utilized for the study. A dose lowering techn ique was utilized adhering to the principles of ALARA. FINDINGS: There are expected postoperative findings following internal fixation of the intertrochante kapil fracture of the left femur with trochanteric nail. Alignment is unchanged since initial postopera tive radiographs of April 20, 2023. The fracture has partially healed. No acute fractures within the left hip are present. This exam is compromised by streak artifact from the surgical hardware. There is no soft tissue gas. No rim-enhancing fluid collection is identified. No significant hematoma is pr esent. There is subcutaneous edema of the left thigh. No intramuscular abnormalities identified by CT . No significant abnormalities within visual portions of the hemipelvis are noted. No definite eviden ce for joint effusion. IMPRESSION: 1. Expected findings following internal fixation of the intertrochanteric fracture of the left femur. Fracture alignment unchanged since initial postoperative radiographs with partial interval healing. 2. Exam compromised by streak artifact from the hardware. However, no fluid collections identified. No bony erosion to suggest osteomyelitis. No acute fractures. 3. Mild subcutaneous fluid of the left thigh. This favors edema although cellulitis could appear huber lar. No associated fluid collection. ACT 112: Negative or not required by law. Electronically signed by: Lane Butts M.D. 07/12/2023 1:53 PM
[2023-07-12] MEDS: FAMOTIDINE 10 MG TABLET PO SCH (17:01)
[2023-07-12] MEDS: MELATONIN 3 MG TAB PO PRN (21:11)
--- NOTE | 2023-07-13 14:40 | Hospitalist Progress Note ---
Date of Service July 13, 2023 Assessment & Plan (1) Urinary tract infection: Plan: At least two unwitnessed falls at [facility] over 2 days prior to admission. Urine cx pansensitive ecoli -- completed 6 doses IV Rocephin CTAP w/o acute process PT/OT for rehab, plan was to return to [facility] with PT/OT but with todays PT/OT evals, may need to reconsider SNF (2) Hypertension: Plan: significant systolic elevations, similar in prior admissions however suspect does contribute to worsening mental status with significant elevations w/ hospital delirium. Home regiment was labetalol 300 mg BID and olmesartan [address] head negative First half of admission with BP on home regiment (labetalol and ARB) 07/05 Hydralazine 10mg QID added 07/07 Hydralazine increased to 25mg QID, clonidine 0.1mg patch added (for additional mood stabilization) 07/10 decreased labetalol to 200 mg BID and hold losartan 07/12 patient with very labile blood pressures, but seems to be asymptomatic. Will wean off clonidine patch and trial amlodipine Orthostatic vital signs in AM (3) Anemia: Plan: Chronic; Hgb 8.9 on arrival MCV WNL Patient does take iron supplements, but struggles with constipation. no plan for further colonoscopy given age Given Venofer IV x 3 doses inpatient for low trans % sat. B12 586, folate 10.76 --> repeat iron studies w/ elevation CTAP without acute abn Fecal occult Negative, LDH NOT elevated. Retic count elevated, marrow working Continue PPI (4) AMS (altered mental status): Plan: Improving. 2nd to UTI in setting of worsened AMS since COVID this past fall. Suspect dementia w/ hospital delirium contributing given waxing/waning nature CT head negative, CT cervical spine w/o fx/subluxation. TSH wnl, B12 not deficient s/p tx UTI, had been provided zyprexa last week and sedated most of the day following Delirium prevention strategies, frequent orientation, sleep/wake schedules. Multiple adjustments made and remaining stable on seroquel 12.5mg HS and melatonin 3mg HS (5) Constipation: Plan: likely 2nd to PO iron [employer]. PO iron discontinued, given IV Venofer last week. KUB obtained due to not moving bowels w/ noted fecal retention in colon and enema provided. Multiple BMs 07/07-07/10 (confirmed BM 07/10 by nursing) Fecal occult NEGATIVE Monitor for any repeat constipation but continue colace/miralax in meantime (6) Hypercalcemia: Plan: Ca 10.5, likely 2nd to dehydration and contributing to her constipation. IVF ordered, Ca 10.4 on repeat labs/normal albumin. Ionized ca slightly elevated but not high enough to require treatment Vit D not deficient, PTH not elevated Of note, prior phos level was low/replacement ordered and repeat improved. Now improved to 10.3 Would dc home vitamin D at discharge PTH related peptide pending -- will need f/u on this. ?related to underlying CKD, immobilization (7) Fall: Plan: Unclear if witnessed/unwitnessed falls x 2 over the past 2 days leading up to admission Hip/pelvic x-ray revealed no acute fracture or dislocation; healing subacute fixated left intertrochanteric femoral fracture Had left hip fracture repaired 04/15. - discharged to [facility] for rehab, subsequent discharge to [facility] - prior to hip fx, living independently at home with (family also looking for placement for him) - CT hip obtained for erythema and tenderness on exam --> no fluid collection or osteomyelitis. Mild subcutaneous fluid of thigh - likely edema, although could be cellulitis - exam 07/12 without surrounding erythema ASA 81mg x 6 weeks already completed (OR date 04/15) but had been on such and getting IV venofer for KENYA. Aspirin changed to ONCE daily (8) Compression deformity of vertebra: Plan: checked lumbar spine due to lower back pain, no change in old mild T12/L1 compression deformities. Post op findings within spine noted from prior surgery orthotics consulted for brace to see if helps w/ her ambulatory status, delivered 07/11 and can monitor if improvement w/ mobility w/ ambulation Plan DVT proph: heparin SQ while inpatient Dispo: continued inpatient stay Daughter updated at bedside Admission and Anticipated Discharge Date Admission Date: July 02, 2023 Supervising Physician Co-Signing Physician Notes Attending Attestation - Chart reviewed, care plan d/w JULIA Marte. I agree w/ the pedersen components of her documentation. Gabriel Medrano MD Subjective patient resting in bed. Has no complaints. Per nursing, did not do well with therapy required wheelchair to get back to bed as she most fell while in the bathroom. Patient reports that she has buckling knees. Discussed with daughter at bedside aware that likely unsafe for her to return to [facility] in this state. Unsure on what other facility she would like to go to Review of Systems Review of Systems: All systems reviewed & are unremarkable except as noted in Subjective Physical Exam Physical Exam: General: NAD, much more alert and awake compared to when I had her last week. Can participate in conversation, VS as above Resp: normal respiratory effort, lungs clear to auscultation CV: RRR, no murmur, Abd: normal bowel sounds, non tender, no hepatosplenomegaly Extremities: Moves all extremities, no edema. no erythema over previous incision Site, non tender to palpation Results & Data Results & Data Vital Signs (Past 12 Hours) Vital Signs Temp Pulse Pulse Resp BP BP Pulse Ox 07/13/23 13:01 98 07/13/23 11:13 36.5 C 66 12 156/56 H 99 07/13/23 10:49 36.7 C 87 20 143/67 H 97 07/13/23 07:59 07/13/23 07:36 63 07/13/23 07:36 36.9 C 72 14 209/76 H 95 07/13/23 04:01 36.9 C 62 18 165/51 H 96 O2 Del Method O2 Flow Rate 07/13/23 13:01 0 07/13/23 11:13 Room Air 07/13/23 10:49 Room Air 07/13/23 07:59 Room Air 07/13/23 07:36 07/13/23 07:36 Room Air 07/13/23 04:01 Room Air PG Care Time/CCT Total # of Minutes Spent Total Time Spent with Patient: Total time spent is greater than 50% in coordination of care (as documented) at patient's floor/unit and/or counseling patient: Coding Level of Care Code 16599 SUB INP/OBS CARE 3/50MIN Diagnoses Urinary tract infection N39.0 Hypertension I10 Anemia D64.9 AMS (altered mental status) R41.82 Constipation K59.00 Hypercalcemia E83.52 Fall W19.XXXA Compression deformity of vertebra M43.9
[2023-07-13] MEDS: amLODIPine BESYLATE 5 MG TAB PO ONE (19:30)
[2023-07-13] MEDS: cloNIDine HCL 0.1 MG TAB PO SCH (20:33)
[2023-07-14 07:11] LABS: Hematocrit (blood only) 24.3 % (37.0-47.0); Hemoglobin 8.1 g/dl (12.0-16.0)
[2023-07-14 07:39] LABS: BUN Creatinine Ratio 23.9 (10-20); Calcium 10.3 mg/dl (8.6-10.3); Creatinine Clr Calc Pharmacy 18.8 ml/min; Est GFR (African American) 39.2 ml/min; Est GFR (Non-African American) 33.8 ml/min; Potassium 4.2 mmol/L (3.5-5.1)
[2023-07-14] MEDS: SODIUM CHLORIDE 0.9% 500 ML IV SCH (08:23)
[2023-07-14] MEDS: SODIUM CHLORIDE 0.9% 1,000 ML IV SCH (08:28)
--- NOTE | 2023-07-14 13:38 | Hospitalist Progress Note ---
Date of Service July 14, 2023 Assessment & Plan (1) Urinary tract infection: Plan: At least two unwitnessed falls at [facility] over 2 days prior to admission. Urine cx pansensitive ecoli -- completed 6 doses IV Rocephin CTAP w/o acute process PT/OT for rehab, plan was to return to [facility] with PT/OT but with 07/12 PT/OT evals, may need to reconsider SNF. However patient ambulation is improving today, will discuss with family (2) Hypertension: Plan: significant systolic elevations, similar in prior admissions however suspect does contribute to worsening mental status with significant elevations w/ hospital delirium. Home regiment was labetalol 300 mg BID and olmesartan [address] head negative First half of admission with BP on home regiment (labetalol and ARB) 07/05 Hydralazine 10mg QID added 07/07 Hydralazine increased to 25mg QID, clonidine 0.1mg patch added (for additional mood stabilization) 07/10 decreased labetalol to 200 mg BID and hold losartan 07/12 patient with very labile blood pressures, but seems to be asymptomatic. Will wean off clonidine patch and trial amlodipine 07/13 BPs stable with weaning off clonidine, amlodipine and labetalol. Confirmed with RN clonidine patch removal. Orthostatic VS WNL. gave 500 cc fluid bolus for increasing creatinine. Continue to wean clonidine PO (3) Anemia: Plan: Chronic; Hgb 8.9 on arrival MCV WNL Patient does take iron supplements, but struggles with constipation. no plan for further colonoscopy given age Given Venofer IV x 3 doses inpatient for low trans % sat. B12 586, folate 10.76 --> repeat iron studies w/ elevation CTAP without acute abn Fecal occult Negative, LDH NOT elevated. Retic count elevated, marrow working Continue PPI Hgb stabl, 8.1 this AM (4) AMS (altered mental status): Plan: Improving. 2nd to UTI in setting of worsened AMS since COVID this past fall. Suspect dementia w/ hospital delirium contributing given waxing/waning nature CT head negative, CT cervical spine w/o fx/subluxation. TSH wnl, B12 not deficient s/p tx UTI, had been provided zyprexa last week and sedated most of the day following Delirium prevention strategies, frequent orientation, sleep/wake schedules. 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 PO iron discontinued, given IV Venofer last week. KUB obtained due to not moving bowels w/ noted fecal retention in colon and enema provided. Multiple BMs 07/07-07/10 (confirmed BM 07/10 by nursing) Fecal occult NEGATIVE Monitor for any repeat constipation but continue colace/miralax in meantime (6) Hypercalcemia: Plan: Ca 10.5, likely 2nd to dehydration and contributing to her constipation. IVF ordered, Ca 10.4 on repeat labs/normal albumin. Ionized ca slightly elevated but not high enough to require treatment Vit D not deficient, PTH not elevated Of note, prior phos level was low/replacement ordered and repeat improved. Now improved to 10.3 Would dc home vitamin D at discharge PTH related peptide pending -- will need f/u on this. ?related to underlying CKD, immobilization (7) Fall: Plan: Unclear if witnessed/unwitnessed falls x 2 over the past 2 days leading up to admission Hip/pelvic x-ray revealed no acute fracture or dislocation; healing subacute fixated left intertrochanteric femoral fracture Had left hip fracture repaired 04/15. - discharged to [facility] for rehab, subsequent discharge to [facility] - prior to hip fx, living independently at home with (family also looking for placement for him) - CT hip obtained for erythema and tenderness on exam --> no fluid collection or osteomyelitis. Mild subcutaneous fluid of thigh - likely edema, although could be cellulitis - exam 07/12 without surrounding erythema ASA 81mg x 6 weeks already completed (OR date 04/15) but had been on such and getting IV venofer for KENYA. Aspirin changed to ONCE daily (8) Compression deformity of vertebra: Plan: checked lumbar spine due to lower back pain, no change in old mild T12/L1 compression deformities. Post op findings within spine noted from prior surgery orthotics consulted for brace to see if helps w/ her ambulatory status, delivered 07/11 and can monitor if improvement w/ mobility w/ ambulation Plan DVT proph: heparin SQ while inpatient Dispo: continued inpatient stay LM for daughter Admission and Anticipated Discharge Date Admission Date: July 02, 2023 Subjective Patient seen siting up in the chair right before lunch, no family present at bedside. Reports feeling well, no further episodes of knee buckling. per RN has been a one assist to the bathroom today denies lightheadedness or dizziness with orthostatic vitals Review of Systems Review of Systems: All systems reviewed & are unremarkable except as noted in Subjective Physical Exam Physical Exam: General: NAD, much more alert and awake compared to when I had her last week. Can participate in conversation, VS as above Resp: normal respiratory effort, lungs clear to auscultation CV: RRR, no murmur, Abd: normal bowel sounds, non tender, no hepatosplenomegaly Extremities: Moves all extremities, no edema. no erythema over previous incision Site, non tender to palpation Results & Data Results & Data Vital Signs (Past 12 Hours) Vital Signs Temp Pulse Pulse Resp BP BP Pulse Ox 07/14/23 11:37 36.7 C 63 18 116/70 96 07/14/23 08:35 07/14/23 07:54 36.3 C L 63 20 191/66 H 95 07/14/23 07:28 62 07/14/23 03:10 36.8 C 78 18 187/75 H 91 O2 Del Method 07/14/23 11:37 Room Air 07/14/23 08:35 Room Air 07/14/23 07:54 Room Air 07/14/23 07:28 07/14/23 03:10 Room Air Laboratory Results Hgb and chemistry reviewed PG Care Time/CCT Total # of Minutes Spent Total Time Spent with Patient: Total time spent is greater than 50% in coordination of care (as documented) at patient's floor/unit and/or counseling patient: Coding Level of Care Code 42368 SUB INP/OBS CARE 3/50MIN Diagnoses Urinary tract infection N39.0 Hypertension I10 Anemia D64.9 AMS (altered mental status) R41.82 Constipation K59.00 Hypercalcemia E83.52 Fall W19.XXXA Compression deformity of vertebra M43.9
[2023-07-14] MEDS: amLODIPine BESYLATE 5 MG TAB PO SCH (20:20)
[2023-07-15 06:26] LABS: BUN Creatinine Ratio 28.8 (10-20); Calcium 10.3 mg/dl (8.6-10.3); Creatinine Clr Calc Pharmacy 25.3 ml/min
[2023-07-15] MEDS: cloNIDine HCL 0.1 MG TAB PO SCH (08:26)
[2023-07-15] MEDS: amLODIPine BESYLATE 5 MG TAB PO SCH (11:58)
--- NOTE | 2023-07-15 16:59 | Hospitalist Progress Note ---
Date of Service July 15, 2023 Assessment & Plan (1) Urinary tract infection: Plan: At least two unwitnessed falls at [facility] over 2 days prior to admission. Urine cx pansensitive ecoli -- completed 6 doses IV Rocephin CTAP w/o acute process PT/OT for rehab, - evaluated by [facility] today and plan is to return there when medically stable (2) Hypertension: Plan: significant systolic elevations, similar in prior admissions however suspect does contribute to worsening mental status with significant elevations w/ hospital delirium. Home regiment was labetalol 300 mg BID and olmesartan [address] head negative First half of admission with BP on home regiment (labetalol and ARB) 07/05 Hydralazine 10mg QID added 07/07 Hydralazine increased to 25mg QID, clonidine 0.1mg patch added (for additional mood stabilization) 07/10 decreased labetalol to 200 mg BID and hold losartan 07/12 patient with very labile blood pressures, but seems to be asymptomatic. Will wean off clonidine patch and trial amlodipine 07/13 BPs stable with weaning off clonidine, amlodipine and labetalol. Confirmed with RN clonidine patch removal. Orthostatic VS WNL. gave 500 cc fluid bolus for increasing creatinine. Continue to wean clonidine PO 07/14 amlodpoine increased to 5mg BID, patient asymptomatic from BP elevations and + orthostatic vitals (3) Anemia: Plan: Chronic; Hgb 8.9 on arrival MCV WNL Patient does take iron supplements, but struggles with constipation. no plan for further colonoscopy given age Given Venofer IV x 3 doses inpatient for low trans % sat. B12 586, folate 10.76 --> repeat iron studies w/ elevation CTAP without acute abn Fecal occult Negative, LDH NOT elevated. Retic count elevated, marrow working Continue PPI Hgb stabl, 8.1 last check (4) AMS (altered mental status): Plan: Back to baseline. Stable. 2nd to UTI in setting of worsened AMS since COVID this past fall. Suspect dementia w/ hospital delirium contributing given waxing/waning nature CT head negative, CT cervical spine w/o fx/subluxation. TSH wnl, B12 not deficient s/p tx UTI, had been provided zyprexa last week and sedated most of the day following Delirium prevention strategies, frequent orientation, sleep/wake schedules. 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 KUB obtained due to not moving bowels w/ noted fecal retention in colon and enema provided. Multiple BMs 07/07-07/10 (confirmed BM 07/10 by nursing) Fecal occult NEGATIVE Monitor for any repeat constipation but continue colace/miralax in meantime (6) Hypercalcemia: Plan: Ca 10.5, likely 2nd to dehydration and contributing to her constipation. IVF ordered, Ca 10.4 on repeat labs/normal albumin. Ionized ca slightly elevated but not high enough to require treatment Vit D not deficient, PTH not elevated Of note, prior phos level was low/replacement ordered and repeat improved. Now improved to 10.3 Would dc home vitamin D at discharge PTH related peptide still pending -- will need f/u on this. ?related to underlying CKD, immobilization (7) Fall: Plan: Unclear if witnessed/unwitnessed falls x 2 over the past 2 days leading up to admission Hip/pelvic x-ray revealed no acute fracture or dislocation; healing subacute fixated left intertrochanteric femoral fracture Had left hip fracture repaired 04/15. - discharged to [facility] for rehab, subsequent discharge to [facility] - prior to hip fx, living independently at home with (family also looking for placement for him) - CT hip obtained for erythema and tenderness on exam --> no fluid collection or osteomyelitis. Mild subcutaneous fluid of thigh - likely edema, although could be cellulitis - exam 07/12 without surrounding erythema ASA 81mg x 6 weeks already completed (OR date 04/15) but had been on such and getting IV venofer for KENYA. Aspirin changed to ONCE daily (8) Compression deformity of vertebra: Plan: checked lumbar spine due to lower back pain, no change in old mild T12/L1 compression deformities. Post op findings within spine noted from prior surgery orthotics consulted for brace to see if helps w/ her ambulatory status, delivered 07/11 and can monitor if improvement w/ mobility w/ ambulation Plan DVT proph: heparin SQ while inpatient Dispo: continued inpatient stay, hopeful for discharge tomorrow pending BP readings Daughter updated at bedside. Admission and Anticipated Discharge Date Admission Date: July 02, 2023 Subjective Patient seen earlier this morning after walking with PT + orthostatic vital signs, however patient was asymptomatic patient has no acute concerns Review of Systems Review of Systems: All systems reviewed & are unremarkable except as noted in Subjective Physical Exam Physical Exam: General: NAD, sitting up in the chair, Can participate in conversation, VS as above Resp: normal respiratory effort, lungs clear to auscultation CV: RRR, no murmur, Abd: normal bowel sounds, non tender, no hepatosplenomegaly Extremities: Moves all extremities, no edema. no erythema over previous incision Site, non tender to palpation Results & Data Results & Data Vital Signs (Past 12 Hours) Vital Signs Temp Pulse Pulse Pulse Resp BP BP 07/15/23 16:45 64 182/58 H 07/15/23 15:59 71 07/15/23 15:57 36.7 C 62 16 183/67 H 07/15/23 11:49 36.9 C 71 16 141/60 H 07/15/23 08:08 36.6 C 68 16 214/76 H 07/15/23 07:28 63 Pulse Ox O2 Del Method 07/15/23 16:45 07/15/23 15:59 07/15/23 15:57 96 Room Air 07/15/23 11:49 97 Room Air 07/15/23 08:08 97 Room Air 07/15/23 07:28 Laboratory Results BMP reviewed PG Care Time/CCT Total # of Minutes Spent Total Time Spent with Patient: Total time spent is greater than 50% in coordination of care (as documented) at patient's floor/unit and/or counseling patient: Coding Level of Care Code 51679 SUB INP/OBS CARE 2/35MIN Diagnoses Urinary tract infection N39.0 Hypertension I10 Anemia D64.9 AMS (altered mental status) R41.82 Constipation K59.00 Hypercalcemia E83.52 Fall W19.XXXA Compression deformity of vertebra M43.9
--- NOTE | 2023-07-16 11:40 | Discharge Summary ---
Discharge Summary Date of Service July 16, 2023 Notes For Next Care Provider Patient originally admitted for AMS and falls, found to have a UTI. treated with IV rocephin. Mental status improved, however then had fluctuations with blood pressure. Final regiment with amlodopine 5mg BID and labetalol 200 mg BID. Patient trialed on hydralazine and clonidine patch while here with poor control. Caution increasing labetalol in the future due to bradycardia. parathyroid peptide pending for hypercalcemia Concerns for anemia - fecal occult negative, received IV venofer x3 doses. stopped PO iron Medication Changes From Visit Aspirin 81mg ONCE a day Seroquel 12.5mg at night (sleep aide) Labetalol decreased to 200 mg twice a day (blood pressure) Amlodipine 5 mg twice a day (blood pressure) Miralax daily (laxative) colace - twice a day ( stool softener) Stop Iron Stop Olmesartan stop vit D pending parathyroid results Admission HPI Per Admitting Provider Susan is an 87-year-old female with PMH of multiple falls, gait instability, lumbar radiculopathy, dementia, GERD, and closed hip fracture. She presented via EMS from [facility] for AMS, burning with urination, new onset lethargy, fever, and 2 falls over the past 2 days on 06/30. Patient is a poor historian at baseline due to her underlying dementia. She is unable to report if she fell, but notes she did not hit her head. She does endorse burning with urination 3 days ago, that has since resolved. Patient's daughter is at the bedside provides additional history; patient's daughter reports that she said she felt fine on Wednesday, but also fell when reaching for her walker; also notes a fall in March when she tripped on her ottoman. Patient denies feeling dizzy or lightheaded prior to falls. She does note that she has had dark tarry stools ever since she started her iron supplements; denies having black bowel movements prior to starting iron. Her last colonoscopy was greater than 10 years ago. Patient/daughter deny family history of cancer/colon cancer. Last bowel movement was 2-3 days ago. Patient is unsure when her last FIT testing was. Patient also endorses mild lower back pain, which she rates as 5/10 at time of admission; dull, achy, no radiation down the legs or up the back. Patient denies smoking, tobacco use, and alcohol use. Patient is hypertensive at 176/95 at time of admission; vitals otherwise stable. ED course: NSS 1000 mL IV Acetaminophen 1000 mg IV Rocephin 1000 mg IV ROS: Patient endorses body aches x 1 day, lower back pain, dark tarry stool, and burning with urination x 3 days (resolved) Patient denies fever, sweats, chills, lightheadedness/dizziness, CP, pleuritic CP, SOB, abdominal pain, N/V/D, saddle anesthesia, or numbness/tingling/pain going down the legs. Spoke on the phone with nursing staff at [facility], who reported that she had 2 unwitnessed falls where she was found on the ground: The first being on 06/28 when she fell around 4 PM and rung her call blue; the second being last night where she was found on the ground by nursing staff around 1 AM (unsure how long she was on the ground for) and she did not bring her call blue. Unclear if she struck her head. She also had a fever of 99.9 F on the morning of 07/01. Nursing staff do report she has been complaining of increased urinary incontinence recently. No other urinary symptoms noted. Principal Dx & Hospital Course #1 = Principal Diagnosis (1) Urinary tract infection: At least two unwitnessed falls at [facility] over 2 days prior to admission. Urine cx pansensitive ecoli -- completed 6 doses IV Rocephin CTAP w/o acute process PT/OT for rehab, - evaluated by [facility] today and plan is to return there when medically stable Return to [facility] today with home health services (2) Hypertension: significant systolic elevations, similar in prior admissions however suspect does contribute to worsening mental status with significant elevations w/ hospital delirium. Home regiment was labetalol 300 mg BID and olmesartan [address] head negative Multiple medications during stay - trial on hydralazine 25mg QID and clonidine patch with poor control discharged with amlodipine 5mg BID and labetalol 200 mg BID would caution against increased labetalol in the future due to bradycardia episodes. Avoid any diuretic, did require a few fluid bolus for poor PO intake. (3) Anemia: Chronic; Hgb 8.9 on arrival MCV WNL no plan for further colonoscopy given age. Fecal occult Negative, LDH NOT elevated. Retic count elevated, marrow working Given Venofer IV x 3 doses inpatient for low trans % sat. B12 586, folate 10.76 --> repeat iron studies w/ elevation - PO iron stopped at discharge. Hgb stabl, 8.1 last check (4) AMS (altered mental status): Back to baseline. Stable. 2nd to UTI in setting of worsened AMS since COVID this past fall. Suspect dementia w/ hospital delirium contributing given waxing/waning nature CT head negative, CT cervical spine w/o fx/subluxation. TSH wnl, B12 not deficient s/p tx UTI, had been provided zyprexa last week and sedated most of the day following Delirium prevention strategies, frequent orientation, sleep/wake schedules. Multiple adjustments made and remaining stable on seroquel 12.5mg HS and prn melatonin 3mg HS (5) Constipation: likely 2nd to PO iron [employer] AD[employer]. PO iron discontinued, given IV Venofer earlier in stay. KUB obtained due to not moving bowels w/ noted fecal retention in colon and enema provided. Bowel movements not daily, but has not required further enema. Continue miralax and senna at discharge (6) Hypercalcemia: Ca 10.5, likely 2nd to dehydration and contributing to her constipation. IVF ordered, Ca 10.4 on repeat labs/normal albumin. Ionized ca slightly elevated but not high enough to require treatment Vit D not deficient, PTH not elevated PTH related peptide still pending -- will need f/u on this. ?related to unde rlying CKD, immobilization - vit D stopped at discharge pending these results (7) Fall: Unclear if witnessed/unwitnessed falls x 2 over the past 2 days leading up to admission Hip/pelvic x-ray revealed no acute fracture or dislocation; healing subacute fixated left intertrochanteric femoral fracture Had left hip fracture repaired 04/15. - discharged to [facility] for rehab, subsequent discharge to [facility] - prior to hip fx, living independently at home with (family also looking for placement for him) - CT hip obtained for erythema and tenderness on exam --> no fluid collection or osteomyelitis. Mild subcutaneous fluid of thigh - likely edema, although could be cellulitis - exam 07/12 without surrounding erythema ASA 81mg x 6 weeks already completed (OR date 04/15) but had been on such and getting IV venofer for KENYA. Aspirin changed to ONCE daily (8) Compression deformity of vertebra: checked lumbar spine due to lower back pain, no change in old mild T12/L1 compression deformities. Post op findings within spine noted from prior surgery orthotics consulted for brace to see if helps w/ her ambulatory status, del ivered 07/11 and can monitor if improvement w/ mobility w/ ambulation Plan Dispo: discharge back to [facility] today Daughter updated by phone Discharge Exam General: NAD, pleasant, lying in bed VS as above Resp: normal respiratory effort, lungs clear to auscultation CV: RRR, no murmur, Abd: normal bowel sounds, non tender, no hepatosplenomegaly no LE edema Updated Medication List Medication Instructions Recorded Confirmed Type prevagen 10 mg PO QAM 01/10/19 07/02/23 History lidocaine HCl 4 % topical cream 1 applic topical QID neck pain 05/10/23 07/02/23 History (Aspercreme (lidocaine HCl)) acetaminophen 500 mg tablet 1,000 mg PO Q6H PRN pain/fever 07/02/23 07/02/23 History menthol 0.44 %-zinc oxide 20.6 % 1 applic topical BID 07/02/23 07/02/23 History topical ointment (Calmoseptine) omega-3 700 mg-dha and epa 600 1 cap PO QAM 07/02/23 07/02/23 History mg-fish and krill oil 900 mg capsule (MegaRed Advanced 4-in-1) amlodipine 5 mg tablet (Norvasc) 5 mg PO BID 30 days #60 tabs 07/16/23 Rx aspirin 81 mg tablet,delayed 81 mg PO QAM 30 days #30 tabs 07/16/23 Rx release docusate sodium 100 mg capsule 100 mg PO BID 30 days #60 caps 07/16/23 Rx labetalol 200 mg tablet 200 mg PO BID 30 days #60 tabs 07/16/23 Rx polyethylene glycol 3350 17 gram 17 g PO DAILY 30 days #30 ea 07/16/23 Rx oral powder packet (Miralax) quetiapine 25 mg tablet 12.5 mg (1/2 x 25 mg) PO HS 30 07/16/23 Rx days #15 tabs Hospital Stay Data Consultations 07/02/23 11:00 ED Decision to Admit Stat Diagnostic Imagining Performed Cervical Spine CT 07/02/23 08:34 CT OF THE CERVICAL SPINE WITHOUT CONTRAST CLINICAL HISTORY: trauma, ams COMPARISON STUDY: No previous studies for comparison. TECHNIQUE: Helical axial images of the cervical spine were obtained without IV contrast. Sagittal and coronal reconstructions were viewed. Automated exposure control was utilized for the study. A dose lowering technique was utilized adhering to the principles of ALARA. FINDINGS: There is 3 mm anterolisthesis of C3 on C4 and 3 mm of anterolisthesis of C4 and C5. The findings are probably chronic. No acute cervical spine fracture is noted. There is moderate multilevel facet arthrosis as well as moderate to severe multilevel degenerative disc disease within the cervical spine. Findings are most pronounced at the C3-C4 and C5-C6 levels. There is no prevertebral edema. IMPRESSION: 1. No acute cervical spine fracture or subluxation. 2. Anterolisthesis of C3 on C4 and C4 on C5, likely chronic and related to facet arthrosis. 3. Moderate to severe multilevel degenerative disc disease and facet arthrosis within the cervical spine. ACT 112: Negative or not required by law. Electronically signed by: Lane Butts M.D. 07/02/2023 9:11 AM Chest X-Ray 07/02/23 08:34 XR chest 1V portable CLINICAL HISTORY: trauma COMPARISON STUDY: Chest radiograph July 25, 2018. FINDINGS: Operative findings within the lumbar spine are partially imaged. Linear densities within the lungs favor atelectasis or scarring. Lungs are clear. There is no pneumothorax or pleural effusion. Mild cardiomegaly is unchanged. Mediastinal contours are normal. There is no evidence for pulmonary edema. IMPRESSION: No acute cardiopulmonary findings. ACT 112: Negative or not required by law. Electronically signed by: Lane Butts M.D. 07/02/2023 10:[address] 07/02/23 08:34 CT head/brain wo con CLINICAL HISTORY: 87 years-old Female with trauma. Acute head trauma status post fall TECHNIQUE: Multiple axial CT images of the head were obtained without contrast. A dose lowering technique was utilized adhering to the principles of ALARA. CT DOSE: 929.67 mGy.cm COMPARISON: CT cervical spine of same day, head CT April 20, 2023 FINDINGS: Mildly motion degraded exam. No acute intracranial hemorrhage, midline shift, intracranial mass, hydrocephalus, territorial ischemia or abnormal extra-axial c ollection. Involutional changes with chronic microvascular ischemic disease. The calvarium is intact. Mastoid air cells are clear. Minimal mucosal thickening of the paranasal sinuses. Prior bilateral lens repair IMPRESSION: No acute intracranial abnormality or calvarial fracture. ACT 112: Negative or not required by law. The above report was generated using voice recognition software. It may contain grammatical, syntax or spelling errors. Electronically signed by: Blair Kendall M.D. 07/02/2023 9:34 AM Hip/Pelvis X-Ray 07/02/23 08:34 XR hip RT 2V w pelvis HISTORY: 87 years-old Female trauma acute pelvic pain status post trauma COMPARISON: 05/27/2023 TECHNIQUE: AP view the pelvis with 2 views of the right femur FINDINGS: Demineralized appearance to the bones. Healing fixated left intratrochanteric fracture. Mild right hip osteoarthritis. No acute fracture or dislocation identified. Fusion hardware of the lower lumbar spine. IMPRESSION: 1. No acute fracture or dislocation. 2. Healing subacute fixated left intertrochanteric femoral fracture. ACT 112: Negative or not required by law. The above report was generated using voice recognition software. It may contain grammatical, syntax or spelling errors. Electronically signed by: Blair Kendall M.D. 07/02/2023 10:17 AM KUB X-Ray 07/06/23 12:40 KUB CLINICAL HISTORY: Constipation. FINDINGS: An AP, portable, supine abdominal radiograph is obtained. Correlation is made with lumbar spine radiographs dated 11/18/2018. There is a nonobstructed abdominal bowel gas pattern. Moderate fecal retention is noted in the colon. Cholecystectomy clips are seen in the right upper quadrant. No evidence of intraperitoneal free air is seen on this supine image. There are no abnormal abdominal calcifications. The skeletal structures are osteopenic. Spondylotic and extensive postsurgical change is noted throughout the lumbosacral spine. Postsurgical change is seen in the left proximal femur. IMPRESSION: No acute abnormality is identified. Electronically signed by: Alfredito Watkins M.D. 07/06/2023 6:54 PM Chest X-Ray 07/07/23 13:11 XR chest 1V portable HISTORY: concerns for aspiration COMPARISON: Chest 07/02/2023. FINDINGS: No pneumothorax. No pleural effusions. No new focal lung consolid ations to suggest a pneumonia. No evidence for pulmonary edema. The heart remains mildly enlarged. Calcifications within the aortic knob again noted. No acute fractures. Lumbar spinal fusion hardware and prior cholecystectomy. IMPRESSION: No significant change compared to the prior study. No acute process. ACT 112: Negative or not required by law. Electronically signed by: Juaquin Shepherd M.D. 07/07/2023 2:37 PM Lumbar Spine X-Ray 07/10/23 11:43 XR lumbar spine 2-3V CLINICAL HISTORY: falls, low back pain COMPARISON STUDY: Lumbar spine radiographs July 21, 2011. Lumbar spine MRI December 02, 2018. FINDINGS: Multilevel lumbar spine posterior decompression with lateral bone graft material and bilateral pedicle screws are noted. Pedicle screws extend from the L1-L5 levels. Old T12 and L1 mild compression deformities are unchanged. There is no acute lumbar spine fracture. Anterolisthesis of L4 and L5 is unchanged. There is moderate disc space narrowing and osteophytosis at L4-L5 and L5-S1. Sacroiliac joints are intact. There are cholecystectomy clips in partially visualized left femoral internal fixation hardware. IMPRESSION: 1. No acute lumbar spine fracture or subluxation. No change in old mild T12 and L1 compression deformities. 2. Postoperative finding within the lumbar spine, as above. ACT 112: Negative or not required by law. Electronically signed by: Lane Butts M.D. 07/10/2023 12:37 PM Abdomen/Pelvis CT 07/11/23 09:05 CT abd pelvis IV con only CLINICAL HISTORY: ams, hypercalcemia TECHNIQUE: Helical axial images of the abdomen and pelvis were obtained and displayed. Automated dose lowering techniques and/or adjustment according to patient size were utilized for this exam. This exam was performed with intravenous contrast. CT DOSE: 834.2 mGy.cm COMPARISON: None available at the time of this dictation. FINDINGS: Lower chest: Atelectasis is seen. Biatrial enlargement is seen. Liver: Unremarkable. No focal lesions are seen. Gallbladder and biliary tree: Patient is status post cholecystectomy. Physiologic prominence of the biliary ducts is noted. Pancreas: The pancreas is atrophic. Spleen: Splenule is incidentally noted. Adrenals: Unremarkable. Kidneys and ureters: Renal cysts are seen. Bladder: Unremarkable. Reproductive organs: Patient is status post hysterectomy. Bowel: Diverticulosis is seen without diverticulitis. The appendix is normal. Lymph nodes Retroperitoneal: Subcentimeter lymph nodes are noted. Pelvic: Unremarkable. Mesenteric: Unremarkable. Peritoneum: Normal. Vessels: Atherosclerotic calcifications are seen. Abdominal wall: Gas in the subcutaneous tissues is likely due to injection. Bones: Degenerative changes in the visualized spine. Posterior fixation hardware is seen in the lumbar spine and there is a left femoral carrie. Anterolisthesis of L4-L5 is seen. IMPRESSION: 1. No acute abnormalities are seen. 2. Diverticulosis without diverticulitis. 3. Additional incidental findings as above. ACT 112: Negative or not required by law. Electronically signed by: Kapil Dougherty M.D. 07/11/2023 11:[address] 07/12/23 11:[address] WITH CONTRAST CLINICAL HISTORY: recent hip repair, hip pain, falls, eval infection COMPARISON STUDY: CT of the abdomen and pelvis July 11, 2023. Left hip CT April 14, 2023. TECHNIQUE: Axial images of the left hip were obtained without IV contrast. Sagittal and coronal reconstructions were viewed. Automated exposure control was utilized for the study. A dose lowering technique was utilized adhering to the principles of ALARA. FINDINGS: There are expected postoperative findings following internal fixation of the intertrochanteric fracture of the left femur with trochanteric nail. Alignment is unchanged since initial postoperative radiographs of April 20, 2023. The fracture has partially healed. No acute fractures within the left hip are present. This exam is compromised by streak artifact from the surgical hardware. There is no soft tissue gas. No rim-enhancing fluid collection is identified. No significant hematoma is present. There is subcutaneous edema of the left thigh. No intramuscular abnormalities identified by CT. No significant abnormalities within visual portions of the hemipelvis are noted. No definite evidence for joint effusion. IMPRESSION: 1. Expected findings following internal fixation of the intertrochanteric fracture of the left femur. Fracture alignment unchanged since initial postoperative radiographs with partial interval healing. 2. Exam compromised by streak artifact from the hardware. However, no fluid collections identified. No bony erosion to suggest osteomyelitis. No acute fractures. 3. Mild subcutaneous fluid of the left thigh. This favors edema although cellulitis could appear similar. No associated fluid collection. ACT 112: Negative or not required by law. Electronically signed by: Lane Butts M.D. 07/12/2023 1:53 PM Pending Results Patient Have Any Pending Studies at Discharge: Yes Discharge Instructions Given to Patient (Per Discharging Provider) Ms. Armendariz You were hospitalized after having falls back at [facility]. It was found that you had a UTI that was treated with IV antibiotics. You also had struggle with control of your blood pressure, at discharge we have found a good oral regiment that has been controlling your symptoms. Your sleep wake cycle has improved with adding Seroquel. You received IV iron for your anemia during your stay. You should stop taking the oral iron supplementation at this time. Continue with bowel regiment (miralax/colace) Continue to use back brace to help with pain from your lumbar fracture Medication changes: Aspirin 81mg ONCE a day Seroquel 12.5mg at night (sleep aide) Labetalol decreased to 200 mg twice a day (blood pressure) Amlodipine 5 mg twice a day (blood pressure) Miralax daily (laxative) colace - twice a day ( stool softener) Stop Iron Stop Olmesartan stop vit D pending parathyroid results Follow up on: Parathyroid Peptide pending (ordered for elevated Calcium levels) Total Time Total Time Spent Total Time Spent (In Minutes): Time spend day of discharge 35 minutes including direct patient care, medication reconciliation, documentation, review of labs and images, and coordination of care. Coding Level of Care Code 82369 INP/OBS DISCH >30 MIN Diagnoses Urinary tract infection N39.0 Hypertension I10 Anemia D64.9 AMS (altered mental status) R41.82 Constipation K59.00 Hypercalcemia E83.52 Fall W19.XXXA Compression deformity of vertebra M43.9
== END 2023-07-16 13:15 | disposition home or self-care (01) | DRG 689 ==
LOC: ED 08:23 → EDINP 12:44 → SUATTDRO 12:44 → 2N 12:53
DX: Z88.5 Allergy status to narcotic agent; Z88.0 Allergy status to penicillin; N39.0 Urinary tract infection, site not specified; S72.145D Nondisplaced intertrochanteric fracture of left femur, subsequent encounter for closed fracture with routine healing; Z79.899 Other long term (current) drug therapy; Z79.82 Long term (current) use of aspirin; Z91.81 History of falling; Z88.6 Allergy status to analgesic agent; I44.0 Atrioventricular block, first degree; D50.9 Iron deficiency anemia, unspecified; R26.81 Unsteadiness on feet; I10 Essential (primary) hypertension; I24.89 Other forms of acute ischemic heart disease; G93.41 Metabolic encephalopathy; Z88.8 Allergy status to other drugs, medicaments and biological substances; B96.20 Unspecified Escherichia coli [E. coli] as the cause of diseases classified elsewhere; K59.03 Drug induced constipation; E83.52 Hypercalcemia; X58.XXXD Exposure to other specified factors, subsequent encounter; F03.911 Unspecified dementia, unspecified severity, with agitation; Z88.2 Allergy status to sulfonamides; Z66 Do not resuscitate; T39.015A Adverse effect of aspirin, initial encounter; R29.6 Repeated falls; T45.4X5A Adverse effect of iron and its compounds, initial encounter; M48.55XA Collapsed vertebra, not elsewhere classified, thoracolumbar region, initial encounter for fracture

== ENCOUNTER 2023-11-11 10:53 | Inpatient (IN) ==
--- NOTE | 2023-11-11 11:13 | Emergency Department Note ---
Impression & Plan Hypercalcemia, Hypertension, Renal insufficiency, Confusion, Dementia ED Provider Note NAME: PASCUAL WEEMS AGE: 87 SEX: F : 1935 ARRIVES VIA: Ambulance INFORMANT: Patient ED PROVIDER(S): Tanner Loza MD CHIEF COMPLAINT: Confusion, hypertension, referred. PLAN: Disposition: Admit MEDICAL DECISION MAKING: The patient is a pleasant 87-year-old woman with a past medical history of dementia, hypertension, CKD who presents to the emergency department via EMS accompanied by family for evaluation of worsening confusion over the past week in the setting of having ongoing elevated blood pressure for which staff at her facility were concerned. The patient has had close attention of her blood pressure in the past month or so and had been taken off of amlodipine a week ago due to swelling in her legs and started on lisinopril but due to continued elevation in her blood pressure her lisinopril was increased from 5 mg to 10 mg twice daily. Additionally, due to concern for anxiety she was placed on 5 mg 3 times daily of buspirone. Review of the patient's record shows the patient's blood pressure has been elevated in the 180-200/80s-100 range dating back to 2018 or more. The patient she was seen in this emergency department on 11/08 referred by her facilities providers for elevated blood pressure but was considered to be asymptomatic. She was treated with hydralazine but had no significant change in her pressure. Outpatient follow-up was recommended.On 11/03 the patient was seen in this emergency department and was noted to have high blood pressure but was considered to be asymptomatic and was treated for suspected UTI. On evaluation the patient is no acute distress, afebrile with blood pressure 220/100s and vital signs otherwise stable. Patient appears clinically dry appears tremulous which per family is not normal for her. She reports she feels cold but always feels cold. She denies any complaints otherwise. WBC within normal limits. Platelets within normal limits. H/H similar to prior. Chemistry without metabolic acidosis. Creatinine is 1.2 with BUN of 28, consistent with patient's clinical dry appearance. Sodium is 144 with chloride of 113. Potassium is 4.1, within normal limits. Calcium is notably elevated at 11 which over the past several weeks has been the case. Ionized calcium is 1.44 also mildly elevated. Electrolytes otherwise unremarkable. LFTs unremarkable. High-sensitivity troponin 8.7, within normal limits. Lipase is normal. TSH within normal limits. UA without convincing evidence of infection. Respiratory BioFire was negative. CT of the head and CT of the abdomen pelvis were performed and did not demonstrate acute abnormalities per my preliminary independent interpretation. Given the patient's symptoms suspect likely symptomatic from mild-moderate hypercalcemia. Patient was treated with IV fluid hydration initially with 500 cc normal saline followed by lactated Ringer's given her elevated chloride. Additionally she was given calcitonin given suspicion for symptomatic hypercalcemia. Family are in agreement with plan for admission for further management. Case was discussed with PEARL Sotelo PAC, with PEARL Galvez hospitalist who will evaluate the patient for admission. CT of the head and abdomen/pelvis were negative for acute abnormalities per radiology interpretation. Bladder wall thickening is nonspecific and given UA without evidence of infection unlikely to indicate infection at this time. Further management per admitting team. Triage Nursing notes reviewed and agree them. Prior/external medical records reviewed Vital Signs: reviewed Differential diagnosis: Infection, dehydration, metabolic abnormality, hypo/hyperglycemia, electrolyte disturbance, anemia, hypoxia, cardiac sources, intracerebral event, toxicologic, neurologic, as well as other pathologies. ER treatment provided: See below. Diagnostics interpreted by me: ECG: Sinus rhythm with first-degree block, 62 bpm, no ectopy, no overt ST elevation or depression, QTc 412, 272. Cardiac Monitoring: An order for continuous cardiac monitoring was placed and demonstrated Sinus rhythm with first-degree block, 62 bpm, no ectopy Laboratory studies: See below Imaging studies: See below Consultation(s): PEARL Sotelo PAC, with PEARL Galvez hospitalist. HPI: The patient is a pleasant 87-year-old woman with a past medical history of dementia, hypertension, CKD who presents to the emergency department via EMS accompanied by family for evaluation of worsening confusion over the past week in the setting of having ongoing elevated blood pressure for which staff at her facility were concerned. The patient has had close attention of her blood pressure in the past month or so and had been taken off of amlodipine a week ago due to swelling in her legs and started on lisinopril but due to continued elevation in her blood pressure her lisinopril was increased from 5 mg to 10 mg twice daily. Additionally, due to concern for anxiety she was placed on 5 mg 3 times daily of buspirone. Review of the patient's record shows the patient's blood pressure has been elevated in the 180-200/80s-100 range dating back to 2018 or more. The patient she was seen in this emergency department on 11/08 referred by her facilities providers for elevated blood pressure but was considered to be asymptomatic. She was treated with hydralazine but had no significant change in her pressure. Outpatient follow-up was recommended.On 11/03 the patient was seen in this emergency department and was noted to have high blood pressure but was considered to be asymptomatic and was treated for suspected UTI. ROS: See above HPI for pertinent positives & negatives. A total of 10 systems reviewed and were otherwise negative. VITALS:See Below PHYSICAL EXAMINATION: GENERAL: Awake, alert, fatigued appearing, in no distress HENT: Normocephalic, atraumatic. Oropharynx with dry mucous membranes. EYES: Normal conjunctiva. Sclera non-icteric. NECK: Supple. No nuchal rigidity. FROM. No JVD. RESPIRATORY: Clear to auscultation. CARDIAC: Regular rate, normal rhythm. Extremities warm and well perfused. Pulses equal. ABDOMEN: Soft, non-distended. No tenderness to palpation. No rebound or guarding. No masses. MUSCULOSKELETAL: Chest examination reveals no tenderness. The back is symmetrical on inspection without obvious abnormality. There is no CVA tenderness to palpation. No joint edema. LOWER EXTREMITIES: Calves are equal size bilaterally and non-tender. No edema. No discoloration. NEURO: No focal sensory or motor deficits noted. Mildly tremulous. SKIN: No rash or jaundice noted. ED COURSE: Critical Care: I have personally spent greater than 35 minutes of critical care time in the direct management of this patient. This includes bedside care, interpretation of diagnostic studies, and testing, discussion with consultants, patient, and family members, and other required patient management activities. This 35 minutes is in excess of all separately billable procedures. Tanner Loza MD Past Med/Surg History Problem List (Updated 11/11/23 @ 19:43 by Tanner Loza MD) Dementia (Acute) Confusion (Acute) Renal insufficiency (Acute) Hypertension (Acute) Hypercalcemia (Acute) Weakness Hypertension (Acute) Frequent urinary tract infections (Acute) Dysuria (Acute) Alzheimer's type dementia Foot drop, right Fracture, metacarpal (~04/29/23) second metacarpal bone of right hand from a fall Closed hip fracture (Acute ~04/14/23) from fall-left hip, had orthopedic surgery. History of cataract surgery History of lumbar fusion L1-5 2012 Arthritis History of colonoscopy Emphysema lung EMPHYSEMATOUS CHANGE PER CXR CKD (chronic kidney disease) S/P knee surgery GERD (gastroesophageal reflux disease) Myofascial pain Lumbar radiculopathy Spinal stenosis, lumbar region with neurogenic claudication Impaired fasting glucose Right knee DJD Gait instability History of tibial fracture (~11/28/21) History of falling Rotator cuff arthropathy of right shoulder Medical History Compression deformity of vertebra Hypercalcemia Catarina UTI COVID-19 History of hip fracture Fracture of second metacarpal bone of right hand Hypertension History of compression fracture of spine T10, T12 Anemia CHRONIC; BASELINE HGB 10'S PER CHART REVIEW Surgical History History of left knee surgery History of partial knee replacement 2019 History of arthroscopy of left knee History of hysterectomy History of urologic surgery BLADDER TAC Family History Uncle Family history of cancer Aunt Family history of cancer Other Family history non-contributory Denies family history of Ovarian cancer Breast cancer Colorectal cancer Social History Smoking Status: Never smoker Second Hand Exposure: No; Do You Dip or Chew Tobacco: No; Hx Alcohol Use: No Hx Substance Use: No Preferred Language: Malian Communication Ability: Effective Visual Impairment: Limited Hearing Ability: Normal Slot Service Specialist Required: No Beliefs That Will Affect Care: None marital status: Current Living Situation: Personal Care Facility current occupational status: retired Other Information That Helps Us Care for You: No Feels Safe at Home: Yes Safety Concerns: Feels Safe At This Time Childhood Exposure to Second-Hand Smoke: Yes Diet: regular caffeine: No Dental Care, Regularly: Yes Physical Activity Frequency: Daily Seatbelt Use: always Sunscreen Use: No Assistive Devices: Glasses, Walker and Wheelchair Allergies Allergies Allergy/AdvReac Type Severity Reaction Status Date / Time duloxetine [From Cymbalta] Allergy Intermediate falls and Verified 11/11/23 15:54 nightmares codeine Allergy Unknown PT NOT SURE Verified 11/11/23 15:54 diazepam Allergy Unknown PT NOT SURE Verified 11/11/23 15:54 Penicillins Allergy Unknown itchy, Verified 11/11/23 15:54 hives Sulfa (Sulfonamide Allergy Unknown PT DOES Verified 11/11/23 15:54 Antibiotics) NOT REMEMBER tramadol AdvReac confusion, Verified 11/11/23 15:54 bad dreams Home Meds Home Medications Medication Instructions Recorded Confirmed prevagen 10 mg PO QAM 01/10/19 11/11/23 lidocaine HCl 4 % topical cream 1 applic topical QID neck pain 05/10/23 11/11/23 (Aspercreme (lidocaine HCl)) acetaminophen 500 mg tablet 1,000 mg PO Q6H PRN pain/fever 07/02/23 11/11/23 menthol 0.44 %-zinc oxide 20.6 % 1 applic topical BID 07/02/23 11/11/23 topical ointment (Calmoseptine) omega-3 700 mg-dha and epa 600 1 cap PO QAM 07/02/23 11/11/23 mg-fish and krill oil 900 mg capsule (Datappraise 4-in-1) aspirin 81 mg tablet,delayed 81 mg PO DAILY 11/11/23 11/11/23 release buspirone 5 mg tablet 5 mg PO TID 11/11/23 11/11/23 ferrous sulfate 325 mg (65 mg 325 mg PO BID 11/11/23 11/11/23 iron) tablet lisinopril 10 mg tablet 10 mg PO BID 11/11/23 11/11/23 meclizine 12.5 mg tablet 12.5 mg PO TID PRN Vertigo 11/11/23 11/11/23 polyethylene glycol 3350 17 gram 8.5 g PO Q48H Constipation 11/11/23 11/11/23 oral powder packet (ClearLax) Previous Rx's Medication Instructions Recorded labetalol 200 mg tablet 200 mg PO BID 30 days #60 tabs 07/16/23 ANKLE FOOT ORTHOSIS BRACE #1 ea 08/05/23 Results & Data (ED) Vital Signs Vital Signs - 24 hr 11/11/23 11:00 11/11/23 11:00 11/11/23 12:33 Temperature 36.7 C 36.7 C Temperature Source Oral Oral Pulse Rate 67 64 Pulse Rate [Right Finger] 67 Pulse Rhythm Regular Pulse Rhythm [Right Finger] Regular Pulse Strength Normal Pulse Strength [Right Finger] Normal Respiratory Rate 20 20 Respiratory Effort / Characteristics Non-Labored Spontaneous Non-Labored Spontaneous Respiratory Depth Normal Normal Respiratory Pattern Regular Regular Blood Pressure 212/80 H Blood Pressure [Right Arm] 212/80 H Blood Pressure Mean 124 Blood Pressure Mean [Right Arm] 124 Blood Pressure Position Semi-fowlers Blood Pressure Position [Right Arm] Semi-fowlers Pulse Oximetry 98 98 Oxygen Delivery Method Room Air Room Air Sepsis Recent Fever Within 48 Hours No Sepsis New/Unexplained Change in Mental Status N/A Sepsis Action Taken by Nursing No Action Required 11/11/23 13:00 Temperature Temperature Source Pulse Rate Pulse Rate [Right Finger] 62 Pulse Rhythm Pulse Rhythm [Right Finger] Pulse Strength Pulse Strength [Right Finger] Respiratory Rate 20 Respiratory Effort / Characteristics Respiratory Depth Respiratory Pattern Blood Pressure Blood Pressure [Right Arm] 223/104 H Blood Pressure Mean Blood Pressure Mean [Right Arm] 143 Blood Pressure Position Blood Pressure Position [Right Arm] Pulse Oximetry 97 Oxygen Delivery Method Room Air Sepsis Recent Fever Within 48 Hours Sepsis New/Unexplained Change in Mental Status Sepsis Action Taken by Nursing Laboratory Data Attestation: I reviewed the patient's lab results. 11/11/23 10:50 11/11/23 10:50 Lab Results 11/11/23 11/11/23 11/11/23 Range/Units 10:50 11:19 11:27 WBC 5.55 (4.8-10.8) K/ul RBC 3.17 L (4.20-5.40) M/uL Hgb 10.2 L (12.0-16.0) g/dl Hct 31.6 L (37.0-47.0) % MCV 99.7 (80.0-100.0) fL MCH 32.2 (25.0-34.0) pg MCHC 32.3 (32.0-36.0) g/dL RDW Std Deviation 50.5 H (36.4-46.3) fL RDW Coeff of Karuna 13.8 (11.5-14.5) % Plt Count 239 (130-400) K/uL MPV 9.9 (9.4-12.4) fL Immature Gran % (Auto) 0.2 % Neut % (Auto) 68.5 % Lymph % (Auto) 18.9 % [place] % (Auto) 8.8 % Eos % (Auto) 3.1 % Baso % (Auto) 0.5 % Neut # (Auto) 3.80 (1.40-6.50) K/uL Lymph # (Auto) 1.05 L (1.20-3.40) K/uL [place] # (Auto) 0.49 (0.11-0.59) K/uL Eos # (Auto) 0.17 (0.00-0.50) K/uL Baso # (Auto) 0.03 (0.00-0.20) K/uL Immature Gran # (Auto) 0.01 (0.01-0.20) K/uL PT 10.8 (9.0-12.0) Seconds INR 1.0 (0.9-1.1) Sodium 144 (136-145) mmol/L Potassium 4.1 (3.5-5.1) mmol/L Chloride 113 H (98-107) mmol/L Carbon Dioxide 26 (21-32) mmol/L Anion Gap 5 (3-11) BUN 28 H (6-23) mg/dl Creatinine 1.22 H (0.6-1.2) mg/dl Est Cr Clr Drug Dosing 24.7 ml/min Est GFR ( Amer) 45.5 ml/min Est GFR (Non-Af Amer) 39.2 ml/min BUN/Creatinine Ratio 23.0 H (10-20) Glucose 121 H (70-99(Fasting)) mg/dl Calcium 11.0 H (8.6-10.3) mg/dl Ionized Calcium (1.12-1.32) mmol/L Phosphorus 3.3 (2.5-4.9) mg/dl Magnesium 2.3 (1.7-2.4) mg/dl Total Bilirubin 1.0 (0.2-1.0) mg/dl AST 16 (13-39) U/L ALT 9 (7-52) U/L Alkaline Phosphatase 63 (34-104) U/L Troponin I High Sens 8.7 (0-14) pg/ml Total Protein 6.4 (6.0-8.3) gm/dl Albumin 4.2 (3.4-5.0) gm/dl Globulin 2.2 L (2.5-4.0) gm/dl Albumin/Globulin Ratio 1.9 (0.9-2) Lipase 31 (11-82) U/L TSH 1.869 (0.300-4.500) uIu/ml Urine Color Yellow Urine Appearance Clear (Clear) Urine pH 5.5 (4.5-7.5) Ur Specific [place] 1.017 (1.000-1.030) Urine Protein 3+ H (Negative) Urine Glucose (UA) Negative (Negative) Urine Ketones Negative (Negative) Urine Blood Negative (Negative) Urine Nitrite Negative (Negative) Urine Bilirubin Negative (Negative) Urine Urobilinogen Negative (Negative) Ur Leukocyte Esterase Negative (Negative) Urine WBC (Auto) 0-5 (0-5) /hpf Urine RBC (Auto) 0-2 (0-2) /hpf U Hyaline Cast (Auto) 3-5 H (0-2) /lpf U Epithel Cells (Auto) 0-2 (0-2) /hpf Urine Bacteria (Auto) None Seen (None Seen) Adenovirus (PCR) Not Detected (NotDetected) B. pertussis DNA (PCR) Not Detected (NotDetected) B.parapertussis DNA PCR Not Detected (NotDetected) C. pneumoniae DNA (PCR) Not Detected (NotDetected) Coronavirus OC43 (PCR) Not Detected (NotDetected) Coronavirus HKU1 (PCR) Not Detected (NotDetected) Coronavirus 229E (PCR) Not Detected (NotDetected) SARS-CoV-2 (PCR) Not Detected (NotDetected) Coronavirus NL63 (PCR) Not Detected (NotDetected) Human Metapneumovir PCR Not Detected (NotDetected) Influenza Type A (PCR) Not Detected (NotDetected) Influenza Type B (PCR) Not Detected (NotDetected) M. pneumoniae (PCR) Not Detected (NotDetected) Parainfluenza 1 (PCR) Not Detected (NotDetected) Parainfluenza 2 (PCR) Not Detected (NotDetected) Parainfluenza 3 (PCR) Not Detected (NotDetected) Parainfluenza 4 (PCR) Not Detected (NotDetected) RSV (PCR) Not Detected (NotDetected) Entero/Rhino (PCR) Not Detected (NotDetected) 11/11/23 Range/Units 12:28 WBC (4.8-10.8) K/ul RBC (4.20-5.40) M/uL Hgb (12.0-16.0) g/dl Hct (37.0-47.0) % MCV (80.0-100.0) fL MCH (25.0-34.0) pg MCHC (32.0-36.0) g/dL RDW Std Deviation (36.4-46.3) fL RDW Coeff of Karuna (11.5-14.5) % Plt Count (130-400) K/uL MPV (9.4-12.4) fL Immature Gran % (Auto) % Neut % (Auto) % Lymph % (Auto) % [place] % (Auto) % Eos % (Auto) % Baso % (Auto) % Neut # (Auto) (1.40-6.50) K/uL Lymph # (Auto) (1.20-3.40) K/uL [place] # (Auto) (0.11-0.59) K/uL Eos # (Auto) (0.00-0.50) K/uL Baso # (Auto) (0.00-0.20) K/uL Immature Gran # (Auto) (0.01-0.20) K/uL PT (9.0-12.0) Seconds INR (0.9-1.1) Sodium (136-145) mmol/L Potassium (3.5-5.1) mmol/L Chloride (98-107) mmol/L Carbon Dioxide (21-32) mmol/L Anion Gap (3-11) BUN (6-23) mg/dl Creatinine (0.6-1.2) mg/dl Est Cr Clr Drug Dosing ml/min Est GFR ( Amer) ml/min Est GFR (Non-Af Amer) ml/min BUN/Creatinine Ratio (10-20) Glucose (70-99(Fasting)) mg/dl Calcium (8.6-10.3) mg/dl Ionized Calcium 1.44 H (1.12-1.32) mmol/L Phosphorus (2.5-4.9) mg/dl Magnesium (1.7-2.4) mg/dl Total Bilirubin (0.2-1.0) mg/dl AST (13-39) U/L ALT (7-52) U/L Alkaline Phosphatase (34-104) U/L Troponin I High Sens (0-14) pg/ml Total Protein (6.0-8.3) gm/dl Albumin (3.4-5.0) gm/dl Globulin (2.5-4.0) gm/dl Albumin/Globulin Ratio (0.9-2) Lipase (11-82) U/L TSH (0.300-4.500) uIu/ml Urine Color Urine Appearance (Clear) Urine pH (4.5-7.5) Ur Specific [place] (1.000-1.030) Urine Protein (Negative) Urine Glucose (UA) (Negative) Urine Ketones (Negative) Urine Blood (Negative) Urine Nitrite (Negative) Urine Bilirubin (Negative) Urine Urobilinogen (Negative) Ur Leukocyte Esterase (Negative) Urine WBC (Auto) (0-5) /hpf Urine RBC (Auto) (0-2) /hpf U Hyaline Cast (Auto) (0-2) /lpf U Epithel Cells (Auto) (0-2) /hpf Urine Bacteria (Auto) (None Seen) Adenovirus (PCR) (NotDetected) B. pertussis DNA (PCR) (NotDetected) B.parapertussis DNA PCR (NotDetected) C. pneumoniae DNA (PCR) (NotDetected) Coronavirus OC43 (PCR) (NotDetected) Coronavirus HKU1 (PCR) (NotDetected) Coronavirus 229E (PCR) (NotDetected) SARS-CoV-2 (PCR) (NotDetected) Coronavirus NL63 (PCR) (NotDetected) Human Metapneumovir PCR (NotDetected) Influenza Type A (PCR) (NotDetected) Influenza Type B (PCR) (NotDetected) M. pneumoniae (PCR) (NotDetected) Parainfluenza 1 (PCR) (NotDetected) Parainfluenza 2 (PCR) (NotDetected) Parainfluenza 3 (PCR) (NotDetected) Parainfluenza 4 (PCR) (NotDetected) RSV (PCR) (NotDetected) Entero/Rhino (PCR) (NotDetected) Administered Medications Discontinued Medications Calcitonin [place] (Calcitonin [place] 400 Units/2 Ml) 220 units SQ NOW STA Stop: 11/11/23 12:18 Last Admin: 11/11/23 12:54 Dose: 220 units Documented By: DELMIS Hydralazine HCl (Hydralazine Hcl 20 Mg/Ml Vial) 2.5 mg IV NOW STA Stop: 11/11/23 13:48 Last Admin: 11/11/23 14:10 Dose: 2.5 mg Documented By: DELMIS Hydralazine HCl (Hydralazine Hcl 25 Mg Tab) 25 mg PO NOW STA Stop: 11/11/23 16:12 Last Admin: 11/11/23 17:28 Dose: 25 mg Documented By: HAL Sodium Chloride (Nss) 500 mls @ 999 mls/hr IV .Q31M STA Stop: 11/11/23 11:41 Last Infusion: 11/11/23 11:56 Dose: Infused Documented By: Admin: 11/11/23 11:17 Dose: 999 mls/hr Documented By: DELMIS Lactated Ringer's (Lr) 1,000 mls @ 999 mls/hr IV .Q1H1M ONE Stop: 11/11/23 13:17 Last Infusion: 11/11/23 13:56 Dose: Infused Documented By: Admin: 11/11/23 12:54 Dose: 999 mls/hr Documented By: DELMIS Acetaminophen (Ofirmev) 1,000 mg in 100 mls @ 400 mls/hr IV NOW STA Stop: 11/11/23 14:13 Last Infusion: 11/11/23 16:30 Dose: Infused Documented By: Admin: 11/11/23 15:19 Dose: 400 mls/hr Documented By: ELENA Lidocaine (Lidocaine 5% 1 Patch) 1 patch TD NOW STA Stop: 11/11/23 14:00 Last Admin: 11/11/23 15:19 Dose: 1 patch Documented By: ELENA Imaging Data Radiologist's Impression: Chest X-Ray 11/11/23 11:11 XR chest 1V portable HISTORY: Chest pain, nonspecific COMPARISON: Chest 11/09/2023. FINDINGS: No pneumothorax. No pleural effusions. Small left basilar linear densities persist and favor subsegmental atelectasis are scarring. No new focal lung consolidations to suggest a pneumonia. No evidence for pulmonary edema. The cardiac silhouette is top normal in size. There are calcifications within the aortic knob. Lumbar spinal fusion hardware is noted. IMPRESSION: No significant change compared to the prior study. No acute process. ACT 112: Negative or not required by law. Electronically signed by: Juaquin Shepherd M.D. 11/11/2023 12:[address] 11/11/23 12:[address] DOSE: HISTORY: confusion TECHNIQUE: Multiaxial CT images of the head were performed without the use of intravenous contrast. Automated exposure control was utilized for this study. A dose lowering technique was utilized adhering to the principles of ALARA. Comparison: Head CT 11/09/2023. Findings: The paranasal sinuses and mastoid air cells are clear. The calvarium and skull base are intact. There is no mass, hematoma, midline shift, acute infarct. White matter hypodensity is nonspecific but suggestive of microvascular ischemic change. The ventricles and sulci demonstrate mild age-related involutional changes. Impression: No significant change compared to the prior study. No acute intracranial abnormality. ACT 112: Negative or not required by law. Electronically signed by: Juaquin Shepherd M.D. 11/11/2023 1:09 PM Abdomen/Pelvis CT 11/11/23 12:[address] WITHOUT CONTRAST CT DOSE: 1516.45 mGy.cm HISTORY: Acute generalized abdominal pain. Acute kidney injury. abd pain, confusion, dereck TECHNIQUE: Multiaxial CT images of the abdomen and pelvis were performed without contrast. A dose lowering technique was utilized adhering to the principles of ALARA. COMPARISON STUDY: 11/04/2023 FINDINGS: Cardiomegaly. Moderate coronary artery calcifications. There is no free air. Limited study without the use of contrast. Unenhanced spleen, and adrenal glands are unremarkable. Cholecystectomy. Marginal nodularity of the liver suggestive of cirrhosis. No hepatic mass identified. Moderately atrophic pancreas with calcifications suggestive of chronic pancreatitis. Cortical thinning of the kidneys. Mild nonspecific bilateral perinephric stranding. Renal cysts measure up to 3.6 cm. 1.4 cm hyperdense lesion of the interpolar left kidney is incompletely characterized on this study, likely proteinaceous or hemorrhagic cyst. No renal or ureteral calculi doses. Unremarkable urinary bladder with mild wall thickening and minimal intraluminal air. Hysterectomy. Atherosclerosis of the aorta and branch vessels. No lymphadenopathy. No bowel obstruction or bowel wall thickening. Colonic diverticulosis. Scattered large and small bowel air-fluid levels. Normal appendix. Mild generalized body wall edema. Degenerative and postoperative changes of the spine. Left proximal femoral ORIF hardware. Unchanged appearance of the T12 and L1 compression deformities. The pedicle screws at L1 extends into the T12-L1 intervertebral disc space. IMPRESSION: 1. No acute intra-abdominal or intrapelvic abnormality identified. 2. No urolith or hydronephrosis. 3. Urinary bladder wall thickening with focus of air in the bladder lumen. Correlate with urinalysis. 4. Additional findings as above. ACT 112: Negative or not required by law. The above report was generated using voice recognition software. It may contain grammatical, syntax or spelling errors. Electronically signed by: Blair Kendall M.D. 11/11/2023 1:29 PM Discharge Plan Visit Data Chief Complaint: Hypertension Stated Complaint: HTN, ED Provider: Tanner Loza Discharge Problem: Hypercalcemia, Hypertension, Renal insufficiency, Confusion, Dementia Patient Disposition: Admitted As Inpatient Discharge Instructions Interventions: ED Discharge Assessment Last Done: 11/11/23 16:00 Discharge Problem: Hypertension Qualifiers: Hypertension type: unspecified Qualified Code(s): I10 - Essential (primary) hypertension Dementia Qualifiers: Dementia type: unspecified type Dementia severity: unspecified severity D ementia behavioral or psychological symptom: unspecified whether behavioral, psychotic, or mood disturbance or anxiety Qualified Code(s): F03.90 - Unspecified dementia, unspecified severity, without behavioral disturbance, psychotic disturbance, mood disturbance, and anxiety
[2023-11-11] MEDS: SODIUM CHLORIDE 0.9% 500 ML IV STA (11:17)
[2023-11-11 11:26] LABS: Basophils # (auto) 0.03 K/uL (0.00-0.20); Basophils % (auto) 0.5 %; Eosinophils # (auto) 0.17 K/uL (0.00-0.50); Eosinophils % (auto) 3.1 %; Hematocrit (blood only) 31.6 % (37.0-47.0); Hemoglobin 10.2 g/dl (12.0-16.0); Immature Granulocytes # (auto) 0.01 K/uL (0.01-0.20); Immature Granulocytes % (auto) 0.2 %; Lymphocytes # (auto) 1.05 K/uL (1.20-3.40); Lymphocytes % (auto) 18.9 %; Mean Corpuscular Hemoglobin 32.2 pg (25.0-34.0); Mean Corpuscular Hgb Conc 32.3 g/dL (32.0-36.0); Mean Corpuscular Volume 99.7 fL (80.0-100.0); Mean Platelet Volume 9.9 fL (9.4-12.4); Monocytes # (auto) 0.49 K/uL (0.11-0.59); Monocytes % (auto) 8.8 %; Neutrophils % (auto) 68.5 %; Platelet Count 239 K/uL (130-400); RDW Coefficient of Variation 13.8 % (11.5-14.5); RDW Standard Deviation 50.5 fL (36.4-46.3); Red Blood Count 3.17 M/uL (4.20-5.40); White Blood Count 5.55 K/ul (4.8-10.8)
[2023-11-11 11:46] LABS: Albumin Globulin Ratio 1.9 (0.9-2); Albumin Level 4.2 gm/dl (3.4-5.0); Creatinine Clr Calc Pharmacy 24.7 ml/min; Est GFR (African American) 45.5 ml/min; Est GFR (Non-African American) 39.2 ml/min; Globulin 2.2 gm/dl (2.5-4.0); Magnesium 2.3 mg/dl (1.7-2.4); Phosphorus 3.3 mg/dl (2.5-4.9); Potassium 4.1 mmol/L (3.5-5.1); Total Protein 6.4 gm/dl (6.0-8.3)
[2023-11-11 11:54] LABS: Troponin I High Sensitivity 8.7 pg/ml (0-14)
[2023-11-11 11:54] LABS: Appearance Urine Clear (Clear); Bacteria Urine Automated None Seen (None Seen); Bilirubin Urine Negative (Negative); Blood Urine Negative (Negative); Color Urine Yellow; Epithelial Cell Urine Auto 0-2 /hpf (0-2); Glucose Urine UA Negative (Negative); Ketones Urine Negative (Negative); Leukocyte Esterase Urine Negative (Negative); Nitrite Urine Negative (Negative); Protein Urine 3+ (Negative); RBC Urine Automated 0-2 /hpf (0-2); Specific Gravity Urine 1.017 (1.000-1.030); Urobilinogen Urine Negative (Negative); WBC Urine Automated 0-5 /hpf (0-5); pH Urine 5.5 (4.5-7.5)
[2023-11-11 12:00] LABS: Thyroid Stimulating Hormone 1.869 uIu/ml (0.300-4.500)
[2023-11-11 12:04] LABS: Prothrombin Time 10.8 Seconds (9.0-12.0)
[2023-11-11 12:13] LABS: Adenovirus PCR Not Detected (NotDetected); Bordetella parapertussis PCR Not Detected (NotDetected); Bordetella pertussis PCR Not Detected (NotDetected); Chlamydia pneumoniae PCR Not Detected (NotDetected); Coronavirus 229E PCR Not Detected (NotDetected); Coronavirus CoV-2 (COVID19)PCR Not Detected (NotDetected); Coronavirus HKU1 PCR Not Detected (NotDetected); Coronavirus NL63 PCR Not Detected (NotDetected); Coronavirus OC43PCR Not Detected (NotDetected); Human Metapneumovirus PCR Not Detected (NotDetected); Influenza A PCR Not Detected (NotDetected); Influenza B PCR Not Detected (NotDetected); Mycoplasma pneumoniae PCR Not Detected (NotDetected); Parainfluenza Virus 1 PCR Not Detected (NotDetected); Parainfluenza Virus 2 PCR Not Detected (NotDetected); Parainfluenza Virus 3 PCR Not Detected (NotDetected); Parainfluenza Virus 4 PCR Not Detected (NotDetected); Respiratory Syncytial VirusPCR Not Detected (NotDetected); Rhinovirus/Enterovirus PCR Not Detected (NotDetected)
--- NOTE | 2023-11-11 12:21 | XRay Report ---
XR chest 1V portable HISTORY: Chest pain, nonspecific COMPARISON: Chest 11/09/2023. FINDINGS: No pneumothorax. No pleural effusions. Small left basilar linear densities persist and favo r subsegmental atelectasis are scarring. No new focal lung consolidations to suggest a pneumonia. No evidence for pulmonary edema. The cardiac silhouette is top normal in size. There are calcifications within the aortic knob. Lumbar spinal fusion hardware is noted. IMPRESSION: No significant change compared to the prior study. No acute process. ACT 112: Negative or not required by law. Electronically signed by: Juaquin Shepherd M.D. 11/11/2023 12:19 PM
[2023-11-11] MEDS: CALCITONIN SALMON 400 UNITS/2 ML SQ STA (12:54)
[2023-11-11] MEDS: LACTATED RINGER'S 1,000 ML IV ONE (12:54)
--- NOTE | 2023-11-11 13:10 | CT Scan Report ---
HEAD CT NONCONTRAST CT DOSE: HISTORY: confusion TECHNIQUE: Multiaxial CT images of the head were performed without the use of intravenous contrast. A utomated exposure control was utilized for this study. A dose lowering technique was utilized adheri ng to the principles of ALARA. Comparison: Head CT 11/09/2023. Findings: The paranasal sinuses and mastoid air cells are clear. The calvarium and skull base are int act. There is no mass, hematoma, midline shift, acute infarct. White matter hypodensity is nonspecifi c but suggestive of microvascular ischemic change. The ventricles and sulci demonstrate mild age-rela titus involutional changes. Impression: No significant change compared to the prior study. No acute intracranial abnormality. ACT 112: Negative or not required by law. Electronically signed by: Juaquin Shepherd M.D. 11/11/2023 1:09 PM
--- NOTE | 2023-11-11 13:19 | Electrocardiogram Report ---
Test Reason : Blood Pressure : / mmHG Vent. Rate : 062 BPM Atrial Rate : 062 BPM P-R Int : 226 ms QRS Dur : 072 ms QT Int : 406 ms P-R-T Axes : 070 -11 030 degrees QTc Int : 412 ms Sinus rhythm with 1st degree A-V block Otherwise normal ECG When compared with ECG of 09-NOV-2023 14:06, Criteria for Anteroseptal infarct are no longer Present Confirmed by Tyrel Vergara ([id number]) on 11/11/2023 1:19:32 PM Referred By: Linus Pringle Canterbury Confirmed By:Tyrel Vergara
--- NOTE | 2023-11-11 13:24 | History & Physical Report ---
Date of Service November 11, 2023 Assessment & Plan (1) Hypertension: Plan: Admit to the PCU on telemetry and pulse oximetry Currently hypertensive at 223/104 but otherwise stable Presented to ED from [facility] due to ongoing resistant hypertension, weakness, and intermittent dizziness Has been hypertensive with systolics in the 200s since arrival Patient has a long history of resistant hypertension which often causes increased weakness and altered mental status Has continued on her 20 mg twice daily labetalol, was recently switched from amlodipine to lisinopril 10 mg twice daily due to increased lower extremity swelling and leg pain Patient was confirmed to have her a.m. doses of labetalol and lisinopril today Calcium is elevated at 11 with ionized calcium 1.44, this can make controlled blood pressure more difficult, see hypercalcemia plan for further details Will give 2.5 mg IV hydralazine now as she often has large fluctuations in her blood pressure with IV medications, want to avoid dropping her blood pressure Will aim to keep systolic blood pressure near 170 mmHg in the next 24 hours which would be approximate 25% reduction Will continue both home labetalol and lisinopril and wait to see how she responds to the IV hydralazine prior to ordering p.o. hydralazine If she continues to be resistant despite ongoing additional antihypertensives will need to consider transfer to ICU for IV nicardipine drip Will obtain renal artery Dopplers once stable as she has not had this workup in the past If patient continues to have weakness and altered mental status after blood pressure is adequately controlled could consider MRI of the brain further workup Bilateral ALANA stockings for DVT prophylaxis at this time as we do not want to use chemical DVT prophylaxis with her significant hypertension Heart healthy diet with 2 g sodium restriction AM CBC, CMP, mag, PT/INR (2) Weakness: Plan: Patient has been experiencing increased generalized weakness and fatigue over the past 48 hours Suspect a component of her weakness is her ongoing hypertension as she has a history of weakness and AMS with her severe hypertension No obvious signs of infection at this time, will obtain UA as she is high risk for UTIs Fall/aspiration precautions Will monitor for improvement with better control of her blood pressure moving forward (3) Hypercalcemia: Plan: Calcium of 11 with ionized calcium 1.44 today PTH on 07/07/2023 was within normal limits at 70 Patient was given 1.5 L of IV fluids and 220 units SQ calcitonin prior to admission Will obtain repeat PTH level and repeat calcium this evening for further monitoring The patient continues to be hyper calcium imported we will have to consider bisphosphonate therapy (4) Alzheimer's type dementia: Plan: Continue at bedtime Seroquel Fall/aspiration precautions ordered Plan The patient was discussed with Dr. Phelps at time of admission History of Present Illness Chief Complaint: Fatigue, insomnia, dizziness Primary Care Provider: Alberto June DO Susan is an 87-year-old female with PMH of resistant hypertension, bradycardia, multiple falls, gait instability, lumbar radiculopathy, dementia, GERD who presented to the [facility] ED on 11/11/2023 via EMS due to multiple complaints including fatigue, dizziness, and insomnia. On arrival to the ED she was noted to be hypertensive at 212/80 but otherwise s table. Labs were significant for a calcium level of 11 with ionized calcium of 1.44, UA with 3+ protein and full respiratory [employer] negative. CT of the head and brain without contrast and chest x-ray were read as negative for acute findings. Prior to admission the patient was given 500 mL NSS, 1 L LR, and 220 units SQ calcitonin. Patient was sitting in bed in no acute distress at the time of exam with family bedside, the patient was trembling significantly due to being cold at the start my exam. They confirm that she has a long history of resistant hypertension. Over the past 24 hours they have noted the patient having increased difficulty with her speech at times with increased fatigue. She was seen in the [facility] ED On 11/09/2023 due to ongoing hypertension. CT of the head and brain without contrast at that time was negative for acute findings. She was given a dose of IV hydralazine with moderate improvement in blood pressure and mental status. When asked, the patient denies current headache, changes in vision, hearing, taste, smell, chest pain, shortness of breath, abdominal pain, nausea/vomiting, dysuria/hematuria, diarrhea, and recent trauma. She and her family confirm that the patient is a DNR/DNI. I was able to call and speak to I was able to call and speak to the nursing staff at [facility]. Explained that the patient had recent changes to her antihypertensives. She is continued on 200 mg twice daily of p.o. labetalol. Her amlodipine has been stopped on 11/09/2023 due to increased leg swelling and pain. She had first been started on 5 mg twice daily of lisinopril and replace of the amlodipine. Lisinopril was increased to 10 mg twice daily on 11/10/2023. They confirmed that the patient did have her morning doses of both for labetalol and lisinopril prior to ED arrival. Please refer to Dr. Karimi's attestation for any changes to the treatment plan Allergies Allergy/AdvReac Type Severity Reaction Status Date / Time duloxetine [From Cymbalta] Allergy Intermediate falls and Verified 11/11/23 15:54 nightmares codeine Allergy Unknown PT NOT SURE Verified 11/11/23 15:54 diazepam Allergy Unknown PT NOT SURE Verified 11/11/23 15:54 Penicillins Allergy Unknown itchy, Verified 11/11/23 15:54 hives Sulfa (Sulfonamide Allergy Unknown PT DOES Verified 11/11/23 15:54 Antibiotics) NOT REMEMBER tramadol AdvReac confusion, Verified 11/11/23 15:54 bad dreams Home Medications Medication Instructions Recorded Confirmed Type prevagen 10 mg PO QAM 01/10/19 11/11/23 History lidocaine HCl 4 % topical cream 1 applic topical QID neck pain 05/10/23 11/11/23 History (Aspercreme (lidocaine HCl)) acetaminophen 500 mg tablet 1,000 mg PO Q6H PRN pain/fever 07/02/23 11/11/23 History menthol 0.44 %-zinc oxide 20.6 % 1 applic topical BID 07/02/23 11/11/23 History topical ointment (Calmoseptine) omega-3 700 mg-dha and epa 600 1 cap PO QAM 07/02/23 11/11/23 History mg-fish and krill oil 900 mg capsule ([employer] 4-in-1) labetalol 200 mg tablet 200 mg PO BID 30 days #60 tabs 07/16/23 11/11/23 Rx ANKLE FOOT ORTHOSIS BRACE #1 ea 08/05/23 09/28/23 Rx aspirin 81 mg tablet,delayed 81 mg PO DAILY 11/11/23 11/11/23 History release buspirone 5 mg tablet 5 mg PO TID 11/11/23 11/11/23 History ferrous sulfate 325 mg (65 mg 325 mg PO BID 11/11/23 11/11/23 History iron) tablet lisinopril 10 mg tablet 10 mg PO BID 11/11/23 11/11/23 History meclizine 12.5 mg tablet 12.5 mg PO TID PRN Vertigo 11/11/23 11/11/23 History polyethylene glycol 3350 17 gram 8.5 g PO Q48H Constipation 11/11/23 11/11/23 History oral powder packet (ClearLax) Past Med/Surg History Problem List (Updated 11/11/23 @ 19:43 by Tanner Loza MD) Dementia (Acute) Confusion (Acute) Renal insufficiency (Acute) Hypertension (Acute) Hypercalcemia (Acute) Weakness Hypertension (Acute) Frequent urinary tract infections (Acute) Dysuria (Acute) Alzheimer's type dementia Foot drop, right Fracture, metacarpal (~04/29/23) second metacarpal bone of right hand from a fall Closed hip fracture (Acute ~04/14/23) from fall-left hip, had orthopedic surgery. History of cataract surgery History of lumbar fusion L1-5 2012 Arthritis History of colonoscopy Emphysema lung EMPHYSEMATOUS CHANGE PER CXR CKD (chronic kidney disease) S/P knee surgery GERD (gastroesophageal reflux disease) Myofascial pain Lumbar radiculopathy Spinal stenosis, lumbar region with neurogenic claudication Impaired fasting glucose Right knee DJD Gait instability History of tibial fracture (~11/28/21) History of falling Rotator cuff arthropathy of right shoulder Medical History Compression deformity of vertebra Hypercalcemia Catarina UTI COVID-19 History of hip fracture Fracture of second metacarpal bone of right hand Hypertension History of compression fracture of spine T10, T12 Anemia CHRONIC; BASELINE HGB 10'S PER CHART REVIEW Surgical History History of left knee surgery History of partial knee replacement 2019 History of arthroscopy of left knee History of hysterectomy History of urologic surgery BLADDER TAC Family History Uncle Family history of cancer Aunt Family history of cancer Other Family history non-contributory Denies family history of Ovarian cancer Breast cancer Colorectal cancer Social History Smoking Status: Never smoker Second Hand Exposure: No; Do You Dip or Chew Tobacco: No; Hx Alcohol Use: No Hx Substance Use: No Preferred Language: Yi Communication Ability: Effective Visual Impairment: Limited Hearing Ability: Normal 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 Beliefs That Will Affect Care: None marital status: Current Living Situation: Personal Care Facility current occupational status: retired Other Information That Helps Us Care for You: No Feels Safe at Home: Yes Safety Concerns: Feels Safe At This Time Childhood Exposure to Second-Hand Smoke: Yes Diet: regular caffeine: No Dental Care, Regularly: Yes Physical Activity Frequency: Daily Seatbelt Use: always Sunscreen Use: No Assistive Devices: Glasses, Walker and Wheelchair Physical Exam Physical Exam: Physical Exam: General: In no acute distress, stated age, currently tremulous due to be cold, non-toxic appearing HEENT: Normocephalic, atraumatic, no scleral icterus, pupils around round, symmetrical, and reactive to light, moist mucus membranes, trachea midline, no thyromegaly Chest/Pulm: No respiratory distress, symmetrical chest expansion, clear breath sounds throughout Cardiac: RRR, no murmurs noted Abdomen: Negative for ascites and bruising, normoactive bowel sounds, soft, non-tender to palpation throughout Musculoskeletal: Patient with chronic right shoulder pain causing decreased ROM compared to left, otherwise symmetrical strength testing. Extremities: Radial, dorsalis pedis, and posterior tibial pulses are intact and symmetrical, 1-2+ edema noted in the BL LE's Skin: Warm, dry, no rashes , lesions, or scars noted Neuro: Alert and oriented to person, place, month, year, and president, no focal defects, CN II-XII tested and intact, currently tremulous due to room being significantly cold Psych: No acute distress, calm and cooperative during the exam Results & Data Results & Data Vital Signs (Past 12 Hours) Vital Signs Temp Pulse Pulse Resp BP BP Pulse Ox 11/11/23 13:00 62 20 223/104 H 97 11/11/23 12:33 64 11/11/23 11:00 36.7 C 67 20 212/80 H 98 11/11/23 11:00 36.7 C 67 20 212/80 H 98 O2 Del Method 11/11/23 13:00 Room Air 11/11/23 12:33 11/11/23 11:00 Room Air 11/11/23 11:00 Room Air Laboratory Results Abnormal lab results 11/11/23 11/11/23 11/11/23 Range/Units 10:50 11:27 12:28 RBC 3.17 L (4.20-5.40) M/uL Hgb 10.2 L (12.0-16.0) g/dl Hct 31.6 L (37.0-47.0) % RDW Std Deviation 50.5 H (36.4-46.3) fL Lymph # (Auto) 1.05 L (1.20-3.40) K/uL Chloride 113 H (98-107) mmol/L BUN 28 H (6-23) mg/dl Creatinine 1.22 H (0.6-1.2) mg/dl BUN/Creatinine Ratio 23.0 H (10-20) Glucose 121 H (70-99(Fasting)) mg/dl Calcium 11.0 H (8.6-10.3) mg/dl Ionized Calcium 1.44 H (1.12-1.32) mmol/L Globulin 2.2 L (2.5-4.0) gm/dl Urine Protein 3+ H (Negative) U Hyaline Cast (Auto) 3-5 H (0-2) /lpf Diagnostic Findings Chest X-Ray 11/11/23 11:11 XR chest 1V portable HISTORY: Chest pain, nonspecific COMPARISON: Chest 11/09/2023. FINDINGS: No pneumothorax. No pleural effusions. Small left basilar linear densities persist and favor subsegmental atelectasis are scarring. No new focal lung consolidations to suggest a pneumonia. No evidence for pulmonary edema. The cardiac silhouette is top normal in size. There are calcifications within the a ortic knob. Lumbar spinal fusion hardware is noted. IMPRESSION: No significant change compared to the prior study. No acute process. ACT 112: Negative or not required by law. Electronically signed by: Juaquin Shepherd M.D. 11/11/2023 12:[address] 11/11/23 12:[address] DOSE: HISTORY: confusion TECHNIQUE: Multiaxial CT images of the head were performed without the use of intravenous contrast. Automated exposure control was utilized for this study. A dose lowering technique was utilized adhering to the principles of ALARA. Comparison: Head CT 11/09/2023. Findings: The paranasal sinuses and mastoid air cells are clear. The calvarium and skull base are intact. There is no mass, hematoma, midline shift, acute infarct. White matter hypodensity is nonspecific but suggestive of microvascular ischemic change. The ventricles and sulci demonstrate mild age-related involutional changes. Impression: No significant change compared to the prior study. No acute intracranial abnormality. ACT 112: Negative or not required by law. Electronically signed by: Juaquin Shepherd M.D. 11/11/2023 1:09 PM Abdomen/Pelvis CT 11/11/23 12:[address] WITHOUT CONTRAST CT DOSE: 1516.45 mGy.cm HISTORY: Acute generalized abdominal pain. Acute kidney injury. abd pain, confusion, dereck TECHNIQUE: Multiaxial CT images of the abdomen and pelvis were performed without contrast. A dose lowering technique was utilized adhering to the principles of ALARA. COMPARISON STUDY: 11/04/2023 FINDINGS: Cardiomegaly. Moderate coronary artery calcifications. There is no free air. Limited study without the use of contrast. Unenhanced spleen, and adrenal glands are unremarkable. Cholecystectomy. Marginal nodularity of the liver suggestive of cirrhosis. No hepatic mass identified. Moderately atrophic pancreas with calcifications suggestive of chronic pancreatitis. Cortical thinning of the kidneys. Mild nonspecific bilateral perinephric stranding. Renal cysts measure up to 3.6 cm. 1.4 cm hyperdense lesion of the interpolar left kidney is incompletely characterized on this study, likely proteinaceous or hemorrhagic cyst. No renal or ureteral calculi doses. Unremarkable urinary bladder with mild wall thickening and minimal intraluminal air. Hysterectomy. Atherosclerosis of the aorta and branch vessels. No lymphadenopathy. No bowel obstruction or bowel wall thickening. Colonic diverticulosis. Scattered large and small bowel air-fluid levels. Normal appendix. Mild generalized body wall edema. Degenerative and postoperative changes of the spine. Left proximal femoral ORIF hardware. Unchanged appearance of the T12 and L1 compression deformities. The pedicle screws at L1 extends into the T12-L1 intervertebral disc space. IMPRESSION: 1. No acute intra-abdominal or intrapelvic abnormality identified. 2. No urolith or hydronephrosis. 3. Urinary bladder wall thickening with focus of air in the bladder lumen. Correlate with urinalysis. 4. Additional findings as above. ACT 112: Negative or not required by law. The above report was generated using voice recognition software. It may contain grammatical, syntax or spelling errors. Electronically signed by: Blair Kendall M.D. 11/11/2023 1:29 PM ECG Additional Comments: Sinus rhythm with 1st degree A-V block Otherwise normal ECG When compared with ECG of 09-NOV-2023 14:06, Criteria for Anteroseptal infarct are no longer Present Nonspecific T wave abnormality no longer evident in Anterior leads Code Status & VTE Plan Code Status DNR/DNI VTE Prophylaxis Plan VTE Prophylaxis will be ordered: Yes Supervising Physician Co-Signing Physician Notes Patient seen and examined, chart reviewed, case discussed with Baltazar Fulton PA-C and I agree with the assessment and plan as above except as otherwise noted Labs and images reviewed 87-year-old female past medical history of hypertension, bradycardia, falls, dementia, GERD presents with dizziness and fatigue and was found to be hypertensive without new focal neurologic deficits. She is hypercalcemic. CT of the head is without acute findings. No new focal neurologic deficits. Combined contraction, and is hypercalcemic. May have some resistant hypertension due to hypercalcemia. PTH is markedly elevated. PTH RP 06/2023 was normal, repeated. Will continue IV FM, avoid thiazide diuretics. Prior elevated calcium was 2/2 due to dehydration, will continue hydration and follow. Ionized calcium again high but does not require any emergent treatment. Patient previously stopped vitamin D, repeat levels pending. Does have history of hip fracture, last DEXA scan 2016 showed osteoporosis.?bisphosphonate at that time. Patient would meet criteria for surgical referral based on history of vertebral fractures and osteoporosis. Calcium is not greater than 1 mg/dL above upper limit of normal. Current condition. Patient given evening antihypertensives in addition to hydralazine IV x 1. No focal neurologic deficits. Will attempt to draw blood pressure by at least ~20%. Patient is on labetalol 200 mg twice daily. NSAIDs avoided due to hypercalcemia. Lisinopril given. Pain previously discontinued due to poor tolerance and leg swelling. Oral hydralazine 3 times daily started. Seen at bedside pressure slightly improved but again uptrending. Given labetalol 200 mg home dose early. Patient did have good response to her amlodipine but had some ankle swelling although was not very bothersome to her. If remains high will give amlodipine 5 mg x 1 days follow-up. Taken to ultrasound for Doppler evaluation. Mentating normally, distal extremity strength is intact bedside visit. Discussed with family. She has never been on a bisphosphonate for osteoporosis. He is currently contraindicated for creatinine clearance less than 35. Could use cinacalcet as alternative. Trended. Agree with assessment and management as above PG Care Time/CCT Total # of Minutes Spent Total Time Spent with Patient: Total time spent is greater than 50% in coordination of care (as documented) at patient's floor/unit and/or counseling patient: Coding [place] [address] INT INP/OBS CARE 375MIN Patient Type Established Medical Decision Making High Complexity Diagnoses Hypertension I10 Hypertension type: unspecified Weakness R53.1 Hypercalcemia E83.52 Mild late onset Alzheimer's dementia without behavioral disturbance, psychotic disturbance, mood disturbance, or anxiety G30.1; F02.A0 Alzheimer's disease onset: late onset Dementia behavioral or psychological symptom: without behavioral, psychotic, or mood disturbance or anxiety Dementia severity: mild (1) Hypertension Hypertension type: unspecified Qualified Code(s): I10 - Essential (primary) hypertension (4) Alzheimer's type dementia Alzheimer's disease onset: late onset Dementia behavioral or psychological symptom: without behavioral, psychotic, or mood disturbance or anxiety Dementia severity: mild Qualified Code(s): G30.1 - Alzheimer's disease with late onset; F02.A0 - Dementia in other diseases classified elsewhere, mild, without behavioral disturbance, psychotic disturbance, mood disturbance, and anxiety
--- NOTE | 2023-11-11 13:30 | CT Scan Report ---
ABDOMEN AND PELVIS CT WITHOUT CONTRAST CT DOSE: 1516.45 mGy.cm HISTORY: Acute generalized abdominal pain. Acute kidney injury. abd pain, confusion, dereck TECHNIQUE: Multiaxial CT images of the abdomen and pelvis were performed without contrast. A dose lo wering technique was utilized adhering to the principles of ALARA. COMPARISON STUDY: 11/04/2023 FINDINGS: Cardiomegaly. Moderate coronary artery calcifications. There is no free air. Limited study without the use of contrast. Unenhanced spleen, and adrenal glands are unremarkable. Cholecystectomy. Marginal nodularity of the liver suggestive of cirrhosis. No hepatic mass identified. Moderately atr ophic pancreas with calcifications suggestive of chronic pancreatitis. Cortical thinning of the kidneys. Mild nonspecific bilateral perinephric stranding. Renal cysts measu re up to 3.6 cm. 1.4 cm hyperdense lesion of the interpolar left kidney is incompletely characterized on this study, likely proteinaceous or hemorrhagic cyst. No renal or ureteral calculi doses. Unremar kable urinary bladder with mild wall thickening and minimal intraluminal air. Hysterectomy. Atheroscl erosis of the aorta and branch vessels. No lymphadenopathy. No bowel obstruction or bowel wall thickening. Colonic diverticulosis. Scattered large and small delroy l air-fluid levels. Normal appendix. Mild generalized body wall edema. Degenerative and postoperative changes of the spine. Left proximal femoral ORIF hardware. Unchanged appearance of the T12 and L1 co mpression deformities. The pedicle screws at L1 extends into the T12-L1 intervertebral disc space. IMPRESSION: 1. No acute intra-abdominal or intrapelvic abnormality identified. 2. No urolith or hydronephrosis. 3. Urinary bladder wall thickening with focus of air in the bladder lumen. Correlate with urinalysis. 4. Additional findings as above. ACT 112: Negative or not required by law. The above report was generated using voice recognition software. It may contain grammatical, syntax o r spelling errors. Electronically signed by: Blair Kendall M.D. 11/11/2023 1:29 PM
[2023-11-11] MEDS: hydrALAZINE HCL 20 MG/ML VIAL IV STA (14:10)
[2023-11-11] MEDS: LIDOCAINE 5% 1 PATCH TD STA (15:19)
[2023-11-11] MEDS: ACETAMINOPHEN 1,000 MG/100 ML VIAL IV STA (15:19)
[2023-11-11] MEDS: hydrALAZINE HCL 25 MG TAB PO STA (17:28)
[2023-11-11] MEDS: FERROUS SULFATE 325 MG TAB PO SCH (20:24)
[2023-11-11] MEDS: lisinopril 10 MG TAB PO SCH (20:24)
[2023-11-11] MEDS: busPIRone 5 MG TAB PO SCH (20:25)
[2023-11-11] MEDS: MECLIZINE 12.5 MG TAB PO PRN (20:25)
[2023-11-11] MEDS: LABETALOL HCL 200 MG TAB PO SCH (20:25)
[2023-11-11] MEDS: hydrALAZINE 10 MG TAB PO SCH (20:26)
[2023-11-12] MEDS: amLODIPine BESYLATE 5 MG TAB PO ONE (05:01)
--- NOTE | 2023-11-12 06:18 | Communication Note ---
Date of Service: November 12, 2023 Notified by nursing overnight that patient's BP continued to increase again, returning to 190s systolic. Reviewed admission note and prior ED notes, noted t hat amlodipine 5mg BID had been stopped recently due to leg swelling/discomfort and replaced with lisinopril however the dosage of lisinopril does not appear to be sufficient for equivalent blood pressure control. Patient has received IV and PO labetalol since admission without significant change in BP. Reviewed patient history and medications with Dr. Higgins, will give a one time dose of am lodipine 5mg. If BP is responsive, could consider restarting lower dose amlodipine to minimize side effects in addition to lisinopril and labetalol to achieve blood pressure control.
[2023-11-12 06:46] LABS: Basophils # (auto) 0.02 K/uL (0.00-0.20); Basophils % (auto) 0.3 %; Eosinophils # (auto) 0.14 K/uL (0.00-0.50); Eosinophils % (auto) 2.3 %; Hematocrit (blood only) 28.6 % (37.0-47.0); Hemoglobin 9.4 g/dl (12.0-16.0); Immature Granulocytes # (auto) 0.01 K/uL (0.01-0.20); Immature Granulocytes % (auto) 0.2 %; Lymphocytes # (auto) 1.53 K/uL (1.20-3.40); Mean Corpuscular Hemoglobin 32.3 pg (25.0-34.0); Mean Corpuscular Hgb Conc 32.9 g/dL (32.0-36.0); Mean Corpuscular Volume 98.3 fL (80.0-100.0); Monocytes # (auto) 0.63 K/uL (0.11-0.59); Monocytes % (auto) 10.3 %; Neutrophils # (auto) 3.78 K/uL (1.40-6.50); Neutrophils % (auto) 61.9 %; Platelet Count 207 K/uL (130-400); RDW Coefficient of Variation 13.9 % (11.5-14.5); RDW Standard Deviation 50.3 fL (36.4-46.3); Red Blood Count 2.91 M/uL (4.20-5.40); White Blood Count 6.11 K/ul (4.8-10.8)
[2023-11-12 07:01] LABS: Albumin Globulin Ratio 2.3 (0.9-2); Albumin Level 3.9 gm/dl (3.4-5.0); BUN Creatinine Ratio 26.1 (10-20); Calcium 9.7 mg/dl (8.6-10.3); Creatinine Clr Calc Pharmacy 31.4 ml/min; Est GFR (Non-African American) 55.2 ml/min; Globulin 1.7 gm/dl (2.5-4.0); Potassium 3.8 mmol/L (3.5-5.1); Total Protein 5.6 gm/dl (6.0-8.3)
[2023-11-12 07:09] LABS: Prothrombin Time 10.9 Seconds (9.0-12.0)
--- NOTE | 2023-11-12 07:18 | Ultrasound Report ---
US duplex renal artery CLINICAL HISTORY: resistant hypertension COMPARISON STUDY: Abdomen and pelvis CT 07/11/2023. FINDINGS: The right kidney measures 10.4 cm and the left kidney measures 11.0 cm. No hydronephrosis. Scattered bilateral renal cysts and moderate cortical renal thinning again noted. Resistive indices w ithin the bilateral renal arteries measure between 0.6 and 0.8. The bilateral renal veins are patent. The peak systolic velocity within the right renal artery is 111 cm/s. The peak systolic velocity wit hin the proximal left renal artery is 309 cm/s proximally near the takeoff. IMPRESSION: 1. Above findings consistent with left renal artery stenosis near the takeoff. 2. No evidence for right renal artery stenosis. 3. Moderate bilateral cortical renal thinning and multiple bilateral renal cysts again noted. ACT 112: Negative or not required by law. Electronically signed by: Juaquin Shepherd M.D. 11/12/2023 7:16 AM
[2023-11-12] MEDS: hydrALAZINE HCL 25 MG TAB PO SCH (09:25)
[2023-11-12] MEDS: HEPARIN SOD 5,000 UNIT/0.5 ML VIAL SQ SCH (09:26)
[2023-11-12] MEDS: ASPIRIN 81 MG ECTAB PO SCH (09:27)
--- NOTE | 2023-11-12 10:52 | Hospitalist Progress Note ---
Date of Service November 12, 2023 Assessment & Plan (1) Hypertension: Plan: Uncontrolled on admission. Left proximal renal artery stenosis noted on ultrasound. JJ inhibitor has been discontinued. Hydralazine is new and uptitrated today, November 11. Will avoid JJ inhibitors and ARB's due to underlying renal artery stenosis. (2) Weakness: Plan: Patient has been experiencing increased generalized weakness and fatigue over the past 48 hours. OT and PT assessments requested. She may need a short placement in SNF before she can return to [facility]. (3) Hypercalcemia: Plan: Mild on admission. Now normalized. PTH is markedly elevated. This will need further outpatient follow-up. (4) Alzheimer's type dementia: Plan: Continue at bedtime Seroquel. Fall/aspiration precautions ordered Plan To be determined. OT and PT assessments requested. She may need short stay in SNF before she can return to [facility] Admission and Anticipated Discharge Date Admission Date: November 11, 2023 Subjective Alert and seems oriented this morning, November 11. Daughter is at the bedside. Renal artery ultrasound on admission shows evidence of left renal artery stenosis at the origin. Her daughter does not want any intervention at this time. Lisinopril has been discontinued and hydralazine which is new has been uptitrated for better blood pressure control. OT and PT assessments have been requested. She resides at [facility] but may need a higher level of care and SNF before she can [facility]. Cardiac echo was done earlier this year which revealed moderate left ventricular hypertrophy with normal ejection fraction. Amlodipine was discontinued earlier this year because of lower extremity edema. Review of Systems 2 Review of Systems: Constitutional-no fever or chills ENT-no blurred vision, no double vision, no epistaxis, no sore throat Respiratory-no cough, no wheezing, no shortness of breath Cardiac-no palpitations, no chest pain, no syncope GI-no nausea, vomiting, diarrhea, melena, hematochezia -no urinary retention, no urinary incontinence, no dysuria, no hematuria Musculoskeletal-no joint pain, no muscle tenderness Skin-no bruising, no rashes, no pruritus Neuro-no isolated weakness, no paresthesia Psych-no depression, no anxiety Physical Exam 2 Physical Exam: General-alert and oriented x1, no fever, no chills HEENT-head atraumatic and normocephalic, pupils equal and reactive to light, extraocular muscles intact Neck-no lymphadenopathy or thyromegaly, trachea midline Chest-clear to auscultation. No rales, wheezing or rhonchi Cardiac-regular rate and rhythm, normal S1 and S2 Abdomen-normal bowel sounds, no hepatosplenomegaly Extremities-no cyanosis, clubbing, or edema Neuro-cranial nerves II through XII intact, motor and sensory function within normal limits, strength symmetrical with generalized weakness consistent with age, no focal deficits Psych-normal affect, normal mood Results & Data Results & Data Vital Signs (Past 12 Hours) Vital Signs Temp Pulse Pulse Resp BP Pulse Ox O2 Del Method 11/12/23 07:55 74 11/12/23 07:47 36.9 C 74 18 189/75 H 96 Room Air 11/12/23 06:02 80 164/111 H 11/12/23 03:45 198/91 H 11/12/23 02:31 36.9 C 69 18 193/88 H 96 Room Air 11/12/23 01:00 74 184/85 H Laboratory Results 11/12/23 05:33 11/12/23 05:33 PG Care Time/CCT Total # of Minutes Spent Total Time Spent with Patient: Total time spent is greater than 50% in coordination of care (as documented) at patient's floor/unit and/or counseling patient: Coding Level of Care Code 09468 SUB INP/OBS CARE 3/50MIN Diagnoses Hypertension I10 Hypertension type: unspecified Weakness R53.1 Hypercalcemia E83.52 Mild late onset Alzheimer's dementia without behavioral disturbance, psychotic disturbance, mood disturbance, or anxiety G30.1; F02.A0 Alzheimer's disease onset: late onset Dementia severity: mild Dementia behavioral or psychological symptom: without behavioral, psychotic, or mood disturbance or anxiety (1) Hypertension Hypertension type: unspecified Qualified Code(s): I10 - Essential (primary) hypertension (4) Alzheimer's type dementia Alzheimer's disease onset: late onset Dementia severity: mild Dementia behavioral or psychological symptom: without behavioral, psychotic, or mood disturbance or anxiety Qualified Code(s): G30.1 - Alzheimer's disease with late onset; F02.A0 - Dementia in other diseases classified elsewhere, mild, without behavioral disturbance, psychotic disturbance, mood disturbance, and anxiety
[2023-11-12] MEDS ORDERED: DICLOFENAC SOD 1% GEL 100 GM TUBE EXT PRN (12:46)
[2023-11-12] MEDS: hydrALAZINE HCL 20 MG/ML VIAL IV STA (17:54)
[2023-11-12] MEDS: QUEtiapine FUMARATE 25 MG TABLET PO SCH (20:22)
[2023-11-13 06:41] LABS: BUN Creatinine Ratio 24.3 (10-20); Creatinine Clr Calc Pharmacy 27.8 ml/min; Est GFR (African American) 55.8 ml/min; Est GFR (Non-African American) 48.2 ml/min; Potassium 3.7 mmol/L (3.5-5.1)
[2023-11-13] MEDS: hydrALAZINE TAB 50 MG TAB PO SCH (09:16)
--- NOTE | 2023-11-13 12:17 | Hospitalist Progress Note ---
Date of Service November 13, 2023 Assessment & Plan (1) Hypertension: Plan: Uncontrolled on admission. Left proximal renal artery stenosis noted on ultrasound. JJ inhibitor has been discontinued. Hydralazine is new and uptitrated again today, November 12. Will avoid JJ inhibitors and ARB's due to underlying renal artery stenosis. The daughter reiterates that she does not want any intervention attempted on the left renal artery stenosis. Due to the patient's advanced age, I agree. (2) Weakness: Plan: Patient has been experiencing increased generalized weakness and fatigue over the past 48 hours. OT and PT assessments requested and pending. I suspect she will need a short placement in SNF before she can return to [facility]. (3) Hypercalcemia: Plan: Mild on admission. Now normalized. PTH is markedly elevated. This will need further outpatient follow-up. (4) Alzheimer's type dementia: Plan: Continue at bedtime Seroquel. Fall/aspiration precautions ordered Plan To be determined. OT and PT assessments requested. She may need short stay in SNF before she can return to [facility] Admission and Anticipated Discharge Date Admission Date: November 11, 2023 Subjective The patient is sleeping at the time of my rounds. Daughter is at the bedside and she again reiterates that she does not want anything done regarding left renal artery stenosis. Hydralazine dosage uptitrated today, November 12, for better blood pressure control. OT and PT evaluations pending. Review of Systems 2 Review of Systems: The patient is asleep at that time of my rounds Physical Exam 2 Physical Exam: General-sleeping soundly. No fever HEENT-head atraumatic and normocephalic Neck-no lymphadenopathy or thyromegaly, trachea midline Chest-clear to auscultation anteriorly. No rales, wheezing or rhonchi Cardiac-regular rate and rhythm, normal S1 and S2 Abdomen-normal bowel sounds, no hepatosplenomegaly Extremities-no cyanosis, clubbing, or edema Neuro-sleeping. Cannot assess Psych-sleeping. Cannot assess Results & Data Results & Data Vital Signs (Past 12 Hours) Vital Signs Temp Pulse Resp BP Pulse Ox O2 Del Method 11/13/23 10:59 36.4 C L 72 22 120/59 L 93 Room Air 11/13/23 07:04 36.6 C 92 H 24 199/78 H 95 Room Air 11/13/23 03:05 36.6 C 79 16 156/70 H 96 Room Air Laboratory Results 11/12/23 05:33 11/13/23 05:35 PG Care Time/CCT Total # of Minutes Spent Total Time Spent with Patient: Total time spent is greater than 50% in coordination of care (as documented) at patient's floor/unit and/or counseling patient: Coding Level of Care Code 84572 SUB INP/OBS CARE 3/50MIN Diagnoses Hypertension I10 Hypertension type: unspecified Weakness R53.1 Hypercalcemia E83.52 Mild late onset Alzheimer's dementia without behavioral disturbance, psychotic disturbance, mood disturbance, or anxiety G30.1; F02.A0 Alzheimer's disease onset: late onset Dementia severity: mild Dementia behavioral or psychological symptom: without behavioral, psychotic, or mood disturbance or anxiety (1) Hypertension Hypertension type: unspecified Qualified Code(s): I10 - Essential (primary) hypertension (4) Alzheimer's type dementia Alzheimer's disease onset: late onset Dementia severity: mild Dementia behavioral or psychological symptom: without behavioral, psychotic, or mood disturbance or anxiety Qualified Code(s): G30.1 - Alzheimer's disease with late onset; F02.A0 - Dementia in other diseases classified elsewhere, mild, without behavioral disturbance, psychotic disturbance, mood disturbance, and anxiety
[2023-11-14 06:19] LABS: BUN Creatinine Ratio 27.6 (10-20); Calcium 10.5 mg/dl (8.6-10.3); Creatinine Clr Calc Pharmacy 24.7 ml/min; Est GFR (African American) 48.3 ml/min; Est GFR (Non-African American) 41.7 ml/min
[2023-11-14] MEDS: ACETAMINOPHEN 325 MG TAB PO PRN (12:34)
--- NOTE | 2023-11-14 14:44 | Hospitalist Progress Note ---
Date of Service November 14, 2023 Assessment & Plan (1) Hypertension: Plan: Uncontrolled on admission. Left proximal renal artery stenosis noted on ultrasound. JJ inhibitor has been discontinued. Hydralazine is new and uptitrated several times this admission. Blood pressure has markedly improved now. Will avoid JJ inhibitors and ARB's due to underlying renal artery stenosis. The daughter reiterates that she does not want any intervention attempted on the left renal artery stenosis. Due to the patient's advanced age, I agree. (2) Weakness: Plan: Patient has been experiencing increased generalized weakness and fatigue over the past 48 hours. OT and PT assessments requested and pending. I suspect she will need a short placement in SNF before she can return to [facility]. (3) Hypercalcemia: Plan: Mild on admission. Initially normalized then mild elevation noted today, November 13. PTH is markedly elevated. This will need further outpatient follow-up. (4) Alzheimer's type dementia: Plan: Continue at bedtime Seroquel. Fall/aspiration precautions ordered Plan To be determined. OT and PT assessments requested. She may need short stay in SNF before she can return to [facility] Admission and Anticipated Discharge Date Admission Date: November 11, 2023 Subjective No new problems. Blood pressure markedly improved after addition of hydralazine. Amlodipine was recently discontinued as an outpatient due to onset of peripheral edema and lisinopril was discontinued this admission due to presence of renal artery stenosis. OT and PT assessments pending. Calcium is slightly elevated at 10.5, of no clinical consequence at this time. PTH is markedly elevated at 128. She will eventually need endocrinology evaluation as an outpatient. Review of Systems 2 Review of Systems: Constitutional-no fever or chills ENT-no blurred vision, no double vision, no epistaxis, no sore throat Respiratory-no cough, no wheezing, no shortness of breath Cardiac-no palpitations, no chest pain, no syncope GI-no nausea, vomiting, diarrhea, melena, hematochezia -no urinary retention, no urinary incontinence, no dysuria, no hematuria Musculoskeletal-no joint pain, no muscle tenderness Skin-no bruising, no rashes, no pruritus Neuro-no isolated weakness, no paresthesia, no weakness Psych-no depression, no anxiety Physical Exam 2 Physical Exam: General-alert and oriented x1, no fever, no chills HEENT-head atraumatic and normocephalic, pupils equal and reactive to light, extraocular muscles intact Neck-no lymphadenopathy or thyromegaly, trachea midline Chest-clear to auscultation. No rales, wheezing or rhonchi Cardiac-regular rate and rhythm, normal S1 and S2 Abdomen-normal bowel sounds, no hepatosplenomegaly Extremities-no cyanosis, clubbing, or edema Neuro-cranial nerves II through XII intact, motor and sensory function within normal limits, strength symmetrical, no focal deficits Psych-normal affect, normal mood Results & Data Results & Data Vital Signs (Past 12 Hours) Vital Signs Temp Pulse Pulse Resp BP Pulse Ox O2 Del Method 11/14/23 11:06 36.4 C L 64 24 118/59 L 97 Room Air 11/14/23 07:41 76 11/14/23 07:09 36.7 C 82 15 159/91 H 95 Room Air 11/14/23 02:59 36.8 C 83 16 180/65 H 95 Room Air Laboratory Results 11/12/23 05:33 11/14/23 05:35 PG Care Time/CCT Total # of Minutes Spent Total Time Spent with Patient: Total time spent is greater than 50% in coordination of care (as documented) at patient's floor/unit and/or counseling patient: Coding Level of Care Code 48130 SUB INP/OBS CARE 2/35MIN Diagnoses Hypertension I10 Hypertension type: unspecified Weakness R53.1 Hypercalcemia E83.52 Mild late onset Alzheimer's dementia without behavioral disturbance, psychotic disturbance, mood disturbance, or anxiety G30.1; F02.A0 Alzheimer's disease onset: late onset Dementia severity: mild Dementia behavioral or psychological symptom: without behavioral, psychotic, or mood disturbance or anxiety (1) Hypertension Hypertension type: unspecified Qualified Code(s): I10 - Essential (primary) hypertension (4) Alzheimer's type dementia Alzheimer's disease onset: late onset Dementia severity: mild Dementia behavioral or psychological symptom: without behavioral, psychotic, or mood disturbance or anxiety Qualified Code(s): G30.1 - Alzheimer's disease with late onset; F02.A0 - Dementia in other diseases classified elsewhere, mild, without behavioral disturbance, psychotic disturbance, mood disturbance, and anxiety
[2023-11-15] MEDS: hydrALAZINE HCL 20 MG/ML VIAL IV PRN (06:06)
[2023-11-15 07:16] LABS: Calcium 10.5 mg/dl (8.6-10.3); Potassium 4.1 mmol/L (3.5-5.1)
[2023-11-15 07:22] LABS: BUN Creatinine Ratio 30.9 (10-20); Creatinine Clr Calc Pharmacy 19.1 ml/min; Est GFR (African American) 39.9 ml/min; Est GFR (Non-African American) 34.4 ml/min
[2023-11-15] MEDS: amLODIPine BESYLATE 5 MG TAB PO SCH (11:02)
--- NOTE | 2023-11-15 12:45 | Discharge Summary ---
Discharge Summary Date of Service November 15, 2023 Principal Dx & Hospital Course #1 = Principal Diagnosis (1) Hypertension: Uncontrolled on admission. Left proximal renal artery stenosis noted on ultrasound. JJ inhibitor has been discontinued. Hydralazine is new and uptitrated several times this admission. Blood pressure has markedly improved now. Will avoid JJ inhibitors and ARB's due to underlying renal artery stenosis. The daughter reiterates that she does not want any intervention attempted on the left renal artery stenosis. Due to the patient's advanced age, I agree. (2) Weakness: Patient has been experiencing increased generalized weakness and fatigue over the past 48 hours. OT and PT assessments requested and pending. I suspect she will need a short placement in SNF before she can return to [facility]. (3) Hypercalcemia: Mild on admission. Initially normalized then mild elevation noted today, November 13. PTH is markedly elevated. This will need further outpatient follow-up. (4) Alzheimer's type dementia: Continue at bedtime Seroquel. Fall/aspiration precautions ordered Notes For Next Care Provider Needs follow up on hypercalcemia, primary hyperparathyroidism Follow up blood pressures Medication Changes From Visit Added amlodipine 2.5mg po qAM Discontinued lisinopril Added hydralazine 50mg po tid Admission HPI Per Admitting Provider Susan is an 87-year-old female with PMH of resistant hypertension, bradycardia, multiple falls, gait instability, lumbar radiculopathy, dementia, GERD who presented to the [facility] ED on 11/11/2023 via EMS due to multiple complaints including fatigue, dizziness, and insomnia. On arrival to the ED she was noted to be hypertensive at 212/80 but otherwise stable. Labs were significant for a calcium level of 11 with ionized calcium of 1.44, UA with 3+ protein and full respiratory BioFire negative. CT of the head and brain without contrast and chest x-ray were read as negative for acute findings. Prior to admission the patient was given 500 mL NSS, 1 L LR, and 220 units SQ calcitonin. Patient was sitting in bed in no acute distress at the time of exam with family bedside, the patient was trembling significantly due to being cold at the start my exam. They confirm that she has a long history of resistant hypertension. Over the past 24 hours they have noted the patient having increased difficulty with her speech at times with increased fatigue. She was seen in the [facility] ED On 11/09/2023 due to ongoing hypertension. CT of the head and brain without contrast at that time was negative for acute findings. She was given a dose of IV hydralazine with moderate improvement in blood pressure and mental status. When asked, the patient denies current headache, changes in vision, hearing, taste, smell, chest pain, shortness of breath, abdominal pain, nausea/vomiting, dysuria/hematuria, diarrhea, and recent trauma. She and her family confirm that the patient is a DNR/DNI. I was able to call and speak to I was able to call and speak to the nursing staff at [facility]. Explained that the patient had recent changes to her antihypertensives. She is continued on 200 mg twice daily of p.o. labetalol. Her amlodipine has been stopped on 11/09/2023 due to increased leg swelling and pain. She had first been started on 5 mg twice daily of lisinopril and replace of the amlodipine. Lisinopril was increased to 10 mg twice daily on 11/10/2023. They confirmed that the patient did have her morning doses of both for labetalol and lisinopril prior to ED arrival. Please refer to Dr. Karimi's attestation for any changes to the treatment plan Discharge Exam Constitutional WD/WN, vitals as above Respiratory normal respiratory effort, lungs clear to auscultation Cardiovascular RRR, no murmur, no edema Psychiatric Orientation: alert, oriented to person, oriented to place and cooperative Updated Medication List Medication Instructions Recorded Confirmed Type prevagen 10 mg PO QAM 01/10/19 11/11/23 History lidocaine HCl 4 % topical cream 1 applic topical QID neck pain 05/10/23 11/11/23 History (Aspercreme (lidocaine HCl)) acetaminophen 500 mg tablet 1,000 mg PO Q6H PRN pain/fever 07/02/23 11/11/23 History menthol 0.44 %-zinc oxide 20.6 % 1 applic topical BID 07/02/23 11/11/23 History topical ointment (Calmoseptine) omega-3 700 mg-dha and epa 600 1 cap PO QAM 07/02/23 11/11/23 History mg-fish and krill oil 900 mg capsule (ZaaskRed Advanced 4-in-1) labetalol 200 mg tablet 200 mg PO BID 30 days #60 tabs 07/16/23 11/11/23 Rx ANKLE FOOT ORTHOSIS BRACE #1 ea 08/05/23 09/28/23 Rx aspirin 81 mg tablet,delayed 81 mg PO DAILY 11/11/23 11/11/23 History release buspirone 5 mg tablet 5 mg PO TID 11/11/23 11/11/23 History ferrous sulfate 325 mg (65 mg 325 mg PO BID 11/11/23 11/11/23 History iron) tablet lisinopril 10 mg tablet 10 mg PO BID 11/11/23 11/11/23 History meclizine 12.5 mg tablet 12.5 mg PO TID PRN Vertigo 11/11/23 11/11/23 History polyethylene glycol 3350 17 gram 8.5 g PO Q48H Constipation 11/11/23 11/11/23 History oral powder packet (ClearLax) Seroquel 11/12/23 History amlodipine 2.5 mg tablet 2.5 mg PO DAILY #30 tabs 11/15/23 Rx hydralazine 50 mg tablet 50 mg PO TID #90 tabs 11/15/23 Rx Hospital Stay Data Consultations 11/11/23 13:15 ED Decision to Admit Stat Diagnostic Imagining Performed 11/11/23 12:17 CT head/brain wo con Stat 11/11/23 12:22 CT abd pelvis wo con Stat 11/11/23 16:31 US duplex renal artery Routine Pending Results Patient Have Any Pending Studies at Discharge: No Discharge Instructions Given to Patient (Per Discharging Provider) You were admitted with dizziness and uncontrolled high blood pressure. This improved with adding hydralazine and a lower dose of amlodipine back on to your regimen. You have high calcium levels from an overgrowth of your parathyroid gland(s). Please follow up with your PCP regarding this. Total Time Total Time Spent Total Time Spent (In Minutes): 35 min Total Time Includes: Examination of the Patient, Discharge Planning and Medication Reconciliation Coding Diagnoses Hypertension I10 Hypertension type: unspecified Weakness R53.1 Hypercalcemia E83.52 Mild late onset Alzheimer's dementia without behavioral disturbance, psychotic disturbance, mood disturbance, or anxiety G30.1; F02.A0 Alzheimer's disease onset: late onset Dementia severity: mild Dementia behavioral or psychological symptom: without behavioral, psychotic, or mood disturbance or anxiety
== END 2023-11-15 14:14 | disposition home health service (06) | DRG 305 ==
LOC: ED 10:53 → 2E 13:47 → SUATTDRO 13:47 → 2E 16:00